=== PATIENT | female | born 1945 | race Caucasian/White ===

== ENCOUNTER 2020-03-07 10:20 | Inpatient (IN) ==
--- NOTE | 2020-02-22 13:24 | Anesthesiology Consultation ---
Date of Service February 22, 2020 Assessment & Plan (1) Encounter for pre-operative examination: Chart Review Chart Review: Pending: Refer to Additional Notes / Consult section (pending cardio clearance and preop Covid testing. ) and Patient NOT seen in Pre Admission Testing Awaiting cardio clearance (updated EKG from PAT showing RVR was faxed to cardio's office for review). Will await final cardio clearance. Surgeon's office was also informed of elevated WBC. Pt follows with Dr. Sanchez for cardiology and Dr. Klein in [place] for EP. Per nursing assessment 02/22/2020, [place] of [place] [facility]. Travels to [facility] of medical appts. Wears PPE in public. No known Covid positive contacts or Covid related symptoms. Scheduled for preop Covid testing 03/01/20 at [facility] in [place]. Patient discharged from [facility] on 02/08/2020 = patient initially presented with abdominal pain. Patient diagnosed with acute sigmoid diverticulitis, newly diagnosed left renal mass, paroxysmal A. fib, asymptomatic cholelithiasis. CT scan done as inpatient showed findings consistent with diverticulitis. Also showed 3.7 cm inferior left pole kidney mass. Also found to have small stones with possible sludge in gallbladder without secondary signs of infection. Patient was admitted and treated with IV Zosyn. Discharged on Augmentin x5 days. Also made arrangements to follow-up with urology as outpatient for newly diagnosed left renal tumor. Seen by EP on 02/01/20= seen for follow up on a fib. Pt interested in AF ablation. Risks and benefits of catheter ablation reviewed with patient. May need more that one ablation. Pt also warned this procedure may not be cure and AC may continue to be needed. Also reviewed antiarrhythmic therapy for rhythm management but patient not interested in additional medications at this time. Agreeable to ablation. Will obtain CT scan for anatomic definition of left atrium and pulmonary venous anatomy mapping prior to AF ablation. CHADS2-vasc is three which corresponds to 3.2% annual risk for thromboembolic events. On Eliquis. History Surgery Operation Date: 03/07/20 11:30 Proposed Procedures p Left Robotic Partial Nephrectomy - Horacio Gant MD Height/Weight Height: 5 ft 2.5 in Weight: 74.6 kg Allergies Allergy/AdvReac Type Severity Reaction Status Date / Time naproxen [From Naprosyn] Allergy Mild diarrhea Verified 02/22/20 12:14 Medications Home Medications Medication Instructions Recorded Confirmed Last Taken losartan 50 mg tablet 50 mg PO QAM 05/24/19 02/22/20 Unknown pravastatin 80 mg tablet 80 mg PO PM 05/24/19 02/22/20 Unknown apixaban 5 mg tablet 5 mg PO BID 09/27/19 02/22/20 Unknown cholecalciferol (vitamin D3) 10 10 mcg PO QDL 09/27/19 02/22/20 Unknown mcg (400 unit) capsule fish oil-dha-epa 1,200 mg-144 1 cap PO QAM 09/27/19 02/22/20 Unknown mg-216 mg capsule magnesium gluconate 27 mg 27 mg PO QAM 09/27/19 02/22/20 Unknown magnesium (500 mg) tablet raloxifene 60 mg tablet 60 mg PO QAM 09/27/19 02/22/20 Unknown vit C,E,zinc,copper-aucat5r 250 1 cap PO QAM 09/27/19 02/22/20 Unknown mg-lutein 5 mg-zeaxanthin 1 mg capsule metoprolol succinate 25 mg 50 mg PO QAM 11/27/19 02/22/20 Unknown tablet,extended release 24 hr solifenacin 10 mg tablet 10 mg PO DAILY #30 tab 12/07/19 02/22/20 Unknown coenzyme Q10 [Co Q-10] 100 mg PO PM 02/22/20 02/22/20 Unknown Past Medical History Medical History (Updated 02/26/20 @ 15:17 by Jessica Anton PA-C) Benign essential hypertension COPD (chronic obstructive pulmonary disease) Has seen Dr. Hernandez in the past - does not have COPD per patient Diverticulitis Discharged from [facility] 02/08/20- symptoms have since resolved per 02/26/20 PAT appt Hyperlipidemia Mitral valve prolapse Mitral valve "normal" per 07/2019 BILL Neoplasm of left kidney Osteopenia Paroxysmal atrial fibrillation Dx'ed in 2011- on Eliquis - had AF with RVR July 2019- underwent BILL guided DCCV. Recently had ILR implanted 11/2019. Prediabetes No medications Exercise / Class Metabolic Activity II 4-5 Yardwork/Stairs/Walk up hill (one flight of stairs- no chest pain or SOB ) Past Family History Family History Father Coronary heart disease Prostate cancer Myocardial infarction, Onset Age: 75 Hypertension Brother Alcohol abuse Heart disease Sister Breast cancer, Onset Age: 29 Mother Diabetes Hypertension Heart disease Past Surgical History Surgical History (Updated 02/26/20 @ 15:20 by Jessica Anton PA-C) History of bronchoscopy History of cardioversion July 2019 History of colonoscopy History of tonsillectomy and adenoidectomy S/P arthroscopic knee surgery right S/P section x4 S/P hysterectomy secondary to fibroids Status post placement of implantable loop recorder (11/2019) [employer]. Implanted Nov 2019 > follows dr. poncho ng cardiology - will be getting ablation Apr 2020 Past Anesthesia History No Hx of Anesthesia Complications and No Family Hx of Anesthesia Complications History of PONV No Hx of Motion Sickness and History of PONV (one episode with knee surgery ) Social History Smoking Status: Never smoker Do You Dip or Chew Tobacco: No Hx Alcohol Use: Yes Alcohol type: wine alcohol intake frequency: holidays/special occasions only Hx Substance Use: No substance use type: does not use Review of Systems Occ reflux - relieved OTC Tums Occ palpitations - secondary to a fib Patient denies chest pain, shortness of breath, dyspnea on exertion, cough, wheezing. No hx of seizures, stroke, RI, apnea/snoring. No hx of blood clots or blood transfusions Physical Exam Vital Signs VITALS BP 130/87 P 123 (did call cardio's office re: tachycardia- pt asymptomatic/chronic issue- cardio office states pt can go home and recommended EKG be faxed for Dr. Sanchez's review) TEMP 97.7 SP02 98% RESP 16 Constitutional no acute distress ENMT Mouth: no TMJ clicking Thyromental Distance: > or= 3.5 Finger Breadths (3.5) Mallampati Class: III No loose or missing teeth Caps and crowns on molars Neck neck extension not limited Respiratory normal respiratory effort; no respiratory distress Auscultation: lungs clear to auscultation bilaterally; no wheezes Cardiovascular Rate/Rhythm: regular rate and regular rhythm Heart Sounds: no murmur Vessels: no carotid bruit Musculoskeletal Spine: no pain with cervical ROM Extremities: extremities normal to inspection Psychiatric Orientation: alert Testing Laboratory Results 02/26/20 14:08 02/26/20 14:08 Urine Color Yellow 02/26/20 14:08 Urine Appearance Clear (Clear) 02/26/20 14:08 Urine pH 5.5 (4.5-7.5) 02/26/20 14:08 Ur Specific [place] 1.021 (1.000-1.030) 02/26/20 14:08 Urine Protein Negative (Negative) 02/26/20 14:08 Urine Glucose (UA) Negative (Negative) 02/26/20 14:08 Urine Ketones Negative (Negative) 02/26/20 14:08 Urine Nitrite Negative (Negative) 02/26/20 14:08 Ur Leukocyte Esterase Negative (Negative) 02/26/20 14:08 Blood Type O Negative 02/26/20 14:08 Antibody Screen NEGATIVE 02/26/20 14:08 Electrocardiogram Date: 02/26/20 Atrial fibrillation with RVR at 119 bpm. Chest X-Ray Date: 06/29/19 Findings: + NAD Mildly hyperinflated and essentially clear aside from linear densities in both lower lungs that are combination of platelike atelectasis and scars, some which are new since 05/24/2019 and others of which are unchanged since 2016. No infiltrate. Echocardiogram Date: 08/14/19 EF: 55-60% LV Function: normal Valvular Disease: + MR (Mild) BILL Normal left ventricle size. Normal right ventricle size. Right ventricle is normal function. Nonrestrictive aortic valve. No thrombus in left atrial appendage. Stress Test Date: 02/02/19 Type: exercise MPHR =133%. 10.1 METS achieved. Negative EKG stress test. No chest pain associated with exertion. Atrial arrhythmia periodically demonstrated with stress testing.
--- NOTE | 2020-02-22 16:27 | PAT Medication Instructions ---
Medication Instructions Date of Service February 22, 2020 Home Medications Medication Instructions Recorded albuterol sulfate 90 mcg/actuation 1 puffs INH .COMPLEX PRN #18 gm 06/22/19 aerosol inhaler solifenacin 10 mg tablet 10 mg PO DAILY #30 tab 12/07/19 losartan 50 mg tablet 50 mg PO QAM pravastatin 80 mg tablet 80 mg PO PM albuterol sulfate 90 mcg/actuation aerosol inhaler 1 puffs INH .COMPLEX PRN apixaban 5 mg tablet 5 mg PO BID cholecalciferol (vitamin D3) 10 mcg (400 unit) capsule 10 mcg PO QDL fish oil-dha-epa 1,200 mg-144 mg-216 mg capsule 1 cap PO QAM magnesium gluconate 27 mg magnesium (500 mg) tablet 27 mg PO QAM raloxifene 60 mg tablet 60 mg PO QAM vit C,E,zinc,copper-odbxk9l 250 mg-lutein 5 mg-zeaxanthin 1 mg capsule 1 cap PO QAM metoprolol succinate 25 mg tablet,extended release 24 hr 50 mg PO QAM solifenacin 10 mg tablet 10 mg PO DAILY coenzyme Q10 [Co Q-10] 100 mg PO PM ASK your prescriber and surgeon apixaban 5 mg tablet 5 mg PO BID STOP taking 2 weeks before surgery coenzyme Q10 [Co Q-10] 100 mg PO PM fish oil-dha-epa 1,200 mg-144 mg-216 mg capsule 1 cap PO QAM vit C,E,zinc,copper-watnh7f 250 mg-lutein 5 mg-zeaxanthin 1 mg capsule 1 cap PO QAM DO NOT take the morning of surgery losartan 50 mg tablet 50 mg PO QAM cholecalciferol (vitamin D3) 10 mcg (400 unit) capsule 10 mcg PO QDL magnesium gluconate 27 mg magnesium (500 mg) tablet 27 mg PO QAM raloxifene 60 mg tablet 60 mg PO QAM (unless surgeon directs otherwise) solifenacin 10 mg tablet 10 mg PO DAILY Take morning of surgery With a small sip of water, OTHERWISE NOTHING TO EAT OR DRINK AFTER MIDNIGHT: albuterol sulfate 90 mcg/actuation aerosol inhaler 1 puffs INH .COMPLEX PRN (use if needed; please bring with you to hospital day of surgery if possible) metoprolol succinate 25 mg tablet,extended release 24 hr 50 mg PO QAM Take evening before surgery pravastatin 80 mg tablet 80 mg PO PM albuterol sulfate 90 mcg/actuation aerosol inhaler 1 puffs INH .COMPLEX PRN (if needed) Other Notes If you have any questions please call us at [phone] or [phone] or [phone] or [phone]
[2020-02-26 15:33] LABS: Basophils # (auto) 0.01 K/uL (0-0.2); Basophils % (auto) 0.1 %; Hematocrit (blood only) 45.5 % (37-47); Hemoglobin 14.8 g/dL (12.0-16.0); Immature Granulocytes # (auto) 0.07 K/uL (0.00-0.02); Immature Granulocytes % (auto) 0.6 %; Lymphocytes # (auto) 3.45 K/uL (1.2-3.4); Lymphocytes % (auto) 27.3 %; Mean Corpuscular Hemoglobin 29.8 pg (25-34); Mean Corpuscular Hgb Conc 32.5 g/dL (32-36); Mean Corpuscular Volume 91.5 fL (80-100); Monocytes # (auto) 0.99 K/uL (0.11-0.59); Monocytes % (auto) 7.8 %; Neutrophils # (auto) 8.12 K/uL (1.4-6.5); Neutrophils % (auto) 64.2 %; Platelet Count 338 K/uL (130-400); RDW Coefficient of Variation 13.9 % (11.5-14.5); RDW Standard Deviation 46.5 fL (36.4-46.3); Red Blood Count 4.97 M/uL (4.2-5.4); White Blood Count 12.64 K/uL (4.8-10.8)
[2020-02-26 15:39] LABS: BUN Creatinine Ratio 21.2 (10-20); Calcium 9.9 mg/dl (8.5-10.1); Creatinine Clr Calc Pharmacy 48.7 ml/min; Est GFR (African American) 66.7; Est GFR (Non-African American) 57.5; Potassium 4.2 mmol/L (3.5-5.1)
[2020-02-26 15:47] LABS: Appearance Urine Clear (Clear); Bilirubin Urine Negative (Negative); Blood Urine Negative (Negative); Color Urine Yellow; Glucose Urine UA Negative (Negative); Ketones Urine Negative (Negative); Leukocyte Esterase Urine Negative (Negative); Nitrite Urine Negative (Negative); Protein Urine Negative (Negative); Specific Gravity Urine 1.021 (1.000-1.030); Urobilinogen Urine Negative (Negative); pH Urine 5.5 (4.5-7.5)
--- NOTE | 2020-02-26 16:47 | Electrocardiogram Report ---
Test Reason : Blood Pressure : / mmHG Vent. Rate : 119 BPM Atrial Rate : 129 BPM P-R Int : 000 ms QRS Dur : 066 ms QT Int : 288 ms P-R-T Axes : 000 046 016 degrees QTc Int : 405 ms Atrial fibrillation with rapid ventricular response Abnormal ECG No previous ECGs available Confirmed by Jeremy Doherty ([id number]) on 02/26/2020 4:47:21 PM Referred By: Horacio Gant Confirmed By:Jeremy Doherty
[~2020-03-07 10:20] MED LIST: LACTATED RINGER'S 1,000 ML IV SCH; ceFAZolin 2000MG 2,000 MG/15 ML SYR IV SCH
[2020-03-07] MEDS ORDERED: LIDOCAINE HCL 2% 2 ML VIAL/AMP(20MG/ML) INFIL ONE (11:53)
[2020-03-07] MEDS ORDERED: GLYCOPYRROLATE 0.2 MG/ML VIAL ONE ×2 (11:53→15:31)
[2020-03-07] MEDS ORDERED: ONDANSETRON INJ 2 MG/ML 2 ML VIAL ONE (11:53)
[2020-03-07] MEDS ORDERED: NEOSTIGMINE METHYLSULFATE 5 MG/5 ML SYR ONE (11:53)
[2020-03-07] MEDS ORDERED: DEXAMETHASONE SOD INJ 4 MG/ML VIAL ONE (11:53)
[2020-03-07] MEDS ORDERED: PROPOFOL IV EMULSION 10 MG/ML 20 ML VIAL IV ONE (11:53)
[2020-03-07] MEDS ORDERED: fentaNYL citrate 100 MCG/2 ML VIAL ONE (11:54)
[2020-03-07] MEDS ORDERED: MIDAZOLAM HCL 1 MG/ML 2ML VIAL ONE (11:54)
[2020-03-07] MEDS ORDERED: PROMETHAZINE HCL 12.5 MG in SODIUM CHLORIDE 0.9% 50 ML IV PRN (12:37)
[2020-03-07] MEDS ORDERED: HYDROmorphone INJ 2 MG/ML SYR/VIAL IV PRN (12:37)
[2020-03-07] MEDS ORDERED: ONDANSETRON INJ 2 MG/ML 2 ML VIAL IV PRN ×2 (12:37→17:00)
[2020-03-07] MEDS ORDERED: ePHEDrine sulfate 50 MG/ML AMP IV PRN (12:37)
[2020-03-07] MEDS ORDERED: ATROPINE SULFATE 0.1 MG/ML 10ML SYR IV PRN (12:37)
[2020-03-07] MEDS ORDERED: METOCLOPRAMIDE HCL INJ 5 MG/ML 2 ML VIAL IV PRN (12:37)
[2020-03-07] MEDS ORDERED: BUPIVACAINE 0.5 % 5 MG/1 ML MPF 30ML VIAL ONE (12:46)
--- NOTE | 2020-03-07 12:52 | History & Physical Bridge Note ---
Date of Service March 07, 2020 History & Physical Bridge Note I have examined the patient, reviewed the History & Physical and in the interval since the performance of the History & Physical I have noted the following changes of clinical significance: no changes noted
[2020-03-07] MEDS ORDERED: PHENYLEPHRINE 100MCG/ML 5ML SYR ONE (13:35)
[2020-03-07] MEDS ORDERED: ceFAZolin 2000MG 2,000 MG/15 ML SYR IV ONE (14:07)
[2020-03-07] MEDS ORDERED: TISSEEL FIBRIN SEALANT 10ML TOP ONE (14:07)
[2020-03-07] MEDS ORDERED: FLOSEAL HEMOSTATIC MATRIX 10ML TOP ONE (14:08)
[2020-03-07] MEDS ORDERED: SURGICEL ABSORB HEMOSTAT 2IN X 14IN TOP ONE (14:09)
[2020-03-07] MEDS: fentaNYL citrate 100 MCG/2 ML VIAL IV PRN ×2 (16:13→16:18)
[2020-03-07] MEDS ORDERED: HYDROmorphone INJ 1 MG/ML SYRINGE ONE (16:14)
--- NOTE | 2020-03-07 16:18 | Operative Report ---
PG Post Operative Report Pre & Post Diagnosis Operation Date: 03/07/20 12:35 Pre-Op Diagnosis: Left Renal Mass Post-Op Diagnosis: Left Renal Mass I identified the patient and participated in the time-out.: Yes Procedure Operation Date: 03/07/20 12:35 Actual Procedures p Left Robotic Partial Nephrectomy(Left) - Horacio Gant MD Surgeon Jhon Gant MD [employer] Jeremy Gentile; Debbie Hewitt; Kanika Bernal Estimated Blood Loss 50 Findings Consistent with Post-Op Diagnosis Specimens Left renal mass Description of Procedure Patient was identified in the preoperative holding area, appropriate informed consents were reviewed and completed and she was transported to the operating suite. Upon arrival she received appropriate preoperative antibiotics as well as general anesthesia. She was placed in a [id number] left side up lateral decubitus position. The bed was flexed and she was sterilely prepped and draped in standard fashion. After reviewing appropriate preoperative imaging, a Veress needle was passed into the left upper quadrant and the abdomen insufflated to 15 mmHg. I then marked tentative port locations before entering the abdomen with a 8 mm Visiport just lateral to the rectus border. This was just above the level of the umbilicus. Inspection revealed minimal to no adhesions in the left upper quadrant. She does have some adhesions in the lower midlineas would be expected from her prior C-sections. I marked other tentative port sites and subsequently placed 2 additional 8 mm ports in line with the first port but approximately 6 to 8 cm from it. 2 - 12 mm chef's assistant ports were placed just medial to this series of ports. We then docked the robot and began the surgery by incising the white line of Toldt and medializing the colon. Of note, there was a notable bulge visualized upon docking the robot and this was confirmed to be the tumor after mobilizing the colon. There is attenuated Gerota's fascia over this tumor, normal renal parenchyma was visualized around the perimeter of the tumor. I continue to mobilize through the splenic flexure and visualize the upper pole of the kidney. As we continued to dissect I encountered the gonadal vein inferior and medial to the kidney and I followed the gonadal vein to the renal vein. The renal artery was located immediately posterior to the renal vein and was easily dissected. There were no notable branches on either the vein or the artery. Both were cleared circumferentially to allow bulldog placement later. I then turned my attention back to the mass. I exposed the normal parenchyma around the border of the mass utilizing a combination of bipolar and monopolar electrocautery. I passed a laparoscopic ultrasound and performed an ultrasonographic evaluation of the mass. This confirmed the dimensions of the mass and help to judy appropriate borders for my resection. I scored the capsule of the kidney utilizing monopolar electrocautery. At that time I preplaced several sutures into the abdomen. We then marked the time and clamped the renal artery with a solitary bulldog clamp. A second clamp was placed on the renal vein. I then began to incise my previously marked area around the kidney mass. I carried this dissection through the superficial cortical tissue and into some sinus fat. Several vessels and collecting system were encountered. After entirely excising the mass, I utilized one of the previously placed suturesa 3-0 V-Loc to close the deeper structures including the vascular and collecting system openings. I controlled this with a Weck clip placed on the distal end as well as on the proximal end and tensioned it appropriately. I then utilized one of the additional 2-0 V-Loc to perform the remainder of the renorraphy utilizing a sliding clip technique. 4 passes across the defect entirely closed it. There was excellent apposition of the tissue and good hemostasis. I subsequently chose to remove the bulldog clamps, first removing the venous clamp followed by the arterial clamp. Hemostasis remained excellent at that time. Warm ischemia time was 16 minutes. I did use some cautery to cauterize the cut edges of the capsule to ensure persistent hemostasis. I then placed FloSeal across the defect followed by a layer of Tisseel. There was minimal perinephric fat but I did attempt to reapproximate some of this pad across the defect. The tumor was collected in an Endo Catch bag and after again confirming excellent hemostasis we undocked the robot. Specimen was extracted through the lowest robotic port after expanding this incision to a length of approximately 3 cm. The fascia in this incision was closed with 0 PDS. Jesus's fascia was r eapproximated utilizing a 0 Vicryl followed by closure of the skin with a 4-0 Monocryl. All other incisions were closed with a combination of a 0 Vicryl and a 4-0 Monocryl. All wounds were infiltrated with half percent Marcaine. Dermabond was placed over all the incisions. At that time she was reversed from anesthesia and extubated. She was taken to the PACU in stable condition. There were no complications. Jeremy Gentile assisted through the rinaldi portions of the case, Debbie Hewitt and Kanika Bernal were present and assisting from incision to closure. I attest to the content of the Intraoperative Record and any orders documented therein. Any exceptions are noted below.
--- NOTE | 2020-03-07 16:41 | Anesthesiology Progress Note ---
Date of Service March 07, 2020 Anesthesia Post Procedure Vital Signs Vital Signs: Temp Pulse Pulse Resp BP BP Pulse Ox 03/07/20 16:30 87 16 107/64 96 03/07/20 16:20 89 16 117/75 100 03/07/20 16:10 107 H 16 123/85 98 03/07/20 16:03 36.4 C L 95 H 16 128/97 98 03/07/20 10:51 36.5 C 90 20 129/76 100 Transfer of Care Handoff Completed per policy Notes Mental Status: alert / awake / arousable and participated in evaluation Patient Amnestic to Procedure: Yes Nausea / Vomiting: adequately controlled Pain: adequately controlled Airway Patency, RR, SpO2: stable & adequate BP & HR: stable & adequate Hydration State: stable & adequate Anesthetic Complications: no major complications apparent
[2020-03-07] MEDS ORDERED: oxyCODONE HCL IR 5 MG TAB (IMMEDIATE RELEASE) PO PRN (17:00)
[2020-03-07] MEDS ORDERED: MoRPHine SULFATE 2 MG/ML CARP IV PRN ×2 (17:00→17:09)
[2020-03-07] MEDS ORDERED: MoRPHine SULFATE 4 MG/ML 1 ML CARP\\VIAL IV PRN (17:00)
[2020-03-07] MEDS ORDERED: ALUMINUM/MAGNESIUM SUSP 30 ML UDC PO PRN (17:00)
[2020-03-07] MEDS: LACTATED RINGER'S 1,000 ML IV SCH (17:17)
[2020-03-07 17:24] LABS: Basophils # (auto) 0.01 K/uL (0-0.2); Basophils % (auto) 0.1 %; Eosinophils # (auto) 0.01 K/uL (0-0.5); Eosinophils % (auto) 0.1 %; Hematocrit (blood only) 41.7 % (37-47); Hemoglobin 13.5 g/dL (12.0-16.0); Immature Granulocytes # (auto) 0.04 K/uL (0.00-0.02); Immature Granulocytes % (auto) 0.3 %; Lymphocytes # (auto) 1.46 K/uL (1.2-3.4); Mean Corpuscular Hemoglobin 30.1 pg (25-34); Mean Corpuscular Volume 92.9 fL (80-100); Mean Platelet Volume 9.8 fL (7.4-10.4); Neutrophils # (auto) 11.31 K/uL (1.4-6.5); Neutrophils % (auto) 85.5 %; Platelet Count 204 K/uL (130-400); RDW Coefficient of Variation 13.9 % (11.5-14.5); RDW Standard Deviation 47.1 fL (36.4-46.3); Red Blood Count 4.49 M/uL (4.2-5.4); White Blood Count 13.23 K/uL (4.8-10.8)
[2020-03-07 17:32] LABS: Mean Corpuscular Hgb Conc 32.4 g/dL (32-36)
[2020-03-07 17:41] LABS: BUN Creatinine Ratio 15.3 (10-20); Calcium 8.7 mg/dl (8.5-10.1); Creatinine Clr Calc Pharmacy 40.8 ml/min; Est GFR (African American) 53.2; Est GFR (Non-African American) 45.9; Potassium 4.5 mmol/L (3.5-5.1)
[2020-03-07] MEDS: oxyCODONE HCL IR 5 MG TAB (IMMEDIATE RELEASE) PO PRN (18:25)
[2020-03-07] MEDS: DIGOXIN 0.25 MG TAB PO SCH (18:25)
[2020-03-07] MEDS: PRAVASTATIN SOD 40 MG TAB PO SCH (20:41)
[2020-03-07] MEDS: PANTOprazole 40 MG TAB PO SCH (20:42)
[2020-03-07] MEDS: METOPROLOL SUCC 50MG EXT REL TAB PO SCH (20:42)
[2020-03-07] MEDS: dilTIAZem HCL 120 MG CAPCR PO SCH (20:42)
[2020-03-07] MEDS ORDERED: NON-FORMULARY MEDICATION (Coenzyme Q10 [Co Q-10] 100 mg Capsule) PO SCH (21:00)
[2020-03-07] MEDS: ceFAZolin 2000MG 2,000 MG/15 ML SYR IV SCH (21:51)
[2020-03-08] MEDS: LACTATED RINGER'S 1,000 ML IV SCH ×3 (02:49→22:43)
[2020-03-08] MEDS: ceFAZolin 2000MG 2,000 MG/15 ML SYR IV SCH (06:18)
--- NOTE | 2020-03-08 07:23 | Urology Progress Note ---
Date of Service March 08, 2020 Assessment & Plan (1) Neoplasm of left kidney: POD #1 s/p L robotic partial nephrectomy - doing very well - OOB today - await labs - frausto out - advance diet - hx of afib - currently rate controlled, eliquis held - ideally until early next week - cont tele for now - monitor closely Admission and Anticipated Discharge Date Admission Date: March 07, 2020 Subjective doing very well no major pain overnight did not ambulate hungry good UoP - clear heart rate remained controlled - no subjective appreciation of palpitations, etc Physical Exam Physical Exam: incisions appropriate - no drainage, no erythema abd soft, minimal tenderness urine clear (frausto) Results & Data ([facility]) Vital Signs (Past 12 Hours) Vital Signs Temp Pulse Resp BP Pulse Ox 03/08/20 03:33 37 C 69 16 110/70 97 03/07/20 23:17 36.6 C 78 16 111/74 94 03/07/20 19:30 36.3 C L 73 18 125/82 93 PG Care Time/CCT Total # of Minutes Spent Total Time Spent with Patient: Total time spent is greater than 50% in coordination of care (as documented) at patient's floor/unit and/or counseling patient: Coding Level of Care Code 53542 Subseq Hosp Care Lvl 2 Diagnoses Neoplasm of left kidney D49.512
[2020-03-08 07:32] LABS: Hemoglobin 12.3 g/dL (12.0-16.0); Immature Granulocytes # (auto) 0.02 K/uL (0.00-0.02); Immature Granulocytes % (auto) 0.1 %; Lymphocytes # (auto) 1.92 K/uL (1.2-3.4); Lymphocytes % (auto) 13.4 %; Mean Corpuscular Hgb Conc 32.4 g/dL (32-36); Mean Corpuscular Volume 92.7 fL (80-100); Mean Platelet Volume 9.8 fL (7.4-10.4); Monocytes % (auto) 5.6 %; Neutrophils # (auto) 11.58 K/uL (1.4-6.5); Neutrophils % (auto) 80.9 %; Platelet Count 179 K/uL (130-400); RDW Standard Deviation 47.7 fL (36.4-46.3); White Blood Count 14.32 K/uL (4.8-10.8)
[2020-03-08 08:05] LABS: BUN Creatinine Ratio 15.8 (10-20); Calcium 8.6 mg/dl (8.5-10.1); Est GFR (African American) 55.4; Est GFR (Non-African American) 47.8; Potassium 4.1 mmol/L (3.5-5.1)
[2020-03-08] MEDS: dilTIAZem HCL 120 MG CAPCR PO SCH ×2 (09:04→20:01)
[2020-03-08] MEDS: RALOXIFENE HCL 60 MG TAB PO SCH (09:05)
[2020-03-08] MEDS: MAGNESIUM CHLORIDE 64MG DELAYED REL TAB PO SCH (09:05)
[2020-03-08] MEDS: CEROVITE ADV FORMULA TAB PO SCH (09:05)
[2020-03-08] MEDS: PANTOprazole 40 MG TAB PO SCH (09:05)
[2020-03-08] MEDS: LOSARTAN POTASSIUM 50 MG TAB PO SCH (09:09)
[2020-03-08] MEDS: METOPROLOL SUCC 50MG EXT REL TAB PO SCH ×2 (09:09→20:02)
[2020-03-08] MEDS: oxyCODONE HCL IR 5 MG TAB (IMMEDIATE RELEASE) PO PRN (09:21)
[2020-03-08] MEDS: ACETAMINOPHEN 325 MG TAB PO PRN ×2 (11:48→21:35)
[2020-03-08] MEDS: CHOLECALCIFEROL 400 UNITS 10 MCG TAB PO SCH (11:49)
[2020-03-08] MEDS: DIGOXIN 0.25 MG TAB PO SCH (17:44)
[2020-03-08] MEDS: PRAVASTATIN SOD 40 MG TAB PO SCH (20:01)
[2020-03-09 07:55] LABS: Basophils # (auto) 0.01 K/uL (0-0.2); Basophils % (auto) 0.1 %; Eosinophils # (auto) 0.02 K/uL (0-0.5); Eosinophils % (auto) 0.1 %; Hematocrit (blood only) 35.4 % (37-47); Hemoglobin 11.6 g/dL (12.0-16.0); Immature Granulocytes # (auto) 0.05 K/uL (0.00-0.02); Immature Granulocytes % (auto) 0.4 %; Lymphocytes # (auto) 2.49 K/uL (1.2-3.4); Lymphocytes % (auto) 17.5 %; Mean Corpuscular Hemoglobin 30.2 pg (25-34); Mean Corpuscular Hgb Conc 32.8 g/dL (32-36); Mean Corpuscular Volume 92.2 fL (80-100); Mean Platelet Volume 9.9 fL (7.4-10.4); Monocytes # (auto) 1.03 K/uL (0.11-0.59); Monocytes % (auto) 7.3 %; Neutrophils # (auto) 10.59 K/uL (1.4-6.5); Neutrophils % (auto) 74.6 %; Platelet Count 175 K/uL (130-400); RDW Standard Deviation 47.6 fL (36.4-46.3); Red Blood Count 3.84 M/uL (4.2-5.4); White Blood Count 14.19 K/uL (4.8-10.8)
[2020-03-09 08:27] LABS: BUN Creatinine Ratio 18.2 (10-20); Calcium 8.6 mg/dl (8.5-10.1); Creatinine Clr Calc Pharmacy 50.2 ml/min; Est GFR (African American) 66.7; Est GFR (Non-African American) 57.5
[2020-03-09] MEDS: CEROVITE ADV FORMULA TAB PO SCH (08:59)
[2020-03-09] MEDS: RALOXIFENE HCL 60 MG TAB PO SCH (08:59)
[2020-03-09] MEDS: PANTOprazole 40 MG TAB PO SCH (08:59)
[2020-03-09] MEDS: MAGNESIUM CHLORIDE 64MG DELAYED REL TAB PO SCH (08:59)
[2020-03-09] MEDS: LOSARTAN POTASSIUM 50 MG TAB PO SCH (08:59)
[2020-03-09] MEDS: LACTATED RINGER'S 1,000 ML IV SCH (09:03)
[2020-03-09] MEDS: ACETAMINOPHEN 325 MG TAB PO PRN ×2 (09:11→14:51)
[2020-03-09] MEDS: CHOLECALCIFEROL 400 UNITS 10 MCG TAB PO SCH (11:18)
--- NOTE | 2020-03-09 11:28 | Urology Progress Note ---
Date of Service March 09, 2020 Assessment & Plan (1) Neoplasm of left kidney: POD #2 s/p L robotic partial nephrectomy Patient continues to improve. Continue to monitor. No major fevers or chills. Has been slow to ambulate. Is slowly increasing diet as well. Patient was somewhat anxious about going home. We will plan to continue to monitor. If continues to improve patient likely able to be discharged possibly later today or tomorrow depending on results. Has history of bradycardia overnight. Had considerable issues with sleeping as well. Had a mild desaturation and was placed on oxygen which is being weaned off this morning. Has a few of her blood pressures medications being held. She had recently started a number of new medicines due to tachycardia. Will likely need to touch base with PCP to reevaluate and come up with plan for management with episodes of bradycardia if they continue. Patient does feel this time that she can go home. Has yet to have full return of bowel function. Encouraged small easy digest diets as well as ambulation. We will plan for discharge this afternoon Admission and Anticipated Discharge Date Admission Date: March 07, 2020 Subjective Postop from urologic surgery. Patient has been tolerating well, but is having some pain and discomfort. Incisions have been mild sore. Having some abdominal distension/gas pains. Has tolerated catheter. Has not had severe pain or uncontrollable pain. Patient has been ambulating. Has not had bowel movement or major change. No new nausea or vomiting. Had tolerated anesthesia without major problems Tolerated liquid diet postoperatively. Slowly advancing. Had bradycardia overnight. Patient had been placed on multiple new heart blood pressure medications in the last few months and feels that she is swelling from issues with tachycardia and her bradycardia. Held some of these this morning. And had no further issue. Also had mild desaturation overnight and was placed on low-flow oxygen. Patient is weaning off this morning. Review of Systems Review of Systems: All systems reviewed & are unremarkable except as noted in HPI & below Physical Exam Physical Exam: General: Alert in no acute distress. HEENT: Normocephalic Atraumatic. Inspection normal. Cranial Nerves 2-12 Grossly intact. Normal inspection of face. Normal inspection of neck. Psychologic: Normal affect. Respiratory: Nonlabored. No use of accessory muscles. No tachypnea or dyspnea. Cardiovascular: No tachycardia Skin: [place] and Dry. No rashes or visible lesions. Extremities/Lymphatics: No edema Abdomen: Appropriately tender. Mild distended. No rebound or guarding. Wound: Clean, dry, covered. Results & Data ([facility]) Vital Signs (Past 12 Hours) Vital Signs Temp Pulse Pulse Resp BP BP Pulse Ox 03/09/20 08:15 36.5 C 62 18 108/52 L 97 03/09/20 03:49 36.8 C 72 18 127/70 94 03/09/20 00:21 36.9 C 78 20 108/68 93 PG Care Time/CCT Total # of Minutes Spent Total Time Spent with Patient: Total time spent is greater than 50% in coordination of care (as documented) at patient's floor/unit and/or counseling patient: Coding Level of Care Code 00161 Subseq Hosp Care Lvl 3 Diagnoses Neoplasm of left kidney D49.512
[2020-03-09] MEDS: dilTIAZem HCL 120 MG CAPCR PO SCH (12:28)
[2020-03-09] MEDS: METOPROLOL SUCC 50MG EXT REL TAB PO SCH (12:29)
--- NOTE | 2020-03-09 12:35 | Discharge Summary ---
Date of Service March 09, 2020 Admission HPI Per Admitting Provider See H&P Admission Exam Per Admitting Provider See H&P Principal Diagnosis Left renal mass Discharge Exam General: Alert in no acute distress. HEENT: Normocephalic Atraumatic. Inspection normal. Psychologic: Normal affect. Skin: [place] and Dry. No rashes or visible lesions. Abdomen: Soft Non-distended. No rebound or guarding. 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 Continue to monitor. No major fevers or chills. Has been slow to ambulate. Is slowly increasing diet as well. Patient was somewhat anxious about going home. We will plan to continue to monitor. If continues to improve patient likely able to be discharged possibly later today or tomorrow depending on results. Has history of bradycardia overnight. Had considerable issues with sleeping as well. Had a mild desaturation and was placed on oxygen which is being weaned off this morning. Has a few of her blood pressures medications being held. She had recently started a number of new medicines due to tachycardia. Will likely need to touch base with PCP to reevaluate and come up with plan for management with episodes of bradycardia if they continue. Patient does feel this time that she can go home. Has yet to have full return of bowel function. Encouraged small easy digest diets as well as ambulation. We will plan for discharge this afternoon Total Time Total Time Spent Total Time Spent (In Minutes): 10 minutes Total Time Includes: Examination of the Patient, Discharge Planning, Medication Reconciliation and Communication With Other Providers Discharge Plan Discharge Items Patient Disposition: Home - Self-Care Reason For Visit: Renal Mass Discharge Diagnosis: Renal Mass Activity: Per Instructions section Lifting: No more than 10 pounds Bathing Comment: No tub baths or soaks. OK to shower 1 day after discharge. Sexual Activity: Wait until after follow-up appointment Exercise/Sports: Wait until after follow-up appointment Driving/Machine Use: Do not drive while taking prescription pain medication. Non-emergency contact: Surgeon and Urologist Call non-emergency contact if: your pain is not controlled, you have a fever, your temperature is above 101, your wound has increased redness, your wound has increased drainage and your wound pain has increased Follow-up/Referrals: Horacio Gant MD [Physician] - 03/20/20 10:45 am Flaquita Ortega, [Primary Care Provider] - Diet: Regular Addtl Attending Provider Instructions: Please take all medications as prescribed and keep all follow-ups as scheduled. Please call our office at [phone] with any questions, concerns or need to reschedule appointments for any reason. We are happy to assist you. Recovering at home: We recommend having someone with you for the first few days after surgery to help care for you. It is okay to shower tomorrow. Please avoid swimming, bathing or using hot tub until incisions are well healed. Avoid driving until you are not requiring pain medication any further. Walk at least a few times a day. Increase your distance, as you feel able. Stairs in your home are okay. Please avoid strenuous or sexual activity until your follow-up. We recommend using stool softener (i.e. Colace) to prevent constipation and straining, especially the first two weeks post operatively. Call [facility] at [phone] if you experience: Chest pain or trouble breathing (call [phone] or go to the hospital). Fever of 101F or higher Symptoms of infection at incision site, including redness or swelling, warmth, or bad-smelling drainage If you have catheter, and you notice: o Bloody urine or drainage that is dark red or has large clots (Please remember a small amount of blood is normal) o No drainage from the catheter for more than 6 hours o The catheter comes out of your bladder Pain that is not controlled with medicines Pending Studies at Discharge: Yes Studies:: Pathology Stand-Alone Forms: My [email or web address], Smoking Cessation Medications and DC Order Prescriptions: New Colace Clear 50 mg capsule 50 mg PO BID PRN (Reason: Constipation) Qty: 30 RF: 2 oxycodone 5 mg tablet 5 mg PO Q6H PRN (Reason: pain) Qty: 14 RF: 0 Colace Clear 50 mg capsule 50 mg PO BID PRN (Reason: constipation) Qty: 30 RF: 2 Continued Eliquis 5 mg tablet 5 mg PO BID RF: 0 raloxifene 60 mg tablet 60 mg PO QAM RF: 0 magnesium gluconate [Mag-G] 27 mg magnesium (500 mg) tablet 27 mg PO QAM RF: 0 fish oil-dha-epa 1,200-144-216 mg capsule 1 cap PO QAM RF: 0 cholecalciferol (vitamin D3) 10 mcg (400 unit) capsule 10 mcg PO QDL RF: 0 Ocuvite Adult 50 Plus 250-5-1 mg capsule 1 cap PO QAM RF: 0 metoprolol succinate 25 mg tablet extended release 24 hr 50 mg PO BID RF: 0 pravastatin 80 mg tablet 80 mg PO PM RF: 0 losartan 50 mg tablet 50 mg PO QAM RF: 0 coenzyme Q10 [Co Q-10] 100 mg Capsule 100 mg PO PM RF: 0 digoxin 250 mcg (0.25 mg) Tablet See Rx Instructions .ROUTE .COMPLEX RF: 0 diltiazem HCl 120 mg Capsule,Extended Release 12 Hr 120 mg PO BID RF: 0 Discharge Orders: Discharge Order (Routine); Ordered 03/09/20 Ordered By: Toro Gentile Admission Data Admit Date/Time: 03/07/20 16:13 Attending Provider: Horacio Gant Admit Provider: Horacio Gant Primary Care Provider: Flaquita Ortega Coding Level of Care Code D/C Day Management <30 mins Diagnoses Neoplasm of left kidney D49.512
--- NOTE | 2020-03-22 13:21 | Coding Query ---
PATHOLOGY To promote full compliance with coding requirements relating to patient care, physician participation is requested in all cases of greaser operator uncertainty. Please assist us with the question(s) below: Please review the Pathology report and please document any relevant diagnosis(es) below: Diagnosis(es): Renal oncocytoma Thank you Laura ALVAREZ
== END 2020-03-09 15:49 | disposition home or self-care (01) | DRG 658 ==
LOC: ASU 10:20 → 2S 16:13

== ENCOUNTER 2023-11-08 02:12 | Inpatient (IN) ==
[2023-11-08] MEDS: SODIUM CHLORIDE 0.9% 1,000 ML IV SCH ×2 (02:29→04:32)
--- NOTE | 2023-11-08 02:34 | Emergency Department Note ---
Impression & Plan Sepsis, Multifocal pneumonia, Anemia, Confusion, Atrial fibrillation with rapid ventricular response, Acute Lyme disease, Hyponatremia ED Provider Note ED Provider Note NAME: JANETT BAIN AGE:78 SEX: Female : 1945 ARRIVES VIA: EMS INFORMANT: Patient ED PROVIDER(s): Phuong Greer DO CHIEF COMPLAINT: Fever, confusion HPI: This is a 78-year-old female who presents via EMS after called EMS due to patient's increased confusion. He reported to them she has been ill over the last several days and he has been giving her Tylenol for fevers as well as doxycycline although EMS reports they do not know what the suspected source of her fever was. Patient became confused this evening prompting 's concern for additional evaluation. Patient complains of left low back pain and bilateral leg pain. She was noted by EMS to initially be hypoxic at 80% however saturations improved with initiation of oxygen via nasal cannula. Blood pressure stable throughout. Patient noted to be tachycardic in atrial fibrillation although EMS reports she does have a known history of atrial fibrillation. She denies any recent travel. She denies URI symptoms or abdominal pain. She denies any change in urine or stools. She denies any known sick contacts. PAST MEDICAL HISTORY:See Below PAST SURGICAL HISTORY:See Below FAMILY HISTORY:See Below SOCIAL HISTORY:See Below HOME MEDICATIONS:See Below ALLERGIES:See Below VITALS:See Below PHYSICAL EXAMINATION: GENERAL: alert, unwell appearing, well nourished, no distress, non-toxic EYE EXAM: normal conjunctiva, PERRL and EOM's grossly intact OROPHARYNX: no exudate, no erythema, lips, buccal mucosa, and tongue normal and mucous membranes are dry NECK: supple, no nuchal rigidity, no adenopathy, non-tender LUNGS: Decreased bilaterally to auscultation. Normal chest wall mechanics, no w/r/r, mild tachypnea HEART: no murmurs, S1 normal and S2 normal ABDOMEN: abdomen soft, non-tender, normo-active bowel sounds, no masses, no rebound or guarding. BACK: Back is symmetrical on inspection and there is no deformity, no midline tenderness, no CVA tenderness. SKIN: no rashes, petechiae, orbruising; warm to touch UPPER EXTREMITIES: upper extremities are grossly normal. FROM, nml pulses b/l. LOWER EXTREMITIES: No pitting edema. FROM, nml pulses b/l. NEURO EXAM: Normal sensorium, cranial nerves II-XII grossly intact, normal speech, no facial droop,nogross weakness of arms, no gross weakness of legs. Gross sensation intact. No ataxia. Vital Signs: reviewed and remarkable Differential Diagnosis: XAVIER, UTI, pneumonia, medication ADR, sepsis, dehydration, ICH, CVA, diverticulitis, viral syndrome, tickborne illness, as well as others were considered MEDICAL DECISION MAKING: This is a 78-year-old female who presents emergency department due to concern for confusion as well as recent fevers and myalgias. Patient ill-appearing on arrival. She had received 1 L of IV fluids en route from EMS. She was noted to be hypotensive and hypoxic. Oxygenation improved with initial use of nasal cannula however because patient appeared to be a mouth breather she was transition to an oxi mask. Labs drawn and sent, IV established, EKG and chest ray performed bedside interpreted by me and patient monitored on telemetry. Cultures, lactic acid, procalcitonin also sent. Patient was noted to be afebrile here however was hypotensive and additional IV fluids added. She was given a dose of IV antibiotics as a precaution due to concern for evolving sepsis. I did have an extensive conversation with the patient's who is a retired general surgeon once he presented to bedside. He was able to provide significant additional history. Patient noted to be in A-fib with RVR here although I suspect some of the rapid rate secondary to fever and infection. He states typically she is in normal sinus. Patient's heart rate improved with rehydration and temperature control. Patient did receive greater than 30 mL/KG of IV fluids based on actual body weight. No leukocytosis noted, however this may be due to 's initiation of amoxicillin at home over the last 2 days. She was noted to have a significantly elevated procalcitonin. Patient also noted to have hyponatremia, notes he was pushing her to drink more water. Patient's chest x-ray suggestive of multilobar pneumonia. Additional antibiotics were added as well as nasal swab for viral etiology. Patient sent for CT of the head as well as the abdomen and pelvis. These were reassuring but did note a possible pericardial effusion. Patient noted to have worsened anemia compared to prior although does note prior history of mild anemia. Labs from 2 weeks ago show hemoglobin around 10, and now in the emergency room or at 7. Type and screen added additionally. Patient became more awake and alert with hydration and initiation of antibiotics here. She denies any recent black or bloody stools. An order for Hemoccult in stools was added. Tickborne markers were also pulmonary related positive including the Lyme as well as a preliminary Babesia. I did update the and all of the results, we are waiting additional confirmatory studies. We did discuss that Babesia could be contributing to her anemia also. He states she has had prior colonoscopies which showed diverticulosis, no other acute abnormalities. Case discussed with the hospitalist team for additional evaluation and management. Consultation(s): 0400: Discussed with Dr. Razo, [facility] hospitalist team, for additional evaluation and management. ER Treatment Provided: See below 0245: Discussion with patient's who now presents to bedside. He states she has had chronic paresthesias and pain in bilateral lower extremities since having knee replacements. She had been on gabapentin for many months without any improvement. She felt her symptoms are worsening and saw Dr. Ortega approximately 1-1/2 weeks ago. They discussed the case with rheumatology who she saw additionally in the office and she was started on prednisone 20 mg daily for possible PMR. states she first began complaining of increased fatigue and fevers 10 days ago. Labs were sent by Dr. Ortega in the office. However after the initiation of steroids by this past Wednesday she felt markedly improved. On Wednesday she began to feel worse again complaining of fevers and fatigue as well as increasing pain. He states she never complained of chest pain or abdominal pain, she had no vomiting, no change in urine or stools, and no cough. He confirms no known sick contact or recent travel. He states while patient does have a history of atrial fibrillation she is typically in normal sinus rhythm as she has had 2 prior ablations. She does take diltiazem and flecainide daily as well as Eliquis. He was concern for possible evolving diverticulitis which she has had previously also and started her on amoxicillin which she has had several doses of in the last 2 days. 0452: Updated again at bedside. Patient now oriented, no longer confused which she confirms. She does not recall events of this evening or ambulance ride here. Diagnostics Interpreted By Me: -ECG: Atrial fibrillation at 134, normal axis, normal intervals, nonspecific ST/T wave changes -Cardiac Monitoring: An order was placed for continuous cardiac monitoring. The monitor shows a rate of 127 with atrial fibrillation rhythm. -Laboratory studies: As stated above and show below. -Imaging studies: cxr: No cardiomegaly, no wide mediastinum, appearance of bilateral infiltrates, no pleural effusion Triage Nursing Note Reviewed Prior/Outside Records Reviewed Critical Care: Critical care of 43 min performed to assess and manage high likelihood of life- threatening sepsis, involving labs and imaging performed with assessment to evaluate sepsis diagnosis with frequent reassessment. This time includes bedside time, treatment discussions with patient/family/consultants, documentation time and excludes procedure time. Past Med/Surg History Problem List (Updated 11/08/23 @ 07:54 by Phuong Greer DO) Hyponatremia (Acute) Acute Lyme disease (Acute) Atrial fibrillation with rapid ventricular response (Acute) Sepsis (Acute) Confusion (Acute) Anemia (Acute) Multifocal pneumonia (Acute) PMR (polymyalgia rheumatica) Osteoporosis Status post right knee replacement (07/19/23) Dyspnea on exertion Abnormal CT scan, lung Monoclonal gammopathy of unknown significance (MGUS) Prediabetes Paroxysmal atrial fibrillation (2011) Dx'ed in 2011- on Eliquis - had AF with RVR July 2019- underwent BILL guided DCCV. Recently had ILR implanted 11/2019. Hyperlipidemia Generalized osteoarthritis of multiple sites Diverticulosis Benign essential hypertension Arthritis Renal oncocytoma Vitamin D deficiency GERD (gastroesophageal reflux disease) Acrocyanosis IgG lambda monoclonal gammopathy Medical History (Updated 11/08/23 @ 07:54 by Phuong Greer DO) Mitral valve prolapse Mitral valve "normal" per 07/2019 BILL Surgical History History of arthroplasty of right knee (07/19/23) Status post left knee replacement (12/23/22) S/P ablation of atrial fibrillation (04/2020) Hx of partial nephrectomy (03/07/20) History of cardioversion History of bronchoscopy Status post placement of implantable loop recorder (11/2019) History of tonsillectomy and adenoidectomy S/P arthroscopic knee surgery S/P hysterectomy S/P section Family History Father Coronary heart disease Prostate cancer Myocardial infarction, Onset Age: 75 Hypertension Brother Alcohol abuse Heart disease Sister Breast cancer, Onset Age: 29 Mother Diabetes Hypertension Heart disease Grandmother (Maternal) Ovarian cancer Social History Smoking Status: Never smoker Second Hand Exposure: Yes (as child); Do You Dip or Chew Tobacco: No; Hx Alcohol Use: Yes Alcohol type: wine Alcohol Intake Frequency: Monthly or Less Hx Substance Use: No Preferred Language: Tajik Communication Ability: Effective Visual Impairment: No Limitations Hearing Ability: Use of Hearing Aid Validation Software Facilitator Required: No Beliefs That Will Affect Care: None marital status: Current Living Situation: Spouse current occupational status: retired Feels Safe at Home: Yes Childhood Exposure to Second-Hand Smoke: Yes Diet: regular Diet Comment: regular caffeine: No (1/2 caffeine) during the past year weight has: remained stable Dental Care, Regularly: Yes Physical Activity Frequency: Daily Physical Activity Frequency Comment: stairs Seatbelt Use: always Sunscreen Use: Yes Assistive Devices: None Allergies Allergies Allergy/AdvReac Type Severity Reaction Status Date / Time naproxen [From Naprosyn] AdvReac Intermediate diarrhea Verified 11/08/23 03:02 Methylmethacrylate Allergy Severe found Uncoded 11/08/23 03:02 during allergy testing. Home Meds Home Medications Medication Instructions Recorded Confirmed apixaban 5 mg tablet (Eliquis) 5 mg PO BID 09/27/19 11/08/23 fish oil-dha-epa 1,200 mg-144 1 cap PO QAM 09/27/19 11/08/23 mg-216 mg capsule multivitamin with minerals 2 tab PO DAILY 07/31/21 11/08/23 (Hair,Skin and Nails tablet) atorvastatin 80 mg tablet (Lipitor) 80 mg PO DAILY 02/06/22 11/08/23 calcium carbonate 500 mg PO DAILY 02/06/22 11/08/23 cholecalciferol (vitamin D3) 25 50 mcg PO DAILY 08/03/22 11/08/23 mcg (1,000 unit) capsule flecainide 100 mg tablet 50 mg PO BID 08/03/22 11/08/23 omeprazole 20 mg capsule,delayed 20 mg PO DAILY 08/03/22 11/08/23 release diltiazem HCl 120 mg See Rx Instructions .Route .COMPLEX 07/07/23 11/08/23 capsule,extended release 12 hr ferrous sulfate 325 mg (65 mg 325 mg PO DAILY 07/07/23 11/08/23 iron) tablet acetaminophen 325 mg capsule 325 mg PO QID PRN PAIN/FEVER 10/26/23 11/08/23 (Tylenol) gabapentin 600 mg tablet 300 mg PO DAILY 11/02/23 11/08/23 alendronate 70 mg tablet 70 mg PO WK 11/08/23 11/08/23 amoxicillin 875 mg tablet 875 mg PO BID 11/08/23 11/08/23 Previous Rx's Medication Instructions Recorded raloxifene 60 mg tablet 60 mg PO QAM #90 tabs 02/06/22 Flutter Valve #1 ea 02/05/23 mecobalamin (vitamin B12) 1,000 1,000 mcg PO DAILY #30 tabs 10/26/23 mcg chewable tablet prednisone 20 mg tablet 20 mg PO DAILY #30 tabs 10/26/23 pregabalin 50 mg capsule (Lyrica) 50 mg PO BID #60 caps 10/26/23 prednisone 5 mg tablet 15 mg (3 x 5 mg) PO DAILY #90 tabs 11/02/23 Results & Data (ED) Vital Signs Vital Signs - 24 hr 11/08/23 02:18 11/08/23 02:20 11/08/23 02:36 Temperature 37.3 C Temperature Source Oral Pulse Rate 125 H 117 H Pulse Rate [Apical] Pulse Rhythm Pulse Rhythm [Apical] Pulse Strength [Apical] Respiratory Rate 30 H Respiratory Effort / Characteristics Non-Labored Spontaneous Respiratory Depth Normal Respiratory Pattern Tachypnea Blood Pressure 129/62 Blood Pressure [Right Arm] Blood Pressure Mean 84 Blood Pressure Mean [Right Arm] Blood Pressure Position Semi-fowlers Blood Pressure Position [Right Arm] Pulse Oximetry 87 L 87 L Oxygen Delivery Method Room Air Room Air Nasal Cannula Oxygen Flow Rate 0 Sepsis Recent Fever Within 48 Hours Yes Sepsis New/Unexplained Change in Mental Status N/A Sepsis Action Taken by Nursing Physician Notified Oxygen Flow Rate - Titration 3 Pulse Oximetry Post Tiitration 93 11/08/23 02:38 11/08/23 03:30 11/08/23 04:00 Temperature Temperature Source Pulse Rate 108 H Pulse Rate [Apical] 108 H 113 H Pulse Rhythm Regular Pulse Rhythm [Apical] Regular Regular Pulse Strength [Apical] Normal Normal Respiratory Rate 26 H 18 20 Respiratory Effort / Characteristics Non-Labored Spontaneous Non-Labored Spontaneous Respiratory Depth Normal Normal Respiratory Pattern Regular Regular Blood Pressure Blood Pressure [Right Arm] 113/56 L 102/50 L Blood Pressure Mean Blood Pressure Mean [Right Arm] 75 67 Blood Pressure Position Blood Pressure Position [Right Arm] Lying Lying Pulse Oximetry 98 99 94 Oxygen Delivery Method Oxymask Oxymask Oxymask Oxygen Flow Rate 4 6 6 Sepsis Recent Fever Within 48 Hours Sepsis New/Unexplained Change in Mental Status Sepsis Action Taken by Nursing Oxygen Flow Rate - Titration Pulse Oximetry Post Tiitration 11/08/23 04:48 11/08/23 05:00 11/08/23 05:30 Temperature Temperature Source Pulse Rate Pulse Rate [Apical] 105 H 102 H 97 H Pulse Rhythm Pulse Rhythm [Apical] Regular Irregular Regular Pulse Strength [Apical] Normal Normal Normal Respiratory Rate 18 18 18 Respiratory Effort / Characteristics Non-Labored Spontaneous Non-Labored Spontaneous Non-Labored Spontaneous Respiratory Depth Normal Normal Normal Respiratory Pattern Regular Regular Regular Blood Pressure Blood Pressure [Right Arm] 90/51 L 109/47 L 100/60 Blood Pressure Mean Blood Pressure Mean [Right Arm] 64 67 73 Blood Pressure Position Blood Pressure Position [Right Arm] Lying Lying Lying Pulse Oximetry 96 92 96 Oxygen Delivery Method Oxymask Oxymask Oxymask Oxygen Flow Rate 4 4 4 Sepsis Recent Fever Within 48 Hours Sepsis New/Unexplained Change in Mental Status Sepsis Action Taken by Nursing Oxygen Flow Rate - Titration Pulse Oximetry Post Tiitration 11/08/23 06:00 11/08/23 06:30 Temperature Temperature Source Pulse Rate 86 Pulse Rate [Apical] 86 Pulse Rhythm Pulse Rhythm [Apical] Regular Pulse Strength [Apical] Normal Respiratory Rate 17 Respiratory Effort / Characteristics Non-Labored Spontaneous Respiratory Depth Normal Respiratory Pattern Regular Blood Pressure Blood Pressure [Right Arm] 101/55 L Blood Pressure Mean Blood Pressure Mean [Right Arm] 70 Blood Pressure Position Blood Pressure Position [Right Arm] Lying Pulse Oximetry 97 Oxygen Delivery Method Oxymask Oxygen Flow Rate 4 Sepsis Recent Fever Within 48 Hours Sepsis New/Unexplained Change in Mental Status Sepsis Action Taken by Nursing Oxygen Flow Rate - Titration Pulse Oximetry Post Tiitration Laboratory Data 11/08/23 02:20 11/08/23 02:20 Lab Results 0711/08/23 11/08/23 Range/Units 02:20 02:24 02:55 WBC 9.37 (4.8-10.8) K/ul RBC 2.61 L (4.20-5.40) M/uL Hgb 7.0 L (12.0-16.0) g/dl Hct 20.0 L* (37.0-47.0) % MCV 77.0 L (80.0-100.0) fL MCH 26.8 (25.0-34.0) pg MCHC 34.8 (32.0-36.0) g/dL RDW Std Deviation 41.3 (36.4-46.3) fL RDW Coeff of Sanjuana 15.2 H (11.5-14.5) % Plt Count 70 L (130-400) K/uL Absolute Nucleated RBC 0.10 (0.00-0.12) K/uL Nucleated RBC % (auto) 1.0 % Toxic Vacuolation 1+ Platelet Estimate Decreased L (Normal) Polychromasia 2+ PT 11.2 (9.0-12.0) Seconds INR 1.0 (0.9-1.1) VBG pH 7.42 H (7.36-7.41) VBG pCO2 30 L (38-50) mmHg VBG pO2 21 mmHg VBG HCO3 20 mmol/L VBG O2 Saturation < 60.0 % VBG Base Excess -3.9 mEq/L Sodium 130 L (136-145) mmol/L Potassium 3.8 (3.5-5.1) mmol/L Chloride 104 (98-107) mmol/L Carbon Dioxide 20 L (21-32) mmol/L Anion Gap 6 (3-11) BUN 31 H (6-23) mg/dl Creatinine 0.83 (0.6-1.2) mg/dl Est Cr Clr Drug Dosing 51.8 ml/min Est GFR ( Amer) 78.3 ml/min Est GFR (Non-Af Amer) 67.5 ml/min BUN/Creatinine Ratio 37.3 H (10-20) Glucose 89 (70-99(Fasting)) mg/dl Lactate 1.9 (0.4-2.0) mmol/L Calcium 7.0 L (8.6-10.3) mg/dl Magnesium 1.8 (1.7-2.4) mg/dl Total Bilirubin 2.0 H (0.2-1.0) mg/dl Direct Bilirubin 0.4 H (0-0.2) mg/dl AST 101 H (13-39) U/L ALT 39 (7-52) U/L Alkaline Phosphatase 64 (34-104) U/L Troponin I High Sens 28.6 H (0-14) pg/ml Total Protein 5.5 L (6.0-8.3) gm/dl Albumin 2.2 L (3.4-5.0) gm/dl Procalcitonin 26.50 H (0-0.5) ng/ml Urine Color Dark Yellow Urine Appearance Turbid A (Clear) Urine pH 6.5 (4.5-7.5) Ur Specific [place] 1.023 (1.000-1.030) Urine Protein 3+ H (Negative) Urine Glucose (UA) Negative (Negative) Urine Ketones Negative (Negative) Urine Blood 3+ H (Negative) Urine Nitrite Negative (Negative) Urine Bilirubin Negative (Negative) Urine Urobilinogen Negative (Negative) Ur Leukocyte Esterase Trace H (Negative) Urine WBC (Auto) 0-5 (0-5) /hpf Urine RBC (Auto) 3-5 H (0-2) /hpf U Hyaline Cast (Auto) 6-10 H (0-2) /lpf U Epithel Cells (Auto) 3-5 H (0-2) /hpf Urine Bacteria (Auto) None Seen (None Seen) Amorphous Sediment Present A (None Prsent) Granular Casts Present A (None Prsent) /lpf Adenovirus (PCR) Not Detected (NotDetected) Anaplasma Smear See Comment Babesia Smear See Comment A B. pertussis DNA (PCR) Not Detected (NotDetected) B.parapertussis DNA PCR Not Detected (NotDetected) Lyme Disease Screen Positive H (Negative) Lyme Tier 2 IgG Confirm Positive H (Negative) Lyme Tier 2 IgM Confirm Positive H (Negative) C. pneumoniae DNA (PCR) Not Detected (NotDetected) Coronavirus OC43 (PCR) Not Detected (NotDetected) Coronavirus HKU1 (PCR) Not Detected (NotDetected) Coronavirus 229E (PCR) Not Detected (NotDetected) SARS-CoV-2 (PCR) Not Detected (NotDetected) Coronavirus NL63 (PCR) Not Detected (NotDetected) Human Metapneumovir PCR Not Detected (NotDetected) Influenza Type A (PCR) Not Detected (NotDetected) Influenza Type B (PCR) Not Detected (NotDetected) M. pneumoniae (PCR) Not Detected (NotDetected) Parainfluenza 1 (PCR) Not Detected (NotDetected) Parainfluenza 2 (PCR) Not Detected (NotDetected) Parainfluenza 3 (PCR) Not Detected (NotDetected) Parainfluenza 4 (PCR) Not Detected (NotDetected) RSV (PCR) Not Detected (NotDetected) Entero/Rhino (PCR) Not Detected (NotDetected) Blood Type Antibody Screen 11/08/23 11/08/23 Range/Units 03:00 04:38 WBC (4.8-10.8) K/ul RBC (4.20-5.40) M/uL Hgb (12.0-16.0) g/dl Hct (37.0-47.0) % MCV (80.0-100.0) fL MCH (25.0-34.0) pg MCHC (32.0-36.0) g/dL RDW Std Deviation (36.4-46.3) fL RDW Coeff of Sanjuana (11.5-14.5) % Plt Count (130-400) K/uL Absolute Nucleated RBC (0.00-0.12) K/uL Nucleated RBC % (auto) % Toxic Vacuolation Platelet Estimate (Normal) Polychromasia PT (9.0-12.0) Seconds INR (0.9-1.1) VBG pH (7.36-7.41) VBG pCO2 (38-50) mmHg VBG pO2 mmHg VBG HCO3 mmol/L VBG O2 Saturation % VBG Base Excess mEq/L Sodium (136-145) mmol/L Potassium (3.5-5.1) mmol/L Chloride (98-107) mmol/L Carbon Dioxide (21-32) mmol/L Anion Gap (3-11) BUN (6-23) mg/dl Creatinine (0.6-1.2) mg/dl Est Cr Clr Drug Dosing ml/min Est GFR ( Amer) ml/min Est GFR (Non-Af Amer) ml/min BUN/Creatinine Ratio (10-20) Glucose (70-99(Fasting)) mg/dl Lactate (0.4-2.0) mmol/L Calcium (8.6-10.3) mg/dl Magnesium (1.7-2.4) mg/dl Total Bilirubin (0.2-1.0) mg/dl Direct Bilirubin (0-0.2) mg/dl AST (13-39) U/L ALT (7-52) U/L Alkaline Phosphatase (34-104) U/L Troponin I High Sens 36.4 H (0-14) pg/ml Total Protein (6.0-8.3) gm/dl Albumin (3.4-5.0) gm/dl Procalcitonin (0-0.5) ng/ml Urine Color Urine Appearance (Clear) Urine pH (4.5-7.5) Ur Specific [place] (1.000-1.030) Urine Protein (Negative) Urine Glucose (UA) (Negative) Urine Ketones (Negative) Urine Blood (Negative) Urine Nitrite (Negative) Urine Bilirubin (Negative) Urine Urobilinogen (Negative) Ur Leukocyte Esterase (Negative) Urine WBC (Auto) (0-5) /hpf Urine RBC (Auto) (0-2) /hpf U Hyaline Cast (Auto) (0-2) /lpf U Epithel Cells (Auto) (0-2) /hpf Urine Bacteria (Auto) (None Seen) Amorphous Sediment (None Prsent) Granular Casts (None Prsent) /lpf Adenovirus (PCR) (NotDetected) Anaplasma Smear Babesia Smear B. pertussis DNA (PCR) (NotDetected) B.parapertussis DNA PCR (NotDetected) Lyme Disease Screen (Negative) Lyme Tier 2 IgG Confirm (Negative) Lyme Tier 2 IgM Confirm (Negative) C. pneumoniae DNA (PCR) (NotDetected) Coronavirus OC43 (PCR) (NotDetected) Coronavirus HKU1 (PCR) (NotDetected) Coronavirus 229E (PCR) (NotDetected) SARS-CoV-2 (PCR) (NotDetected) Coronavirus NL63 (PCR) (NotDetected) Human Metapneumovir PCR (NotDetected) Influenza Type A (PCR) (NotDetected) Influenza Type B (PCR) (NotDetected) M. pneumoniae (PCR) (NotDetected) Parainfluenza 1 (PCR) (NotDetected) Parainfluenza 2 (PCR) (NotDetected) Parainfluenza 3 (PCR) (NotDetected) Parainfluenza 4 (PCR) (NotDetected) RSV (PCR) (NotDetected) Entero/Rhino (PCR) (NotDetected) Blood Type O Negative Antibody Screen NEGATIVE Administered Medications Sodium Chloride (Nss) 1,000 mls @ 125 mls/hr IV .Q8H LEN Stop: 12/08/23 04:14 Last Admin: 11/08/23 04:32 Dose: 125 mls/hr Documented By: TWAN Discontinued Medications Sodium Chloride (Nss) 1,000 mls @ 999 mls/hr IV .Q1H1M LEN Stop: 11/08/23 03:30 Last Infusion: 11/08/23 03:35 Dose: Infused Documented By: Admin: 11/08/23 02:29 Dose: 999 mls/hr Documented By: SAMMI Piperacillin Sod/Tazobactam Sod (Zosyn) 4.5 gm in 100 mls @ 200 mls/hr IV NOW ONE Stop: 11/08/23 03:24 Last Infusion: 11/08/23 04:14 Dose: Infused Documented By: Admin: 11/08/23 03:28 Dose: 200 mls/hr Documented By: IDD Acetaminophen (Ofirmev) 1,000 mg in 100 mls @ 400 mls/hr IV NOW STA Stop: 11/08/23 03:10 Last Infusion: 11/08/23 03:45 Dose: Infused Documented By: Admin: 11/08/23 03:29 Dose: 400 mls/hr Documented By: IDD Ceftriaxone Sodium (Rocephin) 2,000 mg in 50 mls @ 100 mls/hr IV NOW STA Stop: 11/08/23 03:50 Last Infusion: 11/08/23 04:27 Dose: Infused Documented By: Admin: 11/08/23 03:54 Dose: 100 mls/hr Documented By: TWAN Ioversol (Optiray 320 100ml) 100 ml IV ONCE ONE Stop: 11/08/23 03:19 Last Admin: 11/08/23 03:19 Dose: 93 ml Documented By: WILLIAM Imaging Data Radiologist's Impression: Chest X-Ray 11/08/23 02:23 XR chest 1V portable CLINICAL HISTORY: Sepsis. COMPARISON STUDY: Chest CT January 26, 2023. Chest radiograph February 05, 2023. FINDINGS: There is no pneumothorax or pleural effusion. Bibasilar opacities are present. There is mild interstitial thickening. Cardiomegaly is unchanged. Electronic device projects over the left chest. Left suprahilar nodular opacity is present. IMPRESSION: 1. Bibasilar opacities suggestive of pneumonia. Radiographic follow-up to ensure resolution is recommended. 2. Cardiomegaly with mild interstitial pulmonary edema. 3. Left suprahilar nodular opacity. This likely reflects pulmonary vessels however should be assessed on follow-up exams to exclude an underlying pulmonary nodule. ACT 112: Negative or not required by law. Electronically signed by: Diony Bauman M.D. 11/08/2023 6:40 AM Abdomen/Pelvis CT 11/08/23 02:34 Exam(s): CT ABDOMEN + PELVIS With Contrast IV Amt: 93 ML OPTIRAY 320 EXAM: CT Abdomen and Pelvis With Intravenous Contrast CLINICAL HISTORY: Reason for exam: fever, low back pain. TECHNIQUE: Axial computed tomography images of the abdomen and pelvis with intravenous contrast. CTDI is 25.18 mGy and DLP is 1228.6 mGy-cm. Automated exposure control was utilized for the study. A dose lowering technique was utilized adhering to the principles of ALARA. CONTRAST: Patient received 93 ML OPTIRAY 320 of IV contrast COMPARISON: 02/13/21 FINDINGS: Lung bases: Significant interval worsening of bibasilar pneumonia versus pulmonary edema. Heart: Enlarged heart, worse from prior examination. Small pericardial effusion. ABDOMEN: Liver: Unremarkable. No mass. Gallbladder and bile ducts: Unremarkable. No calcified stones. No ductal dilation. Pancreas: Unremarkable. No mass. No ductal dilation. Spleen: Unremarkable. No splenomegaly. Adrenals: Unremarkable. No mass. Kidneys and ureters: Unremarkable. No hydronephrosis. Inferior left renal cortical scarring. Stomach and bowel: Scattered diverticula in the colon. No diverticulitis. No obstruction. PELVIS: Appendix: Post appendectomy. Bladder: Unremarkable. No mass. Reproductive: Post hysterectomy. ABDOMEN and PELVIS: Intraperitoneal space: Unremarkable. No free air. No significant fluid collection. Bones/joints: No acute fracture. No dislocation. Soft tissues: Unremarkable. Vasculature: Unremarkable. No abdominal aortic aneurysm. Lymph nodes: Unremarkable. No enlarged lymph nodes. IMPRESSION: 1. Significant interval worsening of bibasilar pneumonia versus pulmonary edema. 2. Enlarged heart, worse from prior examination. Small pericardial effusion. 3. No acute findings in the abdomen or pelvis. Electronically signed by: Fransico Salinas MD 11/08/23 04:[address] 11/08/23 02:34 Exam(s): CT HEAD Without Contrast EXAM: CT Head Without Intravenous Contrast CLINICAL HISTORY: Reason for exam: confusion. TECHNIQUE: Axial computed tomography images of the head/brain without intravenous contrast. CTDI is 37.61 mGy and DLP is 624.41 mGy-cm. Automated exposure control was utilized for the study. A dose lowering technique was utilized adhering to the principles of ALARA. COMPARISON: No relevant prior studies available. FINDINGS: Brain: Unremarkable. No hemorrhage. Mild nonspecific white matter changes. No edema. Ventricles: Mild ventriculomegaly. Bones/joints: Unremarkable. No acute fracture. Soft tissues: Unremarkable. Sinuses: Unremarkable as visualized. No acute sinusitis. Mastoid air cells: Unremarkable as visualized. No mastoid effusion. IMPRESSION: No evidence of acute intracranial pathology. Electronically signed by: Fabiana Rowe MD 11/08/23 04:26 AM Discharge Plan Visit Data Chief Complaint: Altered Mental Status Stated Complaint: ALTERED MENTAL STATUS/ILLNESS w/ FEVER ED Provider: Phuong Greer Discharge Problem: Sepsis, Multifocal pneumonia, Anemia, Confusion, Atrial fibrillation with rapid ventricular response, Acute Lyme disease, Hyponatremia Forms Stand Alone Forms: My [facility] [employer] Prescriptions Prescriptions: No Action ferrous sulfate 325 mg (65 mg iron) tablet 325 mg PO DAILY Eliquis 5 mg tablet 5 mg PO BID fish oil-dha-epa 1,200-144-216 mg capsule 1 cap PO QAM calcium carbonate 500 mg calcium (1,250 mg) tablet 500 mg PO DAILY atorvastatin [Lipitor] 80 mg tablet 80 mg PO DAILY raloxifene 60 mg tablet 60 mg PO QAM Qty: 90 1RF flecainide 100 mg tablet 50 mg PO BID omeprazole 20 mg capsule,delayed release(DR/EC) 20 mg PO DAILY diltiazem HCl 120 mg capsule,extended release 12 hr See Rx Instructions .ROUTE .COMPLEX Rx Instructions: TAKES 120 MG QAM, THEN 240 MG QHS. Hair,Skin and Nails Tablet 2 tab PO DAILY cholecalciferol (vitamin D3) 25 mcg (1,000 unit) capsule 50 mcg PO DAILY Rx Instructions: 2000 units daily (DME) Flutter Valve Device See Rx Instructions .MEDSUPPLY Qty: 1 0RF Rx Instructions: As directed prednisone 5 mg tablet 15 mg PO DAILY Qty: 90 1RF Rx Instructions: DID NOT START THIS DOSE YET, FINISHING 20 MG TABS FIRST acetaminophen [Tylenol] 325 mg capsule 325 mg PO QID PRN (Reason: PAIN/FEVER) pregabalin [Lyrica] 50 mg capsule 50 mg PO BID Qty: 60 0RF Rx Instructions: TO START 11/08/23 prednisone 20 mg tablet 20 mg PO DAILY Qty: 30 0RF mecobalamin (vitamin B12) 1,000 mcg tablet,chewable 1,000 mcg PO DAILY Qty: 30 0RF gabapentin 600 mg tablet 300 mg PO DAILY Rx Instructions: WEANING OFF THIS MED---LAST DOSE 11/15/23 alendronate 70 mg tablet 70 mg PO WK amoxicillin 875 mg tablet 875 mg PO BID Rx Instructions: PER PT'S SPOUSE "TOOK 4 DOSES, TOTAL" Referrals Referrals: Flaquita Ortega DO [Primary Care Provider] -
[2023-11-08 02:53] LABS: Albumin Level 2.2 gm/dl (3.4-5.0); BUN Creatinine Ratio 37.3 (10-20); Bilirubin Direct 0.4 mg/dl (0-0.2); Creatinine Clr Calc Pharmacy 51.8 ml/min; Est GFR (African American) 78.3 ml/min; Est GFR (Non-African American) 67.5 ml/min; Magnesium 1.8 mg/dl (1.7-2.4); Potassium 3.8 mmol/L (3.5-5.1); Total Protein 5.5 gm/dl (6.0-8.3)
[2023-11-08 02:54] LABS: Mean Corpuscular Hemoglobin 26.8 pg (25.0-34.0); Mean Corpuscular Hgb Conc 34.8 g/dL (32.0-36.0); Platelet Count 70 K/uL (130-400); RDW Coefficient of Variation 15.2 % (11.5-14.5); RDW Standard Deviation 41.3 fL (36.4-46.3); Red Blood Count 2.61 M/uL (4.20-5.40); White Blood Count 9.37 K/ul (4.8-10.8)
[2023-11-08 03:00] LABS: Troponin I High Sensitivity 28.6 pg/ml (0-14)
[2023-11-08 03:07] LABS: Prothrombin Time 11.2 Seconds (9.0-12.0)
[2023-11-08 03:15] LABS: Base Excess VBG -3.9 mEq/L; HCO3 VBG 20 mmol/L; Oxygen Saturation VBG < 60.0 %; PCO2 VBG 30 mmHg (38-50); PO2 VBG 21 mmHg; pH VBG 7.42 (7.36-7.41)
[2023-11-08] MEDS: OPTIRAY 320 100ml IV ONE (03:19)
[2023-11-08 03:28] LABS: Lyme Screen Rflx Confirmation Positive (Negative)
[2023-11-08] MEDS: PIPERACILLIN/TAZOBACTAM 4.5 GM/100 ML BAG IV ONE (03:28)
[2023-11-08] MEDS: ACETAMINOPHEN 1,000 MG/100 ML VIAL IV STA (03:29)
[2023-11-08 03:31] LABS: Platelet Estimate Decreased (Normal); Polychromasia 2+; Toxic Vacuolation 1+
[2023-11-08 03:48] LABS: Appearance Urine Turbid (Clear); Bacteria Urine Automated None Seen (None Seen); Bilirubin Urine Negative (Negative); Blood Urine 3+ (Negative); Color Urine Dark Yellow; Glucose Urine UA Negative (Negative); Ketones Urine Negative (Negative); Leukocyte Esterase Urine Trace (Negative); Nitrite Urine Negative (Negative); Protein Urine 3+ (Negative); Specific Gravity Urine 1.023 (1.000-1.030); Urobilinogen Urine Negative (Negative); WBC Urine Automated 0-5 /hpf (0-5); pH Urine 6.5 (4.5-7.5)
[2023-11-08] MEDS: cefTRIAXone SODIUM 2,000 MG/50 ML BAG IV STA (03:54)
[2023-11-08 03:57] LABS: Granular Casts Urine Present /lpf (None Prsent)
[2023-11-08 03:58] LABS: Amorphous Sediment Urine Present (None Prsent)
[2023-11-08 04:01] LABS: Lyme Ab IgG 2nd Tier Confirm Positive (Negative)
[2023-11-08 04:02] LABS: Lyme Ab IgM 2nd Tier Confirm Positive (Negative)
[2023-11-08 04:07] LABS: Adenovirus PCR Not Detected (NotDetected); Bordetella parapertussis PCR Not Detected (NotDetected); Bordetella pertussis PCR Not Detected (NotDetected); Chlamydia pneumoniae PCR Not Detected (NotDetected); Coronavirus 229E PCR Not Detected (NotDetected); Coronavirus CoV-2 (COVID19)PCR Not Detected (NotDetected); Coronavirus HKU1 PCR Not Detected (NotDetected); Coronavirus NL63 PCR Not Detected (NotDetected); Coronavirus OC43PCR Not Detected (NotDetected); Human Metapneumovirus PCR Not Detected (NotDetected); Influenza A PCR Not Detected (NotDetected); Influenza B PCR Not Detected (NotDetected); Mycoplasma pneumoniae PCR Not Detected (NotDetected); Parainfluenza Virus 1 PCR Not Detected (NotDetected); Parainfluenza Virus 2 PCR Not Detected (NotDetected); Parainfluenza Virus 3 PCR Not Detected (NotDetected); Parainfluenza Virus 4 PCR Not Detected (NotDetected); Respiratory Syncytial VirusPCR Not Detected (NotDetected); Rhinovirus/Enterovirus PCR Not Detected (NotDetected)
--- NOTE | 2023-11-08 04:27 | CT Scan Report ---
Exam(s): CT HEAD Without Contrast EXAM: CT Head Without Intravenous Contrast CLINICAL HISTORY: Reason for exam: confusion. TECHNIQUE: Axial computed tomography images of the head/brain without intravenous contrast. CTDI is 37.61 mGy and DLP is 624.41 mGy-cm. Automated exposure control was utilized for the study. A dose lowering technique was utilized adhering to the principles of ALARA. COMPARISON: No relevant prior studies available. FINDINGS: Brain: Unremarkable. No hemorrhage. Mild nonspecific white matter changes. No edema. Ventricles: Mild ventriculomegaly. Bones/joints: Unremarkable. No acute fracture. Soft tissues: Unremarkable. Sinuses: Unremarkable as visualized. No acute sinusitis. Mastoid air cells: Unremarkable as visualized. No mastoid effusion. IMPRESSION: No evidence of acute intracranial pathology. Electronically signed by: Fabiana Rowe MD 11/08/23 04:26 AM
--- NOTE | 2023-11-08 04:52 | CT Scan Report ---
Exam(s): CT ABDOMEN + PELVIS With Contrast IV Amt: 93 ML OPTIRAY 320 EXAM: CT Abdomen and Pelvis With Intravenous Contrast CLINICAL HISTORY: Reason for exam: fever, low back pain. TECHNIQUE: Axial computed tomography images of the abdomen and pelvis with intravenous contrast. CTDI is 25.18 mGy and DLP is 1228.6 mGy-cm. Automated exposure control was utilized for the study. A dose lowering technique was utilized adhering to the principles of ALARA. CONTRAST: Patient received 93 ML OPTIRAY 320 of IV contrast COMPARISON: 02/13/21 FINDINGS: Lung bases: Significant interval worsening of bibasilar pneumonia versus pulmonary edema. Heart: Enlarged heart, worse from prior examination. Small pericardial effusion. ABDOMEN: Liver: Unremarkable. No mass. Gallbladder and bile ducts: Unremarkable. No calcified stones. No ductal dilation. Pancreas: Unremarkable. No mass. No ductal dilation. Spleen: Unremarkable. No splenomegaly. Adrenals: Unremarkable. No mass. Kidneys and ureters: Unremarkable. No hydronephrosis. Inferior left renal cortical scarring. Stomach and bowel: Scattered diverticula in the colon. No diverticulitis. No obstruction. PELVIS: Appendix: Post appendectomy. Bladder: Unremarkable. No mass. Reproductive: Post hysterectomy. ABDOMEN and PELVIS: Intraperitoneal space: Unremarkable. No free air. No significant fluid collection. Bones/joints: No acute fracture. No dislocation. Soft tissues: Unremarkable. Vasculature: Unremarkable. No abdominal aortic aneurysm. Lymph nodes: Unremarkable. No enlarged lymph nodes. IMPRESSION: 1. Significant interval worsening of bibasilar pneumonia versus pulmonary edema. 2. Enlarged heart, worse from prior examination. Small pericardial effusion. 3. No acute findings in the abdomen or pelvis. Electronically signed by: Fransico Salinas MD 11/08/23 04:50 AM
--- NOTE | 2023-11-08 05:03 | History & Physical Report ---
Date of Service November 08, 2023 Assessment & Plan (1) Acute Lyme disease: (2) Atrial fibrillation with rapid ventricular response: (3) Sepsis: (4) Confusion: (5) Anemia: (6) Multifocal pneumonia: (7) PMR (polymyalgia rheumatica): Plan Multifocal Pneumonia | Hypoxia | Confusion -CT A/P showed "significant interval worsening of bibasilar pneumonia versus pulmonary edema." -CT head without acute abnormalities. Remains fatigued but is oriented, alert on exam -Received Zosyn, Ceftriaxone in ED -Procal 26.5 -Currently 96% on 4L oxymask Babesiosis and Lyme Co-Infection -Positive Babesia, lyme screen. Peripheral smear pending -Will continue Ceftriaxone, add Azithromycin and Atovaquone Anemia, Acute on Chronic -Hgb 7.0 on arrival, hematocrit 20%. Type/screen ordered -Baseline Hgb ~10 -No obvious source of blood loss with CT A/P, will hemoccult all stools -Some suspicion of dilutional effect- per pt spouse she received 1.5L IVF in ambulance plus additional 1L in ED -Repeat CBC ordered, will check iron profile Atrial Fibrillation | Troponin Elevated -Two prior ablations -Current meds include flecainide, diltiazem -May need to consider switch from flecainide while on azithromycin due to increased risk of QT prolongation -Monitor on telemetry. Rate currently normal. -Troponin mildly elevated, likely due to demand ischemia, continue to trend -Holding Eliquis on admission due to significant drop in Hgb -CT A/P showed incidental finding of small pericardial effusion Polymyalgia Rheumatica -Hold prednisone at admission -Was downtitrating gabapentin to switch to Lyrica- will hold for now -Will schedule Tylenol 1000mg q8h for fever and pain control Admit to PCU Diet: Heart healthy, Maintenance IV fluids VTE Prophylaxis: SCDs, hold home Eliquis due to worsening anemia Code Status: Full Code History of Present Illness Primary Care Provider: DO Danielle Andres is a 78 year-old female with past medical history of renal oncocytoma, acrocyanosis, IgG lambda monoclonal gammopathy, GERD, HTN, HLD, paroxysmal a. fib, polymyalgia rheumatic who presented to the ED due to altered mental status. She arrived to the ED via EMS and was found to be hypoxic in the 80s, received IVF bolus in ambulance. Her , who is a retired surgeon, is at bedside and provides majority of history. He notes that she was recently seen by her PCP and then rheumatology for suspected PMR, had ongoing lower extremity neuropathic type aching pain. Was in the process of tapering off gabapentin and starting Lyrica, had also recently started on prednisone. In the past few days she became much more tired and developed low grade fever, poor appetite but was drinking "gallons" of water per her . He notes that he started her on an antibiotic (she received four total doses) due to concern her symptoms could be due to flare of diverticulitis. However this wednesday evening she became confused and he insisted they call an ambulance. This morning on exam she appears tired but is alert and oriented, answers questions appropriately. Her denies any known tick or bug bites, but states they have recently traveled to [place] and [place], as well have been outside many days for [employer] games. Denies any uriany symptoms nor b lood in stool. Currently she states she is very uncomfortable in the bed and feels "very sweaty". Allergies Allergy/AdvReac Type Severity Reaction Status Date / Time Methacrylate Analogues Allergy Severe found Verified 11/09/23 00:38 during allergy testing. naproxen [From Naprosyn] AdvReac Intermediate diarrhea Verified 11/08/23 03:02 Home Medications Medication Instructions Recorded Confirmed Type apixaban 5 mg tablet (Eliquis) 5 mg PO BID 09/27/19 11/08/23 History fish oil-dha-epa 1,200 mg-144 1 cap PO QAM 09/27/19 11/08/23 History mg-216 mg capsule multivitamin with minerals 2 tab PO DAILY 07/31/21 11/08/23 History (Hair,Skin and Nails tablet) atorvastatin 80 mg tablet (Lipitor) 80 mg PO DAILY 02/06/22 11/08/23 History calcium carbonate 500 mg PO DAILY 02/06/22 11/08/23 History raloxifene 60 mg tablet 60 mg PO QAM #90 tabs 02/06/22 11/08/23 Rx cholecalciferol (vitamin D3) 25 50 mcg PO DAILY 08/03/22 11/08/23 History mcg (1,000 unit) capsule flecainide 100 mg tablet 50 mg PO BID 08/03/22 11/08/23 History omeprazole 20 mg capsule,delayed 20 mg PO DAILY 08/03/22 11/08/23 History release Flutter Valve #1 ea 02/05/23 11/02/23 Rx diltiazem HCl 120 mg See Rx Instructions .Route .COMPLEX 07/07/23 11/08/23 History capsule,extended release 12 hr ferrous sulfate 325 mg (65 mg 325 mg PO DAILY 07/07/23 11/08/23 History iron) tablet acetaminophen 325 mg capsule 325 mg PO QID PRN PAIN/FEVER 10/26/23 11/08/23 History (Tylenol) mecobalamin (vitamin B12) 1,000 1,000 mcg PO DAILY #30 tabs 10/26/23 11/08/23 Rx mcg chewable tablet prednisone 20 mg tablet 20 mg PO DAILY #30 tabs 10/26/23 11/08/23 Rx pregabalin 50 mg capsule (Lyrica) 50 mg PO BID #60 caps 10/26/23 11/08/23 Rx gabapentin 600 mg tablet 300 mg PO DAILY 11/02/23 11/08/23 History prednisone 5 mg tablet 15 mg (3 x 5 mg) PO DAILY #90 tabs 11/02/23 11/08/23 Rx alendronate 70 mg tablet 70 mg PO WK 11/08/23 11/08/23 History amoxicillin 875 mg tablet 875 mg PO BID 11/08/23 11/08/23 History Past Med/Surg History Problem List (Updated 11/11/23 @ 11:20 by Jorge Garcia MD, [facility]) ILD (interstitial lung disease) Metabolic encephalopathy Acute pulmonary edema Babesiosis Pulmonary edema Sepsis Current use of steroid medication Bilateral pneumonia Acute respiratory failure with hypoxia Acute blood loss anemia GI bleed Hyponatremia (Acute) Acute Lyme disease (Acute) Atrial fibrillation with rapid ventricular response (Acute) Sepsis (Acute) Confusion (Acute) Anemia (Acute) Multifocal pneumonia (Acute) PMR (polymyalgia rheumatica) Osteoporosis Status post right knee replacement (07/19/23) Dyspnea on exertion Abnormal CT scan, lung Monoclonal gammopathy of unknown significance (MGUS) Prediabetes Paroxysmal atrial fibrillation (2011) Dx'ed in 2011- on Eliquis - had AF with RVR July 2019- underwent BILL guided DCCV. Recently had ILR implanted 11/2019. Hyperlipidemia Generalized osteoarthritis of multiple sites Diverticulosis Benign essential hypertension Arthritis Renal oncocytoma Vitamin D deficiency GERD (gastroesophageal reflux disease) Acrocyanosis IgG lambda monoclonal gammopathy Medical History Mitral valve prolapse Mitral valve "normal" per 07/2019 BILL Surgical History History of arthroplasty of right knee (07/19/23) Status post left knee replacement (12/23/22) S/P ablation of atrial fibrillation (04/2020) Hx of partial nephrectomy (03/07/20) 03/07/20 Dr. Jhon Gant- Left robotic partial nephrectomy History of cardioversion July 2019 History of bronchoscopy Status post placement of implantable loop recorder (11/2019) [employer]. Implanted Nov 2019 > follows dr. poncho ng cardiology History of tonsillectomy and adenoidectomy S/P arthroscopic knee surgery right S/P hysterectomy secondary to fibroids S/P section x4 Family History Father Coronary heart disease Prostate cancer Myocardial infarction, Onset Age: 75 Hypertension Brother Alcohol abuse Heart disease Sister Breast cancer, Onset Age: 29 Mother Diabetes Hypertension Heart disease Grandmother (Maternal) Ovarian cancer Social History Smoking Status: Never smoker Second Hand Exposure: No; Do You Dip or Chew Tobacco: No; Hx Alcohol Use: No Hx Substance Use: No Preferred Language: Ukrainian Communication Ability: Effective Visual Impairment: No Limitations Hearing Ability: Use of Hearing Aid Underground Supervisor Required: No Beliefs That Will Affect Care: None marital status: Current Living Situation: Spouse current occupational status: retired Feels Safe at Home: Yes Childhood Exposure to Second-Hand Smoke: Yes Diet: regular Diet Comment: regular caffeine: No (1/2 caffeine) during the past year weight has: remained stable Dental Care, Regularly: Yes Physical Activity Frequency: Daily Physical Activity Frequency Comment: stairs Seatbelt Use: always Sunscreen Use: Yes Assistive Devices: Glasses and Hearing Aid - Bilateral Review of Systems Review of Systems: As per above Physical Exam Constitutional: WD/WN, vitals as above Eyes: no conjunctival abnormality ENMT: Ears: no external ear abnormality Nose: no external nose abnormality Moist mucous membranes Respiratory: + tachypneic Auscultation: + rhonchi (appreciated at bilateral lung short) Cardiovascular: Rate/Rhythm: + irregularly irregular Extremities: no edema Gastrointestinal (Abdomen): normal bowel sounds, soft, nontender, no hepatosplenomegaly Musculoskeletal: Moves all limbs independently Skin: Diaphoretic Neurologic: No focal defects appreciated Psychiatric: A+Ox3, euthymic affect Results & Data Results & Data Vital Signs (Past 12 Hours) Vital Signs Temp Pulse Pulse Resp BP BP Pulse Ox 11/08/23 04:48 105 H 18 90/51 L 96 11/08/23 04:00 113 H 20 102/50 L 94 11/08/23 03:30 108 H 18 113/56 L 99 11/08/23 02:38 108 H 26 H 98 11/08/23 02:36 117 H 11/08/23 02:20 87 L 11/08/23 02:18 37.3 C 125 H 30 H 129/62 87 L O2 Del Method O2 Flow Rate 11/08/23 04:48 Oxymask 4 11/08/23 04:00 Oxymask 6 11/08/23 03:30 Oxymask 6 11/08/23 02:38 Oxymask 4 11/08/23 02:36 11/08/23 02:20 Room Air, Nasal Cannula 0 11/08/23 02:18 Room Air Diagnostic Findings Abdomen/Pelvis CT 11/08/23 02:34 Exam(s): CT ABDOMEN + PELVIS With Contrast IV Amt: 93 ML OPTIRAY 320 EXAM: CT Abdomen and Pelvis With Intravenous Contrast CLINICAL HISTORY: Reason for exam: fever, low back pain. TECHNIQUE: Axial computed tomography images of the abdomen and pelvis with intravenous contrast. CTDI is 25.18 mGy and DLP is 1228.6 mGy-cm. Automated exposure control was utilized for the study. A dose lowering technique was utilized adhering to the principles of ALARA. CONTRAST: Patient received 93 ML OPTIRAY 320 of IV contrast COMPARISON: 02/13/21 FINDINGS: Lung bases: Significant interval worsening of bibasilar pneumonia versus pulmonary edema. Heart: Enlarged heart, worse from prior examination. Small pericardial effusion. ABDOMEN: Liver: Unremarkable. No mass. Gallbladder and bile ducts: Unremarkable. No calcified stones. No ductal dilation. Pancreas: Unremarkable. No mass. No ductal dilation. Spleen: Unremarkable. No splenomegaly. Adrenals: Unremarkable. No mass. Kidneys and ureters: Unremarkable. No hydronephrosis. Inferior left renal cortical scarring. Stomach and bowel: Scattered diverticula in the colon. No diverticulitis. No obstruction. PELVIS: Appendix: Post appendectomy. Bladder: Unremarkable. No mass. Reproductive: Post hysterectomy. ABDOMEN and PELVIS: Intraperitoneal space: Unremarkable. No free air. No significant fluid collection. Bones/joints: No acute fracture. No dislocation. Soft tissues: Unremarkable. Vasculature: Unremarkable. No abdominal aortic aneurysm. Lymph nodes: Unremarkable. No enlarged lymph nodes. IMPRESSION: 1. Significant interval worsening of bibasilar pneumonia versus pulmonary edema. 2. Enlarged heart, worse from prior examination. Small pericardial effusion. 3. No acute findings in the abdomen or pelvis. Electronically signed by: Fransico Salinas MD 11/08/23 04:[address] 11/08/23 02:34 Exam(s): CT HEAD Without Contrast EXAM: CT Head Without Intravenous Contrast CLINICAL HISTORY: Reason for exam: confusion. TECHNIQUE: Axial computed tomography images of the head/brain without intravenous contrast. CTDI is 37.61 mGy and DLP is 624.41 mGy-cm. Automated exposure control was utilized for the study. A dose lowering technique was utilized adhering to the principles of ALARA. COMPARISON: No relevant prior studies available. FINDINGS: Brain: Unremarkable. No hemorrhage. Mild nonspecific white matter changes. No edema. Ventricles: Mild ventriculomegaly. Bones/joints: Unremarkable. No acute fracture. Soft tissues: Unremarkable. Sinuses: Unremarkable as visualized. No acute sinusitis. Mastoid air cells: Unremarkable as visualized. No mastoid effusion. IMPRESSION: No evidence of acute intracranial pathology. Electronically signed by: Fabiana Rowe MD 11/08/23 04:26 AM Supervising Physician Co-Signing Physician Notes Attending addendum: I have physically seen this patient, have supervised the medical residents activities, and agree with the H&P unless as otherwise noted. Assessment and Plan: Multifocal pneumonia/acute respiratory failure with hypoxia- CT scan abdomen/pelvis shows significant interval worsening of white bibasilar pneumonia CT head negative Received Zosyn and ceftriaxone from the ED Continue 4 L oxymask, with pulse ox currently 96%. Titrate downward as symptoms improve Duonebs every 4 hours while awake and every 2 hours when necessary. Guaifenesin extended release 12 mg p.o. twice daily Babesiosis/Lyme disease coinfection- Placed on ceftriaxone, azithromycin and atovaqone, to address pneumonia and tickborne illnesses Acute on chronic anemia- Hemoglobin 7.0 on admission Type and screen Hemoccult all stools Did receive 1.5 L fluid en route to the hospital H&H every [address] abdomen and pelvis without retroperitoneal bleed or other source of bleeding Blood pressure and heart rate acceptable Atrial fibrillation/elevated troponin- Continue flecainide and diltiazem Holding Eliquis as noted PMR- Temporarily hold prednisone May need stress dosing hydrocortisone IV once source of low hemoglobin is determined Resident Activity Tracking Resident Involvement: Resident Care Provided Care Provided: Adult Hospital Medicine
--- NOTE | 2023-11-08 06:42 | XRay Report ---
XR chest 1V portable CLINICAL HISTORY: Sepsis. COMPARISON STUDY: Chest CT January 26, 2023. Chest radiograph February 05, 2023. FINDINGS: There is no pneumothorax or pleural effusion. Bibasilar opacities are present. There is mil d interstitial thickening. Cardiomegaly is unchanged. Electronic device projects over the left chest. Left suprahilar nodular opacity is present. IMPRESSION: 1. Bibasilar opacities suggestive of pneumonia. Radiographic follow-up to ensure resolution is recomm ended. 2. Cardiomegaly with mild interstitial pulmonary edema. 3. Left suprahilar nodular opacity. This likely reflects pulmonary vessels however should be assessed on follow-up exams to exclude an underlying pulmonary nodule. ACT 112: Negative or not required by law. Electronically signed by: Diony Bauman M.D. 11/08/2023 6:40 AM
[2023-11-08 09:29] LABS: Hematocrit (blood only) 18.1 % (37.0-47.0); Hemoglobin 6.3 g/dl (12.0-16.0); Mean Corpuscular Hemoglobin 27.3 pg (25.0-34.0); Mean Corpuscular Hgb Conc 34.8 g/dL (32.0-36.0); Mean Corpuscular Volume 78.4 fL (80.0-100.0); Mean Platelet Volume 12.2 fL (9.4-12.4); Nucleated RBC # (auto) 0.07 K/uL (0.00-0.12); Nucleated RBC % (auto) 0.7 %; Platelet Count 61 K/uL (130-400); RDW Coefficient of Variation 15.6 % (11.5-14.5); RDW Standard Deviation 43.1 fL (36.4-46.3); Red Blood Count 2.31 M/uL (4.20-5.40); White Blood Count 10.22 K/ul (4.8-10.8)
[2023-11-08 09:33] LABS: Albumin Globulin Ratio 0.7 (0.9-2); Albumin Level 2.1 gm/dl (3.4-5.0); BUN Creatinine Ratio 35.8 (10-20); Bilirubin,Total 1.2 mg/dl (0.2-1.0); Calcium 6.6 mg/dl (8.6-10.3); Creatinine Clr Calc Pharmacy 54.4 ml/min; Est GFR (African American) 80.6 ml/min; Est GFR (Non-African American) 69.6 ml/min; Globulin 3.1 gm/dl (2.5-4.0); Potassium 4.1 mmol/L (3.5-5.1); Total Protein 5.2 gm/dl (6.0-8.3)
[2023-11-08 09:38] LABS: Troponin I High Sensitivity 26.5 pg/ml (0-14)
[2023-11-08] MEDS: AZITHROMYCIN 500 MG in DEXTROSE 5% 250 ML IV SCH (09:44)
[2023-11-08] MEDS: ATORVASTATIN 40 MG TAB PO SCH (09:52)
[2023-11-08] MEDS: FERROUS SULFATE 325 MG TAB PO SCH (09:53)
[2023-11-08 09:54] LABS: Basophils # (auto) 0.01 K/uL (0.00-0.20); Basophils % (auto) 0.1 %; Immature Granulocytes # (auto) 0.18 K/uL (0.01-0.20); Immature Granulocytes % (auto) 1.8 %; Lymphocytes # (auto) 2.23 K/uL (1.20-3.40); Lymphocytes % (auto) 21.8 %; Monocytes # (auto) 0.41 K/uL (0.11-0.59); Neutrophils # (auto) 7.39 K/uL (1.40-6.50); Neutrophils % (auto) 72.3 %
[2023-11-08] MEDS: ATOVAQUONE 750 MG/5 ML UDC PO SCH (09:54)
[2023-11-08 09:56] LABS: Parasites Present; Polychromasia 1+; Target Cells 1+
[2023-11-08] MEDS: FLECAINIDE ACETATE 100 MG TABLET PO SCH (09:56)
[2023-11-08] MEDS: PANTOprazole 40 MG TAB PO SCH (09:57)
[2023-11-08] MEDS: RALOXIFENE HCL 60 MG TAB PO SCH (09:57)
[2023-11-08] MEDS: dilTIAZem HCL 120 MG CAPCR PO SCH ×2 (09:58→21:09)
[2023-11-08] MEDS: HYDROCORTISONE SOD 50 MG in SYRINGE 0 ML IV SCH (10:15)
[2023-11-08] MEDS: FUROSEMIDE 40 MG/4 ML VIAL IV SCH (10:15)
[2023-11-08] MEDS: ACETAMINOPHEN 1,000 MG/100 ML VIAL IV SCH (10:32)
[2023-11-08] MEDS ORDERED: SODIUM CHLORIDE 0.9% 250 ML IV PRN (11:24)
[2023-11-08] MEDS: bisacodyL 10 MG SUPP PR STA (11:41)
--- NOTE | 2023-11-08 12:12 | Gastroenterology Progress Note ---
Date of Service November 08, 2023 Assessment & Plan Admission and Anticipated Discharge Date Admission Date: November 08, 2023 Physical Exam Constitutional: well developed and well nourished Eyes: PERRL, conjunctivae normal, anicteric sclerae Neck: trachea midline Respiratory: normal respiratory effort, lungs clear to auscultation Cardiovascular: RRR, no murmur, no edema Gastrointestinal (Abdomen): normal bowel sounds, soft, nontender, no hepatosplenomegaly Musculoskeletal: no cyanosis or clubbing, extremities motor strength 5/5 Skin: no rashes, warm and dry Neurologic: CN's II-XI intact bilaterally Psychiatric: A+Ox3, euthymic affect Lymphatic: no cervical or axillary lymphadenopathy Results & Data Results & Data Vital Signs (Past 12 Hours) Vital Signs Temp Pulse Pulse Pulse Resp BP BP 11/08/23 11:42 11/08/23 10:23 36.3 C L 86 19 97/62 L 11/08/23 09:59 36.6 C 97 H 107/66 11/08/23 08:05 11/08/23 08:05 36.6 C 94 H 16 91/57 L 11/08/23 08:01 82 20 101/77 11/08/23 08:00 82 11/08/23 07:53 89 18 11/08/23 07:49 90 20 11/08/23 06:30 86 11/08/23 06:00 86 17 11/08/23 05:30 97 H 18 11/08/23 05:00 102 H 18 11/08/23 04:48 105 H 18 11/08/23 04:00 113 H 20 11/08/23 03:30 108 H 18 11/08/23 02:38 108 H 26 H 11/08/23 02:36 117 H 11/08/23 02:20 11/08/23 02:18 37.3 C 125 H 30 H 129/62 BP Pulse Ox O2 Del Method O2 Flow Rate 11/08/23 11:42 Nasal Cannula 3 11/08/23 10:23 100 Nasal Cannula 4 11/08/23 09:59 93 Nasal Cannula 3 11/08/23 08:05 Nasal Cannula 3 11/08/23 08:05 91 Nasal Cannula 3 11/08/23 08:01 95 Nasal Cannula 95 11/08/23 08:00 101/77 95 Nasal Cannula 2 11/08/23 07:53 101/44 L 95 Nasal Cannula 3 11/08/23 07:49 81/50 L 95 Oxymask 11/08/23 06:30 11/08/23 06:00 101/55 L 97 Oxymask 4 11/08/23 05:30 100/60 96 Oxymask 4 11/08/23 05:00 109/47 L 92 Oxymask 4 11/08/23 04:48 90/51 L 96 Oxymask 4 11/08/23 04:00 102/50 L 94 Oxymask 6 11/08/23 03:30 113/56 L 99 Oxymask 6 11/08/23 02:38 98 Oxymask 4 11/08/23 02:36 11/08/23 02:20 87 L Room Air, Nasal Cannula 0 11/08/23 02:18 87 L Room Air PG Care Time/CCT Total # of Minutes Spent Total Time Spent with Patient: Total time spent is greater than 50% in coordination of care (as documented) at patient's floor/unit and/or counseling patient: Coding
--- NOTE | 2023-11-08 12:41 | Hospitalist Progress Note ---
Date of Service November 08, 2023 Assessment & Plan (1) GI bleed: Plan: No overt hematochezia or melena. Hemoglobin has drifted down to 6.3. She has given consent for blood transfusion. Continue Protonix therapy. GI consultation requested. Earlier this year she had a normal colonoscopy per her who is a retired physician (2) Acute blood loss anemia: Plan: Hemoglobin 6.3. 2 units packed red blood cells ordered. Serial H&H (3) Atrial fibrillation with rapid ventricular response: Plan: Telemetry. Correct anemia. Correct suspected sepsis (4) Sepsis: Plan: Present on admission. Infectious disease consultation requested. Currently on Zosyn, Rocephin, azithromycin, atovaquone. 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 Blood cultures pending. Obtain sputum culture if sputum is produced (5) Acute respiratory failure with hypoxia: Plan: Supplemental oxygen per nasal cannula to maintain saturation greater than 90%. Wean off as tolerated (6) Bilateral pneumonia: Plan: No sputum production for culture. No overt hemoptysis. Infectious disease consultation pending. Serial chest x-ray (7) Current use of steroid medication: Plan: She has not been on oral prednisone very long but intravenous hydrocortisone has been ordered as a precaution. (8) Benign essential hypertension: Plan: Antihypertensives are currently on hold (9) IgG lambda monoclonal gammopathy: Plan: By history. No intervention at this time (10) Sepsis: Plan: Present on admission. Treat underlying pneumonia. Supportive care (11) Pulmonary edema: Plan: Seen on admission chest x-ray. Will see how she responds to intravenous Lasix diuresis. Cardiac echo pending. No previous history of CHF however. Plan To be determined Admission and Anticipated Discharge Date Admission Date: November 08, 2023 Subjective Multiple problems here. She has acute hypoxic respiratory failure from suspected pneumonia but also could have underlying congestive heart failure. Her atrial fibrillation is chronic and currently uncontrolled. She has undergone ablation intervention twice in the past, once in April 2020 and another time in June 10. She has tested positive for babesiosis and Lyme disease and is on broad-spectrum antibiotics at this time. Infectious disease consultation has been obtained. She also probably has a GI bleed with fecal occult blood positivity but no overt melena or hematochezia. Eliquis is on hold. Hemoglobin is down to 6.3 now and she has given consent for 2 units of blood transfusion. Platelet count is somewhat low but probably is consumptive and will need to be followed. She has acute hypoxic respiratory failure and is currently on 4 L of oxygen. GI consultation has been requested. Low threshold for transfer to ICU at this point. Review of Systems 2 Review of Systems: Constitutional-fever up to 104 documented by at home. Malaise. ENT-no blurred vision, no double vision, no epistaxis, no sore throat Respiratory-nonproductive cough. No hemoptysis. She is short of breath at rest. Cardiac-no palpitations, no chest pain, no syncope GI-anorexic. No overt melena or hematochezia. No vomiting, no hematemesis -no urinary retention, no urinary incontinence, no dysuria, no hematuria Musculoskeletal-no joint pain, no muscle tenderness Skin-pallor noted. No bruising, no rashes, no pruritus Neuro-Malaise and generalized weakness. No focal deficits Psych-flat affect Physical Exam 2 Physical Exam: General-alert and oriented x3, appears ill and weak HEENT-head atraumatic and normocephalic, pupils equal and reactive to light, extraocular muscles intact Neck-no lymphadenopathy or thyromegaly, trachea midline Chest-scattered bilateral rhonchi. No wheezing. Cardiac-tachycardic irregular rate and rhythm. Normal S1 and S2. Abdomen-normal bowel sounds, no hepatosplenomegaly Extremities-no cyanosis, clubbing, or edema Skinpallor noted Neuro-generalized weakness. No focal deficits Psychflat affect Results & Data Results & Data Vital Signs (Past 12 Hours) Vital Signs Temp Pulse Pulse Pulse Resp BP BP 11/08/23 11:42 11/08/23 10:23 36.3 C L 86 19 97/62 L 11/08/23 09:59 36.6 C 97 H 107/66 11/08/23 08:05 11/08/23 08:05 36.6 C 94 H 16 91/57 L 11/08/23 08:01 82 20 101/77 11/08/23 08:00 82 11/08/23 07:53 89 18 11/08/23 07:49 90 20 11/08/23 06:30 86 11/08/23 06:00 86 17 11/08/23 05:30 97 H 18 11/08/23 05:00 102 H 18 07/22/24 04:48 105 H 18 11/08/23 04:00 113 H 20 11/08/23 03:30 108 H 18 11/08/23 02:38 108 H 26 H 11/08/23 02:36 117 H 11/08/23 02:20 11/08/23 02:18 37.3 C 125 H 30 H 129/62 BP Pulse Ox O2 Del Method O2 Flow Rate 11/08/23 11:42 Nasal Cannula 3 11/08/23 10:23 100 Nasal Cannula 4 11/08/23 09:59 93 Nasal Cannula 3 11/08/23 08:05 Nasal Cannula 3 11/08/23 08:05 91 Nasal Cannula 3 11/08/23 08:01 95 Nasal Cannula 95 11/08/23 08:00 101/77 95 Nasal Cannula 2 11/08/23 07:53 101/44 L 95 Nasal Cannula 3 11/08/23 07:49 81/50 L 95 Oxymask 11/08/23 06:30 11/08/23 06:00 101/55 L 97 Oxymask 4 11/08/23 05:30 100/60 96 Oxymask 4 11/08/23 05:00 109/47 L 92 Oxymask 4 11/08/23 04:48 90/51 L 96 Oxymask 4 11/08/23 04:00 102/50 L 94 Oxymask 6 11/08/23 03:30 113/56 L 99 Oxymask 6 11/08/23 02:38 98 Oxymask 4 11/08/23 02:36 11/08/23 02:20 87 L Room Air, Nasal Cannula 0 11/08/23 02:18 87 L Room Air Laboratory Results 11/08/23 08:59 11/08/23 08:59 PG Care Time/CCT Total # of Minutes Spent Total Time Spent with Patient: Total time spent is greater than 50% in coordination of care (as documented) at patient's floor/unit and/or counseling patient: Coding Level of Care Code 14374 SUB INP/OBS CARE 3/50MIN Diagnoses GI bleed K92.2 Acute blood loss anemia D62 Atrial fibrillation with rapid ventricular response I48.91 Sepsis A41.9 Acute respiratory failure with hypoxia J96.01 Bilateral pneumonia J18.9 Current use of steroid medication Z79.52 Benign essential hypertension I10 IgG lambda monoclonal gammopathy D47.2 Pulmonary edema J81.1
--- NOTE | 2023-11-08 13:04 | Gastrointestinal Consultation ---
Date of Consultation November 08, 2023 Assessment & Plan (1) Anemia: Patient's care discussed extensively with and patient at bedside. Given overall clinical picture with worsening bibasilar pneumonia and possible pulmonary edema we will approach conservatively particularly given her lack of overt bleeding. Would advise using IV Protonix 40 mg BID, continue to monitor H/H, and defer treatment of her other medical issues to the primary team. Continue with transfusion protocol per primary team. Continue to monitor H/H. Continue to monitor for overt GI bleeding and contact GI with any worsening GI concerns. Supervising Physician Co-Signing Physician Notes I examined and saw the patient in concert with BARGE MASTER. I agree with note and plan outlined below by the BARGE MASTER. Briefly, 78 yo female with chronic anemia and MGUS, A fib with RVR on chronic oral anticoagulation Eliquis, PMR recently on high dose steroids, osteoporosis, BPH, arthritis, & GERD who is currently hospitalized with worsening bilateral multifocal pneumonia vs pulmonary edema, positive Babesiosis/Lyme screen, & polymyalgia rheumatica. GI has been consulted due to anemia. Patient's H/H is 6.3/18.1 No active bleeding noted. Colonoscopy in 06/12: diverticulosis w/o polyps. She has been diagnosed with babesioses and Lyme. I suspect anemia is multifactorial: hemolysis from babesiosis, anemia of chronic disease, and some upper gi losses (possibly gastritis or duodenitis). Given no active bleeding and some respiratory difficulty, suggest supportive care with ppi bid and prbc. If active bleeding, will consider endoscopy. History of Present Illness Reason for Consultation: Anemia Attending Physician: Piter Byers MD History of Present Illness Patient is a 78 yo female with chronic anemia and MGUS, A fib with RVR on chronic oral anticoagulation, PMR recently on high dose steroids, osteoporosis, BPH, arthritis, & GERD who is currently hospitalized with worsening bilateral multifocal pneumonia vs pulmonary edema, positive Babesiosis/Lyme screen, & polymyalgia rheumatica. GI has been consulted due to anemia. Patient's H/H is 6.3/18.1. History is predominantly provided by her , a retired general surgeon. She is currently receiving blood products. Troponin elevated but peaked at 36.4. CT shows significant worsening of bibasilar pneumonia vs pulmonary edema. reports high volume of fluids between EMS & ED. She is currently on IV Zosyn for her pneumonia. She has not had overt GI bleeding--no melena, hematemesis, hematochezia. She takes Protonix 40 mg daily at home. She had a colonoscopy in May 2023 for a positive cologuard. Son has a history of colon cancer. Patient has some confusion, but does not have abdominal pain. Allergies Allergy/AdvReac Type Severity Reaction Status Date / Time naproxen [From Naprosyn] AdvReac Intermediate diarrhea Verified 11/08/23 03:02 Methylmethacrylate Allergy Severe found Uncoded 11/08/23 03:02 during allergy testing. Home Medications Medication Instructions Recorded Confirmed Type apixaban 5 mg tablet (Eliquis) 5 mg PO BID 09/27/19 11/08/23 History fish oil-dha-epa 1,200 mg-144 1 cap PO QAM 09/27/19 11/08/23 History mg-216 mg capsule multivitamin with minerals 2 tab PO DAILY 07/31/21 11/08/23 History (Hair,Skin and Nails tablet) atorvastatin 80 mg tablet (Lipitor) 80 mg PO DAILY 02/06/22 11/08/23 History calcium carbonate 500 mg PO DAILY 02/06/22 11/08/23 History raloxifene 60 mg tablet 60 mg PO QAM #90 tabs 02/06/22 11/08/23 Rx cholecalciferol (vitamin D3) 25 50 mcg PO DAILY 08/03/22 11/08/23 History mcg (1,000 unit) capsule flecainide 100 mg tablet 50 mg PO BID 08/03/22 11/08/23 History omeprazole 20 mg capsule,delayed 20 mg PO DAILY 08/03/22 11/08/23 History release Flutter Valve #1 ea 02/05/23 11/02/23 Rx diltiazem HCl 120 mg See Rx Instructions .Route .COMPLEX 07/07/23 11/08/23 History capsule,extended release 12 hr ferrous sulfate 325 mg (65 mg 325 mg PO DAILY 07/07/23 11/08/23 History iron) tablet acetaminophen 325 mg capsule 325 mg PO QID PRN PAIN/FEVER 10/26/23 11/08/23 History (Tylenol) mecobalamin (vitamin B12) 1,000 1,000 mcg PO DAILY #30 tabs 10/26/23 11/08/23 Rx mcg chewable tablet prednisone 20 mg tablet 20 mg PO DAILY #30 tabs 10/26/23 11/08/23 Rx pregabalin 50 mg capsule (Lyrica) 50 mg PO BID #60 caps 10/26/23 11/08/23 Rx gabapentin 600 mg tablet 300 mg PO DAILY 11/02/23 11/08/23 History prednisone 5 mg tablet 15 mg (3 x 5 mg) PO DAILY #90 tabs 11/02/23 11/08/23 Rx alendronate 70 mg tablet 70 mg PO WK 11/08/23 11/08/23 History amoxicillin 875 mg tablet 875 mg PO BID 11/08/23 11/08/23 History Patient History Medical History Mitral valve prolapse Mitral valve "normal" per 07/2019 BILL Surgical History History of arthroplasty of right knee (07/19/23) Status post left knee replacement (12/23/22) S/P ablation of atrial fibrillation (04/2020) Hx of partial nephrectomy (03/07/20) 03/07/20 Dr. Jhon Gant- Left robotic partial nephrectomy History of cardioversion July 2019 History of bronchoscopy Status post placement of implantable loop recorder (11/2019) [employer]. Implanted Nov 2019 > follows dr. poncho ng cardiology History of tonsillectomy and adenoidectomy S/P arthroscopic knee surgery right S/P hysterectomy secondary to fibroids S/P section x4 Family History Father Coronary heart disease Prostate cancer Myocardial infarction, Onset Age: 75 Hypertension Brother Alcohol abuse Heart disease Sister Breast cancer, Onset Age: 29 Mother Diabetes Hypertension Heart disease Grandmother (Maternal) Ovarian cancer Social History Smoking Status: Never smoker Second Hand Exposure: No; Do You Dip or Chew Tobacco: No; Tobacco Cessation Education Requested by Patient: No Hx Alcohol Use: No Hx Substance Use: No Preferred Language: Panamanian Communication Ability: Effective Visual Impairment: No Limitations Hearing Ability: Use of Hearing Aid Ultrasonic Solderer Required: No Beliefs That Will Affect Care: None marital status: Current Living Situation: Spouse current occupational status: retired Other Information That Helps Us Care for You: No Feels Safe at Home: Yes Safety Concerns: Feels Safe At This Time Childhood Exposure to Second-Hand Smoke: Yes Diet: regular Diet Comment: regular caffeine: No (1/2 caffeine) during the past year weight has: remained stable Dental Care, Regularly: Yes Physical Activity Frequency: Daily Physical Activity Frequency Comment: stairs Seatbelt Use: always Sunscreen Use: Yes Assistive Devices: Glasses and Hearing Aid - Bilateral Review of Systems Review of Systems: ROS limited by a component of fatigue and confusion Constitutional: + fatigue Cardiovascular: no chest pain Gastrointestinal: no abdominal pain Psychiatric: no problem reported Physical Exam Constitutional: well developed Respiratory: Auscultation: + crackles Cardiovascular: Rate/Rhythm: regular rate Gastrointestinal (Abdomen): normal bowel sounds, soft, nontender, no hepatosplenomegaly Psychiatric: Orientation: alert Results & Data Vital Signs (Past 12 Hours) Vital Signs Temp Pulse Pulse Pulse Resp BP BP 11/08/23 10:23 36.3 C L 86 19 97/62 L 11/08/23 09:59 36.6 C 97 H 107/66 11/08/23 08:05 11/08/23 08:05 36.6 C 94 H 16 91/57 L 11/08/23 08:01 82 20 101/77 11/08/23 08:00 82 11/08/23 07:53 89 18 11/08/23 07:49 90 20 11/08/23 06:30 86 11/08/23 06:00 86 17 11/08/23 05:30 97 H 18 11/08/23 05:00 102 H 18 11/08/23 04:48 105 H 18 11/08/23 04:00 113 H 20 11/08/23 03:30 108 H 18 11/08/23 02:38 108 H 26 H 11/08/23 02:36 117 H 11/08/23 02:20 11/08/23 02:18 37.3 C 125 H 30 H 129/62 BP Pulse Ox O2 Del Method O2 Flow Rate 11/08/23 10:23 100 Nasal Cannula 4 11/08/23 09:59 93 Nasal Cannula 3 11/08/23 08:05 Nasal Cannula 3 11/08/23 08:05 91 Nasal Cannula 3 11/08/23 08:01 95 Nasal Cannula 95 11/08/23 08:00 101/77 95 Nasal Cannula 2 11/08/23 07:53 101/44 L 95 Nasal Cannula 3 11/08/23 07:49 81/50 L 95 Oxymask 11/08/23 06:30 11/08/23 06:00 101/55 L 97 Oxymask 4 11/08/23 05:30 100/60 96 Oxymask 4 11/08/23 05:00 109/47 L 92 Oxymask 4 11/08/23 04:48 90/51 L 96 Oxymask 4 11/08/23 04:00 102/50 L 94 Oxymask 6 11/08/23 03:30 113/56 L 99 Oxymask 6 11/08/23 02:38 98 Oxymask 4 11/08/23 02:36 11/08/23 02:20 87 L Room Air, Nasal Cannula 0 11/08/23 02:18 87 L Room Air PG Care Time/CCT Total # of Minutes Spent Total Time Spent with Patient: Total time spent is greater than 50% in coordination of care (as documented) at patient's floor/unit and/or counseling patient: [place] [address] INT INP/OBS CARE 3/75MIN Patient Type New History Detailed Exam Detailed Medical Decision Making Moderate Complexity Diagnoses Anemia D64.9
--- NOTE | 2023-11-08 15:25 | Infectious Disease Consult ---
Date of Consultation November 08, 2023 Assessment & Plan (1) Sepsis: (2) Bilateral pneumonia: (3) Acute respiratory failure with hypoxia: (4) Acute Lyme disease: (5) Babesiosis: Plan This is a 78-year-old female with a past medical history of atrial fibrillation status post ablation, partial nephrectomy, bilateral knee replacement, who presents with myalgias and confusion. She is a poor historian. Her is a retired surgeon and provides history. She underwent a left knee replacement in 12/2022 followed by a left knee replacement in 07/2023. 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 This was followed by bilateral lower extremity pain and ongoing neuropathy of unknown etiology. Approximately 2 weeks ago, she developed increased fatigue, arthralgias, myalgias with loss of appetite. She was seen by her PCP and Rheumatology and was diagnosed with possible PMR given elevated inflammatory markers. She was started on prednisone 20 mg per day. In the last few days, she developed fevers, confusion and vomited prompting her admission. Tmax at home 104. She traveled to [place] in August and then [place]. Both she and her live in a wooded area and have deer in the backyard. They also have been to many outdoor [employer] games for their grandson this summer.. She denies mosquito or tick bites, change in urination, rash, headaches, vision changes, cough, shortness of breath. She took a few doses of amoxicillin and Tylenol with little relief. In the ED she is afebrile, heart rate 125, RR 30, blood pressure 129/62, O2 sats 87% on room air---> 98% oxy mask. Labs WBC 9.37 hemoglobin 7, hematocrit 20, platelets 70, BUN 31, creatinine 0.83, total bili 2, direct bili 0.4, AST 101, ALT 39, alk phos 64, procalcitonin 26.5. Anaplasma smear negative. Anaplasma PCR negative ( 10/25). Babesia smear with red blood cell inclusions noted. PCR and Pathology pending . .Lyme screen and confirmatory testing positive. Respiratory viral panel negative. Chest x-ray with bibasilar opacities suggestive of pneumonia and Left suprahilar nodular opacities. CTAP shows significant interval worsening of bibasilar pneumonia versus pulmonary edema; enlarged heart. Head CT with no evidence of acute intracranial pathology. She initially received a dose of Zosyn She is now on ceftriaxone, azithromycin, and atovaquone. ID consulted for possible babesiosis and Lyme disease. Antibiotics ceftriaxone 11/06 Zosyn 11/06 Atovaquone 11/07 Azithromycin 11/07 Micro:: Blood cultures 11/07 pending Lyme screen, confirmatory testing 11/07 positive Anaplasma PCR 10/25 negative Anaplasma smear 11/07 No evidence of intracytoplasmic neutrophilic inclusions to suggest Anaplasmosis. Babesia PCR 11/07 pending Babesia smear 11/07 microcytic anemia and frequent intracellular ring form parasites #Lyme disease #Babesiosis #Acute hypoxic respiratory failure #Possible CAP #Neuropathy #B/L TKA #Anemia, thrombocytopenia #Transaminitis She has evidence of babesiosis with microcytic anemia and intracellular ring forms in red blood cells. Lyme testing consistent with Lyme disease. Anaplasma smear this admission and prior Anaplasma PCR on 10/25 negative Her clinical syndrome of fatigue, arthralgias, myalgias and lab findings of anemia, transaminitis and thrombocytopenia are consistent with a tickborne illness (specifically babesiosis and Lyme disease). Atovaquone and azithromycin will cover babesiosis. She is not immunocompromised and has her spleen. Parasite % pending. She received a dose of ceftriaxone yesterday but is not currently on coverage for Lyme disease. I will restart ceftriaxone as this will also cover her for possible pneumonia and Lyme disease. It does not appear that she has triple coinfection with anaplasmosis so I will hold off on doxycycline as ceftriaxone does not cover anaplasmosis. Procalcitonin noted to be elevated with infiltrates on chest x-ray. There is no signs on exam of knee involvement at her prosthetic joint sites. Recommendations; -Restarted Ceftriaxone 2 g IV daily for coverage of Lyme disease and CAP ,Anticipate 7d of therapy for CAP and 14-21 d for Lyme disease. Can transition to PO doxycycline after completion of CAP therapy. -Continue Atovaquone 750 mg po q12h and azithromycin 500 mg PO daily. Anticipate 7-10 days depending of parasitemia and resolution. -Follow up Babesia PCR and pathology ( parasitemia) - Monitor H/H, plts, LFTs - Follow up Thank you for this consult. ID will continue to follow Petty Love MD, MPH Infectious Disease [facility], [facility] Call [phone] with questions. Consultation Information Consultation was provided via telemedicine using two-way real-time interactive telecommunication between the patient and the telemedicine provider. For the duration of the visit, the provider was performing the assessment from a different facility than the patient. This includesuse of bluetooth stethoscope forauscultationperformed by the telepresenter that the telemedicine provider can hear if described in the physical exam. Hand Mounter contact information: Please call [facility] Center . (Phone Number For Physician Use Only) After establishing a telemedicine visit, patient was: Patient was verified with two unique identifiers Time Spent with Patient: Initial => 75 min History of Present Illness Reason for Consultation: Possible babesiosis/Lyme disease Requesting Physician: Piter Byers MD Attending Physician: Piter Byers MD History of Present Illness This is a 78-year-old female with a past medical history of atrial fibrillation status post ablation, partial nephrectomy, bilateral knee replacement, who presents with myalgias and confusion. She is a poor historian. Her is a retired surgeon and provides history. She underwent a left knee replacement in 12/2022 followed by a left knee replacement in 07/2023. 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 This was followed by bilateral lower extremity pain and ongoing neuropathy of unknown etiology. Approximately 2 weeks ago, she developed increased fatigue, arthralgias, myalgias with loss of appetite. She was seen by her PCP and Rheumatology and was diagnosed with possible PMR given elevated inflammatory markers. She was started on prednisone 20 mg per day. In the last few days, she developed fevers, confusion and vomited prompting her admission. Tmax at home 104. She traveled to [place] in August and then [place]. Both she and her live in a wooded area and have deer in the backyard. They also have been to many outdoor [employer] games for their grandson this summer.. She denies mosquito or tick bites, change in urination, rash, headaches, vision changes, cough, shortness of breath. She took a few doses of amoxicillin and Tylenol with little relief. In the ED she is afebrile, heart rate 125, RR 30, blood pressure 129/62, O2 sats 87% on room air---> 98% oxy mask. Labs WBC 9.37 hemoglobin 7, hematocrit 20, platelets 70, BUN 31, creatinine 0.83, total bili 2, direct bili 0.4, AST 101, ALT 39, alk phos 64, procalcitonin 26.5. Anaplasma smear negative. Anaplasma PCR negative ( 10/25). Babesia smear with red blood cell inclusions noted. PCR and Pathology pending . .Lyme screen and confirmatory testing positive. Respiratory viral panel negative. Chest x-ray with bibasilar opacities suggestive of pneumonia and Left suprahilar nodular opacities. CTAP shows significant interval worsening of bibasilar pneumonia versus pulmonary edema; enlarged heart. Head CT with no evidence of acute intracranial pathology. She initially received a dose of Zosyn She is now on ceftriaxone, azithromycin, and atovaquone. ID consulted for possible babesiosis and Lyme disease. Allergies Allergy/AdvReac Type Severity Reaction Status Date / Time naproxen [From Naprosyn] AdvReac Intermediate diarrhea Verified 11/08/23 03:02 Methylmethacrylate Allergy Severe found Uncoded 11/08/23 03:02 during allergy testing. Home Medications Medication Instructions Recorded Confirmed Type apixaban 5 mg tablet (Eliquis) 5 mg PO BID 09/27/19 11/08/23 History fish oil-dha-epa 1,200 mg-144 1 cap PO QAM 09/27/19 11/08/23 History mg-216 mg capsule multivitamin with minerals 2 tab PO DAILY 07/31/21 11/08/23 History (Hair,Skin and Nails tablet) atorvastatin 80 mg tablet (Lipitor) 80 mg PO DAILY 02/06/22 11/08/23 History calcium carbonate 500 mg PO DAILY 02/06/22 11/08/23 History raloxifene 60 mg tablet 60 mg PO QAM #90 tabs 02/06/22 11/08/23 Rx cholecalciferol (vitamin D3) 25 50 mcg PO DAILY 08/03/22 11/08/23 History mcg (1,000 unit) capsule flecainide 100 mg tablet 50 mg PO BID 08/03/22 11/08/23 History omeprazole 20 mg capsule,delayed 20 mg PO DAILY 08/03/22 11/08/23 History release Flutter Valve #1 ea 02/05/23 11/02/23 Rx diltiazem HCl 120 mg See Rx Instructions .Route .COMPLEX 07/07/23 11/08/23 Hist ory capsule,extended release 12 hr ferrous sulfate 325 mg (65 mg 325 mg PO DAILY 07/07/23 11/08/23 History iron) tablet acetaminophen 325 mg capsule 325 mg PO QID PRN PAIN/FEVER 10/26/23 11/08/23 History (Tylenol) mecobalamin (vitamin B12) 1,000 1,000 mcg PO DAILY #30 tabs 10/26/23 11/08/23 Rx mcg chewable tablet prednisone 20 mg tablet 20 mg PO DAILY #30 tabs 10/26/23 11/08/23 Rx pregabalin 50 mg capsule (Lyrica) 50 mg PO BID #60 caps 10/26/23 11/08/23 Rx gabapentin 600 mg tablet 300 mg PO DAILY 11/02/23 11/08/23 History prednisone 5 mg tablet 15 mg (3 x 5 mg) PO DAILY #90 tabs 11/02/23 11/08/23 Rx alendronate 70 mg tablet 70 mg PO WK 11/08/23 11/08/23 History amoxicillin 875 mg tablet 875 mg PO BID 11/08/23 11/08/23 History Patient History Medical History Mitral valve prolapse Mitral valve "normal" per 07/2019 BILL Surgical History History of arthroplasty of right knee (07/19/23) Status post left knee replacement (12/23/22) S/P ablation of atrial fibrillation (04/2020) Hx of partial nephrectomy (03/07/20) 03/07/20 Dr. Jhon Gant- Left robotic partial nephrectomy History of cardioversion July 2019 History of bronchoscopy 1979's Status post placement of implantable loop recorder (11/2019) NextVRtr[employer]. Implanted Nov 2019 > follows dr. poncho ng cardiology History of tonsillectomy and adenoidectomy S/P arthroscopic knee surgery right S/P hysterectomy secondary to fibroids S/P section x4 Family History Father Coronary heart disease Prostate cancer Myocardial infarction, Onset Age: 75 Hypertension Brother Alcohol abuse Heart disease Sister Breast cancer, Onset Age: 29 Mother Diabetes Hypertension Heart disease Grandmother (Maternal) Ovarian cancer Social History Smoking Status: Never smoker Second Hand Exposure: No; Do You Dip or Chew Tobacco: No; Tobacco Cessation Education Requested by Patient: No Hx Alcohol Use: No Hx Substance Use: No Preferred Language: Malaysian Communication Ability: Effective Visual Impairment: No Limitations Hearing Ability: Use of Hearing Aid Terminal Clerk Required: No Beliefs That Will Affect Care: None marital status: Current Living Situation: Spouse current occupational status: retired Other Information That Helps Us Care for You: No Feels Safe at Home: Yes Safety Concerns: Feels Safe At This Time Childhood Exposure to Second-Hand Smoke: Yes Diet: regular Diet Comment: regular caffeine: No (1/2 caffeine) during the past year weight has: remained stable Dental Care, Regularly: Yes Physical Activity Frequency: Daily Physical Activity Frequency Comment: stairs Seatbelt Use: always Sunscreen Use: Yes Assistive Devices: Glasses and Hearing Aid - Bilateral Review of System A 10 point ROS obtained. Pertinent positives as per HPI Physical Exam Physical Exam: Gen- Awake and alert, poor historian, on NC, fatigue appearing Neck- Supple HEENT- anicteric sclera Lungs- some increased work of breathing, Rhonchi Cards- tachycardic, irregular Abd- soft, NT, ND Skin- pallor Neuro- Awake alert,oriented to self and place ext- No edema. Well healed BL TKA incisions Psych- cooperative Results & Data Vital Signs (Past 12 Hours) Vital Signs Temp Pulse Pulse Pulse Resp BP BP 11/08/23 14:24 36.5 C 98 H 16 100/65 11/08/23 13:26 36.3 C L 87 19 94/61 L 11/08/23 12:56 36.3 C L 103 H 19 97/62 L 11/08/23 12:41 36.3 C L 80 18 83/55 L 11/08/23 12:21 36.6 C 86 22 90/57 L 11/08/23 11:42 11/08/23 10:23 36.3 C L 86 19 97/62 L 11/08/23 09:59 36.6 C 97 H 107/66 07/22/24 08:05 11/08/23 08:05 36.6 C 94 H 16 91/57 L 11/08/23 08:01 82 20 101/77 11/08/23 08:00 82 11/08/23 07:53 89 18 11/08/23 07:49 90 20 11/08/23 06:30 86 11/08/23 06:00 86 17 11/08/23 05:30 97 H 18 11/08/23 05:00 102 H 18 11/08/23 04:48 105 H 18 11/08/23 04:00 113 H 20 11/08/23 03:30 108 H 18 BP Pulse Ox O2 Del Method O2 Flow Rate 11/08/23 14:24 98 4 11/08/23 13:26 94 5 11/08/23 12:56 93 5 11/08/23 12:41 99 4 11/08/23 12:21 96 3 11/08/23 11:42 Nasal Cannula 3 11/08/23 10:23 100 Nasal Cannula 4 11/08/23 09:59 93 Nasal Cannula 3 11/08/23 08:05 Nasal Cannula 3 11/08/23 08:05 91 Nasal Cannula 3 11/08/23 08:01 95 Nasal Cannula 95 11/08/23 08:00 101/77 95 Nasal Cannula 2 11/08/23 07:53 101/44 L 95 Nasal Cannula 3 11/08/23 07:49 81/50 L 95 Oxymask 11/08/23 06:30 11/08/23 06:00 101/55 L 97 Oxymask 4 11/08/23 05:30 100/60 96 Oxymask 4 11/08/23 05:00 109/47 L 92 Oxymask 4 11/08/23 04:48 90/51 L 96 Oxymask 4 11/08/23 04:00 102/50 L 94 Oxymask 6 11/08/23 03:30 113/56 L 99 Oxymask 6 Laboratory Results Laboratory Results - last 48 hr 11/08/23 11/08/23 11/08/23 02:20 02:24 02:55 WBC 9.37 RBC 2.61 L Hgb 7.0 L Hct 20.0 L* MCV 77.0 L MCH 26.8 MCHC 34.8 RDW Std Deviation 41.3 RDW Coeff of Sanjuana 15.2 H Plt Count 70 L MPV Immature Gran % (Auto) Neut % (Auto) Lymph % (Auto) [place] % (Auto) Eos % (Auto) Baso % (Auto) Neut # (Auto) Lymph # (Auto) [place] # (Auto) Eos # (Auto) Baso # (Auto) Immature Gran # (Auto) Absolute Nucleated RBC 0.10 Nucleated RBC % (auto) 1.0 Toxic Vacuolation 1+ Platelet Estimate Decreased L Polychromasia 2+ Target Cells Peripher Smr Path Cons PT 11.2 INR 1.0 VBG pH 7.42 H VBG pCO2 30 L VBG pO2 21 VBG HCO3 20 VBG O2 Saturation < 60.0 VBG Base Excess -3.9 Sodium 130 L Potassium 3.8 Chloride 104 Carbon Dioxide 20 L Anion Gap 6 BUN 31 H Creatinine 0.83 Est Cr Clr Drug Dosing 51.8 Est GFR ( Amer) 78.3 Est GFR (Non-Af Amer) 67.5 BUN/Creatinine Ratio 37.3 H Glucose 89 Lactate 1.9 Calcium 7.0 L Magnesium 1.8 Iron TIBC Unsaturated IBC Transferrin % Sat Total Bilirubin 2.0 H Direct Bilirubin 0.4 H AST 101 H ALT 39 Alkaline Phosphatase 64 Troponin I High Sens 28.6 H B-Natriuretic Peptide Total Protein 5.5 L Albumin 2.2 L Globulin Albumin/Globulin Ratio Procalcitonin 26.50 H Urine Color Dark Yellow Urine Appearance Turbid A Urine pH 6.5 Ur Specific [place] 1.023 Urine Protein 3+ H Urine Glucose (UA) Negative Urine Ketones Negative Urine Blood 3+ H Urine Nitrite Negative Urine Bilirubin Negative Urine Urobilinogen Negative Ur Leukocyte Esterase Trace H Urine WBC (Auto) 0-5 Urine RBC (Auto) 3-5 H U Hyaline Cast (Auto) 6-10 H U Epithel Cells (Auto) 3-5 H Urine Bacteria (Auto) None Seen Amorphous Sediment Present A Granular Casts Present A Stool Occult Bld Scrn Adenovirus (PCR) Not Detected Anaplasma Smear See Comment Babesia Smear See Comment A B. pertussis DNA (PCR) Not Detected B.parapertussis DNA PCR Not Detected Lyme Disease Screen Positive H Lyme Tier 2 IgG Confirm Positive H Lyme Tier 2 IgM Confirm Positive H C. pneumoniae DNA (PCR) Not Detected Coronavirus OC43 (PCR) Not Detected Coronavirus HKU1 (PCR) Not Detected Coronavirus 229E (PCR) Not Detected SARS-CoV-2 (PCR) Not Detected Coronavirus NL63 (PCR) Not Detected Human Metapneumovir PCR Not Detected Influenza Type A (PCR) Not Detected Influenza Type B (PCR) Not Detected M. pneumoniae (PCR) Not Detected Parainfluenza 1 (PCR) Not Detected Parainfluenza 2 (PCR) Not Detected Parainfluenza 3 (PCR) Not Detected Parainfluenza 4 (PCR) Not Detected RSV (PCR) Not Detected Entero/Rhino (PCR) Not Detected Blood Parasites ID Blood Type Antibody Screen Crossmatch 11/08/23 11/08/23 11/08/23 03:00 04:38 08:59 WBC 10.22 RBC 2.31 L Hgb 6.3 L* Hct 18.1 L* MCV 78.4 L MCH 27.3 MCHC 34.8 RDW Std Deviation 43.1 RDW Coeff of [place]ju[place] 15.6 H Plt Count 61 L MPV 12.2 Immature Gran % (Auto) 1.8 Neut % (Auto) 72.3 Lymph % (Auto) 21.8 [place] % (Auto) 4.0 Eos % (Auto) 0.0 Baso % (Auto) 0.1 Neut # (Auto) 7.39 H Lymph # (Auto) 2.23 [place] # (Auto) 0.41 Eos # (Auto) 0.00 Baso # (Auto) 0.01 Immature Gran # (Auto) 0.18 Absolute Nucleated RBC 0.07 Nucleated RBC % (auto) 0.7 Toxic Vacuolation Platelet Estimate Polychromasia 1+ Target Cells 1+ Peripher Smr Path Cons PT INR VBG pH VBG pCO2 VBG pO2 VBG HCO3 VBG O2 Saturation VBG Base Excess Sodium 133 L Potassium 4.1 Chloride 107 Carbon Dioxide 22 Anion Gap 4 BUN 29 H Creatinine 0.81 Est Cr Clr Drug Dosing 54.4 Est GFR ( Amer) 80.6 Est GFR (Non-Af Amer) 69.6 BUN/Creatinine Ratio 35.8 H Glucose 107 H Lactate Calcium 6.6 L Magnesium Iron 22 L TIBC 165 L Unsaturated IBC 143 L Transferrin % Sat 13 L Total Bilirubin 1.2 H Direct Bilirubin AST 90 H ALT 34 Alkaline Phosphatase 57 Troponin I High Sens 36.4 H 26.5 H B-Natriuretic Peptide 263 H Total Protein 5.2 L Albumin 2.1 L Globulin 3.1 Albumin/Globulin Ratio 0.7 L Procalcitonin 44.10 H Urine Color Urine Appearance Urine pH Ur Specific [place] Urine Protein Urine Glucose (UA) Urine Ketones Urine Blood Urine Nitrite Urine Bilirubin Urine Urobilinogen Ur Leukocyte Esterase Urine WBC (Auto) Urine RBC (Auto) U Hyaline Cast (Auto) U Epithel Cells (Auto) Urine Bacteria (Auto) Amorphous Sediment Granular Casts Stool Occult Bld Scrn Adenovirus (PCR) Anaplasma Smear Babesia Smear B. pertussis DNA (PCR) B.parapertussis DNA PCR Lyme Disease Screen Lyme Tier 2 IgG Confirm Lyme Tier 2 IgM Confirm C. pneumoniae DNA (PCR) Coronavirus OC43 (PCR) Coronavirus HKU1 (PCR) Coronavirus 229E (PCR) SARS-CoV-2 (PCR) Coronavirus NL63 (PCR) Human Metapneumovir PCR Influenza Type A (PCR) Influenza Type B (PCR) M. pneumoniae (PCR) Parainfluenza 1 (PCR) Parainfluenza 2 (PCR) Parainfluenza 3 (PCR) Parainfluenza 4 (PCR) RSV (PCR) Entero/Rhino (PCR) Blood Parasites ID Present Blood Type O Negative Antibody Screen NEGATIVE Crossmatch See Detail 11/08/23 11/08/23 10:58 Unknown WBC RBC Hgb Hct MCV MCH MCHC RDW Std Deviation RDW Coeff of Sanjuana Plt Count MPV Immature Gran % (Auto) Neut % (Auto) Lymph % (Auto) [place] % (Auto) Eos % (Auto) Baso % (Auto) Neut # (Auto) Lymph # (Auto) [place] # (Auto) Eos # (Auto) Baso # (Auto) Immature Gran # (Auto) Absolute Nucleated RBC Nucleated RBC % (auto) Toxic Vacuolation Platelet Estimate Polychromasia Target Cells Peripher Smr Path Cons PT INR VBG pH VBG pCO2 VBG pO2 VBG HCO3 VBG O2 Saturation VBG Base Excess Sodium Potassium Chloride Carbon Dioxide Anion Gap BUN Creatinine Est Cr Clr Drug Dosing Est GFR ( Amer) Est GFR (Non-Af Amer) BUN/Creatinine Ratio Glucose Lactate Calcium Magnesium Iron TIBC Unsaturated IBC Transferrin % Sat Total Bilirubin Direct Bilirubin AST ALT Alkaline Phosphatase Troponin I High Sens 28.5 H B-Natriuretic Peptide Total Protein Albumin Globulin Albumin/Globulin Ratio Procalcitonin Urine Color Urine Appearance Urine pH Ur Specific [place] Urine Protein Urine Glucose (UA) Urine Ketones Urine Blood Urine Nitrite Urine Bilirubin Urine Urobilinogen Ur Leukocyte Esterase Urine WBC (Auto) Urine RBC (Auto) U Hyaline Cast (Auto) U Epithel Cells (Auto) Urine Bacteria (Auto) Amorphous Sediment Granular Casts Stool Occult Bld Scrn Positive A Adenovirus (PCR) Anaplasma Smear Babesia Smear B. pertussis DNA (PCR) B.parapertussis DNA PCR Lyme Disease Screen Lyme Tier 2 IgG Confirm Lyme Tier 2 IgM Confirm C. pneumoniae DNA (PCR) Coronavirus OC43 (PCR) Coronavirus HKU1 (PCR) Coronavirus 229E (PCR) SARS-CoV-2 (PCR) Coronavirus NL63 (PCR) Human Metapneumovir PCR Influenza Type A (PCR) Influenza Type B (PCR) M. pneumoniae (PCR) Parainfluenza 1 (PCR) Parainfluenza 2 (PCR) Parainfluenza 3 (PCR) Parainfluenza 4 (PCR) RSV (PCR) Entero/Rhino (PCR) Blood Parasites ID Blood Type Antibody Screen Crossmatch Diagnostic Findings Chest X-Ray 11/08/23 02:23 XR chest 1V portable CLINICAL HISTORY: Sepsis. COMPARISON STUDY: Chest CT January 26, 2023. Chest radiograph February 05, 2023. FINDINGS: There is no pneumothorax or pleural effusion. Bibasilar opacities are present. There is mild interstitial thickening. Cardiomegaly is unchanged. Electronic device projects over the left chest. Left suprahilar nodular opacity is present. IMPRESSION: 1. Bibasilar opacities suggestive of pneumonia. Radiographic follow-up to ensure resolution is recommended. 2. Cardiomegaly with mild interstitial pulmonary edema. 3. Left suprahilar nodular opacity. This likely reflects pulmonary vessels however should be assessed on follow-up exams to exclude an underlying pulmonary nodule. ACT 112: Negative or not required by law. Electronically signed by: Diony Bauman M.D. 11/08/2023 6:40 AM Abdomen/Pelvis CT 11/08/23 02:34 Exam(s): CT ABDOMEN + PELVIS With Contrast IV Amt: 93 ML OPTIRAY 320 EXAM: CT Abdomen and Pelvis With Intravenous Contrast CLINICAL HISTORY: Reason for exam: fever, low back pain. TECHNIQUE: Axial computed tomography images of the abdomen and pelvis with intravenous contrast. CTDI is 25.18 mGy and DLP is 1228.6 mGy-cm. Automated exposure control was utilized for the study. A dose lowering technique was utilized adhering to the principles of ALARA. CONTRAST: Patient received 93 ML OPTIRAY 320 of IV contrast COMPARISON: 02/13/21 FINDINGS: Lung bases: Significant interval worsening of bibasilar pneumonia versus pulmonary edema. Heart: Enlarged heart, worse from prior examination. Small pericardial effusion. ABDOMEN: Liver: Unremarkable. No mass. Gallbladder and bile ducts: Unremarkable. No calcified stones. No ductal dilation. Pancreas: Unremarkable. No mass. No ductal dilation. Spleen: Unremarkable. No splenomegaly. Adrenals: Unremarkable. No mass. Kidneys and ureters: Unremarkable. No hydronephrosis. Inferior left renal cortical scarring. Stomach and bowel: Scattered diverticula in the colon. No diverticulitis. No obstruction. PELVIS: Appendix: Post appendectomy. Bladder: Unremarkable. No mass. Reproductive: Post hysterectomy. ABDOMEN and PELVIS: Intraperitoneal space: Unremarkable. No free air. No significant fluid collection. Bones/joints: No acute fracture. No dislocation. Soft tissues: Unremarkable. Vasculature: Unremarkable. No abdominal aortic aneurysm. Lymph nodes: Unremarkable. No enlarged lymph nodes. IMPRESSION: 1. Significant interval worsening of bibasilar pneumonia versus pulmonary edema. 2. Enlarged heart, worse from prior examination. Small pericardial effusion. 3. No acute findings in the abdomen or pelvis. Electronically signed by: Fransico Salinas MD 11/08/23 04:[address] 11/08/23 02:34 Exam(s): CT HEAD Without Contrast EXAM: CT Head Without Intravenous Contrast CLINICAL HISTORY: Reason for exam: confusion. TECHNIQUE: Axial computed tomography images of the head/brain without intravenous contrast. CTDI is 37.61 mGy and DLP is 624.41 mGy-cm. Automated exposure control was utilized for the study. A dose lowering technique was utilized adhering to the principles of ALARA. COMPARISON: No relevant prior studies available. FINDINGS: Brain: Unremarkable. No hemorrhage. Mild nonspecific white matter changes. No edema. Ventricles: Mild ventriculomegaly. Bones/joints: Unremarkable. No acute fracture. Soft tissues: Unremarkable. Sinuses: Unremarkable as visualized. No acute sinusitis. Mastoid air cells: Unremarkable as visualized. No mastoid effusion. IMPRESSION: No evidence of acute intracranial pathology. Electronically signed by: Fabiana Rowe MD 11/08/23 04:26 AM Medications Administered Home Medications Medication Instructions Recorded Confirmed Last Taken apixaban 5 mg tablet (Eliquis) 5 mg PO BID 09/27/19 11/08/23 11/07/23 fish oil-dha-epa 1,200 mg-144 1 cap PO QAM 09/27/19 11/08/23 11/07/23 mg-216 mg capsule multivitamin with minerals 2 tab PO DAILY 07/31/21 11/08/23 11/07/23 (Hair,Skin and Nails tablet) atorvastatin 80 mg tablet (Lipitor) 80 mg PO DAILY 02/06/22 11/08/23 11/07/23 calcium carbonate 500 mg PO DAILY 02/06/22 11/08/23 11/07/23 raloxifene 60 mg tablet 60 mg PO QAM #90 tabs 02/06/22 11/08/23 11/07/23 cholecalciferol (vitamin D3) 25 50 mcg PO DAILY 08/03/22 11/08/23 11/07/23 mcg (1,000 unit) capsule flecainide 100 mg tablet 50 mg PO BID 08/03/22 11/08/23 11/07/23 omeprazole 20 mg capsule,delayed 20 mg PO DAILY 08/03/22 11/08/23 11/07/23 release Flutter Valve #1 ea 02/05/23 11/02/23 Unknown diltiazem HCl 120 mg See Rx Instructions .Route .COMPLEX 07/07/23 11/08/23 11/07/23 capsule,extended release 12 hr ferrous sulfate 325 mg (65 mg 325 mg PO DAILY 07/07/23 11/08/23 11/07/23 iron) tablet acetaminophen 325 mg capsule 325 mg PO QID PRN PAIN/FEVER 10/26/23 11/08/23 Unknown (Tylenol) mecobalamin (vitamin B12) 1,000 1,000 mcg PO DAILY #30 tabs 10/26/23 11/08/23 11/07/23 mcg chewable tablet prednisone 20 mg tablet 20 mg PO DAILY #30 tabs 10/26/23 11/08/23 11/07/23 pregabalin 50 mg capsule (Lyrica) 50 mg PO BID #60 caps 10/26/23 11/08/23 11/02/23 13:26 gabapentin 600 mg tablet 300 mg PO DAILY 11/02/23 11/08/23 11/07/23 prednisone 5 mg tablet 15 mg (3 x 5 mg) PO DAILY #90 tabs 11/02/23 11/08/23 Unknown alendronate 70 mg tablet 70 mg PO WK 11/08/23 11/08/23 Unknown amoxicillin 875 mg tablet 875 mg PO BID 11/08/23 11/08/23 11/07/23 Active Medications Generic Name Dose Route Start Last Admin Trade Name Vincent PRN Reason Stop Dose Admin Atorvastatin Calcium 80 mg 11/08/23 09:00 11/08/23 09:52 Atorvastatin 40 Mg Tab PO 12/08/23 08:59 80 mg DAILY LEN Administration Atovaquone 750 mg 11/08/23 09:00 11/08/23 09:54 Atovaquone 750 Mg/5 Ml Udc PO 12/08/23 08:59 750 mg Q12H LEN Administration Diltiazem HCl 120 mg 11/08/23 09:30 11/08/23 09:58 Diltiazem Hcl 120 Mg Capcr PO 12/08/23 09:29 120 mg BID LEN Administration Ferrous Sulfate 325 mg 11/08/23 09:00 11/08/23 09:53 Ferrous Sulfate 325 Mg Tab PO 12/08/23 08:59 325 mg DAILY LEN Administration Flecainide Acetate 50 mg 11/08/23 09:00 11/08/23 09:56 Flecainide Acetate 100 Mg Tablet PO 12/08/23 08:59 50 mg BID LEN Administration Furosemide 40 mg 11/08/23 09:30 11/08/23 10:15 Furosemide 40 Mg/4 Ml Vial IV 12/08/23 09:29 40 mg Q12H LEN Administration Sodium Chloride 1,000 mls @ 30 mls/hr 11/08/23 04:15 11/08/23 12:34 Nss IV 12/08/23 04:14 Infused .Q24H LEN Infusion Azithromycin 500 mg/ Dextrose 255 mls @ 127.5 mls/hr 11/08/23 09:00 11/08/23 12:04 IV 11/15/23 08:59 Infused Q24H LEN Infusion Acetaminophen 1,000 mg in 100 mls @ 400 mls/hr 11/08/23 11:00 11/08/23 12:04 Ofirmev IV 11/11/23 10:59 Infused Q8H LEN Infusion Hydrocortisone Sodium 1 mls @ 4 mls/min 11/08/23 10:00 11/08/23 10:15 Succinate 50 mg/ Syringe IV 12/08/23 09:59 4 mls/min Q8H LEN Administration Raloxifene HCl 60 mg 11/08/23 09:15 11/08/23 09:57 Raloxifene Hcl 60 Mg Tab PO 12/08/23 09:14 60 mg QAM LEN Administration
[2023-11-08 15:43] LABS: Hematocrit (blood only) 23.2 % (37.0-47.0); Hemoglobin 7.8 g/dl (12.0-16.0)
[2023-11-08 20:12] LABS: Hematocrit (blood only) 23.9 % (37.0-47.0); Hemoglobin 8.4 g/dl (12.0-16.0)
[2023-11-08] MEDS: PANTOprazole 40 MG in SYRINGE 0 ML IV SCH (21:08)
[2023-11-09] MEDS: oxyCODONE HCL IR 5 MG TAB (IMMEDIATE RELEASE) PO STA (01:03)
[2023-11-09] MEDS: SODIUM CHLORIDE 0.9% 250 ML IV ONE ×2 (03:26→06:28)
[2023-11-09] MEDS: cefTRIAXone SODIUM 2,000 MG/50 ML BAG IV SCH (04:07)
--- NOTE | 2023-11-09 04:31 | Communication Note ---
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 I ordered a dose of oxycodone IR for pain relief in addition to her scheduled Tylenol, nursing later reported that she was able to relax and sleep. Nursing also relayed that her HR has remained elevated primarily 90s-110 overnight while in atrial fibrillation (home medications include Diltiazem, Flecainide). Upon chart review, patient received transfusion of PRBCs today and is receiving mIVF at a reduced rate. Considering her current BPs and current infection, will be less aggressive with rate control. Added small 250mL bolus of IV fluids and will continue to monitor on telemetry. Resident Activity Tracking Resident Involvement: Resident Care Provided Care Provided: Adult Hospital Medicine
[2023-11-09 07:07] LABS: BUN Creatinine Ratio 37.1 (10-20); Calcium 6.7 mg/dl (8.6-10.3); Creatinine Clr Calc Pharmacy 62.8 ml/min; Est GFR (African American) 96.2 ml/min; Potassium 3.6 mmol/L (3.5-5.1)
--- NOTE | 2023-11-09 07:17 | XRay Report ---
XR chest 1V portable HISTORY: 78 years-old Female pneumonia, pulm edema acute shortness of breath COMPARISON: 11/08/2023 TECHNIQUE: AP view of the chest FINDINGS: Cardiac silhouette is enlarged. Electronic device projects over the left heart border. No pneumothora x or large pleural effusion. Pulmonary vascular congestion with interstitial coarsening redemonstrate d. Mild patchy bibasilar and left upper lung airspace opacities redemonstrated. Bones appear grossly intact. IMPRESSION: 1. Cardiomegaly with mild pulmonary edema and pulmonary fibrosis. 2. Unchanged ill-defined bibasilar and left upper lung opacities may be associated with the fibrosis versus superimposed pneumonia. ACT 112: Negative or not required by law. The above report was generated using voice recognition software. It may contain grammatical, syntax o r spelling errors. Electronically signed by: Anuj Lake M.D. 11/09/2023 7:16 AM
[2023-11-09 07:22] LABS: Basophils # (auto) 0.02 K/uL (0.00-0.20); Basophils % (auto) 0.2 %; Echinocytes 1+; Hemoglobin 9.2 g/dl (12.0-16.0); Immature Granulocytes % (auto) 1.6 %; Lymphocytes # (auto) 1.31 K/uL (1.20-3.40); Lymphocytes % (auto) 10.8 %; Mean Corpuscular Hemoglobin 27.5 pg (25.0-34.0); Mean Corpuscular Hgb Conc 35.4 g/dL (32.0-36.0); Mean Corpuscular Volume 77.8 fL (80.0-100.0); Monocytes # (auto) 0.55 K/uL (0.11-0.59); Monocytes % (auto) 4.5 %; Neutrophils # (auto) 10.05 K/uL (1.40-6.50); Neutrophils % (auto) 82.9 %; Nucleated RBC # (auto) 0.12 K/uL (0.00-0.12); Platelet Count 55 K/uL (130-400); RDW Coefficient of Variation 15.1 % (11.5-14.5); RDW Standard Deviation 41.6 fL (36.4-46.3); Red Blood Count 3.34 M/uL (4.20-5.40); White Blood Count 12.13 K/ul (4.8-10.8)
[2023-11-09 07:40] LABS: Parasites Present
[2023-11-09] MEDS: HYDROCORTISONE SOD 25 MG in SYRINGE 0 ML IV SCH (09:24)
[2023-11-09] MEDS: dilTIAZem HCL 180 MG CAPCR PO SCH (09:26)
[2023-11-09] MEDS: IRON SUCROSE 200 MG in 0.9 % SODIUM CHLORIDE 100 ML IV ONE (10:12)
--- NOTE | 2023-11-09 11:10 | Communication Note ---
Date of Service: November 09, 2023 GI following patient, however did not wake her this morning due to reports of poor sleep & fatigue. I did discuss with the at bedside. Her H/H prese ntly is 9.2/26.0. Stools have been documented by nursing as brown, without bleeding. She is on Protonix 40 mg BID. We will continue to follow peripherally as her primary team manages her acute medical issues. agree with note and plan. Tracy
--- NOTE | 2023-11-09 13:04 | Hospitalist Progress Note ---
Date of Service November 09, 2023 Assessment & Plan (1) GI bleed: Plan: No overt hematochezia or melena. Hemoglobin improved to 9.2 after 2 units of blood transfusion. Pallor has resolved. Eliquis remains on hold. Continue Protonix therapy. GI consultation appreciated. No endoscopy until she is more stable. 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 2 units packed red blood cells were given. Hemoglobin is now 9.2. No overt melena or hematochezia. Serial labs. (3) Atrial fibrillation with rapid ventricular response: Plan: Telemetry. Medication management. Eliquis has been discontinued due to GI bleeding and acute blood loss anemia (4) Sepsis: Plan: Present on admission. Infectious disease consultation appreciated. Currently on Rocephin, azithromycin, atovaquone. 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 Blood cultures remain negative to date. Obtain sputum culture if sputum is produced (5) Acute respiratory failure with hypoxia: Plan: Supplemental oxygen per nasal cannula has been weaned off. Chest x-ray done today, November 08, looks much better. Pulmonary edema has resolved. This appears to have been due to fluid overload on admission. (6) Bilateral pneumonia: Plan: No sputum production for culture. No overt hemoptysis. Chest x-ray done today, November 09, looks much better. Findings on admission may simply have been due to fluid overload without overt pneumonic infiltrates. Infectious disease consultation appreciated. Serial chest x-ray (7) Current use of steroid medication: Plan: She has not been on oral prednisone very long but intravenous hydrocortisone has been ordered as a precaution. Dosage taper down today, November 09 (8) Benign essential hypertension: Plan: Diltiazem dosage uptitrated today, November 09, for better heart rate control. Blood pressure is stable (9) IgG lambda monoclonal gammopathy: Plan: By history. No intervention at this time (10) Pulmonary edema: Plan: Seen on admission chest x-ray. Now resolved. Chest x-ray done today, November 08, looks much better. She is now on room air. This is appears to be due to fluid overload present on admission. No previous history of CHF Plan To be determined Admission and Anticipated Discharge Date Admission Date: November 08, 2023 Subjective Still appears ill. Rigors. Hemoglobin is up to 9.2 after 2 units packed red blood cell transfusion. Eliquis has been discontinued. GI consult appreciated. Infectious disease consult appreciated. She is on Rocephin, atovaquone, and azithromycin. Diltiazem CD uptitrated for better heart rate control. IV Lasix has been discontinued since it appears pulmonary edema has resolved. She is now on room air. She is not eating much and IV fluids have been started. Will also start parenteral iron replacement. Diet has been advanced from clear liquids to full liquids if she desires. Review of Systems 2 Review of Systems: Constitutional-will she remains encephalopathic. Rigors. Malaise. ENT-no blurred vision, no double vision, no epistaxis, no sore throat Respiratory-occasional nonproductive cough. No hemoptysis. Cardiac-no palpitations, no chest pain, no syncope GI-anorexic. No overt melena or hematochezia. No vomiting, no hematemesis -no urinary retention, no urinary incontinence, no dysuria, no hematuria Musculoskeletal-no joint pain, no muscle tenderness Skin-pallor noted. No bruising, no rashes, no pruritus Neuro-Malaise and generalized weakness. No focal deficits Psych-flat affect Physical Exam 2 Physical Exam: General-alert and oriented x3, appears ill and weak HEENT-head atraumatic and normocephalic, pupils equal and reactive to light, extraocular muscles intact Neck-no lymphadenopathy or thyromegaly, trachea midline Chest-rhonchi have resolved. No inspiratory rales. No wheezing. Cardiac -mildly tachycardic irregular rate and rhythm. Normal S1 and S2. Abdomen-normal bowel sounds, no hepatosplenomegaly Extremities-no cyanosis, clubbing, or edema Skinpallor has resolved after transfusion. Neuro-generalized weakness. No focal deficits Psychencephalopathic. Flat affect Results & Data Results & Data Vital Signs (Past 12 Hours) Vital Signs Temp Pulse Pulse Resp BP Pulse Ox O2 Del Method 11/09/23 10:46 39.3 C H 114 H 18 113/61 90 Room Air 11/09/23 10:03 112 H 11/09/23 07:25 36.3 C L 106 H 18 110/71 94 Room Air 11/09/23 02:41 37.2 C 109 H 22 105/66 94 Room Air Laboratory Results 11/09/23 05:53 11/09/23 05:53 PG Care Time/CCT Total # of Minutes Spent Total Time Spent with Patient: Total time spent is greater than 50% in coordination of care (as documented) at patient's floor/unit and/or counseling patient: Coding Level of Care Code 89546 SUB INP/OBS CARE 3/50MIN Diagnoses GI bleed K92.2 Acute blood loss anemia D62 Atrial fibrillation with rapid ventricular response I48.91 Sepsis A41.9 Acute respiratory failure with hypoxia J96.01 Bilateral pneumonia J18.9 Current use of steroid medication Z79.52 Benign essential hypertension I10 IgG lambda monoclonal gammopathy D47.2 Pulmonary edema J81.1
--- NOTE | 2023-11-09 13:07 | Infectious Disease Progress Nt ---
Date of Service November 09, 2023 Assessment & Plan (1) Sepsis: (2) Bilateral pneumonia: (3) Acute respiratory failure with hypoxia: (4) Acute Lyme disease: (5) Babesiosis: Plan This is a 78-year-old female with a past medical history of atrial fibrillation status post ablation, partial nephrectomy, bilateral knee replacement, who presents with myalgias and confusion. She is a poor historian. Her is a retired surgeon and provides history. She underwent a left knee replacement in 12/2022 followed by a left knee replacement in 07/2023. 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 This was followed by bilateral lower extremity pain and ongoing neuropathy of unknown etiology. Approximately 2 weeks ago, she developed increased fatigue, arthralgias, myalgias with loss of appetite. She was seen by her PCP and Rheumatology and was diagnosed with possible PMR given elevated inflammatory markers. She was started on prednisone 20 mg per day. In the last few days, she developed fevers, confusion and vomited prompting her admission. Tmax at home 104. She traveled to [place] in August and then [place]. Both she and her [place] in [place] area and have deer in the backyard. They also have been to many outdoor [employer] games for their grandson this summer.. She denies mosquito or tick bites, change in urination, rash, headaches, vision changes, cough, shortness of breath. She took a few doses of amoxicillin and Tylenol with little relief. In the ED she is afebrile, heart rate 125, RR 30, blood pressure 129/62, O2 sats 87% on room air---> 98% oxy mask. Labs WBC 9.37 hemoglobin 7, hematocrit 20, platelets 70, BUN 31, creatinine 0.83, total bili 2, direct bili 0.4, AST 101, ALT 39, alk phos 64, procalcitonin 26.5. Anaplasma smear negative. Anaplasma PCR negative ( 10/25). Babesia smear with red blood cell inclusions noted. PCR and Pathology pending . .Lyme screen and confirmatory testing positive. Respiratory viral panel negative. Chest x-ray with bibasilar opacities suggestive of pneumonia and Left suprahilar nodular opacities. CTAP shows significant interval worsening of bibasilar pneumonia versus pulmonary edema; enlarged heart. Head CT with no evidence of acute intracranial pathology. She initially received a dose of Zosyn She is now on ceftriaxone, azithromycin, and atovaquone. ID consulted for possible babesiosis and Lyme disease. Antibiotics ceftriaxone 11/06, 11/07- ongoing Zosyn 11/06 Atovaquone 11/07- ongoing Azithromycin 11/07-ongoing Micro: Blood cultures 11/07 NGTD Lyme screen, confirmatory testing 11/07 positive Anaplasma PCR 10/25 negative Anaplasma smear 11/07 No evidence of intracytoplasmic neutrophilic inclusions to suggest Anaplasmosis. Babesia PCR 11/07 pending Babesia smear 11/07 microcytic anemia and frequent intracellular ring form parasites #Lyme disease #Babesiosis #Acute hypoxic respiratory failure #Possible CAP vs pulm edema #Neuropathy #B/L TKA #Anemia, thrombocytopenia #Transaminitis # Procal elevated at 26.5 She has evidence of babesiosis with microcytic anemia and intracellular ring forms in red blood cells. Lyme testing consistent with Lyme disease. Anaplasma smear this admission and prior Anaplasma PCR on 10/25 negative Her clinical syndrome of fatigue, arthralgias, myalgias and lab findings of anemia, transaminitis and thrombocytopenia are consistent with a tickborne illness (specifically babesiosis and Lyme disease). Atovaquone and azithromycin will cover babesiosis. She is not immunocompromised and has her spleen. Parasite % pending. It does not appear that she has triple coinfection with anaplasmosis. Procalcitonin noted to be elevated with infiltrates on chest x-ray. She is receiving Ceftriaxone for ?pna and Lyme coverage . will hold off on doxycycline for now as no s/o coinfection with anaplasmosis. There is no signs on exam of knee involvement at her prosthetic joint sites. 11/08 febrile 39.3 Recommendations; -Continue Ceftriaxone 2 g IV daily for coverage of Lyme disease and CAP ,Anticipate 7d of therapy for CAP and 14-21 d for Lyme disease. Can transition to PO doxycycline after completion of CAP therapy. -Continue Atovaquone 750 mg po q12h and azithromycin 500 mg PO daily. Anticipate 7-10 days depending of parasitemia and resolution. -Follow up Babesia PCR and pathology ( parasitemia) - Obtain sputum cx , if able to produce - Monitor H/H, plts, LFTs - Follow up BC -Monitor temperature ID will continue to follow Petty Love MD, MPH Infectious Disease [facility], ID Division Call [phone] with questions. Admission and Anticipated Discharge Date Admission Date: November 08, 2023 Subjective This patient recommendation is based on a telemedicine consult request which was completed asynchronously through chart review and information provided by the primary physician. The patient was not seen or examined today. The evaluation is consultative in nature and all patient care and treatment decisions can either be accepted or rejected by the patient's primary hospital-based treating physician using their own independent medical judgment for their patient. Time Spent Reviewing Chart: 21 - 30 minutes Febrile 39.6 wbc 12.13, h/h 9.2/26 PLTS 55 On RA now Results & Data Vital Signs (Past 12 Hours) Vital Signs Temp Pulse Pulse Resp BP Pulse Ox O2 Del Method 11/09/23 10:46 39.3 C H 114 H 18 113/61 90 Room Air 11/09/23 10:03 112 H 11/09/23 07:25 36.3 C L 106 H 18 110/71 94 Room Air 11/09/23 02:41 37.2 C 109 H 22 105/66 94 Room Air Laboratory Results Short CBC 11/08/23 11/08/23 11/09/23 Range/Units 15:22 19:40 05:53 WBC 12.13 H (4.8-10.8) K/ul Hgb 7.8 L 8.4 L 9.2 L (12.0-16.0) g/dl Hct 23.2 L 23.9 L 26.0 L (37.0-47.0) % Plt Count 55 L (130-400) K/uL BMP 11/09/23 05:53 Sodium 134 L Potassium 3.6 Chloride 104 Carbon Dioxide 23 BUN 26 H Creatinine 0.70 Glucose 119 H Calcium 6.7 L Diagnostic Findings Microbiology 11/08/23 02:37 Blood Aerobic Blood Culture - Preliminary No growth in Aerobic bottle after 24 hours. 11/08/23 02:37 Blood Anaerobic Blood Culture - Preliminary No growth in Anaerobic bottle after 24 hours. 11/08/23 02:20 Blood Aerobic Blood Culture - Preliminary No growth in Aerobic bottle after 24 hours. 11/08/23 02:20 Blood Anaerobic Blood Culture - Preliminary No growth in Anaerobic bottle after 24 hours. Chest X-Ray 11/08/23 02:23 XR chest 1V portable CLINICAL HISTORY: Sepsis. COMPARISON STUDY: Chest CT January 26, 2023. Chest radiograph February 05, 2023. FINDINGS: There is no pneumothorax or pleural effusion. Bibasilar opacities are present. There is mild interstitial thickening. Cardiomegaly is unchanged. Electronic device projects over the left chest. Left suprahilar nodular opacity is present. IMPRESSION: 1. Bibasilar opacities suggestive of pneumonia. Radiographic follow-up to ensure resolution is recommended. 2. Cardiomegaly with mild interstitial pulmonary edema. 3. Left suprahilar nodular opacity. This likely reflects pulmonary vessels however should be assessed on follow-up exams to exclude an underlying pulmonary nodule. ACT 112: Negative or not required by law. Electronically signed by: Diony Bauman M.D. 11/08/2023 6:40 AM Abdomen/Pelvis CT 11/08/23 02:34 Exam(s): CT ABDOMEN + PELVIS With Contrast IV Amt: 93 ML OPTIRAY 320 EXAM: CT Abdomen and Pelvis With Intravenous Contrast CLINICAL HISTORY: Reason for exam: fever, low back pain. TECHNIQUE: Axial computed tomography images of the abdomen and pelvis with intravenous contrast. CTDI is 25.18 mGy and DLP is 1228.6 mGy-cm. Automated exposure control was utilized for the study. A dose lowering technique was utilized adhering to the principles of ALARA. CONTRAST: Patient received 93 ML OPTIRAY 320 of IV contrast COMPARISON: 02/13/21 FINDINGS: Lung bases: Significant interval worsening of bibasilar pneumonia versus pulmonary edema. Heart: Enlarged heart, worse from prior examination. Small pericardial effusion. ABDOMEN: Liver: Unremarkable. No mass. Gallbladder and bile ducts: Unremarkable. No calcified stones. No ductal dilation. Pancreas: Unremarkable. No mass. No ductal dilation. Spleen: Unremarkable. No splenomegaly. Adrenals: Unremarkable. No mass. Kidneys and ureters: Unremarkable. No hydronephrosis. Inferior left renal cortical scarring. Stomach and bowel: Scattered diverticula in the colon. No diverticulitis. No obstruction. PELVIS: Appendix: Post appendectomy. Bladder: Unremarkable. No mass. Reproductive: Post hysterectomy. ABDOMEN and PELVIS: Intraperitoneal space: Unremarkable. No free air. No significant fluid collection. Bones/joints: No acute fracture. No dislocation. Soft tissues: Unremarkable. Vasculature: Unremarkable. No abdominal aortic aneurysm. Lymph nodes: Unremarkable. No enlarged lymph nodes. IMPRESSION: 1. Significant interval worsening of bibasilar pneumonia versus pulmonary edema. 2. Enlarged heart, worse from prior examination. Small pericardial effusion. 3. No acute findings in the abdomen or pelvis. Electronically signed by: Fransico Salinas MD 11/08/23 04:[address] 11/08/23 02:34 Exam(s): CT HEAD Without Contrast EXAM: CT Head Without Intravenous Contrast CLINICAL HISTORY: Reason for exam: confusion. TECHNIQUE: Axial computed tomography images of the head/brain without intravenous contrast. CTDI is 37.61 mGy and DLP is 624.41 mGy-cm. Automated exposure control was utilized for the study. A dose lowering technique was utilized adhering to the principles of ALARA. COMPARISON: No relevant prior studies available. FINDINGS: Brain: Unremarkable. No hemorrhage. Mild nonspecific white matter changes. No edema. Ventricles: Mild ventriculomegaly. Bones/joints: Unremarkable. No acute fracture. Soft tissues: Unremarkable. Sinuses: Unremarkable as visualized. No acute sinusitis. Mastoid air cells: Unremarkable as visualized. No mastoid effusion. IMPRESSION: No evidence of acute intracranial pathology. Electronically signed by: Fabiana Rowe MD 11/08/23 04:26 AM Chest X-Ray 11/09/23 08:00 XR chest 1V portable HISTORY: 78 years-old Female pneumonia, pulm edema acute shortness of breath COMPARISON: 11/08/2023 TECHNIQUE: AP view of the chest FINDINGS: Cardiac silhouette is enlarged. Electronic device projects over the left heart border. No pneumothorax or large pleural effusion. Pulmonary vascular congestion with interstitial coarsening redemonstrated. Mild patchy bibasilar and left upper lung airspace opacities redemonstrated. Bones appear grossly intact. IMPRESSION: 1. Cardiomegaly with mild pulmonary edema and pulmonary fibrosis. 2. Unchanged ill-defined bibasilar and left upper lung opacities may be associated with the fibrosis versus superimposed pneumonia. ACT 112: Negative or not required by law. The above report was generated using voice recognition software. It may contain grammatical, syntax or spelling errors. Electronically signed by: Anuj Lake M.D. 11/09/2023 7:16 AM Medications Administered Home Medications Medication Instructions Recorded Confirmed Last Taken apixaban 5 mg tablet (Eliquis) 5 mg PO BID 09/27/19 11/08/23 11/07/23 fish oil-dha-epa 1,200 mg-144 1 cap PO QAM 09/27/19 11/08/23 11/07/23 mg-216 mg capsule multivitamin with minerals 2 tab PO DAILY 07/31/21 11/08/23 11/07/23 (Hair,Skin and Nails tablet) atorvastatin 80 mg tablet (Lipitor) 80 mg PO DAILY 02/06/22 11/08/23 11/07/23 calcium carbonate 500 mg PO DAILY 02/06/22 11/08/23 11/07/23 raloxifene 60 mg tablet 60 mg PO QAM #90 tabs 02/06/22 11/08/23 11/07/23 cholecalciferol (vitamin D3) 25 50 mcg PO DAILY 08/03/22 11/08/23 11/07/23 mcg (1,000 unit) capsule flecainide 100 mg tablet 50 mg PO BID 08/03/22 11/08/23 11/07/23 omeprazole 20 mg capsule,delayed 20 mg PO DAILY 08/03/22 11/08/23 11/07/23 release Flutter Valve #1 ea 02/05/23 11/02/23 Unknown diltiazem HCl 120 mg See Rx Instructions .Route .COMPLEX 07/07/23 11/08/23 11/07/23 capsule,extended release 12 hr ferrous sulfate 325 mg (65 mg 325 mg PO DAILY 07/07/23 11/08/23 11/07/23 iron) tablet acetaminophen 325 mg capsule 325 mg PO QID PRN PAIN/FEVER 10/26/23 11/08/23 Unknown (Tylenol) mecobalamin (vitamin B12) 1,000 1,000 mcg PO DAILY #30 tabs 10/26/23 11/08/23 11/07/23 mcg chewable tablet prednisone 20 mg tablet 20 mg PO DAILY #30 tabs 10/26/23 11/08/23 11/07/23 pregabalin 50 mg capsule (Lyrica) 50 mg PO BID #60 caps 10/26/23 11/08/23 11/02/23 13:26 gabapentin 600 mg tablet 300 mg PO DAILY 11/02/23 11/08/23 11/07/23 prednisone 5 mg tablet 15 mg (3 x 5 mg) PO DAILY #90 tabs 11/02/23 11/08/23 Unknown alendronate 70 mg tablet 70 mg PO WK 11/08/23 11/08/23 Unknown amoxicillin 875 mg tablet 875 mg PO BID 11/08/23 11/08/23 11/07/23 Active Medications Generic Name Dose Route Start Last Admin Trade Name Vincent PRN Reason Stop Dose Admin Atorvastatin Calcium 80 mg 11/08/23 09:00 11/09/23 08:08 Atorvastatin 40 Mg Tab PO 12/08/23 08:59 80 mg DAILY LEN Administration Atovaquone 750 mg 11/08/23 09:00 11/09/23 08:09 Atovaquone 750 Mg/5 Ml Udc PO 12/08/23 08:59 750 mg Q12H LEN Administration Diltiazem HCl 180 mg 11/09/23 09:00 11/09/23 09:26 Diltiazem Hcl 180 Mg Capcr PO 12/09/23 08:59 180 mg BID LEN Administration Ferrous Sulfate 325 mg 11/08/23 09:00 11/09/23 08:10 Ferrous Sulfate 325 Mg Tab PO 12/08/23 08:59 325 mg DAILY LEN Administration Flecainide Acetate 50 mg 11/08/23 09:00 11/09/23 08:07 Flecainide Acetate 100 Mg Tablet PO 12/08/23 08:59 50 mg BID LEN Administration Sodium Chloride 1,000 mls @ 80 mls/hr 11/08/23 04:15 11/08/23 21:15 Nss IV 12/08/23 04:14 30 mls/hr .[id number] LEN Administration Azithromycin 500 mg/ Dextrose 255 mls @ 127.5 mls/hr 11/08/23 09:00 11/09/23 09:25 IV 11/15/23 08:59 127.5 mls/hr Q24H LEN Administration Acetaminophen 1,000 mg in 100 mls @ 400 mls/hr 11/08/23 11:00 11/09/23 10:59 Ofirmev IV 11/11/23 10:59 Infused Q8H LEN Infusion Pantoprazole Sodium 40 mg/ 10 mls @ 5 mls/min 11/08/23 21:00 11/09/23 08:10 Syringe IV 12/08/23 20:59 5 mls/min BID LEN Administration Ceftriaxone Sodium 2,000 mg in 50 mls @ 100 mls/hr 11/09/23 04:00 11/09/23 04:54 Rocephin IV 11/16/23 03:59 Infused Q24H LEN Infusion Hydrocortisone Sodium 0.5 mls @ 4 mls/min 11/09/23 08:15 11/09/23 09:24 Succinate 25 mg/ Syringe IV 12/09/23 08:14 4 mls/min Q12H LEN Administration Raloxifene HCl 60 mg 11/08/23 09:15 11/09/23 08:10 Raloxifene Hcl 60 Mg Tab PO 12/08/23 09:14 60 mg QAM LEN Administration
[2023-11-09] MEDS: HYDROCODONE/ACETAMOPHEN 5/325MG TAB PO STA (22:34)
[2023-11-09] MEDS: PREGABALIN 50 MG CAP PO SCH (23:44)
[2023-11-10 07:26] LABS: BUN Creatinine Ratio 39.7 (10-20); Calcium 6.6 mg/dl (8.6-10.3); Creatinine Clr Calc Pharmacy 56.7 ml/min; Est GFR (African American) 84.4 ml/min; Est GFR (Non-African American) 72.8 ml/min; Potassium 3.5 mmol/L (3.5-5.1)
[2023-11-10 07:36] LABS: Hematocrit (blood only) 23.1 % (37.0-47.0); Mean Corpuscular Hemoglobin 26.8 pg (25.0-34.0); Mean Corpuscular Hgb Conc 34.6 g/dL (32.0-36.0); Mean Corpuscular Volume 77.5 fL (80.0-100.0); Nucleated RBC # (auto) 0.12 K/uL (0.00-0.12); Platelet Count 58 K/uL (130-400); RDW Standard Deviation 44.3 fL (36.4-46.3); Red Blood Count 2.98 M/uL (4.20-5.40); White Blood Count 12.41 K/ul (4.8-10.8)
[2023-11-10 07:54] LABS: Basophils # (auto) 0.02 K/uL (0.00-0.20); Basophils % (auto) 0.2 %; Eosinophils # (auto) 0.01 K/uL (0.00-0.50); Eosinophils % (auto) 0.1 %; Immature Granulocytes # (auto) 0.19 K/uL (0.01-0.20); Immature Granulocytes % (auto) 1.5 %; Lymphocytes # (auto) 2.73 K/uL (1.20-3.40); Monocytes # (auto) 0.76 K/uL (0.11-0.59); Monocytes % (auto) 6.1 %; Neutrophils % (auto) 70.1 %; Parasites Present
--- NOTE | 2023-11-10 07:57 | XRay Report ---
XR chest 1V portable CLINICAL HISTORY: possible pneumonia, pulmonary edema TECHNIQUE: Single frontal radiograph of the chest was obtained. Comparison: Comparison is made to chest radiograph 11/09/2023 FINDINGS: No lines and tubes are seen. The cardiomediastinal silhouette is normal. Bilateral lower lung predomi nant airspace opacities are seen. No evidence of pleural effusion or pneumothorax. IMPRESSION: Bilateral lower lung predominant airspace opacities are unchanged from prior exam. ACT 112: Negative or not required by law. Electronically signed by: Danis Christie M.D. 11/10/2023 7:56 AM
[2023-11-10] MEDS: IRON SUCROSE 200 MG in 0.9 % SODIUM CHLORIDE 100 ML IV ONE (09:59)
--- NOTE | 2023-11-10 12:42 | Infectious Disease Progress Nt ---
Date of Service November 10, 2023 Assessment & Plan (1) Sepsis: (2) Bilateral pneumonia: (3) Acute respiratory failure with hypoxia: (4) Acute Lyme disease: (5) Babesiosis: Plan This is a 78-year-old female with a past medical history of atrial fibrillation status post ablation, partial nephrectomy, bilateral knee replacement, who presents with myalgias and confusion. She is a poor historian. Her is a retired surgeon and provides history. She underwent a left knee replacement in 12/2022 followed by a left knee replacement in 07/2023. 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 This was followed by bilateral lower extremity pain and ongoing neuropathy of unknown etiology. Approximately 2 weeks ago, she developed increased fatigue, arthralgias, myalgias with loss of appetite. She was seen by her PCP and Rheumatology and was diagnosed with possible PMR given elevated inflammatory markers. She was started on prednisone 20 mg per day. In the last few days, she developed fevers, confusion and vomited prompting her admission. Tmax at home 104. She traveled to [place] in August and then [place]. Both she and her live in a [place] area and have deer in the backyard. They also have been to many outdoor [employer] games for their grandson this summer.. She denies mosquito or tick bites, change in urination, rash, headaches, vision changes, cough, shortness of breath. She took a few doses of amoxicillin and Tylenol with little relief. In the ED she is afebrile, heart rate 125, RR 30, blood pressure 129/62, O2 sats 87% on room air---> 98% oxy mask. Labs WBC 9.37 hemoglobin 7, hematocrit 20, platelets 70, BUN 31, creatinine 0.83, total bili 2, direct bili 0.4, AST 101, ALT 39, alk phos 64, procalcitonin 26.5. Anaplasma smear negative. Anaplasma PCR negative ( 10/25). Babesia smear with red blood cell inclusions noted. PCR and Pathology pending . .Lyme screen and confirmatory testing positive. Respiratory viral panel negative. Chest x-ray with bibasilar opacities suggestive of pneumonia and Left suprahilar nodular opacities. CTAP shows significant interval worsening of bibasilar pneumonia versus pulmonary edema; enlarged heart. Head CT with no evidence of acute intracranial pathology. She initially received a dose of Zosyn She is now on ceftriaxone, azithromycin, and atovaquone. ID consulted for possible babesiosis and Lyme disease. Antibiotics ceftriaxone 11/06, 11/07- ongoing Zosyn 11/06 Atovaquone 11/07- ongoing Azithromycin 11/07-ongoing Micro: Blood cultures 11/07 NGTD Lyme screen, confirmatory testing 11/07 positive Anaplasma PCR 10/25 negative Anaplasma smear 11/07 No evidence of intracytoplasmic neutrophilic inclusions to suggest Anaplasmosis. Babesia PCR 11/07 pending Babesia smear 11/07 microcytic anemia and frequent intracellular ring form parasites #Lyme disease #Babesiosis #Acute hypoxic respiratory failure #Possible CAP vs pulm edema #Neuropathy #B/L TKA #Anemia, thrombocytopenia #Transaminitis # Procal elevated at 26.5 She has evidence of babesiosis with microcytic anemia and intracellular ring forms in red blood cells. Lyme testing consistent with Lyme disease. Anaplasma smear this admission and prior Anaplasma PCR on 10/25 negative Her clinical syndrome of fatigue, arthralgias, myalgias and lab findings of anemia, transaminitis and thrombocytopenia are consistent with a tickborne illness (specifically babesiosis and Lyme disease). Atovaquone and azithromycin will cover babesiosis. She is not immunocompromised and has her spleen. Parasite % pending. It does not appear that she has triple coinfection with anaplasmosis. Procalcitonin noted to be elevated with infiltrates on chest x-ray. She is receiving Ceftriaxone for ?pna and Lyme coverage . will hold off on doxycycline for now as no s/o coinfection with anaplasmosis. There is no signs on exam of knee involvement at her prosthetic joint sites. 11/08 febrile 39.3. Afebrile for 24 hours on 11/09 Recommendations; -Continue Ceftriaxone 2 g IV daily for coverage of Lyme disease and CAP ,Anticipate 7d of therapy for CAP and 14-21 d for Lyme disease. Can transition to PO doxycycline after completion of CAP therapy. -Continue Atovaquone 750 mg po q12h and azithromycin 500 mg PO daily. Anticipate 7-10 days depending of parasitemia and resolution. -Follow up Babesia PCR and pathology ( percent parasitemia). I reached to to lab ( hematology) to ask what the Parasite percentage is ( 11/07, and ). They will call me back with more info. - Obtain sputum cx , if able to produce - Monitor H/H, plts, LFTs - Follow up BC -Monitor temperature ID will continue to follow Petty Love MD, MPH Infectious Disease [facility] Call [phone] with questions. Admission and Anticipated Discharge Date Admission Date: November 08, 2023 Subjective Subsequent visit was provided via telemedicine using two-way real-time interactive telecommunication between the patient and the telemedicine provider. For the duration of the visit, the provider was performing the assessment from a different facility than the patient. This includesuse of bluetooth stethoscope forauscultationperformed by the telepresenter that the telemedicine provider can hear if described in the physical exam. Rack Room Worker contact information: Please call [facility] [phone]. (Phone Number For Physician Use Only) After establishing a telemedicine visit, patient was: Patient was verified with two unique identifiers Time Spent with Patient: Subsequent => 35 min Afebrile for last 24 hours RBC path with parasites H/H 12/09,plts 58 On RA now CXR with unchanged airspace opacities Physical Exam Physical Exam: Gen- Awake and alert, poor historian, on NC, fatigue appearing, off supp 02 Neck- Supple HEENT- anicteric sclera Lungs- some increased work of breathing, insp wheeze Cards- irregular Abd- soft, NT, ND Skin- less pallor Neuro- Awake alert,oriented to self and place ext- No edema. Well healed BL TKA incisions, not tender Psych- cooperative Results & Data Vital Signs (Past 12 Hours) Vital Signs Temp Pulse Resp BP Pulse Ox O2 Del Method 11/10/23 10:22 36.7 C 78 18 104/64 92 Room Air 11/10/23 07:54 36.5 C 89 19 94/56 L 94 Room Air 11/10/23 05:00 36.6 C 80 15 105/57 L 93 Room Air 11/10/23 02:45 37.3 C 70 16 97/58 L 96 Room Air Laboratory Results Short CBC 11/10/23 Range/Units 06:20 WBC 12.41 H (4.8-10.8) K/ul Hgb 8.0 L (12.0-16.0) g/dl Hct 23.1 L (37.0-47.0) % Plt Count 58 L (130-400) K/uL BMP 11/10/23 06:20 Sodium 132 L Potassium 3.5 Chloride 102 Carbon Dioxide 25 BUN 31 H Creatinine 0.78 Glucose 122 H Calcium 6.6 L Diagnostic Findings Microbiology 11/08/23 02:37 Blood Aerobic Blood Culture - Preliminary No growth in Aerobic bottle after 48 hours. 11/08/23 02:37 Blood Anaerobic Blood Culture - Preliminary No growth in Anaerobic bottle after 48 hours. 11/08/23 02:20 Blood Aerobic Blood Culture - Preliminary No growth in Aerobic bottle after 48 hours. 11/08/23 02:20 Blood Anaerobic Blood Culture - Preliminary No growth in Anaerobic bottle after 48 hours. Chest X-Ray 11/08/23 02:23 XR chest 1V portable CLINICAL HISTORY: Sepsis. COMPARISON STUDY: Chest CT January 26, 2023. Chest radiograph February 05, 2023. FINDINGS: There is no pneumothorax or pleural effusion. Bibasilar opacities are present. There is mild interstitial thickening. Cardiomegaly is unchanged. Electronic device projects over the left chest. Left suprahilar nodular opacity is present. IMPRESSION: 1. Bibasilar opacities suggestive of pneumonia. Radiographic follow-up to ensure resolution is recommended. 2. Cardiomegaly with mild interstitial pulmonary edema. 3. Left suprahilar nodular opacity. This likely reflects pulmonary vessels however should be assessed on follow-up exams to exclude an underlying pulmonary nodule. ACT 112: Negative or not required by law. Electronically signed by: Diony Bauman M.D. 11/08/2023 6:40 AM Abdomen/Pelvis CT 11/08/23 02:34 Exam(s): CT ABDOMEN + PELVIS With Contrast IV Amt: 93 ML OPTIRAY 320 EXAM: CT Abdomen and Pelvis With Intravenous Contrast CLINICAL HISTORY: Reason for exam: fever, low back pain. TECHNIQUE: Axial computed tomography images of the abdomen and pelvis with intravenous contrast. CTDI is 25.18 mGy and DLP is 1228.6 mGy-cm. Automated exposure control was utilized for the study. A dose lowering technique was utilized adhering to the principles of ALARA. CONTRAST: Patient received 93 ML OPTIRAY 320 of IV contrast COMPARISON: 02/13/21 FINDINGS: Lung bases: Significant interval worsening of bibasilar pneumonia versus pulmonary edema. Heart: Enlarged heart, worse from prior examination. Small pericardial effusion. ABDOMEN: Liver: Unremarkable. No mass. Gallbladder and bile ducts: Unremarkable. No calcified stones. No ductal dilation. Pancreas: Unremarkable. No mass. No ductal dilation. Spleen: Unremarkable. No splenomegaly. Adrenals: Unremarkable. No mass. Kidneys and ureters: Unremarkable. No hydronephrosis. Inferior left renal cortical scarring. Stomach and bowel: Scattered diverticula in the colon. No diverticulitis. No obstruction. PELVIS: Appendix: Post appendectomy. Bladder: Unremarkable. No mass. Reproductive: Post hysterectomy. ABDOMEN and PELVIS: Intraperitoneal space: Unremarkable. No free air. No significant fluid collection. Bones/joints: No acute fracture. No dislocation. Soft tissues: Unremarkable. Vasculature: Unremarkable. No abdominal aortic aneurysm. Lymph nodes: Unremarkable. No enlarged lymph nodes. IMPRESSION: 1. Significant interval worsening of bibasilar pneumonia versus pulmonary edema. 2. Enlarged heart, worse from prior examination. Small pericardial effusion. 3. No acute findings in the abdomen or pelvis. Electronically signed by: Fransico Salinas MD 11/08/23 04:[address] 11/08/23 02:34 Exam(s): CT HEAD Without Contrast EXAM: CT Head Without Intravenous Contrast CLINICAL HISTORY: Reason for exam: confusion. TECHNIQUE: Axial computed tomography images of the head/brain without intravenous contrast. CTDI is 37.61 mGy and DLP is 624.41 mGy-cm. Automated exposure control was utilized for the study. A dose lowering technique was utilized adhering to the principles of ALARA. COMPARISON: No relevant prior studies available. FINDINGS: Brain: Unremarkable. No hemorrhage. Mild nonspecific white matter changes. No edema. Ventricles: Mild ventriculomegaly. Bones/joints: Unremarkable. No acute fracture. Soft tissues: Unremarkable. Sinuses: Unremarkable as visualized. No acute sinusitis. Mastoid air cells: Unremarkable as visualized. No mastoid effusion. IMPRESSION: No evidence of acute intracranial pathology. Electronically signed by: Fabiana Rowe MD 11/08/23 04:26 AM Chest X-Ray 11/09/23 08:00 XR chest 1V portable HISTORY: 78 years-old Female pneumonia, pulm edema acute shortness of breath COMPARISON: 11/08/2023 TECHNIQUE: AP view of the chest FINDINGS: Cardiac silhouette is enlarged. Electronic device projects over the left heart border. No pneumothorax or large pleural effusion. Pulmonary vascular congestion with interstitial coarsening redemonstrated. Mild patchy bibasilar and left upper lung airspace opacities redemonstrated. Bones appear grossly intact. IMPRESSION: 1. Cardiomegaly with mild pulmonary edema and pulmonary fibrosis. 2. Unchanged ill-defined bibasilar and left upper lung opacities may be associated with the fibrosis versus superimposed pneumonia. ACT 112: Negative or not required by law. The above report was generated using voice recognition software. It may contain grammatical, syntax or spelling errors. Electronically signed by: Anuj Lake M.D. 11/09/2023 7:16 AM Chest X-Ray 11/10/23 07:00 XR chest 1V portable CLINICAL HISTORY: possible pneumonia, pulmonary edema TECHNIQUE: Single frontal radiograph of the chest was obtained. Comparison: Comparison is made to chest radiograph 11/09/2023 FINDINGS: No lines and tubes are seen. The cardiomediastinal silhouette is normal. Bilateral lower lung predominant airspace opacities are seen. No evidence of pleural effusion or pneumothorax. IMPRESSION: Bilateral lower lung predominant airspace opacities are unchanged from prior exam. ACT 112: Negative or not required by law. Electronically signed by: Danis Christie M.D. 11/10/2023 7:56 AM Medications Administered Home Medications Medication Instructions Recorded Confirmed Last Taken apixaban 5 mg tablet (Eliquis) 5 mg PO BID 09/27/19 11/08/23 11/07/23 fish oil-dha-epa 1,200 mg-144 1 cap PO QAM 09/27/19 11/08/23 11/07/23 mg-216 mg capsule multivitamin with minerals 2 tab PO DAILY 07/31/21 11/08/23 11/07/23 (Hair,Skin and Nails tablet) atorvastatin 80 mg tablet (Lipitor) 80 mg PO DAILY 02/06/22 11/08/23 11/07/23 calcium carbonate 500 mg PO DAILY 02/06/22 11/08/23 11/07/23 raloxifene 60 mg tablet 60 mg PO QAM #90 tabs 02/06/22 11/08/23 11/07/23 cholecalciferol (vitamin D3) 25 50 mcg PO DAILY 08/03/22 11/08/2311/06/24 mcg (1,000 unit) capsule flecainide 100 mg tablet 50 mg PO BID 08/03/22 11/08/23 11/07/23 omeprazole 20 mg capsule,delayed 20 mg PO DAILY 08/03/22 11/08/23 11/07/23 release Flutter Valve #1 ea 02/05/23 11/02/23 Unknown diltiazem HCl 120 mg See Rx Instructions .Route .COMPLEX 07/07/23 11/08/23 11/07/23 capsule,extended release 12 hr ferrous sulfate 325 mg (65 mg 325 mg PO DAILY 07/07/23 11/08/23 11/07/23 iron) tablet acetaminophen 325 mg capsule 325 mg PO QID PRN PAIN/FEVER 10/26/23 11/08/23 Unknown (Tylenol) mecobalamin (vitamin B12) 1,000 1,000 mcg PO DAILY #30 tabs 10/26/23 11/08/23 11/07/23 mcg chewable tablet prednisone 20 mg tablet 20 mg PO DAILY #30 tabs 10/26/23 11/08/23 11/07/23 pregabalin 50 mg capsule (Lyrica) 50 mg PO BID #60 caps 10/26/23 11/08/23 11/02/23 13:26 gabapentin 600 mg tablet 300 mg PO DAILY 11/02/23 11/08/23 11/07/23 prednisone 5 mg tablet 15 mg (3 x 5 mg) PO DAILY #90 tabs 11/02/23 11/08/23 Unknown alendronate 70 mg tablet 70 mg PO WK 11/08/23 11/08/23 Unknown amoxicillin 875 mg tablet 875 mg PO BID 11/08/23 11/08/23 11/07/23 Active Medications Generic Name Dose Route Start Last Admin Trade Name Shayneq PRN Reason Stop Dose Admin Atovaquone 750 mg 11/08/23 09:00 11/10/23 08:02 Atovaquone 750 Mg/5 Ml Udc PO 12/08/23 08:59 750 mg Q12H LEN Administration Diltiazem HCl 180 mg 11/09/23 09:00 11/10/23 08:01 Diltiazem Hcl 180 Mg Capcr PO 12/09/23 08:59 180 mg BID LEN Administration Ferrous Sulfate 325 mg 11/08/23 09:00 11/10/23 08:01 Ferrous Sulfate 325 Mg Tab PO 12/08/23 08:59 325 mg DAILY LEN Administration Flecainide Acetate 50 mg 11/08/23 09:00 11/10/23 08:02 Flecainide Acetate 100 Mg Tablet PO 12/08/23 08:59 50 mg BID LEN Administration Sodium Chloride 1,000 mls @ 80 mls/hr 11/08/23 04:15 11/10/23 04:57 Nss IV 12/08/23 04:14 80 mls/hr .[id number] LEN Administration Azithromycin 500 mg/ Dextrose 255 mls @ 127.5 mls/hr 11/08/23 09:00 11/10/23 10:00 IV 11/15/23 08:59 Infused Q24H LEN Infusion Acetaminophen 1,000 mg in 100 mls @ 400 mls/hr 11/08/23 11:00 11/10/23 11:54 Ofirmev IV 11/11/23 10:59 Infused Q8H LEN Infusion Pantoprazole Sodium 40 mg/ 10 mls @ 5 mls/min 11/08/23 21:00 11/10/23 08:02 Syringe IV 12/08/23 20:59 5 mls/min BID LEN Administration Ceftriaxone Sodium 2,000 mg in 50 mls @ 100 mls/hr 11/09/23 04:00 11/10/23 04:07 Rocephin IV 11/16/23 03:59 Infused Q24H LEN Infusion Hydrocortisone Sodium 0.5 mls @ 4 mls/min 11/09/23 08:15 11/10/23 07:53 Succinate 25 mg/ Syringe IV 12/09/23 08:14 4 mls/min Q12H LEN Administration Pregabalin 50 mg 11/09/23 22:00 11/10/23 08:03 Pregabalin 50 Mg Cap PO 12/09/23 21:59 50 mg BID LEN Administration
--- NOTE | 2023-11-10 14:20 | XCELERA ---
[id number]
--- NOTE | 2023-11-10 15:22 | Hospitalist Progress Note ---
Date of Service November 10, 2023 Assessment & Plan (1) GI bleed: Plan: Hemoglobin improved to 9.2 after 2 units of blood transfusion but has drifted down to 8.0. No overt melena or hematochezia. Will follow with daily lab. Pallor has resolved. Eliquis has been discontinued. Continue Protonix therapy. GI consultation appreciated. No endoscopy planned at this time. 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 2 units packed red blood cells were given. Hemoglobin improved to 9.2 and has now drifted down to 8.0. No overt melena or hematochezia. Serial labs. (3) Atrial fibrillation with rapid ventricular response: Plan: Telemetry. Medication management. Diltiazem was uptitrated yesterday, November 09, and heart rate control has improved. Eliquis has been discontinued due to GI bleeding and acute blood loss anemia (4) Sepsis: Plan: Present on admission. Infectious disease consultation appreciated. Currently on Rocephin, azithromycin, atovaquone. 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 Blood cultures remain negative to date. Chest x-ray reveals right lower lobe infiltrate which could be bacterial pneumonia. No sputum produced for culture (5) Acute respiratory failure with hypoxia: Plan: Supplemental oxygen per nasal cannula has been weaned off. Chest x-ray done on November 08 looked much better. Pulmonary edema has resolved. This appears to have been due to fluid overload on admission. (6) Bilateral pneumonia: Plan: No sputum production for culture. No overt hemoptysis. Chest x-ray done today, November 09, reveals bibasilar infiltrates but no pulmonary edema. Findings on admission may simply have been due to fluid overload. Infectious disease consultation appreciated. Serial chest x-ray (7) Current use of steroid medication: Plan: She has not been on oral prednisone very long but intravenous hydrocortisone has been ordered as a precaution. Dosage tapered down on November 08. Hopeful switch to oral prednisone therapy tomorrow, November 10 (8) Benign essential hypertension: Plan: Diltiazem dosage uptitrated on November 08 for better heart rate control. Blood pressure is now stable (9) IgG lambda monoclonal gammopathy: Plan: By history. No intervention at this time (10) Pulmonary edema: Plan: Acute. Seen on admission chest x-ray. Now resolved. Chest x-ray done on November 08 looked much better. She is now on room air. This is appears to be due to fluid overload present on admission. No previous history of CHF (11) Metabolic encephalopathy: Plan: Present on admission. Now resolved Plan Both OT and PT recommend IPR at the time of discharge. Possibly on November 11. Admission and Anticipated Discharge Date Admission Date: November 08, 2023 Subjective Clinically improved. She is now alert and oriented. Hemoglobin has drifted down to 8.0. No overt melena or hematochezia. Will follow. Eliquis has been discontinued. Heart rate is well-controlled after diltiazem increased yesterday, November 08. She remains on room air. Diet advanced to regular and IV fluids tapered down. Continue parenteral iron replacement, day 2 of 3. Will switch back to oral prednisone therapy tomorrow, November 10. Cardiac echo reveals normal ejection fraction with left and right atrial enlargement and mild MR. Infectious disease consultation appreciated. She remains on Rocephin, atovaquone, azithromycin. Blood cultures negative. Urine culture final results pending. Case management evaluation requested for rehab placement at the time of discharge. Review of Systems 2 Review of Systems: Constitutional-alert and oriented X 3. No fever since yesterday afternoon, 11/08 ENT-no blurred vision, no double vision, no epistaxis, no sore throat Respiratory-occasional nonproductive cough. No hemoptysis. Cardiac-no palpitations, no chest pain, no syncope GI-anorexic. No overt melena or hematochezia. No vomiting, no hematemesis -no urinary retention, no urinary incontinence, no dysuria, no hematuria Musculoskeletal-no joint pain, no muscle tenderness Skin-pallor has resolved. No bruising, no rashes, no pruritus Neuro-no focal deficits. Generalized weakness. Psych-normal affect Physical Exam 2 Physical Exam: General-alert and oriented x3. HEENT-head atraumatic and normocephalic, pupils equal and reactive to light, extraocular muscles intact Neck-no lymphadenopathy or thyromegaly, trachea midline Chest-rhonchi have resolved. No inspiratory rales. No wheezing. Cardiac - irregular rhythm, normal rate. Normal S1 and S2. Abdomen-normal bowel sounds, no hepatosplenomegaly Extremities-no cyanosis, clubbing, or edema Skinpallor has resolved after transfusion. Neuro-generalized weakness. No focal deficits Psychnow alert and oriented x 3. Normal affect Results & Data Results & Data Vital Signs (Past 12 Hours) Vital Signs Temp Pulse Resp BP Pulse Ox Pulse Ox O2 Del Method 11/10/23 10:22 36.7 C 78 18 104/64 92 Room Air 11/10/23 08:00 94 11/10/23 07:54 36.5 C 89 19 94/56 L 94 Room Air 11/10/23 05:00 36.6 C 80 15 105/57 L 93 Room Air O2 Del Method 11/10/23 10:22 11/10/23 08:00 Room Air 11/10/23 07:54 11/10/23 05:00 Laboratory Results 11/10/23 06:20 11/10/23 06:20 PG Care Time/CCT Total # of Minutes Spent Total Time Spent with Patient: Total time spent is greater than 50% in coordination of care (as documented) at patient's floor/unit and/or counseling patient: Coding Level of Care Code 64558 SUB INP/OBS CARE 3/50MIN Diagnoses GI bleed K92.2 Acute blood loss anemia D62 Atrial fibrillation with rapid ventricular response I48.91 Sepsis A41.9 Acute respiratory failure with hypoxia J96.01 Bilateral pneumonia J18.9 Current use of steroid medication Z79.52 Benign essential hypertension I10 IgG lambda monoclonal gammopathy D47.2 Pulmonary edema J81.1 Metabolic encephalopathy G93.41
[2023-11-11 07:05] LABS: Anion Gap 4 (3-11); BUN Creatinine Ratio 33.3 (10-20); Blood Urea Nitrogen 33 mg/dl (6-23); Carbon Dioxide 25 mmol/L (21-32); Chloride 102 mmol/L (98-107); Creatinine Clr Calc Pharmacy 44.8 ml/min; Est GFR (African American) 63.3 ml/min; Est GFR (Non-African American) 54.6 ml/min; Glucose 110 mg/dl (70-99(Fasting)); Potassium 3.9 mmol/L (3.5-5.1); Sodium 131 mmol/L (136-145)
[2023-11-11 07:16] LABS: Hematocrit (blood only) 21.2 % (37.0-47.0); Hemoglobin 7.2 g/dl (12.0-16.0); Mean Corpuscular Hemoglobin 27.2 pg (25.0-34.0); Nucleated RBC # (auto) 0.23 K/uL (0.00-0.12); Platelet Count 47 K/uL (130-400); RDW Coefficient of Variation 16.5 % (11.5-14.5); RDW Standard Deviation 46.8 fL (36.4-46.3); Red Blood Count 2.65 M/uL (4.20-5.40); White Blood Count 11.47 K/ul (4.8-10.8)
[2023-11-11 07:47] LABS: Basophils # (auto) 0.01 K/uL (0.00-0.20); Basophils % (auto) 0.1 %; Immature Granulocytes # (auto) 0.24 K/uL (0.01-0.20); Immature Granulocytes % (auto) 2.1 %; Lymphocytes # (auto) 2.06 K/uL (1.20-3.40); Monocytes % (auto) 5.2 %; Neutrophils # (auto) 8.56 K/uL (1.40-6.50); Neutrophils % (auto) 74.6 %; Target Cells 1+
[2023-11-11] MEDS ORDERED: SODIUM CHLORIDE 0.9% 250 ML IV PRN (09:40)
--- NOTE | 2023-11-11 09:41 | XRay Report ---
XR chest 1V portable CLINICAL HISTORY: hypoxia TECHNIQUE: Single frontal radiograph of the chest was obtained. Comparison: Comparison is made to chest radiograph 11/10/2023 FINDINGS: No lines and tubes are seen. Cardiomegaly is noted. Bilateral lower lung predominant airspace opaciti es are seen. Right perihilar density is nonspecific and may represent prominent vasculature. No evide nce of pleural effusion or pneumothorax. IMPRESSION: 1. Bilateral lower lung predominant airspace opacities which may represent atelectasis, pneumonia, a nd/or aspiration. 2. Cardiomegaly with mild pulmonary vascular congestion. ACT 112: Negative or not required by law. Electronically signed by: Danis Christie M.D. 11/11/2023 9:40 AM
--- NOTE | 2023-11-11 10:05 | Pulmonary Consultation ---
Date of Consultation November 11, 2023 Assessment & Plan (1) Acute respiratory failure with hypoxia: (2) Atrial fibrillation with rapid ventricular response: (3) Acute blood loss anemia: (4) ILD (interstitial lung disease): Plan PFT 05/24/2023 personally reviewed: Mild restrictive lung dysfunction, no obstruction, insignificant bronchodilator response, moderate decrease in DLCO FVC 2.30 L 88%, FEV1 1.84 L 94%, FEV1/FVC 80%, ERV 80%, RV 42%, TLC 69%, RV/TLC 61%, DLCO 51%, DLCO/VA 66% 2D echo 11/10/2023: EF 60-65%, RV normal in size, LA mildly dilated CT chest 06/23/2023 personally reviewed: Increased reticular marking appreciated bilateral lower lobes as well as left anterior side No significant mediastinal lymphadenopathy -- Acute hypoxic respiratory failure Multifactorial Patient does seem to have underlying ILD Her pulmonary opacities seems to be getting worse Differential includes aspiration, worsening pneumonia, worsening pulmonary edema Diffuse alveolar hemorrhage is always in the differential in somebody who is hemoglobin is low but patient has babesiosis which can cause hemolytic anemia Procalcitonin 44, respiratory bio fire was negative for everything on 11/08/2023 BNP 263 PT/INR: 11.2/1 --ILD Patient did have autoimmune workup which included rheumatoid factor, anti-CCP 08/03/2022 which was negative FIORELLA was mildly 1:40 Patient personally has Raynaud's Family history of rheumatoid arthritis in grandmother -- Microcytic anemia Likely from hemolysis from babesiosis On atovaquone and azithromycin for babesiosis, this will cover pneumonia as well -- Polymyalgia rheumatica Was on prednisone 20 mg for approximately 14 days prior to admission. -- A-fib On Eliquis at home Plan: +6.3 L since coming to the hospital Patient clinical picture does go towards volume overloaded. Would recommend diuretics to keep the patient negative balance at least 1.5 L on a daily basis Patient's albumin is also 2.1, consider giving 25% albumin prior to giving diuretics Patient's blood pressure is on the softer side. Would recommend to see if diltiazem dose can be reduced so that she can tolerate diuresis. CT chest 11/11/2023: Diffuse patchy opacities appreciated bilaterally with interlobular thickening Mild bilateral pleural effusion Cardiomegaly Minimal mediastinal lymphadenopathy Will order autoimmune workup to be drawn tomorrow. The patient's labs shows a ferritin of greater than 7500, BNP repeat was 436, LDH is 1136 along with pancytopenia, fever and elevated triglycerides. There is a possibility patient is developing HLH, with inciting factor being babesiosis infection. Case was discussed with Dr. Bro and Dr Byers. Patient's was updated regarding the CAT scan finding. Please note the above document was generated using voice recognition software. It may contain grammatical, syntax or spelling errors.Any formal questions or concerns about the content, text or information contained within the body of this dictation should be directly addressed to the provider for clarification. History of Present Illness Attending Physician: Piter Byers MD History of Present Illness 78-year-old female admitted to the hospital for nausea vomiting and fever Past medical history: A-fib s/p ablation, polymyalgia rheumatica on prednisone 20 mg since 2 weeks., GERD, hypertension, dyslipidemia Pulmonary consulted for persistent hypoxia At the time of examination patient's who was a retired physician was in the room At the time of examination patient was saturating 97% on 6 L OxyMask, I went down to 3 L and she was still able to maintain her saturation around 93%. She denies any aspiration like episodes in the last 24 hours. No difficulty swallowing or coughing in the last 24 hours She denies any cough at all. No hemoptysis. She does have history of rheumatoid arthritis in grandmother. Personally has a history of Raynaud's. Denies any headache, no blurry vision Does complain of generalized malaise and fatigue Does not recall any tick bite. Social history: Lifetime non-smoker. No pets at home, no birds at home. Allergies Allergy/AdvReac Type Severity Reaction Status Date / Time Methacrylate Analogues Allergy Severe found Verified 11/09/23 00:38 during allergy testing. naproxen [From Naprosyn] AdvReac Intermediate diarrhea Verified 11/08/23 03:02 Home Medications Medication Instructions Recorded Confirmed Type apixaban 5 mg tablet (Eliquis) 5 mg PO BID 09/27/19 11/08/23 History fish oil-dha-epa 1,200 mg-144 1 cap PO QAM 09/27/19 11/08/23 History mg-216 mg capsule multivitamin with minerals 2 tab PO DAILY 07/31/21 11/08/23 History (Hair,Skin and Nails tablet) atorvastatin 80 mg tablet (Lipitor) 80 mg PO DAILY 02/06/22 11/08/23 History calcium carbonate 500 mg PO DAILY 02/06/22 11/08/23 History raloxifene 60 mg tablet 60 mg PO QAM #90 tabs 02/06/22 11/08/23 Rx cholecalciferol (vitamin D3) 25 50 mcg PO DAILY 08/03/22 11/08/23 History mcg (1,000 unit) capsule flecainide 100 mg tablet 50 mg PO BID 08/03/22 11/08/23 History omeprazole 20 mg capsule,delayed 20 mg PO DAILY 08/03/22 11/08/23 History release Flutter Valve #1 ea 02/05/23 11/02/23 Rx diltiazem HCl 120 mg See Rx Instructions .Route .COMPLEX 07/07/23 11/08/23 History capsule,extended release 12 hr ferrous sulfate 325 mg (65 mg 325 mg PO DAILY 07/07/23 11/08/23 History iron) tablet acetaminophen 325 mg capsule 325 mg PO QID PRN PAIN/FEVER 10/26/23 11/08/23 History (Tylenol) mecobalamin (vitamin B12) 1,000 1,000 mcg PO DAILY #30 tabs 10/26/23 11/08/23 Rx mcg chewable tablet prednisone 20 mg tablet 20 mg PO DAILY #30 tabs 10/26/23 11/08/23 Rx pregabalin 50 mg capsule (Lyrica) 50 mg PO BID #60 caps 10/26/23 11/08/23 Rx gabapentin 600 mg tablet 300 mg PO DAILY 11/02/23 11/08/23 History prednisone 5 mg tablet 15 mg (3 x 5 mg) PO DAILY #90 tabs 11/02/23 11/08/23 Rx alendronate 70 mg tablet 70 mg PO WK 11/08/23 11/08/23 History amoxicillin 875 mg tablet 875 mg PO BID 11/08/23 11/08/23 History Patient History Medical History Mitral valve prolapse Mitral valve "normal" per 07/2019 BILL Surgical History History of arthroplasty of right knee (07/19/23) Status post left knee replacement (12/23/22) S/P ablation of atrial fibrillation (04/2020) Hx of partial nephrectomy (03/07/20) 03/07/20 Dr. Jhon Gant- Left robotic partial nephrectomy History of cardioversion July 2019 History of bronchoscopy 1979' Status post placement of implantable loop recorder (11/2019) [employer]. Implanted Nov 2019 > follows dr. poncho ng cardiology History of tonsillectomy and adenoidectomy S/P arthroscopic knee surgery right S/P hysterectomy secondary to fibroids S/P section x4 Family History Father Coronary heart disease Prostate cancer Myocardial infarction, Onset Age: 75 Hypertension Brother Alcohol abuse Heart disease Sister Breast cancer, Onset Age: 29 Mother Diabetes Hypertension Heart disease Grandmother (Maternal) Ovarian cancer Social History Smoking Status: Never smoker Second Hand Exposure: No; Do You Dip or Chew Tobacco: No; Hx Alcohol Use: No Hx Substance Use: No Preferred Language: Citizen Of [place] Communication Ability: Effective Visual Impairment: No Limitations Hearing Ability: Use of Hearing Aid Dictating Transcribing Machine Servicer Required: No Beliefs That Will Affect Care: None marital status: Current Living Situation: Spouse current occupational status: retired Feels Safe at Home: Yes Childhood Exposure to Second-Hand Smoke: Yes Diet: regular Diet Comment: regular caffeine: No (1/2 caffeine) during the past year weight has: remained stable Dental Care, Regularly: Yes Physical Activity Frequency: Daily Physical Activity Frequency Comment: stairs Seatbelt Use: always Sunscreen Use: Yes Assistive Devices: Glasses and Hearing Aid - Bilateral Review of Systems 2 Review of Systems: All systems reviewed & are unremarkable except as noted in HPI & below Physical Exam 2 Physical Exam: Constitutional: No acute distress HEENT: EOMI, PERRLA Respiratory system: Decreased air entry bilaterally, no wheeze, no rhonchi, positive crackles bilaterally more on the right side, questionable Velcro CVS: S1-S2 positive, no murmurs or gallops, irregular Abdomen: Soft, nontender, nondistended, positive bowel sounds x4 Extremities: +2 pulses bilaterally radialis/ dorsalis pedis, +1 pitting edema bilateral lower extremity, positive cyanosis of the distal phalanx of bilateral upper extremity Neuro: Awake alert oriented x3 Psych: Normal mood and affect G/U: Positive Marrufo Skin: no rashes, warm and dry Lymphatic: no cervical or axillary lymphadenopathy Results & Data Results & Data Vital Signs (Past 12 Hours) Vital Signs Temp Pulse Resp BP Pulse Ox Pulse Ox O2 Del Method 11/11/23 07:30 36.6 C 91 H 18 95/57 L 90 Room Air 11/11/23 02:50 36.4 C L 93 H 21 109/67 93 Oxymask 11/11/23 02:00 93 11/10/23 22:54 37.1 C 94 H 22 95/54 L 90 Oxymask O2 Del Method O2 Flow Rate 11/11/23 07:30 11/11/23 02:50 11/11/23 02:00 Oxymask 4 11/10/23 22:54 Laboratory Results 11/11/23 06:03 11/11/23 06:03 PG Care Time/CCT Total # of Minutes Spent Total Time Spent with Patient: Total time spent is greater than 50% in coordination of care (as documented) at patient's floor/unit and/or counseling patient: Coding Level of Care Code 93898 INT INP/OBS CARE 3/75MIN Diagnoses Acute respiratory failure with hypoxia J96.01 Atrial fibrillation with rapid ventricular response I48.91 Acute blood loss anemia D62 ILD (interstitial lung disease) J84.9
--- NOTE | 2023-11-11 10:30 | Infectious Disease Progress Nt ---
Date of Service November 11, 2023 Assessment & Plan (1) Sepsis: (2) Bilateral pneumonia: (3) Acute respiratory failure with hypoxia: (4) Acute Lyme disease: (5) Babesiosis: Plan This is a 78-year-old female with a past medical history of atrial fibrillation status post ablation, partial nephrectomy, bilateral knee replacement, who presents with myalgias and confusion. She is a poor historian. Her is a retired surgeon and provides history. She underwent a left knee replacement in 12/2022 followed by a left knee replacement in 07/2023. 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 This was followed by bilateral lower extremity pain and ongoing neuropathy of unknown etiology. Approximately 2 weeks ago, she developed increased fatigue, arthralgias, myalgias with loss of appetite. She was seen by her PCP and Rheumatology and was diagnosed with possible PMR given elevated inflammatory markers. She was started on prednisone 20 mg per day. In the last few days, she developed fevers, confusion and vomited prompting her admission. Tmax at home 104. She traveled to [place] in August and then [place]. Both she and her live in a [place] area and have deer in the backyard. They also have been to many outdoor [place] games for their grandson this summer.. She denies mosquito or tick bites, change in urination, rash, headaches, vision changes, cough, shortness of breath. She took a few doses of amoxicillin and Tylenol with little relief. In the ED she is afebrile, heart rate 125, RR 30, blood pressure 129/62, O2 sats 87% on room air---> 98% oxy mask. Labs WBC 9.37 hemoglobin 7, hematocrit 20, platelets 70, BUN 31, creatinine 0.83, total bili 2, direct bili 0.4, AST 101, ALT 39, alk phos 64, procalcitonin 26.5. Anaplasma smear negative. Anaplasma PCR negative ( 10/25). Babesia smear with red blood cell inclusions noted. PCR and Pathology pending . .Lyme screen and confirmatory testing positive. Respiratory viral panel negative. Chest x-ray with bibasilar opacities suggestive of pneumonia and Left suprahilar nodular opacities. CTAP shows significant interval worsening of bibasilar pneumonia versus pulmonary edema; enlarged heart. Head CT with no evidence of acute intracranial pathology. She initially received a dose of Zosyn She is now on ceftriaxone, azithromycin, and atovaquone. ID consulted for possible babesiosis and Lyme disease. Antibiotics ceftriaxone 11/06, 11/07- 11/10 Cefepime 11/10-ongoing Zosyn 11/06 Atovaquone 11/07- ongoing Azithromycin 11/07-ongoing Micro: Blood cultures 11/07 NGTD Lyme screen, confirmatory testing 11/07 positive Anaplasma PCR 10/25 negative Anaplasma smear 11/07 No evidence of intracytoplasmic neutrophilic inclusions to suggest Anaplasmosis. Babesia PCR 11/07 pending Babesia smear 11/07 microcytic anemia and frequent intracellular ring form para sites Periph smear 5-9.9% parasites # Continued Fevers #Severe acute Babesiosis - Parasitemia 5-9.9% with ?pulm edema, hgb <10 #Lyme disease #Acute hypoxic respiratory failure #Possible CAP vs pulm edema #Neuropathy #B/L TKA #Anemia, thrombocytopenia #Transaminitis # Procal elevated at 26.5 She has evidence of babesiosis with microcytic anemia and intracellular ring forms in red blood cells. Lyme testing consistent with Lyme disease. Anaplasma smear this admission and prior Anaplasma PCR on 10/25 negative Her clinical syndrome of fatigue, arthralgias, myalgias and lab findings of anemia, transaminitis and thrombocytopenia are consistent with a tickborne illness (specifically babesiosis and Lyme disease). Atovaquone and azithromycin will cover babesiosis. She is not immunocompromised and has her spleen. It does not appear that she has triple coinfection with anaplasmosis, but will repeat Anaplasma PCR. Procalcitonin noted to be elevated with infiltrates on chest x- ray. She was initially receiving Ceftriaxone for ?pna and Lyme coverage . we held doxycycline as no s/o coinfection with anaplasmosis. There is no signs on exam of knee involvement at her prosthetic joint sites. 11/08 febrile 39.3. febrile 11/10. Febrile in last 24 hours -T m 39.4 11/09 1930. More sob. On 11/09 parasite count quantified as 5%-9.9%. Since her parasite count is > 4%, she has pulm edema on CXR, and HGB < 10 , this would be considered acute severe Babesiosis. We do not have a parasite count on admission, so unclear if parasitemia was higher at that time. Will increase azithromycin dose to from e 500 mg --->1000 mg IV daily and continue atovaquone. Will treat with IV azith and then oral stepdown to 500mg once she clinically improves. Will check LDH, Haptoglobin and retic count for hemolysis. Concern for ? bleed as well as ? hemolytic anemia as stool blood + Will also add doxycycline. Although ceftriaxone will cover known Lyme disease, it will not cover other tick borne illnesses. I have a lower suspicion for other however for other tickborne diseases as her Anaplasma PCR was negative on 10/25 however it was not retested during this admission. In that case will start definitive Anaplasma therapy with doxy Complications of severe Babesiosis include ARDS, severe anemia, DIC CHd renal failure. If parasitemia > 10% or sever hemolytic anemia, or pulmonary, renal or llver compromise, will need to consider exchange transfusion. Recommendations; Discontinued ceftriaxone as per above. Will start cefepime 2 g iv 12 for coverage of? Pneumonia Started doxycycline 100 mg IV every 12h for coverage of known Lyme and empiric coverage of other tickborne illnesses as discussed above. Continue atovaquone 750 mg p.o. every 12 hours and azithromycin but will increase azithromycin to 1000 mg IV daily in the setting of severe disease given now that we know her parasitemia count, 1000 mg to start tomorrow. Added a one time 500 mg IV dose to 500 mg IV she already received today Monitor H/H/platelets/LFTs Would ask hematology to evaluate. MONITOR QTC on flecainide and Azithromycin DAILY ( last qtc on 11/07 442) Repeat Procal ordered Repeat smear with parasite quantification ordered (Ordered as Blood smear parasites- in order to get Parasite %count) Ordered LDH, haptoglobin reticulocyte count ID will continue to follow D/w hospitalist, pt and Petty Love MD, MPH Infectious Disease [facility], [facility] Call [phone] with questions. Admission and Anticipated Discharge Date Admission Date: November 08, 2023 Subjective Subsequent visit was provided via telemedicine using two-way real-time interactive telecommunication between the patient and the telemedicine provider. For the duration of the visit, the provider was performing the assessment from a different facility than the patient. This includesuse of bluetooth stethoscope forauscultationperformed by the telepresenter that the telemedicine provider can hear if described in the physical exam. Talkback Host contact information: Please call [facility] Call Center . (Phone Number For Physician Use Only) After establishing a telemedicine visit, patient was: Patient was verified with two unique identifiers Time Spent with Patient: Subsequent => 35 min Febrile in last 24 hours Tm 39.4 [place]item[place] > 4% ( 5- 9.9%) H/H dropped 12/09--> 7.2/21.2 ,plts 47 Back on supp o2 ( 6 L) CXR w/ vasc congestion at BS Physical Exam Physical Exam: Gen- Awake and alert, on 6L NC, Neck- Supple HEENT- anicteric sclera Lungs- insp wheeze Cards- irregular Abd- soft, NT, ND Skin- pallor Neuro- Awake alert,oriented to self and place ext- No edema. Well healed BL TKA incisions, not tender Psych- cooperative Results & Data Vital Signs (Past 12 Hours) Vital Signs Temp Pulse Resp BP Pulse Ox Pulse Ox O2 Del Method 11/11/23 07:30 36.6 C 91 H 18 95/57 L 90 Room Air 11/11/23 02:50 36.4 C L 93 H 21 109/67 93 Oxymask 11/11/23 02:00 93 11/10/23 22:54 37.1 C 94 H 22 95/54 L 90 Oxymask O2 Del Method O2 Flow Rate 11/11/23 07:30 11/11/23 02:50 11/11/23 02:00 Oxymask 4 11/10/23 22:54 Laboratory Results Laboratory Results - last 48 hr 11/10/23 11/11/23 11/11/23 06:20 06:03 09:56 WBC 12.41 H 11.47 H RBC 2.98 L 2.65 L Hgb 8.0 L 7.2 L Hct 23.1 L 21.2 L MCV 77.5 L 80.0 MCH 26.8 27.2 MCHC 34.6 34.0 RDW Std Deviation 44.3 46.8 H RDW Coeff of Sanjuana 16.0 H 16.5 H Plt Count 58 L 47 L Immature Gran % (Auto) 1.5 2.1 Neut % (Auto) 70.1 74.6 Lymph % (Auto) 22.0 18.0 Rooks % (Auto) 6.1 5.2 Eos % (Auto) 0.1 0.0 Baso % (Auto) 0.2 0.1 Neut # (Auto) 8.70 H 8.56 H Lymph # (Auto) 2.73 2.06 Rooks # (Auto) 0.76 H 0.60 H Eos # (Auto) 0.01 0.00 Baso # (Auto) 0.02 0.01 Immature Gran # (Auto) 0.19 0.24 H Absolute Nucleated RBC 0.12 0.23 H Nucleated RBC % (auto) 1.0 2.0 Target Cells 1+ Sodium 132 L 131 L Potassium 3.5 3.9 Chloride 102 102 Carbon Dioxide 25 25 Anion Gap 5 4 BUN 31 H 33 H Creatinine 0.78 0.99 Est Cr Clr Drug Dosing 56.7 44.8 Est GFR ( Amer) 84.4 63.3 Est GFR (Non-Af Amer) 72.8 54.6 BUN/Creatinine Ratio 39.7 H 33.3 H Glucose 122 H 110 H Calcium 6.6 L 7.0 L Blood Parasites ID Present Crossmatch See Detail Diagnostic Findings Microbiology 11/10/23 14:36 Blood Blood Parasites Smear - Final 11/09/23 Unknown Urine,Indwelling Cath Urine Culture - Preliminary No growth - Less than 1,000 colonies/mL, Final report to follow. 11/08/23 02:37 Blood Aerobic Blood Culture - Preliminary No growth in Aerobic bottle after 48 hours. 11/08/23 02:37 Blood Anaerobic Blood Culture - Preliminary No growth in Anaerobic bottle after 48 hours. 11/08/23 02:20 Blood Aerobic Blood Culture - Preliminary No growth in Aerobic bottle after 48 hours. 11/08/23 02:20 Blood Anaerobic Blood Culture - Preliminary No growth in Anaerobic bottle after 48 hours. Chest X-Ray 11/09/23 08:00 XR chest 1V portable HISTORY: 78 years-old Female pneumonia, pulm edema acute shortness of breath COMPARISON: 11/08/2023 TECHNIQUE: AP view of the chest FINDINGS: Cardiac silhouette is enlarged. Electronic device projects over the left heart border. No pneumothorax or large pleural effusion. Pulmonary vascular congestion with interstitial coarsening redemonstrated. Mild patchy bibasilar and left upper lung airspace opacities redemonstrated. Bones appear grossly intact. IMPRESSION: 1. Cardiomegaly with mild pulmonary edema and pulmonary fibrosis. 2. Unchanged ill-defined bibasilar and left upper lung opacities may be associated with the fibrosis versus superimposed pneumonia. ACT 112: Negative or not required by law. The above report was generated using voice recognition software. It may contain grammatical, syntax or spelling errors. Electronically signed by: Anuj Lake M.D. 11/09/2023 7:16 AM Chest X-Ray 11/10/23 07:00 XR chest 1V portable CLINICAL HISTORY: possible pneumonia, pulmonary edema TECHNIQUE: Single frontal radiograph of the chest was obtained. Comparison: Comparison is made to chest radiograph 11/09/2023 FINDINGS: No lines and tubes are seen. The cardiomediastinal silhouette is normal. Bilateral lower lung predominant airspace opacities are seen. No evidence of pleural effusion or pneumothorax. IMPRESSION: Bilateral lower lung predominant airspace opacities are unchanged from prior exam. ACT 112: Negative or not required by law. Electronically signed by: Danis Christie M.D. 11/10/2023 7:56 AM Chest X-Ray 11/11/23 09:01 XR chest 1V portable CLINICAL HISTORY: hypoxia TECHNIQUE: Single frontal radiograph of the chest was obtained. Comparison: Comparison is made to chest radiograph 11/10/2023 FINDINGS: No lines and tubes are seen. Cardiomegaly is noted. Bilateral lower lung predominant airspace opacities are seen. Right perihilar density is nonspecific and may represent prominent vasculature. No evidence of pleural effusion or pneumothorax. IMPRESSION: 1. Bilateral lower lung predominant airspace opacities which may represent atelectasis, pneumonia, and/or aspiration. 2. Cardiomegaly with mild pulmonary vascular congestion. ACT 112: Negative or not required by law. Electronically signed by: Danis Christie M.D. 11/11/2023 9:40 AM
[2023-11-11 10:38] LABS: Base Excess ABG -2.7 mEq/L (-9-1.8); HCO3 ABG 19 mmol/L (19-24); Oxygen Saturation ABG 99.3 % (90-95); PCO2 ABG 24 mmHg (35-46); PO2 ABG 116 mmHg (80-95)
[2023-11-11 10:41] LABS: Allen Test Pos (Pos)
[2023-11-11] MEDS: DOXYCYCLINE HYCLATE 100 MG in DEXTROSE 5% MINI-B 100 ML IV SCH (11:33)
[2023-11-11 11:37] LABS: Lactate Dehydrogenase 1167 U/L (86-244)
--- NOTE | 2023-11-11 11:59 | Oncology Consultation ---
Date of Consultation November 11, 2023 Assessment & Plan (1) Anemia: (2) Pulmonary edema: (3) Babesiosis: (4) Acute pulmonary edema: Plan Pleasant female with history of IgG lambda MGUS who presented with altered mental status and diagnosed with babesiosis. Hematology consulted for bi cytopenia with anemia and thrombocytopenia. Has significantly elevated LDH. - Although LDH is significantly elevated, peripheral smear review did not show any evidence of schistocytes to suggest hemolytic process such as autoimmune hemolytic anemia/DIC/TTP. [place] test also negative ruling out immune mediated hemolysis.LDH likely elevated due to infection -Bicytopenia also likely due to infection. She has significantly elevated ferritin of above 75,000 which although could be due to inflammation, multiple PRBC transfusions cannot completely rule out hemophagocytic lymphohistiocytosis triggered by babesiosis. Based on HLH-2004 trial, she meets 4 out of 9 criteria (Fever, bicytopenia,hypertriglyceridemia, Ferritin above 3000). Does not have hypofibrinogenemia, splenomegaly. Will obtain testing for soluble interleukin-2 receptor alpha. Explained to patient and her this is a very rare diagnosis and although I suspect this is less likely, would recommend consideration for transfer to tertiary center -Recommend transfusing to maintain hemoglobin above 7.5 and platelet count above 15,000. Continue daily monitoring of LFTs Thank you for this consult. Hematology will continue to follow while in the hospital. Please feel free to call if you have any further questions.. History of Present Illness Reason for Consultation: Babesiosis, possible hemolytic anemia Attending Physician: Piter Byers MD History of Present Illness Ms. Burns is a pleasant 78-year-old female known to me at [facility] with history of MGUS who presented to the ER at [facility] with altered mental status and myalgia. Labs obtained in ER significant for anemia with hemoglobin of 7, hematocrit of 20, also thrombocytopenic with direct count of 40,000. WBC was normal. Peripheral smear review by pathology revealed microcytic anemia with frequent intracellular reniform parasites likely representing Babesia infection. Babesia PCR also positive. Labs obtained today significant for WBC of 11.47, hemoglobin 7.2 with hematocrit of 21.2, platelet count of 47,000. Workup for anemia revealed elevated LDH of 1167 for which hematology was consulted.She has received 3 units PRBC transfusion so far. Being followed by infectious disease and pulmonology. She is currently on broad-spectrum antibiotics.Her last episode of fever was last night with a temperature of 102.9 Allergies Allergy/AdvReac Type Severity Reaction Status Date / Time Methacrylate Analogues Allergy Severe found Verified 11/09/23 00:38 during allergy testing. naproxen [From Naprosyn] AdvReac Intermediate diarrhea Verified 11/08/23 03:02 Home Medications Medication Instructions Recorded Confirmed Type apixaban 5 mg tablet (Eliquis) 5 mg PO BID 09/27/19 11/08/23 History fish oil-dha-epa 1,200 mg-144 1 cap PO QAM 09/27/19 11/08/23 History mg-216 mg capsule multivitamin with minerals 2 tab PO DAILY 07/31/21 11/08/23 History (Hair,Skin and Nails tablet) atorvastatin 80 mg tablet (Lipitor) 80 mg PO DAILY 02/06/22 11/08/23 History calcium carbonate 500 mg PO DAILY 02/06/22 11/08/23 History raloxifene 60 mg tablet 60 mg PO QAM #90 tabs 02/06/22 11/08/23 Rx cholecalciferol (vitamin D3) 25 50 mcg PO DAILY 08/03/22 11/08/23 History mcg (1,000 unit) capsule flecainide 100 mg tablet 50 mg PO BID 08/03/22 11/08/23 History omeprazole 20 mg capsule,delayed 20 mg PO DAILY 08/03/22 11/08/23 History release Flutter Valve #1 ea 02/05/23 11/02/23 Rx diltiazem HCl 120 mg See Rx Instructions .Route .COMPLEX 07/07/23 11/08/23 History capsule,extended release 12 hr ferrous sulfate 325 mg (65 mg 325 mg PO DAILY 07/07/23 11/08/23 History iron) tablet acetaminophen 325 mg capsule 325 mg PO QID PRN PAIN/FEVER 10/26/23 11/08/23 History (Tylenol) mecobalamin (vitamin B12) 1,000 1,000 mcg PO DAILY #30 tabs 10/26/23 11/08/23 Rx mcg chewable tablet prednisone 20 mg tablet 20 mg PO DAILY #30 tabs 10/26/23 11/08/23 Rx pregabalin 50 mg capsule (Lyrica) 50 mg PO BID #60 caps 10/26/23 11/08/23 Rx gabapentin 600 mg tablet 300 mg PO DAILY 11/02/23 11/08/23 History prednisone 5 mg tablet 15 mg (3 x 5 mg) PO DAILY #90 tabs 11/02/23 11/08/23 Rx alendronate 70 mg tablet 70 mg PO WK 11/08/23 11/08/23 History amoxicillin 875 mg tablet 875 mg PO BID 11/08/23 11/08/23 History Patient History Medical History Mitral valve prolapse Mitral valve "normal" per 07/2019 BILL Surgical History History of arthroplasty of right knee (07/19/23) Status post left knee replacement (12/23/22) S/P ablation of atrial fibrillation (04/2020) Hx of partial nephrectomy (03/07/20) 03/07/20 Dr. Jhon Gant- Left robotic partial nephrectomy History of cardioversion July 2019 History of bronchoscopy Status post placement of implantable loop recorder (11/2019) [employer]. Implanted Nov 2019 > follows dr. poncho ng cardiology History of tonsillectomy and adenoidectomy S/P arthroscopic knee surgery right S/P hysterectomy secondary to fibroids S/P section x4 Family History Father Coronary heart disease Prostate cancer Myocardial infarction, Onset Age: 75 Hypertension Brother Alcohol abuse Heart disease Sister Breast cancer, Onset Age: 29 Mother Diabetes Hypertension Heart disease Grandmother (Maternal) Ovarian cancer Social History Smoking Status: Never smoker Second Hand Exposure: No; Do You Dip or Chew Tobacco: No; Hx Alcohol Use: No Hx Substance Use: No Preferred Language: Paraguayan Communication Ability: Effective Visual Impairment: No Limitations Hearing Ability: Use of Hearing Aid Job Developer Required: No Beliefs That Will Affect Care: None marital status: Current Living Situation: Spouse current occupational status: retired Feels Safe at Home: Yes Childhood Exposure to Second-Hand Smoke: Yes Diet: regular Diet Comment: regular caffeine: No (1/2 caffeine) during the past year weight has: remained stable Dental Care, Regularly: Yes Physical Activity Frequency: Daily Physical Activity Frequency Comment: stairs Seatbelt Use: always Sunscreen Use: Yes Assistive Devices: Glasses and Hearing Aid - Bilateral Results & Data Vital Signs (Past 12 Hours) Vital Signs Temp Pulse Pulse Resp BP Pulse Ox Pulse Ox 11/11/23 10:53 36.5 C 87 18 98/62 L 94 11/11/23 08:00 11/11/23 08:00 80 11/11/23 07:30 36.6 C 91 H 18 95/57 L 90 11/11/23 02:50 36.4 C L 93 H 21 109/67 93 11/11/23 02:00 93 O2 Del Method O2 Del Method O2 Flow Rate O2 Flow Rate 11/11/23 10:53 Oxymask 6 11/11/23 08:00 Oxymask 6 11/11/23 08:00 11/11/23 07:30 Room Air 11/11/23 02:50 Oxymask 11/11/23 02:00 Oxymask 4
[2023-11-11] MEDS: CEFEPIME 2,000 MG in SYRINGE 0 ML IV SCH (12:10)
[2023-11-11] MEDS: AZITHROMYCIN 500 MG in DEXTROSE 5% 250 ML IV STA (12:10)
[2023-11-11 12:26] LABS: Iron 48 mcg/dl (35-150); Total Iron Binding Cap Calc 170 mcg/dl (250-450); Transferrin (FE) Percent Satur 28 % (15-50); Unsaturated Iron Binding Cap 122 mcg/dl (155-355)
--- NOTE | 2023-11-11 12:31 | Hospitalist Progress Note ---
Date of Service November 11, 2023 Assessment & Plan (1) GI bleed: Plan: Hemoglobin improved to 9.2 after 2 units of blood transfusion but has drifted down to 7.2. No overt melena or hematochezia. 1 unit packed red blood cells ordered for today, November 10. Hemolytic anemia is a possibility related to the babesiosis. Hematology consultation requested. Eliquis has been discontinued. Continue Protonix therapy. GI consultation appreciated. No endoscopy planned at this time. 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 2 units packed red blood cells were given. Hemoglobin improved to 9.2 and has now drifted down to 7.2. Stool is Hemoccult positive although there is no overt melena or hematochezia. Hemolysis is a possibility related to the babesiosis. Hematology consultation requested. Will transfuse 1 unit of packed red blood cells today, November 10. Serial labs. (3) Atrial fibrillation with rapid ventricular response: Plan: Telemetry. Medication management. Diltiazem was uptitrated on November 09 and heart rate control has improved. Eliquis has been discontinued due to GI bleeding and anemia (4) Sepsis: Plan: Present on admission. Infectious disease consultation appreciated. Azithromycin dosage has been increased and she is now on cefepime, 8 atovaquone and doxycycline. 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 Blood cultures remain negative to date. Chest x-ray reveals progression of bilateral infiltrates. (5) Acute respiratory failure with hypoxia: Plan: She is again on oxygen and oxygen requirements have increased. Chest x-ray done today, November 10, reveals progression of bilateral infiltrates. Pulmonary medicine consultation and recommendations appreciated. Chest CT scan is pending. She may need bronchoscopy evaluation. (6) Bilateral pneumonia: Plan: No sputum production for culture. No overt hemoptysis. Chest x-ray done today, November 10, reveals progression of bilateral infiltrates. Infectious disease consultation appreciated. Rocephin has been switched to cefepime. Azithromycin dosages has been increased. She is also on atovaquone and doxycycline. Serial chest x-ray (7) Current use of steroid medication: Plan: She has not been on oral prednisone very long but intravenous hydrocortisone has been ordered as a precaution. Dosage tapered down on November 08. (8) Benign essential hypertension: Plan: Diltiazem dosage uptitrated on November 08 for better heart rate control. Blood pressure is now stable (9) IgG lambda monoclonal gammopathy: Plan: By history. No intervention at this time (10) Pulmonary edema: Plan: Acute. Seen on admission chest x-ray. Pulmonary medicine recommends further diuresis. No overt pulmonary edema seen on current chest x-ray (11) Metabolic encephalopathy: Plan: Present on admission. Now resolved Plan To be determined. She may need transfer to our intensive care unit for continued care. Consideration for transfer to tertiary care center. Both OT and PT recommend IPR at the time of discharge. Admission and Anticipated Discharge Date Admission Date: November 08, 2023 Subjective Awake and alert but her oxygen requirements have increased. Repeat chest x-ray reveals progression of bilateral pulmonary infiltrates without overt pulmonary edema. Hopefully she is not developing ARDS. Hemoglobin has drifted down to 7.2. Hemolytic anemia is a possibility related to the babesiosis. Hematology consultation requested. Stool was Hemoccult positive previously but there is no overt melena or hematochezia. 1 unit packed red blood cells ordered again today, November 10, for hemoglobin 7.2. Pulmonary medicine consultation and recommendations appreciated. Chest CT scan is ordered and pending. She may yet require bronchoscopy evaluation. Review of Systems 2 Review of Systems: Constitutional-alert and oriented X 3. No fever, no rigors ENT-no blurred vision, no double vision, no epistaxis, no sore throat Respiratory-occasional nonproductive cough. No hemoptysis. Cardiac-no palpitations, no chest pain, no syncope GI-anorexic. No overt melena or hematochezia. No vomiting, no hematemesis -no urinary retention, no urinary incontinence, no dysuria, no hematuria Musculoskeletal-no joint pain, no muscle tenderness Skin-pallor has resolved. No bruising, no rashes, no pruritus Neuro-no focal deficits. Generalized weakness. Psych-normal affect Physical Exam 2 Physical Exam: General-alert and oriented x3. HEENT-head atraumatic and normocephalic, pupils equal and reactive to light, extraocular muscles intact Neck-no lymphadenopathy or thyromegaly, trachea midline Chest-bilateral rhonchi. No inspiratory rales. No wheezing Cardiac - irregular rhythm, normal rate. Normal S1 and S2. Abdomen-normal bowel sounds, no hepatosplenomegaly Extremities-no cyanosis, clubbing, or edema Skinpallor has resolved after transfusion. Neuro-generalized weakness. No focal deficits Psychnow alert and oriented x 3. Normal affect Results & Data Results & Data Vital Signs (Past 12 Hours) Vital Signs Temp Pulse Pulse Resp BP Pulse Ox Pulse Ox 11/11/23 10:53 36.5 C 87 18 98/62 L 94 11/11/23 08:00 11/11/23 08:00 80 11/11/23 07:30 36.6 C 91 H 18 95/57 L 90 11/11/23 02:50 36.4 C L 93 H 21 109/67 93 11/11/23 02:00 93 O2 Del Method O2 Del Method O2 Flow Rate O2 Flow Rate 11/11/23 10:53 Oxymask 6 11/11/23 08:00 Oxymask 6 11/11/23 08:00 11/11/23 07:30 Room Air 11/11/23 02:50 Oxymask 11/11/23 02:00 Oxymask 4 Laboratory Results 11/11/23 06:03 11/11/23 06:03 PG Care Time/CCT Total # of Minutes Spent Total Time Spent with Patient: Total time spent is greater than 50% in coordination of care (as documented) at patient's floor/unit and/or counseling patient: Coding Level of Care Code 91536 SUB INP/OBS CARE 3/50MIN Diagnoses GI bleed K92.2 Acute blood loss anemia D62 Atrial fibrillation with rapid ventricular response I48.91 Sepsis A41.9 Acute respiratory failure with hypoxia J96.01 Bilateral pneumonia J18.9 Current use of steroid medication Z79.52 Benign essential hypertension I10 IgG lambda monoclonal gammopathy D47.2 Pulmonary edema J81.1 Metabolic encephalopathy G93.41
--- NOTE | 2023-11-11 12:48 | CT Scan Report ---
CT chest diagnostic wo con CT DOSE: 330.82 mGy.cm CLINICAL HISTORY: 78 years-old Female with Pneumonia vs pulmonary edema. Acute shortness of breath TECHNIQUE: Multiaxial CT images of the chest were performed without contrast. A dose lowering techni que was utilized adhering to the principles of ALARA. COMPARISON: Chest radiograph of same day, chest CT 06/23/2023 and CTA chest 01/26/2023 FINDINGS: Moderate cardiomegaly with trace pericardial effusion. Extensive coronary artery calcificat ions. Left anterior chest wall loop recorder device. No thoracic aortic aneurysm. Mild dilation of th e pulmonary artery may represent pulmonary arterial hypertension. Mediastinal and hilar lymphadenopat hy including subcarinal lymph nodes measuring up to 1.3 cm. Paratracheal lymph nodes measure up to 1. 3 cm. These are new/progressed from prior. Small pleural effusions. No pneumothorax. Intralobular septal thickening with patchy mid to lower ja g zone prominent groundglass and patchy bibasilar alveolar opacities. Findings are present in a backg round of mild postinflammatory scarring. Respiratory motion artifact limits the study. Spleen appears enlarged. Body wall edema. No acute fracture. IMPRESSION: 1. Cardiomegaly with interstitial pulmonary edema and small pleural effusions. 2. Alveolar pulmonary edema is also noted with bibasilar opacities which may represent a combination of atelectasis and pulmonary edema versus pneumonia. 3. Mild mediastinal and hilar lymphadenopathy. ACT 112: Negative or not required by law. Electronically signed by: Anuj Lake M.D. 11/11/2023 12:46 PM
[2023-11-11 13:25] LABS: Ferritin > 7500.0 ng/ml (8-388)
[2023-11-11 14:59] LABS: Triglycerides 335 mg/dl (0-150)
[2023-11-11] MEDS: ALBUMIN 25% 25 GM/100 ML VIAL IV SCH (15:27)
[2023-11-11 15:31] LABS: Babesia microti DNA Detected (Not Detected)
[2023-11-11 16:52] LABS: Hematocrit (blood only) 22.1 % (37.0-47.0); Hemoglobin 7.8 g/dl (12.0-16.0)
[2023-11-11 16:53] LABS: Reticulocyte % 4.55 % (0.50-2.00); Reticulocytes # 0.13 10^6/uL (0.020-0.100)
[2023-11-11 17:10] LABS: Albumin Level 2.4 gm/dl (3.4-5.0); Bilirubin Direct 0.3 mg/dl (0-0.2); Total Protein 5.8 gm/dl (6.0-8.3)
[2023-11-11 17:18] LABS: Fibrinogen 430 mg/dl (184-400); Partial Thromboplastin Ratio 1.3; Partial Thromboplastin Time 34 Seconds (21-31); Prothrombin Time 10.6 Seconds (9.0-12.0)
[2023-11-11] MEDS: FUROSEMIDE 40 MG/4 ML VIAL IV ONE (17:21)
[2023-11-11 17:33] LABS: Folate (Folic Acid),Ser orPlas 13.3 ng/ml (>5.38)
--- NOTE | 2023-11-11 19:15 | Billing Data ---
Date of Service November 11, 2023 Coding Level of Care Code 88207 INT INP/OBS CARE
[2023-11-12 06:33] LABS: Hematocrit (blood only) 23.1 % (37.0-47.0); Hemoglobin 7.8 g/dl (12.0-16.0); Mean Corpuscular Hemoglobin 26.7 pg (25.0-34.0); Mean Corpuscular Hgb Conc 33.8 g/dL (32.0-36.0); Mean Corpuscular Volume 79.1 fL (80.0-100.0); Nucleated RBC # (auto) 0.19 K/uL (0.00-0.12); Nucleated RBC % (auto) 1.9 %; Platelet Count 64 K/uL (130-400); RDW Standard Deviation 45.2 fL (36.4-46.3); Red Blood Count 2.92 M/uL (4.20-5.40); White Blood Count 9.88 K/ul (4.8-10.8)
[2023-11-12 06:42] LABS: Albumin Globulin Ratio 0.8 (0.9-2); Albumin Level 2.7 gm/dl (3.4-5.0); BUN Creatinine Ratio 35.9 (10-20); Bilirubin,Total 1.5 mg/dl (0.2-1.0); Calcium 7.8 mg/dl (8.6-10.3); Creatinine Clr Calc Pharmacy 56.2 ml/min; Est GFR (African American) 84.4 ml/min; Est GFR (Non-African American) 72.8 ml/min; Globulin 3.3 gm/dl (2.5-4.0); Potassium 3.6 mmol/L (3.5-5.1)
[2023-11-12 06:58] LABS: Parasites Present
[2023-11-12 06:59] LABS: Basophils # (auto) 0.01 K/uL (0.00-0.20); Basophils % (auto) 0.1 %; Eosinophils # (auto) 0.02 K/uL (0.00-0.50); Eosinophils % (auto) 0.2 %; Immature Granulocytes # (auto) 0.19 K/uL (0.01-0.20); Immature Granulocytes % (auto) 1.9 %; Lymphocytes # (auto) 2.28 K/uL (1.20-3.40); Lymphocytes % (auto) 23.1 %; Monocytes # (auto) 0.54 K/uL (0.11-0.59); Monocytes % (auto) 5.5 %; Neutrophils # (auto) 6.84 K/uL (1.40-6.50); Neutrophils % (auto) 69.2 %; Ovalocytes 1+; Parasites Present; Polychromasia 1+; Target Cells 1+
--- NOTE | 2023-11-12 07:24 | Pulmonology Progress Note ---
Date of Service November 12, 2023 Assessment & Plan (1) Acute respiratory failure with hypoxia: (2) Atrial fibrillation with rapid ventricular response: (3) Acute blood loss anemia: (4) ILD (interstitial lung disease): Plan PFT 05/24/2023 personally reviewed: Mild restrictive lung dysfunction, no obstruction, insignificant bronchodilator response, moderate decrease in DLCO FVC 2.30 L 88%, FEV1 1.84 L 94%, FEV1/FVC 80%, ERV 80%, RV 42%, TLC 69%, RV/TLC 61%, DLCO 51%, DLCO/VA 66% 2D echo 11/10/2023: EF 60-65%, RV normal in size, LA mildly dilated CT chest 06/23/2023 personally reviewed: Increased reticular marking appreciated bilateral lower lobes as well as left anterior side No significant mediastinal lymphadenopathy CT chest 11/11/2023: Diffuse patchy opacities appreciated bilaterally with interlobular thickening Mild bilateral pleural effusion Cardiomegaly Minimal mediastinal lymphadenopathy -- Acute hypoxic respiratory failure Multifactorial Patient does seem to have underlying ILD Her pulmonary opacities seems to be getting worse Differential includes aspiration, worsening pneumonia, worsening pulmonary edema Diffuse alveolar hemorrhage is always in the differential in somebody who is hemoglobin is low but patient has babesiosis which can cause hemolytic anemia Procalcitonin 44, respiratory bio fire was negative for everything on 11/08/2023 BNP 263 PT/INR: 11.2/1 --ILD Patient did have autoimmune workup which included rheumatoid factor, anti-CCP 08/03/2022 which was negative FIORELLA was mildly 1:40 Patient personally has Raynaud's Family history of rheumatoid arthritis in grandmother -- Microcytic anemia Likely from hemolysis from babesiosis On atovaquone and azithromycin for babesiosis, this will cover pneumonia as well The patient's labs shows a ferritin of greater than 7500, BNP repeat was 436, LDH is 1136 along with pancytopenia, fever and elevated triglycerides. There is a possibility patient is developing HLH, with inciting factor being babesiosis infection. -- Polymyalgia rheumatica Was on prednisone 20 mg for approximately 14 days prior to admission. -- A-fib On Eliquis at home Plan: In/out: -32 mL, urine output 2175, +6.3 L since coming to the hospital 40 mg of Lasix to be given now. Repeat BMP later today and give another 40 mg of Lasix later today Follow-up autoimmune workup Given the worsening chest x-ray as well as decline in respiratory status as well as mental status, I will take the patient to ICU There is high likelihood that she will end up intubated This was relayed to patient's who is in agreement. Case was discussed with RN at bedside as well as primary team Please note the above document was generated using voice recognition software. It may contain grammatical, syntax or spelling errors.Any formal questions or concerns about the content, text or information contained within the body of this dictation should be directly addressed to the provider for clarification. Admission and Anticipated Discharge Date Admission Date: November 08, 2023 Subjective Patient seen and examined at bedside. Patient was somnolent and respiratory effort She was saturating 88-89% on 3 L, I went down to 5 L she was still in the ED 90%. Stated that she is feeling the same compared to before. 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 Review of Systems 2 Review of Systems: All systems reviewed & are unremarkable except as noted in Subjective Physical Exam 2 Physical Exam: Constitutional: No acute distress HEENT: EOMI, PERRLA Respiratory system: Decreased air entry bilaterally, no wheeze, no rhonchi, positive crackles bilaterally more on the right side, questionable Velcro CVS: S1-S2 positive, no murmurs or gallops, irregular Abdomen: Soft, nontender, nondistended, positive bowel sounds x4 Extremities: +2 pulses bilaterally radialis/ dorsalis pedis, +1 pitting edema bilateral lower extremity, positive cyanosis of the distal phalanx of bilateral upper extremity Neuro: Somnolent but easily arousable, oriented to time, self and place Psych: Normal mood and affect G/U: Positive Marrufo Skin: no rashes, warm and dry Lymphatic: no cervical or axillary lymphadenopathy Results & Data Results & Data Vital Signs (Past 12 Hours) Vital Signs Temp Pulse Pulse Resp BP Pulse Ox O2 Del Method 11/12/23 06:54 95 H 11/12/23 02:30 36.4 C L 119 H 24 127/70 93 Oxymask 11/11/23 23:15 36.9 C 111 H 22 124/62 92 Oxymask 11/11/23 19:50 Oxymask O2 Flow Rate 11/12/23 06:54 11/12/23 02:30 11/11/23 23:15 11/11/23 19:50 3 Laboratory Results 11/12/23 05:45 11/12/23 05:45 PG Care Time/CCT Total # of Minutes Spent Total Time Spent with Patient: Total time spent is greater than 50% in coordination of care (as documented) at patient's floor/unit and/or counseling patient: Coding Level of Care Code 83610 CRITICAL CARE 1ST 30-74M Diagnoses Acute respiratory failure with hypoxia J96.01 Atrial fibrillation with rapid ventricular response I48.91 Acute blood loss anemia D62 ILD (interstitial lung disease) J84.9 Time Spent (min) 37
--- NOTE | 2023-11-12 07:30 | XRay Report ---
XR chest 1V portable HISTORY: hypoxic respiratory failure, pneumonia, edema COMPARISON: Chest CT 11/11/2023. FINDINGS: No pneumothorax. The heart remains enlarged. Pulmonary edema and small bilateral pleural ef fusions persist. Patchy bilateral airspace opacities have slightly progressed. IMPRESSION: Slight progression of the patchy bilateral airspace opacities which could be due to the pulmonary gerry ma or a multifocal pneumonia. ACT 112: Negative or not required by law. Electronically signed by: Ismael Munoz M.D. 11/12/2023 7:28 AM
--- NOTE | 2023-11-12 07:48 | Progress Note ---
Date of Service November 12, 2023 Assessment & Plan (1) Anemia: (2) Babesiosis: Plan -Continue management as per ICU, ID, primary teams -Since counts remain stable, no indication for transfusion at this time -Consider discussing with tertiary center regarding whether aheresis should be considered for possible HLH from babesiosis (as per yesterday's note) Admission and Anticipated Discharge Date Admission Date: November 08, 2023 Subjective Intubated this morning. Counts stable with Hb of 7.8, Platelet count of 64,000. LDH improving. Still having temp spikes with temp of 38.3 this am Results & Data Vital Signs (Past 12 Hours) Vital Signs Temp Pulse Pulse Resp BP Pulse Ox O2 Del Method 11/12/23 06:54 95 H 11/12/23 02:30 36.4 C L 119 H 24 127/70 93 Oxymask 11/11/23 23:15 36.9 C 111 H 22 124/62 92 Oxymask 11/11/23 19:50 Oxymask O2 Flow Rate 11/12/23 06:54 11/12/23 02:30 11/11/23 23:15 11/11/23 19:50 3
[2023-11-12] MEDS: ALBUMIN 25% 25 GM/100 ML VIAL IV ONE (07:49)
[2023-11-12] MEDS: FUROSEMIDE 40 MG/4 ML VIAL IV ONE ×2 (08:38→20:56)
[2023-11-12] MEDS ORDERED: LIDOCAINE 2% 20 MG/ML 5 ML SYR IV ONE (09:32)
[2023-11-12] MEDS ORDERED: ROCURONIUM BROMIDE 10 MG/ML 5 ML VIAL IV ONE (09:32)
[2023-11-12] MEDS ORDERED: ETOMIDATE 2 MG/ML 20 ML VIAL IV ONE (09:32)
[2023-11-12 10:07] LABS: Lactate Dehydrogenase 894 U/L (86-244)
[2023-11-12] MEDS ORDERED: STAT IV Infusion **Titration per Protocol STA ×3 (10:19→11:48)
[2023-11-12] MEDS: propofoL 1,000 MG/100 ML VIAL IV SCH (10:24)
[2023-11-12] MEDS: fentaNYL citrate 2,500 MCG/250 ML BAG IV SCH (10:25)
[2023-11-12] MEDS: fentaNYL BOLUS from BAG IV PRN (10:28)
[2023-11-12] MEDS: PROPOFOL BOLUS FROM BAG IV PRN (10:28)
[2023-11-12] MEDS: fentaNYL citrate 2,500 MCG/250 ML BAG IV ONE (10:29)
[2023-11-12] MEDS: RAPID SEQUENCE INDUCTION BAG ONE (10:30)
[2023-11-12] MEDS: PROPOFOL IV EMULSION 10 MG/ML 100 ML VIAL IV ONE (10:30)
[2023-11-12] MEDS: AZITHROMYCIN 1,000 MG in DEXTROSE 5% 250 ML IV SCH (10:31)
--- NOTE | 2023-11-12 10:44 | XRay Report ---
XR chest 1V portable CLINICAL HISTORY: Intubation TECHNIQUE: Single frontal radiograph of the chest was obtained. Comparison: Comparison is made to chest radiograph 11/12/2023 FINDINGS: Endotracheal tube measures 3.1 cm from the niurka. A battery-powered device projecting over the cardi ac silhouette is unchanged. Cardiomegaly is noted. Multifocal airspace opacities are seen. No evidenc e of pleural effusion or pneumothorax. IMPRESSION: 1. Satisfactory position of endotracheal tube. 2. Redemonstration of cardiomegaly and multifocal pneumonia. ACT 112: Negative or not required by law. Electronically signed by: Danis Christie M.D. 11/12/2023 10:43 AM
--- NOTE | 2023-11-12 10:52 | Procedure Note ---
Procedure Note Date of Service November 12, 2023 Note INTUBATION PROCEDURE NOTE: Attending: Dr Jorge Garcia MD Patient was evaluated and plan to intubate was made for intubation. Sedative agent used: 100 mg lidocaine, 20 mg etomidate Paralysis agent used: 30 mg rocuronium Verbal consent consent was implied given patient as well as patients secondary to rapidly declining clinical status and need for airway protection. The patient was prepared in the appropriate fashion. The patient was easily pre-oxygenated by using [id number] ventilation. With help of CMAC grade 2 vocal cords were visualized and 7.5 Mongolian ETT was introduced on first attempt to 24 cm at the lip. The stylette was removed and balloon was inflated with 10mL of air. Appropriate Colorimetric change was appreciated for at least 10 breaths. Bilateral chest rise and breath sounds were appreciated without air sounds in the epigastrium. Patient tolerated the procedure well and there were no immediate complications. Chest Xray to follow for confirming placement. Coding CPT Codes Resuscitation - Resuscitation: 50519 Endotracheal Intubation, emergency ([id number]) [facility] Procedure Codes (Charges) Resuscitation Resuscitation: 08764 Endotracheal Intubation, emergency
--- NOTE | 2023-11-12 10:58 | Procedure Note ---
Procedure Note: Bronchoscopy Procedure PREOPERATIVE DIAGNOSIS: Diffuse alveolar opacities POSTOPERATIVE DIAGNOSIS: Diffuse alveolar opacities PROCEDURE PERFORMED: Flexible fiberoptic bronchoscopy with bronchoalveolar lavage COMPLICATIONS: None. INDICATION: Rule out infection PROCEDURE: After obtaining an informed consent, the patient was brought to the ICU. The patient had appropriate oxygen, blood pressure, heart rate, and respiratory rate monitoring applied and monitored continuously throughout the procedure. Patient was already intubated and sedated. Bronchoscope was advanced through ETT. The trachea appeared normal.The bronchoscope was then advanced through the niurka, which was sharp. The scope was then advanced into the right main stem and each segment, subsegement in the right upper lobe, right middle lobe and right lower lobe were visualized. There was minimal amount of clear secretion which was suctioned out. There were no other findings including evidence of mass, anatomic distortions, or hemorrhage. The bronchoscope was subsequently withdrawn and advanced into the left mainstem. Again, each segment and subsegment was well visualized. No specific masses or other lesions were identified throughout the tracheobronchial tree on the left. There was minimal amount of clear secretion which was suctioned out The bronchoscope was then wedged in the right middle lobe and bronchoalveolar lavage samples were obtained. Total of 180 ml of saline was instilled in 3 divided doses to get sequential aliquots. The fluid did turn minimal pinkish with each aliquot. Not significant enough to be considered DAH. The bronchoscope was withdrawn and the area was suctioned clear. The bronchoscope was then withdrawn to the mainstem. The area was suctioned clear. The bronchoscope was then withdrawn. The patient tolerated the procedure well without evidence of desaturation or complications. Bronchoalveolar lavage samples were sent for cell count, Gram stain and bacterial culture, AFB culture and smear, fungal culture and smear and cytology. Transbronchial biopsies were sent for tissue culture (bacteria, AFB and fungal) and pathology. Recommendations: Follow-up micro and cytology Follow-up chest x-ray Please note the above document was generated using voice recognition software. It may contain grammatical, syntax or spelling errors.Any formal questions or concerns about the content, text or information contained within the body of this dictation should be directly addressed to the provider for clarification. [facility] [place] Procedure Codes (Charges) Pulmonary/Thoracic Procedure 1: Pulmonary and Thoracic: 67534 Dx bronchoscopy/BAL
[2023-11-12] MEDS: ACETAMINOPHEN 1,000 MG/100 ML VIAL IV PRN (11:00)
--- NOTE | 2023-11-12 11:09 | Infectious Disease Progress Nt ---
Date of Service November 12, 2023 Assessment & Plan (1) Sepsis: (2) Bilateral pneumonia: (3) Acute respiratory failure with hypoxia: (4) Acute Lyme disease: (5) Babesiosis: Plan This is a 78-year-old female with a past medical history of atrial fibrillation status post ablation, partial nephrectomy, bilateral knee replacement, who presents with myalgias and confusion. She is a poor historian. Her is a retired surgeon and provides history. She underwent a left knee replacement in 12/2022 followed by a left knee replacement in 07/2023. 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 This was followed by bilateral lower extremity pain and ongoing neuropathy of unknown etiology. Approximately 2 weeks ago, she developed increased fatigue, arthralgias, myalgias with loss of appetite. She was seen by her PCP and Rheumatology and was diagnosed with possible PMR given elevated inflammatory markers. She was started on prednisone 20 mg per day. In the last few days, she developed fevers, confusion and vomited prompting her admission. Tmax at home 104. She traveled to [place] in August and then [place]. Both she and her live in a [place]ed area and have deer in the backyard. They also have been to many outdoor [employer] games for their grandson this summer.. She denies mosquito or tick bites, change in urination, rash, headaches, vision changes, cough, shortness of breath. She took a few doses of amoxicillin and Tylenol with little relief. In the ED she was afebrile, heart rate 125, RR 30, blood pressure 129/62, O2 sats 87% on room air---> 98% oxy mask. Labs WBC 9.37 hemoglobin 7, hematocrit 20, platelets 70, BUN 31, creatinine 0.83, total bili 2, direct bili 0.4, AST 101, ALT 39, alk phos 64, procalcitonin 26.5. Anaplasma smear negative. Anaplasma PCR negative ( 10/25). Babesia smear with red blood cell inclusions noted. PCR and Pathology obtained and were pending at time of initial visit. .Lyme screen and confirmatory testing positive. Respiratory viral panel negative. Chest x-ray with bibasilar opacities suggestive of pneumonia and Left suprahilar nodular opacities. CTAP shows significant interval worsening of bibasilar pneumonia versus pulmonary edema; enlarged heart. Head CT with no evidence of acute intracranial pathology. She initially received a dose of Zosyn She was receiving ceftriaxone, azithromycin, and atovaquone. ID consulted for possible babesiosis and Lyme disease. Antibiotics ceftriaxone 11/06, 11/07- 11/10 Cefepime 11/10-ongoing Zosyn 11/06 Atovaquone 11/07- ongoing Azithromycin 11/07-ongoing Micro: Blood cultures 11/07 NGTD Lyme screen, confirmatory testing 11/07 positive Anaplasma PCR 10/25 negative, pending this admisson Anaplasma smear 11/07 No evidence of intracytoplasmic neutrophilic inclusions to suggest Anaplasmosis. Babesia PCR 11/07 DETECTED Babesia smear 11/07 microcytic anemia and frequent intracellular ring form parasites Periph smear 5-9.9% parasites ( 11/09)-->2.0-4.9 ( 11/10) Bronch cx /studies 11/11 pending # Continued Fevers #Severe acute Babesiosis #Lyme disease ( lyme testing neg 10/25 but positive 11/07) coinfection with babesiosis #Acute hypoxic respiratory failure #Possible CAP vs pulm edema/ARDS #Ongoing Neuropathy several months #B/L TKA #Anemia, thrombocytopenia #Transaminitis # Procal elevated at 26.5---> 44-->23 She has evidence of babesiosis with microcytic anemia and intracellular ring forms in red blood cells. Lyme testing consistent with Lyme disease. Anaplasma smear this admission and prior Anaplasma PCR on 10/25 negative Her clinical syndrome of fatigue, arthralgias, myalgias and lab findings of anemia, tr ansaminitis and thrombocytopenia are consistent with a tickborne illness (specifically babesiosis and Lyme disease). Atovaquone and azithromycin will cover babesiosis. She is not immunocompromised and has her spleen. It does not appear that she has triple coinfection with anaplasmosis, but will repeat Anaplasma PCR. Procalcitonin noted to be elevated with infiltrates on chest x- ray. She was initially receiving Ceftriaxone for ?pna and Lyme coverage . We initially held doxycycline as no s/o coinfection with anaplasmosis. There is no signs on exam of knee involvement at her prosthetic joint sites. 11/08 and 11/09 febrile but curve trending down. Alert and conversant 11/10. Febrile in last 24 hours -T m 39.4 More sob. Late on 11/09 parasite count quantified as 5%-9.9%. Since her parasite count is > 4%, she has pulm edema on CXR, and HGB < 10 , this would be considered acute severe Babesiosis. We do not have a parasite count on admission, so unclear if parasitemia was hi gher at that time. Increases azithromycin dose from 500 mg --->1000 mg IV daily and continued atovaquone. Will treat with IV azith and then oral stepdown to 500mg once she clinically improves. Will check LDH, Haptoglobin and retic count for hemolysis. Concern for ? bleed as well as ? hemolytic anemia as stool blood + Also add doxycycline. Although ceftriaxone will cover known Lyme disease, it will not cover other tick borne illnesses. I have a lower suspicion for other tickborne diseases as her Anaplasma PCR was negative on 10/25 however it was not retested during this admission. Started definitive Anaplasma therapy with doxy and Changed Pna treatment from ceftriaxone --> Cefepime. Concern for worsening pulm function 11/11 Now intubated, febrile tachycardic.S/P bronchoscopy: Cx Pending . CXR worsening. ? ARDS. Parasite count down ( from 5% -9.9% to 2.0-4.9 %) but clinically not improving . Procal down from44--> 23. May need consideration for Exchange transfusion in setting of ?ARDS. LDH 1167-->894, Ast 84, tbili 1.5, Ck 19. Hapto globin pending. Heme onc on board. Recommendations; Complications of severe Babesiosis include ARDS, severe anemia, DIC , CHF, renal failure. If parasitemia > 10% or severe hemolytic anemia or pulmonary, renal or llver compromise, will need to consider exchange transfusion. Continue cefepime 2 g iv 12 for coverage of possible Pneumonia Continue doxycycline 100 mg IV every 12h for coverage of known Lyme and empiric coverage of other tickborne illnesses as discussed above. Continue atovaquone 750 mg p.o. every 12 hours and azithromycin 1000 mg IV daily in the setting of severe disease Monitor H/H/platelets/LFTs Follow up Anaplasma PCR Follow up Bronch cx ( bacteria/ fungal), coccio, pjp, histo /blasto studies. MONITOR QTC on flecainide and Azithromycin DAILY ( last qtc on 11/07 442) Repeated smear with parasite quantification ordered for today (Ordered as Blood smear parasites- in order to get Parasite %count) MRSA PCR ordered ID will continue to follow D/w hospitalist and ICU attending. May need transfer to tertiary center if exchange transfusion needed. [facility] will not round over the weekend. Please call [phone] with questions. Petty Love MD, MPH Infectious Disease [facility], [facility] Admission and Anticipated Discharge Date Admission Date: November 08, 2023 Subjective Subsequent visit was provided via telemedicine using two-way real-time interactive telecommunication between the patient and the telemedicine provider. For the duration of the visit, the provider was performing the assessment from a different facility than the patient. This includesuse of bluetooth stethoscope forauscultationperformed by the telepresenter that the telemedicine provider can hear if described in the physical exam. Principal Cyber Engineer contact information: Please call [facility] Call Center . (Phone Number For Physician Use Only) After establishing a telemedicine visit, patient was: Patient was verified with two unique identifiers Time Spent with Patient: Subsequent => 35 min Now intubated. S/P bronch, febrile, tachycardic Babesia PCR detected. Parasite count down. in waiting room. Physical Exam Physical Exam: Gen- Intubated,sedated Neck- Supple HEENT- anicteric sclera Lungs- mech vent sounds Cards- irregular Abd- soft, NT, ND Skin- pallor, no rash Neuro- sedated ext- No edema. Well healed BL TKA incisions Results & Data Vital Signs (Past 12 Hours) Vital Signs Temp Pulse Pulse Pulse Resp BP BP 11/12/23 10:52 112/77 11/12/23 10:48 116/65 11/12/23 10:46 130/62 11/12/23 10:40 104/67 11/12/23 10:33 113 H 23 11/12/23 10:32 126/64 11/12/23 10:30 115 H 20 11/12/23 10:30 141/74 H 11/12/23 10:28 162/80 H 11/12/23 10:27 130 H 24 11/12/23 10:26 168/106 H 11/12/23 10:26 168/106 H 11/12/23 10:24 125 H 27 H 11/12/23 10:24 169/91 H 11/12/23 10:21 126 H 22 11/12/23 10:20 160/97 H 11/12/23 10:20 160/97 H 11/12/23 10:18 165/98 H 11/12/23 10:16 164/92 H 11/12/23 10:15 11/12/23 10:14 146/86 H 11/12/23 10:12 110 H 29 H 11/12/23 10:12 127/83 11/12/23 10:09 107 H 29 H 11/12/23 10:08 145/71 H 11/12/23 10:00 146/62 H 11/12/23 09:46 107 H 29 H 146/67 H 11/12/23 09:39 38.3 C H 119 H 27 H 139/72 11/12/23 09:20 11/12/23 09:09 37.8 C H 11/12/23 07:39 37.1 C 113 H 21 130/65 11/12/23 06:54 95 H 11/12/23 02:30 36.4 C L 119 H 24 127/70 11/11/23 23:15 36.9 C 111 H 22 124/62 Pulse Ox O2 Del Method O2 Flow Rate 11/12/23 10:52 11/12/23 10:48 11/12/23 10:46 11/12/23 10:40 11/12/23 10:33 98 11/12/23 10:32 11/12/23 10:30 98 11/12/23 10:30 11/12/23 10:28 11/12/23 10:27 100 11/12/23 10:26 11/12/23 10:26 11/12/23 10:24 100 11/12/23 10:24 11/12/23 10:21 99 11/12/23 10:20 11/12/23 10:20 11/12/23 10:18 11/12/23 10:16 11/12/23 10:15 Mechanical Vent 11/12/23 10:14 11/12/23 10:12 92 11/12/23 10:12 07/26/24 10:09 93 11/12/23 10:08 11/12/23 10:00 11/12/23 09:46 94 Oxymask 10 11/12/23 09:39 87 L Oxymask 7 11/12/23 09:20 Oxymask 7 11/12/23 09:09 11/12/23 07:39 90 Oxymask 2 11/12/23 06:54 11/12/23 02:30 93 Oxymask 11/11/23 23:15 92 Oxymask Laboratory Results 11/12/23 10:30 Gram Stain - Pending Ba Lavage,Right Middle Lobe Bronchial Culture - Pending 11/12/23 10:30 Fungal Smear - Pending Ba Lavage,Right Middle Lobe Fungal Culture - Pending 11/11/23 16:28 Blood Parasites Smear - Preliminary Blood Blood Parasite Smear ID - Pending 11/09/23 Unknown Urine Culture - Final Urine,Indwelling Cath No growth - less than 1,000 colonies/mL. 11/10/23 14:36 Blood Parasites Smear - Preliminary Blood Blood Parasite Smear ID - Pending 11/12/23 11/12/23 11/11/23 10:30 05:45 16:28 WBC 9.88 RBC 2.92 L Hgb 7.8 L 7.8 L Hct 23.1 L 22.1 L MCV 79.1 L MCH 26.7 MCHC 33.8 RDW Std Deviation 45.2 RDW Coeff of Sanjuana 16.0 H Plt Count 64 L MPV 12.0 Immature Gran % (Auto) 1.9 Neut % (Auto) 69.2 Lymph % (Auto) 23.1 Lea % (Auto) 5.5 Eos % (Auto) 0.2 Baso % (Auto) 0.1 Reticulocyte % (Auto) 4.55 H Neut # (Auto) 6.84 H Lymph # (Auto) 2.28 Lea # (Auto) 0.54 Eos # (Auto) 0.02 Baso # (Auto) 0.01 Reticulocyte # 0.130 H Immature Gran # (Auto) 0.19 Absolute Nucleated RBC 0.19 H Nucleated RBC % (auto) 1.9 Polychromasia 1+ Target Cells 1+ Ovalocytes 1+ PT 10.6 INR 1.0 APTT 34 H PTT Ratio 1.3 Fibrinogen 430 H Sodium 130 L Potassium 3.6 Chloride 101 Carbon Dioxide 24 Anion Gap 5 BUN 28 H Creatinine 0.78 Est Cr Clr Drug Dosing 56.2 Est GFR ( Amer) 84.4 Est GFR (Non-Af Amer) 72.8 BUN/Creatinine Ratio 35.9 H Glucose 104 H Calcium 7.8 L Iron TIBC Unsaturated IBC Transferrin % Sat Ferritin Total Bilirubin 1.5 H 1.0 Direct Bilirubin 0.3 H AST 84 H 94 H ALT 45 47 Alkaline Phosphatase 70 76 Lactate Dehydrogenase 894 H Total Creatine Kinase 19 L Total Protein 6.0 5.8 L Albumin 2.7 L 2.4 L Globulin 3.3 Albumin/Globulin Ratio 0.8 L Triglycerides Vitamin B12 578 Folate 13.30 Procalcitonin 23.30 H Fluid Comment Babesia microti DNA PCR Blood Parasites ID Present Blood Type Antibody Screen Direct Antiglob Test AJITH (IgG-AHG) AJITH, Polyspecific AJITH C3b, C3d 5 Min Crossmatch 11/11/23 11/11/23 11/08/23 09:56 06:03 02:20 WBC RBC Hgb Hct MCV MCH MCHC RDW Std Deviation RDW Coeff of Sanjuana Plt Count MPV Immature Gran % (Auto) Neut % (Auto) Lymph % (Auto) Lea % (Auto) Eos % (Auto) Baso % (Auto) Reticulocyte % (Auto) Neut # (Auto) Lymph # (Auto) Lea # (Auto) Eos # (Auto) Baso # (Auto) Reticulocyte # Immature Gran # (Auto) Absolute Nucleated RBC Nucleated RBC % (auto) Polychromasia Target Cells Ovalocytes PT INR APTT PTT Ratio Fibrinogen Sodium Potassium Chloride Carbon Dioxide Anion Gap BUN Creatinine Est Cr Clr Drug Dosing Est GFR ( Amer) Est GFR (Non-Af Amer) BUN/Creatinine Ratio Glucose Calcium Iron 48 TIBC 170 L Unsaturated IBC 122 L Transferrin % Sat 28 Ferritin > 7500.0 H Total Bilirubin Direct Bilirubin AST ALT Alkaline Phosphatase Lactate Dehydrogenase 1167 H Total Creatine Kinase Total Protein Albumin Globulin Albumin/Globulin Ratio Triglycerides 335 H Vitamin B12 Folate Procalcitonin Fluid Comment Babesia microti DNA PCR Detected A Blood Parasites ID Present Blood Type O Negative Antibody Screen NEGATIVE Direct Antiglob Test Negative AJITH (IgG-AHG) Neg AJITH, Polyspecific Neg AJITH C3b, C3d 5 Min Neg Crossmatch See Detail Diagnostic Findings Chest X-Ray 11/10/23 07:00 XR chest 1V portable CLINICAL HISTORY: possible pneumonia, pulmonary edema TECHNIQUE: Single frontal radiograph of the chest was obtained. Comparison: Comparison is made to chest radiograph 11/09/2023 FINDINGS: No lines and tubes are seen. The cardiomediastinal silhouette is normal. Bilateral lower lung predominant airspace opacities are seen. No evidence of pleural effusion or pneumothorax. IMPRESSION: Bilateral lower lung predominant airspace opacities are unchanged from prior exam. ACT 112: Negative or not required by law. Electronically signed by: Danis Christie M.D. 11/10/2023 7:56 AM Chest X-Ray 11/11/23 09:01 XR chest 1V portable CLINICAL HISTORY: hypoxia TECHNIQUE: Single frontal radiograph of the chest was obtained. Comparison: Comparison is made to chest radiograph 11/10/2023 FINDINGS: No lines and tubes are seen. Cardiomegaly is noted. Bilateral lower lung predominant airspace opacities are seen. Right perihilar density is nonspecific and may represent prominent vasculature. No evidence of pleural effusion or pneumothorax. IMPRESSION: 1. Bilateral lower lung predominant airspace opacities which may represent atelectasis, pneumonia, and/or aspiration. 2. Cardiomegaly with mild pulmonary vascular congestion. ACT 112: Negative or not required by law. Electronically signed by: Danis Christie M.D. 11/11/2023 9:[address] 11/11/23 11:05 CT chest diagnostic wo con CT DOSE: 330.82 mGy.cm CLINICAL HISTORY: 78 years-old Female with Pneumonia vs pulmonary edema. Acute shortness of breath TECHNIQUE: Multiaxial CT images of the chest were performed without contrast. A dose lowering technique was utilized adhering to the principles of ALARA. COMPARISON: Chest radiograph of same day, chest CT 06/23/2023 and CTA chest 01/26/2023 FINDINGS: Moderate cardiomegaly with trace pericardial effusion. Extensive coronary artery calcifications. Left anterior chest wall loop recorder device. No thoracic aortic aneurysm. Mild dilation of the pulmonary artery may represent pulmonary arterial hypertension. Mediastinal and hilar lymphadenopathy including subcarinal lymph nodes measuring up to 1.3 cm. Paratracheal lymph nodes measure up to 1.3 cm. These are new/progressed from prior. Small pleural effusions. No pneumothorax. Intralobular septal thickening with patchy mid to lower lung zone prominent groundglass and patchy bibasilar alveolar opacities. Findings are present in a background of mild postinflammatory scarring. Respiratory motion artifact limits the study. Spleen appears enlarged. Body wall edema. No acute fracture. IMPRESSION: 1. Cardiomegaly with interstitial pulmonary edema and small pleural effusions. 2. Alveolar pulmonary edema is also noted with bibasilar opacities which may represent a combination of atelectasis and pulmonary edema versus pneumonia. 3. Mild mediastinal and hilar lymphadenopathy. ACT 112: Negative or not required by law. Electronically signed by: Anuj Lake M.D. 11/11/2023 12:46 PM Chest X-Ray 11/12/23 07:00 XR chest 1V portable HISTORY: hypoxic respiratory failure, pneumonia, edema COMPARISON: Chest CT 11/11/2023. FINDINGS: No pneumothorax. The heart remains enlarged. Pulmonary edema and small bilateral pleural effusions persist. Patchy bilateral airspace opacities have s lightly progressed. IMPRESSION: Slight progression of the patchy bilateral airspace opacities which could be due to the pulmonary edema or a multifocal pneumonia. ACT 112: Negative or not required by law. Electronically signed by: Ismael Munoz M.D. 11/12/2023 7:28 AM Chest X-Ray 11/12/23 10:18 XR chest 1V portable CLINICAL HISTORY: Intubation TECHNIQUE: Single frontal radiograph of the chest was obtained. Comparison: Comparison is made to chest radiograph 11/12/2023 FINDINGS: Endotracheal tube measures 3.1 cm from the niurka. A battery-powered device projecting over the cardiac silhouette is unchanged. Cardiomegaly is noted. Multifocal airspace opacities are seen. No evidence of pleural effusion or pneumothorax. IMPRESSION: 1. Satisfactory position of endotracheal tube. 2. Redemonstration of cardiomegaly and multifocal pneumonia. ACT 112: Negative or not required by law. Electronically signed by: Danis Christie M.D. 11/12/2023 10:43 AM Medications Administered Home Medications Medication Instructions Recorded Confirmed Last Taken apixaban 5 mg tablet (Eliquis) 5 mg PO BID 09/27/19 11/08/23 11/07/23 fish oil-dha-epa 1,200 mg-144 1 cap PO QAM 09/27/19 11/08/23 11/07/23 mg-216 mg capsule multivitamin with minerals 2 tab PO DAILY 07/31/21 11/08/23 11/07/23 (Hair,Skin and Nails tablet) atorvastatin 80 mg tablet (Lipitor) 80 mg PO DAILY 02/06/22 11/08/23 11/07/23 calcium carbonate 500 mg PO DAILY 02/06/22 11/08/23 11/07/23 raloxifene 60 mg tablet 60 mg PO QAM #90 tabs 02/06/22 11/08/23 11/07/23 cholecalciferol (vitamin D3) 25 50 mcg PO DAILY 08/03/22 11/08/23 11/07/23 mcg (1,000 unit) capsule flecainide 100 mg tablet 50 mg PO BID 08/03/22 11/08/23 11/07/23 omeprazole 20 mg capsule,delayed 20 mg PO DAILY 08/03/22 11/08/23 11/07/23 release Flutter Valve #1 ea 02/05/23 11/02/23 Unknown diltiazem HCl 120 mg See Rx Instructions .Route .COMPLEX 07/07/23 11/08/23 11/07/23 capsule,extended release 12 hr ferrous sulfate 325 mg (65 mg 325 mg PO DAILY 07/07/23 11/08/23 11/07/23 iron) tablet acetaminophen 325 mg capsule 325 mg PO QID PRN PAIN/FEVER 10/26/23 11/08/23 Unknown (Tylenol) mecobalamin (vitamin B12) 1,000 1,000 mcg PO DAILY #30 tabs 10/26/23 11/08/23 11/07/23 mcg chewable tablet prednisone 20 mg tablet 20 mg PO DAILY #30 tabs 10/26/23 11/08/23 11/07/23 pregabalin 50 mg capsule (Lyrica) 50 mg PO BID #60 caps 10/26/23 11/08/23 11/02/23 13:26 gabapentin 600 mg tablet 300 mg PO DAILY 11/02/23 11/08/23 11/07/23 prednisone 5 mg tablet 15 mg (3 x 5 mg) PO DAILY #90 tabs 11/02/23 11/08/23 Unknown alendronate 70 mg tablet 70 mg PO WK 11/08/23 11/08/23 Unknown amoxicillin 875 mg tablet 875 mg PO BID 11/08/23 11/08/23 11/07/23 Active Medications Generic Name Dose Route Start Last Admin Trade Name Vincent PRN Reason Stop Dose Admin Atovaquone 750 mg 11/08/23 09:00 11/12/23 08:36 Atovaquone 750 Mg/5 Ml Udc PO 12/08/23 08:59 750 mg Q12H LEN Administration Diltiazem HCl 180 mg 11/09/23 09:00 11/12/23 08:36 Diltiazem Hcl 180 Mg Capcr PO 12/09/23 08:59 180 mg BID LEN Administration Fentanyl Citrate 50 mcg 11/12/23 10:19 11/12/23 10:28 Fentanyl Bolus From Bag IV 11/26/23 10:18 50 mcg Q60M PRN Administration Pain or Agitation Ferrous Sulfate 325 mg 11/08/23 09:00 11/12/23 08:37 Ferrous Sulfate 325 Mg Tab PO 12/08/23 08:59 325 mg DAILY LEN Administration Flecainide Acetate 50 mg 11/08/23 09:00 11/12/23 08:36 Flecainide Acetate 100 Mg Tablet PO 12/08/23 08:59 50 mg BID LEN Administration Hydrocortisone Sodium 0.5 mls @ 4 mls/min 11/09/23 08:15 11/12/23 07:50 Succinate 25 mg/ Syringe IV 12/09/23 08:14 4 mls/min Q12H LEN Administration Azithromycin 1,000 mg/ 260 mls @ 127.5 mls/hr 11/12/23 09:00 11/12/23 10:31 Dextrose IV 11/19/23 08:59 127.5 mls/hr Q24H LEN Administration Doxycycline Hyclate 100 mg/ 100 mls @ 50 mls/hr 11/11/23 11:00 11/12/23 00:46 Dextrose IV 11/21/23 10:59 Infused Q12H LEN Infusion Cefepime HCl 2,000 mg/ Syringe 20 mls @ 5 mls/min 11/11/23 11:45 11/12/23 00:32 IV 11/18/23 11:44 5 mls/min Q12H LEN Administration Protocol Fentanyl Citrate 2,500 mcg in 250 mls @ 2.5 mls/hr 11/12/23 10:30 11/12/23 10:25 Fentanyl Citrate IV 11/26/23 10:29 25 mcg/hr .Q96H LEN 2.5 mls/hr Administration Protocol 25 MCG/HR Propofol 1,000 mg in 100 mls @ 8.52 mls/hr 11/12/23 10:30 11/12/23 10:24 Diprivan IV 11/15/23 10:29 20 mcg/kg/min .[id number] LEN 8.5 mls/hr Administration Protocol 20 MCG/KG/MIN Acetaminophen 1,000 mg in 100 mls @ 400 mls/hr 11/12/23 10:33 11/12/23 11:00 Ofirmev IV 11/15/23 10:32 400 mls/hr Q8H PRN Administration Fever Pregabalin 50 mg 11/09/23 22:00 11/12/23 08:43 Pregabalin 50 Mg Cap PO 12/09/23 21:59 50 mg BID LEN Administration Propofol 20 mg 11/12/23 10:19 11/12/23 10:28 Propofol Bolus From Bag IV 11/15/23 10:18 30 mg Q5M PRN Administration Sedation
[2023-11-12] MEDS: ACETAMINOPHEN 1000 MG/100 ML IV IV ONE (11:12)
[2023-11-12 11:20] LABS: Ferritin > 7500.0 ng/ml (8-388)
--- NOTE | 2023-11-12 11:24 | Communication Note ---
Date of Service: November 12, 2023 Critical care addendum: Patient was in the ICU. Her oxygen requirement went up to 10 L. She was getting more lethargic and somnolent. Patient's was at bedside was informed that intubation would be the next step which she agreed to. After intubation I was able to do bronchoscopy as well. The sequential aliquots although were not inclining towards diffuse alveolar hemorrhage. It was more pinkish sequentially. Patient is already on hydrocortisone 25 mg every 12. I will change to Solu- Medrol 40 mg Q8. I discussed this with infectious disease Dr. Mast who had no concerns of adding Solu-Medrol given the patient's babesiosis. I discussed the case with Dr. Bro, fine grade operator adn Dr Mast, infectious disease. Both aware of the thought process that given the patient's clinical deterioration consideration for a pheresis could be thought of. This was relayed to primary team who is working on getting in touch with tertiary center regarding the same. Case was discussed with Dr. Perez with one of the ammonia box operator as well as oncologist there who recommended no intervention given that the parasite burden was less than 10%. Patient's was updated regarding the above recommendation. I have personally spent additional 47 minutes of critical care time in the direct management of this patient. This is a life/limb threatening event. This includes time spent evaluating patient, direct bedside care, chart review, placing orders, interpretation of diagnostic studies, discussion with consultants, patient, and family members, as well as other required patient management activities. This time is exclusive of all separately billable procedures, and teaching time and separate from and in addition to any other critical care service time. Please note the above document was generated using voice recognition software. It may contain grammatical, syntax or spelling errors. Coding Level of Care Code 28876 CRITICAL CARE EA ADD 30M
[2023-11-12 11:27] LABS: iSTAT Allen Test Pass; iSTAT Art Bld Gas pCO2 Correct 36 mmHg (35-46); iSTAT Art Bld Gas pH Corrected 7.401 (7.35-7.45); iSTAT Arterial Blood Gas HCO3 23 meg/L (19-24); iSTAT Arterial Blood Gas pCO2 36 mmHg (35-46); iSTAT Arterial Blood Gas pO2 298 mmHg (80-95); iSTAT Arterial Blood Gas pO2 C 298; iSTAT Carbon Dioxide 24 mmol/L (24-31); iSTAT Hematocrit 25 % (37-47); iSTAT Hemoglobin 8.5 g/dl (12.0-16.0); iSTAT Potassium 3.4 mmol/L (3.3-5.0); iSTAT Site L Radial; iSTAT Sodium 130 mmol/L (135-144)
--- NOTE | 2023-11-12 11:36 | Hospitalist Progress Note ---
Date of Service November 12, 2023 Assessment & Plan (1) GI bleed: Plan: Hemoglobin improved to 9.2 after 2 units of blood transfusion but then drifted down to 7.2. No overt melena or hematochezia. 1 unit packed red blood cells given on November 10. Hemolytic anemia is a possibility related to the babesiosis. Hematology consultation noted. Urine hemosiderin is pending. Eliquis has been discontinued. Continue Protonix therapy. GI consultation appreciated. No endoscopy planned at this time. Earlier this year she had a normal colonoscopy per her who is a retired physician (2) Acute blood loss anemia: Plan: Could possibly be a hemolytic process related to babesiosis. Hemoglobin 6.3 on admission. 2 units packed red blood cells were given. Hemoglobin improved to 9.2 and but then drifted down to 7.2. Stool is Hemoccult positive although there is no overt melena or hematochezia. Hematology consultation noted. She received 1 unit packed red blood cells on November 10 and hemoglobin improved to 7.8. Serial labs. (3) Atrial fibrillation with rapid ventricular response: Plan: Telemetry. Medication management. Diltiazem was uptitrated on November 09 and heart rate control has improved. Eliquis has been discontinued due to GI bleeding and anemia (4) Sepsis: Plan: Present on admission. Infectious disease consultation appreciated. Azithromycin dosage has been increased and she is now on cefepime, atovaquone and doxycycline. 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 Blood cultures remain negative to date. Chest x-ray reveals progression of bilateral infiltrates. She may be developing ARDS (5) Acute respiratory failure with hypoxia: Plan: Oxygen requirements increased considerably during the past 12 hours. She was transferred to the intensive care unit this morning, November 11, and required intubation. She is now receiving ventilator support. Chest x-ray done today, November 11, reveals progression of bilateral infiltrates. There is concern for development of ARDS. Pulmonary medicine consultation and recommendations appreciated. Chest CT scan report noted. Fluid overload is contributing. (6) Bilateral pneumonia: Plan: No sputum production for culture. No overt hemoptysis. Chest x-ray done again today November 11, reveals progression of bilateral infiltrates. Infectious disease consultation appreciated. Rocephin has been switched to cefepime. Azithromycin dosages has been increased. She is also on atovaquone and doxycycline. Serial chest x-ray (7) Current use of steroid medication: Plan: She has not been on oral prednisone very long but intravenous hydrocortisone was initially ordered then switched to methylprednisolone today, November 11. (8) Benign essential hypertension: Plan: Diltiazem dosage uptitrated on November 08 for better heart rate control. Blood pressure is now stable (9) IgG lambda monoclonal gammopathy: Plan: By history. No intervention at this time (10) Pulmonary edema: Plan: Acute. Seen on admission chest x-ray. Pulmonary medicine recommends further diuresis. Chest CT scan reveals edema. (11) Metabolic encephalopathy: Plan: Present on admission. She is now intubated and sedated Plan Plasmapheresis has been recommended by infectious disease and ID. Will pursue transfer to a tertiary care center for same. Admission and Anticipated Discharge Date Admission Date: November 08, 2023 Subjective The patient was transferred to the ICU earlier this morning and is now intubated and sedated. I spoke to the patient's once this morning and will speak to him again regarding possible transfer to a tertiary care center for possible plasma pheresis which has not done here.. Review of Systems 2 Review of Systems: The patient is now intubated and unable to answer any questions regarding review of systems Physical Exam 2 Physical Exam: General-intubated and sedated HEENT-head atraumatic and normocephalic, intubated and sedated Neck-no lymphadenopathy or thyromegaly, trachea midline Chest-bilateral rhonchi. No inspiratory rales. No wheezing Cardiac - irregular rhythm, normal rate. Normal S1 and S2. Abdomen-normal bowel sounds, no hepatosplenomegaly Extremities-no cyanosis, clubbing, or edema Skinpallor has resolved after transfusion. Neuro-intubated and sedated. Cannot assess Psychintubated and sedated. Cannot assess Results & Data Results & Data Vital Signs (Past 12 Hours) Vital Signs Temp Pulse Pulse Pulse Resp BP BP 11/12/23 11:24 88/48 L 11/12/23 11:24 97 H 30 H 11/12/23 11:22 97/50 L 11/12/23 11:20 38.3 C H 11/12/23 11:15 106 H 23 11/12/23 11:14 95/49 L 11/12/23 11:09 98/47 L 11/12/23 11:09 88 27 H 11/12/23 11:06 99/51 L 11/12/23 11:06 87 28 H 11/12/23 11:04 115/51 L 11/12/23 11:04 115/51 L 11/12/23 11:03 100 H 31 H 11/12/23 11:00 96/62 L 11/12/23 11:00 96/62 L 11/12/23 10:58 103/53 L 11/12/23 10:58 103/53 L 11/12/23 10:54 99 H 28 H 11/12/23 10:54 109/56 L 11/12/23 10:52 112/77 11/12/23 10:52 112/77 11/12/23 10:48 116/65 11/12/23 10:46 130/62 11/12/23 10:40 104/67 11/12/23 10:33 113 H 23 11/12/23 10:32 126/64 11/12/23 10:30 115 H 20 11/12/23 10:30 141/74 H 11/12/23 10:28 162/80 H 11/12/23 10:27 130 H 24 11/12/23 10:26 168/106 H 11/12/23 10:26 168/106 H 11/12/23 10:24 125 H 27 H 11/12/23 10:24 169/91 H 11/12/23 10:21 126 H 22 11/12/23 10:20 160/97 H 11/12/23 10:20 160/97 H 11/12/23 10:18 165/98 H 11/12/23 10:16 164/92 H 11/12/23 10:15 11/12/23 10:14 146/86 H 11/12/23 10:12 110 H 29 H 11/12/23 10:12 127/83 11/12/23 10:09 107 H 29 H 11/12/23 10:08 145/71 H 11/12/23 10:00 146/62 H 11/12/23 09:46 107 H 29 H 146/67 H 11/12/23 09:39 38.3 C H 119 H 27 H 139/72 11/12/23 09:20 11/12/23 09:09 37.8 C H 11/12/23 07:39 37.1 C 113 H 21 130/65 11/12/23 06:54 95 H 11/12/23 02:30 36.4 C L 119 H 24 127/70 Pulse Ox O2 Del Method O2 Flow Rate 11/12/23 11:24 11/12/23 11:24 96 11/12/23 11:22 11/12/23 11:20 11/12/23 11:15 100 11/12/23 11:14 11/12/23 11:09 11/12/23 11:09 100 11/12/23 11:06 11/12/23 11:06 99 11/12/23 11:04 11/12/23 11:04 11/12/23 11:03 99 11/12/23 11:00 11/12/23 11:00 11/12/23 10:58 11/12/23 10:58 11/12/23 10:54 98 11/12/23 10:54 11/12/23 10:52 11/12/23 10:52 11/12/23 10:48 11/12/23 10:46 11/12/23 10:40 11/12/23 10:33 98 11/12/23 10:32 11/12/23 10:30 98 11/12/23 10:30 11/12/23 10:28 11/12/23 10:27 100 11/12/23 10:26 11/12/23 10:26 11/12/23 10:24 100 11/12/23 10:24 11/12/23 10:21 99 11/12/23 10:20 11/12/23 10:20 11/12/23 10:18 11/12/23 10:16 11/12/23 10:15 Mechanical Vent 11/12/23 10:14 11/12/23 10:12 92 11/12/23 10:12 11/12/23 10:09 93 11/12/23 10:08 11/12/23 10:00 11/12/23 09:46 94 Oxymask 10 11/12/23 09:39 87 L Oxymask 7 11/12/23 09:20 Oxymask 7 11/12/23 09:09 11/12/23 07:39 90 Oxymask 2 11/12/23 06:54 11/12/23 02:30 93 Oxymask Laboratory Results 11/12/23 05:45 11/12/23 05:45 PG Care Time/CCT Total # of Minutes Spent Total Time Spent with Patient: Total time spent is greater than 50% in coordination of care (as documented) at patient's floor/unit and/or counseling patient: Coding Level of Care Code 98055 SUB INP/OBS CARE 3/50MIN Diagnoses GI bleed K92.2 Acute blood loss anemia D62 Atrial fibrillation with rapid ventricular response I48.91 Sepsis A41.9 Acute respiratory failure with hypoxia J96.01 Bilateral pneumonia J18.9 Current use of steroid medication Z79.52 Benign essential hypertension I10 IgG lambda monoclonal gammopathy D47.2 Pulmonary edema J81.1 Metabolic encephalopathy G93.41
[2023-11-12] MEDS: NOREPINEPHRINE/D5W 4 MG/250 ML PLCT IV SCH (11:51)
[2023-11-12] MEDS: NOREPINEPHRINE/D5W 4 MG/250 ML IV ONE (11:55)
[2023-11-12] MEDS: VASOPRESSIN 20 UNITS in 0.9 % SODIUM CHLORIDE 100 ML IV SCH (11:56)
[2023-11-12 12:31] LABS: Fluid Mono/Macrophage 35 %; Lymphocyte Body Fluid Man 10 %; Neutrophil Body Fluid Man 55 %
[2023-11-12] MEDS: methylPREDNISolone 40 MG in SYRINGE 0 ML IV SCH (14:00)
[2023-11-13 04:55] LABS: Albumin Globulin Ratio 0.8 (0.9-2); BUN Creatinine Ratio 38.9 (10-20); Bilirubin,Total 1.7 mg/dl (0.2-1.0); Calcium 8.3 mg/dl (8.6-10.3); Creatinine Clr Calc Pharmacy 48.7 ml/min; Est GFR (Non-African American) 61.2 ml/min; Globulin 3.7 gm/dl (2.5-4.0); Magnesium 2.1 mg/dl (1.7-2.4); Phosphorus 4.6 mg/dl (2.5-4.9); Total Protein 6.7 gm/dl (6.0-8.3)
[2023-11-13 05:13] LABS: iSTAT Allen Test Pass; iSTAT Art Bld Gas pCO2 Correct 39 mmHg (35-46); iSTAT Art Bld Gas pH Corrected 7.394 (7.35-7.45); iSTAT Arterial Blood Gas HCO3 24 meg/L (19-24); iSTAT Arterial Blood Gas pCO2 39 mmHg (35-46); iSTAT Arterial Blood Gas pO2 94 mmHg (80-95); iSTAT Arterial Blood Gas pO2 C 95; iSTAT Carbon Dioxide 25 mmol/L (24-31); iSTAT FiO2 30 %; iSTAT Hematocrit 26 % (37-47); iSTAT Hemoglobin 8.8 g/dl (12.0-16.0); iSTAT Potassium 3.8 mmol/L (3.3-5.0); iSTAT Site L Radial; iSTAT Sodium 132 mmol/L (135-144)
[2023-11-13 05:30] LABS: Basophils # (auto) 0.01 K/uL (0.00-0.20); Basophils % (auto) 0.1 %; Echinocytes 1+; Hemoglobin 8.7 g/dl (12.0-16.0); Immature Granulocytes # (auto) 0.21 K/uL (0.01-0.20); Immature Granulocytes % (auto) 1.9 %; Lymphocytes # (auto) 1.67 K/uL (1.20-3.40); Lymphocytes % (auto) 15.4 %; Mean Corpuscular Hgb Conc 33.5 g/dL (32.0-36.0); Mean Corpuscular Volume 80.7 fL (80.0-100.0); Monocytes # (auto) 0.45 K/uL (0.11-0.59); Monocytes % (auto) 4.1 %; Neutrophils # (auto) 8.53 K/uL (1.40-6.50); Neutrophils % (auto) 78.5 %; Nucleated RBC # (auto) 0.23 K/uL (0.00-0.12); Nucleated RBC % (auto) 2.1 %; Parasites Present; Platelet Count 93 K/uL (130-400); Polychromasia 1+; RDW Coefficient of Variation 16.9 % (11.5-14.5); RDW Standard Deviation 47.8 fL (36.4-46.3); Red Blood Count 3.22 M/uL (4.20-5.40); White Blood Count 10.87 K/ul (4.8-10.8)
--- NOTE | 2023-11-13 07:43 | Critical Care Progress Note ---
Date of Service November 13, 2023 Assessment & Plan (1) Acute respiratory failure with hypoxia: (2) Atrial fibrillation with rapid ventricular response: (3) Acute blood loss anemia: (4) ILD (interstitial lung disease): Plan PFT 05/24/2023 personally reviewed: Mild restrictive lung dysfunction, no obstruction, insignificant bronchodilator response, moderate decrease in DLCO FVC 2.30 L 88%, FEV1 1.84 L 94%, FEV1/FVC 80%, ERV 80%, RV 42%, TLC 69%, RV/TLC 61%, DLCO 51%, DLCO/VA 66% 2D echo 11/10/2023: EF 60-65%, RV normal in size, LA mildly dilated CT chest 06/23/2023 personally reviewed: Increased reticular marking appreciated bilateral lower lobes as well as left anterior side No significant mediastinal lymphadenopathy CT chest 11/11/2023: Diffuse patchy opacities appreciated bilaterally with interlobular thickening Mild bilateral pleural effusion Cardiomegaly Minimal mediastinal lymphadenopathy Reason Critically Ill: 78-year-old female present to the hospital with complaints of fever, nausea. Was found to have babesiosis along with Lyme disease. She has underlying ILD as well. Was getting hypoxic on the floor. Brought to the ICU for intubation and further care Neuro - [facility] ICU: Unable to assess Continue propofol for sedation Cardiac - -- Shock Multifactorial Likely from underlying severe sepsis as well as sedation Continue vasopressor support to keep MAP greater than 65 -- A-fib On Eliquis at home Respiratory - --VDRF secondary to acute hypoxic respiratory failure Multifactorial Intubated 11/12/2023 Patient does seem to have underlying ILD Her pulmonary opacities seems to be getting worse Differential includes aspiration, worsening pneumonia, worsening pulmonary edema Diffuse alveolar hemorrhage is always in the differential in somebody who is hemoglobin is low but patient has babesiosis which can cause hemolytic anemia Procalcitonin 44 --> 23.3, respiratory bio fire was negative for everything on 11/08/2023 BNP 263 PT/INR: 11.2/1 S/p bronchoscopy 11/12/2023, no profound worsening of the aliquots. Patient was started on 40 mg of Solu-Medrol every 8 --ILD Patient did have autoimmune workup which included rheumatoid factor, anti-CCP 08/03/2022 which was negative FIORELLA was mildly 1:40 Patient personally has Raynaud's Family history of rheumatoid arthritis in grandmother GI - -- Transaminitis with bilirubinemia Likely from underlying hemolysis Continue to monitor RENAL/LYTES - -- Monitor BUNs/creatinine Avoid nephrotoxic medication - Continue with Marrufo catheter ENDO - -- ICU hypoglycemia protocol HEME - -- Microcytic anemia Likely from hemolysis from babesiosis On atovaquone and azithromycin for babesiosis, this will cover pneumonia as well The patient's labs shows a ferritin of greater than 7500, BNP repeat was 436, LDH is 1136 along with pancytopenia, fever and elevated triglycerides. There is a possibility patient is developing HLH, with inciting factor being babesiosis infection. --Pancytopenia with history of MGUS Did get transfusions x 3 Hemoglobin and platelets are stable right now There is a possibility that patient might be developing HLH, hematology is also on board ID - --Babesiosis along with Lyme disease On antibiotics as per infectious disease -- Polymyalgia rheumatica Was on prednisone 20 mg for approximately 14 days prior to admission. --Prophylaxis VTE: IPC GI: Pantoprazole Lines: Peripheral Diet: N.p.o. Plan: In/out: -1.5 L, urine output 3175, +4.5 L since coming to the hospital ABG 7.40/39/94 on 30%, PEEP of 8 40 mg of Lasix to be given today after albumin. Repeat BMP later today and consider another dose of Lasix Follow-up autoimmune workup Start the patient on tube feeds Potassium being replaced, repeat BMP later today Case was discussed with patient's as well as daughter who are at bedside I have personally spent 45 minutes of critical care time in the direct management of this patient. This is a life/limb threatening event. This includes time spent evaluating patient, direct bedside care, chart review, placing orders, interpretation of diagnostic studies, discussion with consultants, patient, and family members, as well as other required patient management activities. This time is exclusive of all separately billable procedures, and teaching time and separate from and in addition to any other critical care service time. Please note the above document was generated using voice recognition software. It may contain grammatical, syntax or spelling errors. Admission and Anticipated Discharge Date Admission Date: November 08, 2023 Subjective Patient seen and examined at bedside. No acute distress, no adverse events overnight She was on 0.03 of Levophed at the time of examination with MAP 67. She was on 75 of fentanyl and 25 propofol. Was breathing over the vent. Following commands Nodding no to headache as well as chest pain. Denies any abdominal pain Review of Systems 2 Review of Systems: All systems reviewed & are unremarkable except as noted in Subjective Physical Exam 2 Physical Exam: Constitutional: No acute distress HEENT: PERRLA Respiratory system: Decreased air entry bilaterally, no wheeze, no rhonchi, positive crackles bilaterally more on the right side, questionable Velcro CVS: S1-S2 positive, no murmurs or gallops, irregular Abdomen: Soft, nontender, nondistended, positive bowel sounds x4 Extremities: +2 pulses bilaterally radialis/ dorsalis pedis, +1 pitting edema bilateral lower extremity, positive cyanosis of the distal phalanx of bilateral upper extremity Neuro: RASS -1, moving all extremities, answering questions by nodding yes and no Psych: Unable to assess G/U: Positive Marrufo Skin: no rashes, warm and dry Lymphatic: no cervical or axillary lymphadenopathy Results & Data Results & Data Vital Signs (Past 12 Hours) Vital Signs Temp Pulse Resp BP Pulse Ox Pulse Ox O2 Del Method 11/13/23 04:15 85 18 98 11/13/23 04:00 37 C 119/79 11/13/23 04:00 84 18 99 11/13/23 04:00 11/13/23 03:30 116/68 11/13/23 03:30 116/68 11/13/23 03:30 83 16 99 11/13/23 03:21 82 18 99 11/13/23 02:30 112/73 11/13/23 02:30 112/73 11/13/23 02:30 76 18 97 11/13/23 02:00 96 11/13/23 01:30 117/71 11/13/23 01:30 87 20 84 L 11/13/23 01:09 84 16 100 11/13/23 01:00 83/61 L 11/13/23 01:00 83/61 L 11/13/23 00:48 75 21 100 11/13/23 00:30 115/70 11/13/23 00:27 77 18 99 11/13/23 00:09 83 16 99 11/13/23 00:00 105/66 11/13/23 00:00 11/12/23 23:51 82 18 100 11/12/23 23:30 108/59 L 11/12/23 23:30 108/59 L 11/12/23 23:27 78 17 100 11/12/23 23:05 78 22 99 11/12/23 23:00 111/63 11/12/23 23:00 83 21 98 11/12/23 22:35 80 16 98 11/12/23 22:30 113/68 11/12/23 22:17 90 19 100 11/12/23 22:02 78 22 100 11/12/23 22:00 37 C 107/66 11/12/23 22:00 107/66 11/12/23 21:59 85 21 100 11/12/23 21:38 80 18 100 11/12/23 21:30 110/55 L 11/12/23 21:30 110/55 L 11/12/23 21:30 110/55 L 11/12/23 21:29 79 21 100 11/12/23 21:11 78 17 99 11/12/23 20:55 111/66 11/12/23 20:50 110/58 L 11/12/23 20:45 105/62 11/12/23 20:44 75 19 99 11/12/23 20:40 104/65 11/12/23 20:40 104/65 11/12/23 20:40 104/65 11/12/23 20:40 104/65 11/12/23 20:35 105/65 11/12/23 20:35 105/65 11/12/23 20:29 86 19 99 11/12/23 20:25 105/65 11/12/23 20:25 105/65 11/12/23 20:20 106/59 L 11/12/23 20:20 106/59 L 11/12/23 20:20 106/59 L 11/12/23 20:15 103/56 L 11/12/23 20:14 75 16 99 11/12/23 20:10 101/64 11/12/23 20:10 101/64 11/12/23 20:10 101/64 11/12/23 20:02 74 17 99 11/12/23 20:01 115/62 11/12/23 20:01 115/62 11/12/23 20:01 115/62 11/12/23 20:00 88 18 99 11/12/23 20:00 Mechanical Vent 11/12/23 20:00 11/12/23 19:50 78 26 H 100 11/12/23 19:45 104/54 L 11/12/23 19:45 104/54 L O2 Del Method FiO2 11/13/23 04:15 35 11/13/23 04:00 11/13/23 04:00 11/13/23 04:00 40 11/13/23 03:30 11/13/23 03:30 11/13/23 03:30 11/13/23 03:21 11/13/23 02:30 11/13/23 02:30 11/13/23 02:30 11/13/23 02:00 Mechanical Vent 11/13/23 01:30 11/13/23 01:30 11/13/23 01:09 11/13/23 01:00 11/13/23 01:00 11/13/23 00:48 11/13/23 00:30 11/13/23 00:27 11/13/23 00:09 11/13/23 00:00 11/13/23 00:00 40 11/12/23 23:51 11/12/23 23:30 11/12/23 23:30 11/12/23 23:27 11/12/23 23:05 35 11/12/23 23:00 11/12/23 23:00 11/12/23 22:35 11/12/23 22:30 11/12/23 22:17 11/12/23 22:02 11/12/23 22:00 11/12/23 22:00 11/12/23 21:59 11/12/23 21:38 11/12/23 21:30 11/12/23 21:30 11/12/23 21:30 11/12/23 21:29 11/12/23 21:11 11/12/23 20:55 11/12/23 20:50 11/12/23 20:45 11/12/23 20:44 11/12/23 20:40 11/12/23 20:40 11/12/23 20:40 11/12/23 20:40 11/12/23 20:35 11/12/23 20:35 11/12/23 20:29 11/12/23 20:25 11/12/23 20:25 11/12/23 20:20 11/12/23 20:20 11/12/23 20:20 11/12/23 20:15 11/12/23 20:14 11/12/23 20:10 11/12/23 20:10 11/12/23 20:10 11/12/23 20:02 11/12/23 20:01 11/12/23 20:01 11/12/23 20:01 11/12/23 20:00 11/12/23 20:00 40 11/12/23 20:00 40 11/12/23 19:50 40 11/12/23 19:45 11/12/23 19:45 Laboratory Results 11/13/23 04:10 11/13/23 04:10 Coding Level of Care Code 67693 CRITICAL CARE 1ST 30-74M Diagnoses Acute respiratory failure with hypoxia J96.01 Atrial fibrillation with rapid ventricular response I48.91 Acute blood loss anemia D62 ILD (interstitial lung disease) J84.9
--- NOTE | 2023-11-13 07:56 | XRay Report ---
XR chest 1V portable HISTORY: 78 years-old Female Resp failure acute respiratory failure COMPARISON: 11/12/2023 TECHNIQUE: AP view of the chest FINDINGS: Endotracheal tube overlies the midline, 2.6 cm superior to the niurka. Heart is enlarged. Pulmonary v ascular congestion with mixed interstitial and alveolar opacities and layering pleural effusions agai n noted. An electronic device projects over the left heart border. The bones appear intact. IMPRESSION: 1. Endotracheal tube positioning as above. 2. Cardiomegaly with unchanged mixed interstitial and alveolar opacities. 2. Small pleural effusions. ACT 112: Negative or not required by law. The above report was generated using voice recognition software. It may contain grammatical, syntax o r spelling errors. Electronically signed by: Anuj Lake M.D. 11/13/2023 7:55 AM
[2023-11-13] MEDS: PANTOprazole 40 MG TAB PO SCH (08:00)
[2023-11-13] MEDS: ALBUMIN 25% 25 GM/100 ML VIAL IV ONE (08:28)
[2023-11-13] MEDS: FUROSEMIDE 40 MG/4 ML VIAL IV ONE ×2 (09:19→21:24)
[2023-11-13] MEDS: PANTOprazole 40 MG in SYRINGE 0 ML IV SCH (09:19)
--- NOTE | 2023-11-13 09:21 | XRay Report ---
XR chest 1V portable HISTORY: 78 years-old Female oral gastric tube placement. Status post placement of an enteric tube COMPARISON: Chest radiograph of same day at 6:46 AM TECHNIQUE: AP view the chest FINDINGS: Endotracheal tube overlies the midline, 2.6 cm superior to the niurka. Status post placement of an en teric tube which courses into the stomach with distal tip outside the [id number]. Heart is enlarge d. Pulmonary vascular congestion with mixed interstitial and alveolar opacities and layering pleural effusions again noted. An electronic device projects over the left heart border. The bones appear int act. IMPRESSION: 1. Endotracheal and enteric tube positioning as above. 2. Cardiomegaly with unchanged mixed interstitial and alveolar opacities. 3. Small pleural effusions. ACT 112: Negative or not required by law. The above report was generated using voice recognition software. It may contain grammatical, syntax o r spelling errors. Electronically signed by: Anuj Lake M.D. 11/13/2023 9:20 AM
--- NOTE | 2023-11-13 12:04 | Hospitalist Progress Note ---
Date of Service November 13, 2023 Assessment & Plan (1) GI bleed: Plan: Hemoglobin improved to 9.2 after 2 units of blood transfusion but then drifted down to 7.2. No overt melena or hematochezia. 1 unit packed red blood cells given on November 10. Hemoglobin now stable and seems to be improving to 8.7 today, November 12. Urine hemosiderin is positive indicating a component of hemolytic anemia associated with the acute babesiosis. Hematology consultation noted. Eliquis has been discontinued. Continue Protonix therapy. GI consultation appreciated. No endoscopy planned at this time. Earlier this year she had a normal colonoscopy per her who is a retired physician (2) Acute blood loss anemia: Plan: Fecal occult blood is positive but no overt melena or hematochezia. She also has an element of hemolytic anemia. She has received 3 units of packed red blood cells to date. Hemoglobin is 8.7 today, November 12. Hematology consultation noted. (3) Atrial fibrillation with rapid ventricular response: Plan: Telemetry. Medication management. Diltiazem was uptitrated on November 09 and heart rate control has improved. Eliquis has been discontinued due to fecal occult blood positivity and hemolytic anemia. (4) Sepsis: Plan: Present on admission. Infectious disease consultation appreciated. Azithromycin dosage has been increased and she is now on cefepime, atovaquone and doxycycline. 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 Blood cultures remain negative to date. Chest x-ray now appears to be improving. I suspect she had a combination of fluid overload and possibly ARDS. (5) Acute respiratory failure with hypoxia: Plan: Oxygen requirements increased considerably during the past 12 hours. She was transferred to the intensive care unit on November 11 and required intubation. She is now receiving ventilator support. Chest x-ray done today, November 12, looks somewhat better though. Pulmonary medicine consultation and recommendations appreciated. Chest CT scan report noted. Fluid overload was contributing and is being managed with intravenous Lasix and albumin. (6) Bilateral pneumonia: Plan: No sputum production for culture. No overt hemoptysis. Diffuse bilateral infiltrate seen on chest x-ray. Iinfectious disease consultation appreciated. Rocephin has been switched to cefepime. Azithromycin dosages has been increased. She is also on atovaquone and doxycycline. Serial chest x-ray (7) Current use of steroid medication: Plan: She has not been on oral prednisone very long but intravenous hydrocortisone was initially ordered then switched to methylprednisolone on November 11. (8) Benign essential hypertension: Plan: Diltiazem dosage uptitrated on November 08 for better heart rate control. She is on low-dose Levophed at this time which will be discontinued hopefully later today, November 12 (9) IgG lambda monoclonal gammopathy: Plan: By history. No intervention at this time (10) Pulmonary edema: Plan: Acute. Seen on admission chest x-ray. Pulmonary medicine consultation and recommendations appreciated. Chest CT scan reveals edema. (11) Metabolic encephalopathy: Plan: Present on admission. She is now intubated and sedated Plan Potential transfer to tertiary care center for plasmapheresis was discussed with specialist at [facility]. Unfortunately, she is not a candidate for plasmapheresis so the transfer was canceled. She undoubtedly will need rehabilitation after this acute illness. Admission and Anticipated Discharge Date Admission Date: November 08, 2023 Subjective Overall I feel that she has improved. She is breathing easily with ventilator assistance. Portable chest x-ray today, November 12, looks better to my eye. Urine hemosiderin is positive indicating hemolytic process. Hemoglobin however has improved to 8.7. She remains on low-dose Levophed for blood pressure support. Platelet count improved to 93,000. She remains on intravenous cefepime, atovaquone, azithromycin, doxycycline. Cardiac echo previously revealed normal ejection fraction. Hemoglobin improved to 8.7. She has received 3 units packed red blood cells so far. I am encouraged by her current clinical status and apparent improvement. Review of Systems 2 Review of Systems: The patient is now intubated and unable to answer any questions regarding review of systems Physical Exam 2 Physical Exam: General-intubated and sedated HEENT-head atraumatic and normocephalic, intubated and sedated Neck-no lymphadenopathy or thyromegaly, trachea midline Chest-bilateral rhonchi. No inspiratory rales. No wheezing Cardiac - irregular rhythm, normal rate. Normal S1 and S2. Abdomen-normal bowel sounds, no hepatosplenomegaly Extremities-no cyanosis, clubbing, or edema Skinpallor has resolved after transfusion. Neuro-intubated and sedated. Cannot assess Psychintubated and sedated. Cannot assess Results & Data Results & Data Vital Signs (Past 12 Hours) Vital Signs Temp Pulse Resp BP Pulse Ox Pulse Ox O2 Del Method 11/13/23 11:33 88 20 98 11/13/23 10:21 78 18 99 11/13/23 10:00 95/73 L 11/13/23 10:00 95/73 L 11/13/23 09:39 81 18 98 11/13/23 09:36 83 18 98 11/13/23 09:30 86/57 L 11/13/23 09:30 86/57 L 11/13/23 09:18 85 18 97 11/13/23 09:06 88 18 95 11/13/23 09:00 107/67 11/13/23 08:57 93 H 19 96 11/13/23 08:39 80 18 97 11/13/23 08:30 96/58 L 11/13/23 08:18 93 H 18 94 11/13/23 08:16 94/57 L 11/13/23 08:16 94/57 L 11/13/23 08:15 91 H 18 95 11/13/23 08:12 105 H 19 95 11/13/23 08:00 95/58 L 11/13/23 08:00 96 Mechanical Vent 11/13/23 08:00 36.8 C 11/13/23 08:00 85 11/13/23 08:00 11/13/23 07:51 80 17 95 11/13/23 07:35 79 21 93 11/13/23 07:30 117/70 11/13/23 07:30 117/70 11/13/23 07:03 86 20 95 11/13/23 07:00 109/67 11/13/23 07:00 109/67 11/13/23 06:51 83 14 97 11/13/23 06:30 73 11 L 98 11/13/23 06:30 115/68 11/13/23 06:30 115/68 11/13/23 06:00 89 19 98 11/13/23 06:00 116/76 11/13/23 06:00 116/76 11/13/23 06:00 116/76 11/13/23 05:54 79 18 98 11/13/23 05:30 121/64 11/13/23 05:30 121/64 11/13/23 05:18 78 18 97 11/13/23 05:00 120/72 11/13/23 05:00 84 19 98 11/13/23 04:33 81 14 98 11/13/23 04:30 112/71 11/13/23 04:27 83 15 98 11/13/23 04:15 85 18 98 11/13/23 04:00 37 C 119/79 11/13/23 04:00 84 18 99 11/13/23 04:00 11/13/23 03:30 116/68 11/13/23 03:30 116/68 11/13/23 03:30 83 16 99 11/13/23 03:21 82 18 99 11/13/23 02:30 112/73 11/13/23 02:30 112/73 11/13/23 02:30 76 18 97 11/13/23 02:00 96 Mechanical Vent 11/13/23 01:30 117/71 11/13/23 01:30 87 20 84 L 11/13/23 01:09 84 16 100 11/13/23 01:00 83/61 L 11/13/23 01:00 83/61 L 11/13/23 00:48 75 21 100 11/13/23 00:30 115/70 11/13/23 00:27 77 18 99 11/13/23 00:09 83 16 99 11/13/23 00:00 105/66 11/13/23 00:00 FiO2 11/13/23 11:33 30 11/13/23 10:21 11/13/23 10:00 11/13/23 10:00 11/13/23 09:39 11/13/23 09:36 11/13/23 09:30 11/13/23 09:30 11/13/23 09:18 11/13/23 09:06 11/13/23 09:00 11/13/23 08:57 11/13/23 08:39 11/13/23 08:30 11/13/23 08:18 11/13/23 08:16 11/13/23 08:16 11/13/23 08:15 11/13/23 08:12 11/13/23 08:00 11/13/23 08:00 11/13/23 08:00 11/13/23 08:00 11/13/23 08:00 35 11/13/23 07:51 11/13/23 07:35 30 11/13/23 07:30 11/13/23 07:30 11/13/23 07:03 11/13/23 07:00 11/13/23 07:00 11/13/23 06:51 11/13/23 06:30 11/13/23 06:30 11/13/23 06:30 11/13/23 06:00 11/13/23 06:00 11/13/23 06:00 11/13/23 06:00 11/13/23 05:54 11/13/23 05:30 11/13/23 05:30 11/13/23 05:18 11/13/23 05:00 11/13/23 05:00 11/13/23 04:33 11/13/23 04:30 11/13/23 04:27 11/13/23 04:15 35 11/13/23 04:00 11/13/23 04:00 11/13/23 04:00 40 11/13/23 03:30 11/13/23 03:30 11/13/23 03:30 11/13/23 03:21 11/13/23 02:30 11/13/23 02:30 11/13/23 02:30 11/13/23 02:00 11/13/23 01:30 11/13/23 01:30 11/13/23 01:09 11/13/23 01:00 11/13/23 01:00 11/13/23 00:48 11/13/23 00:30 11/13/23 00:27 11/13/23 00:09 11/13/23 00:00 11/13/23 00:00 40 Laboratory Results 11/13/23 04:10 11/13/23 04:10 PG Care Time/CCT Total # of Minutes Spent Total Time Spent with Patient: Total time spent is greater than 50% in coordination of care (as documented) at patient's floor/unit and/or counseling patient: Coding Level of Care Code 87866 SUB INP/OBS CARE 3/50MIN Diagnoses GI bleed K92.2 Acute blood loss anemia D62 Atrial fibrillation with rapid ventricular response I48.91 Sepsis A41.9 Acute respiratory failure with hypoxia J96.01 Bilateral pneumonia J18.9 Current use of steroid medication Z79.52 Benign essential hypertension I10 IgG lambda monoclonal gammopathy D47.2 Pulmonary edema J81.1 Metabolic encephalopathy G93.41
[2023-11-13] MEDS: TUBE FEEDING WATER FLUSH GT SCH (14:11)
[2023-11-13] MEDS: PEPTAMEN 1.5 CAL 1,000 ML BAG OG SCH (14:11)
[2023-11-13 17:08] LABS: BUN Creatinine Ratio 42.7 (10-20); Calcium 8.4 mg/dl (8.6-10.3); Creatinine Clr Calc Pharmacy 50.2 ml/min; Est GFR (African American) 71.9 ml/min; Est GFR (Non-African American) 62.1 ml/min; Potassium 3.9 mmol/L (3.5-5.1)
[2023-11-14 05:02] LABS: iSTAT Allen Test Pass; iSTAT Art Bld Gas pCO2 Correct 37 mmHg (35-46); iSTAT Art Bld Gas pH Corrected 7.427 (7.35-7.45); iSTAT Arterial Blood Gas HCO3 25 meg/L (19-24); iSTAT Arterial Blood Gas pCO2 38 mmHg (35-46); iSTAT Arterial Blood Gas pH 7.42 (7.35-7.45); iSTAT Arterial Blood Gas pO2 98 mmHg (80-95); iSTAT Arterial Blood Gas pO2 C 95; iSTAT Carbon Dioxide 26 mmol/L (24-31); iSTAT FiO2 30 %; iSTAT Hematocrit 23 % (37-47); iSTAT Hemoglobin 7.8 g/dl (12.0-16.0); iSTAT Potassium 3.8 mmol/L (3.3-5.0); iSTAT Site L Radial; iSTAT Sodium 135 mmol/L (135-144)
[2023-11-14 05:19] LABS: Basophils # (auto) 0.01 K/uL (0.00-0.20); Basophils % (auto) 0.1 %; Hematocrit (blood only) 23.4 % (37.0-47.0); Hemoglobin 7.7 g/dl (12.0-16.0); Immature Granulocytes # (auto) 0.15 K/uL (0.01-0.20); Immature Granulocytes % (auto) 1.3 %; Lymphocytes # (auto) 1.48 K/uL (1.20-3.40); Lymphocytes % (auto) 13.2 %; Mean Corpuscular Hemoglobin 27.2 pg (25.0-34.0); Mean Corpuscular Hgb Conc 32.9 g/dL (32.0-36.0); Mean Corpuscular Volume 82.7 fL (80.0-100.0); Mean Platelet Volume 11.4 fL (9.4-12.4); Monocytes # (auto) 0.64 K/uL (0.11-0.59); Monocytes % (auto) 5.7 %; Neutrophils # (auto) 8.89 K/uL (1.40-6.50); Neutrophils % (auto) 79.7 %; Nucleated RBC # (auto) 0.35 K/uL (0.00-0.12); Nucleated RBC % (auto) 3.1 %; Platelet Count 106 K/uL (130-400); RDW Coefficient of Variation 17.2 % (11.5-14.5); RDW Standard Deviation 49.9 fL (36.4-46.3); Red Blood Count 2.83 M/uL (4.20-5.40); White Blood Count 11.17 K/ul (4.8-10.8)
[2023-11-14 05:34] LABS: Albumin Globulin Ratio 0.9 (0.9-2); BUN Creatinine Ratio 44.9 (10-20); Bilirubin,Total 1.1 mg/dl (0.2-1.0); Calcium 8.3 mg/dl (8.6-10.3); Creatinine Clr Calc Pharmacy 45.6 ml/min; Est GFR (Non-African American) 55.3 ml/min; Globulin 3.3 gm/dl (2.5-4.0); Magnesium 2.1 mg/dl (1.7-2.4); Phosphorus 4.8 mg/dl (2.5-4.9); Potassium 3.8 mmol/L (3.5-5.1); Total Protein 6.3 gm/dl (6.0-8.3)
[2023-11-14 06:09] LABS: Parasites Present
[2023-11-14] MEDS: POTASSIUM CHLORIDE / WTR 10 MEQ/100 ML PLCT IV SCH (07:25)
--- NOTE | 2023-11-14 08:49 | XRay Report ---
XR chest 1V portable HISTORY: 78 years-old Female f/u acute respiratory failure COMPARISON: 11/13/2023 TECHNIQUE: AP view the chest FINDINGS: Endotracheal tube overlies the midline, 4.7 cm superior to the niurka. Enteric tube courses into the stomach with distal tip outside the [id number]. Heart is enlarged. Pulmonary vascular congestion w ith mixed interstitial and alveolar opacities and layering pleural effusions again noted. An electron ic device projects over the left heart border. The bones appear intact. IMPRESSION: 1. Endotracheal and enteric tube positioning as above. 2. Cardiomegaly with mildly decreased pulmonary edema. 3. Small pleural effusions with bibasilar predominant airspace opacities redemonstrated. ACT 112: Negative or not required by law. The above report was generated using voice recognition software. It may contain grammatical, syntax o r spelling errors. Electronically signed by: Anuj Lake M.D. 11/14/2023 8:48 AM
[2023-11-14] MEDS ORDERED: STAT IV Infusion **Titration per Protocol STA (09:30)
[2023-11-14] MEDS: dexMEDEtomidine 200 MCG/50 ML BAG IV SCH (09:36)
--- NOTE | 2023-11-14 09:54 | Critical Care Progress Note ---
Date of Service November 14, 2023 Assessment & Plan (1) Acute respiratory failure with hypoxia: (2) Atrial fibrillation with rapid ventricular response: (3) Acute blood loss anemia: (4) ILD (interstitial lung disease): (5) Metabolic encephalopathy: (6) Babesiosis: (7) Severe sepsis: (8) Acute Lyme disease: (9) Bilateral pneumonia: Plan 78-year-old female who presented to the hospital with worsening shortness of breath and anemia. She was intubated 11/12/2023 for worsening hypoxemic respiratory failure and encephalopathy. Infectious disease has been involved in her case. Patient is currently on high-dose azithromycin, atovaquone and cefepime. Microscopy has identified Lyme disease and a positive Babesia screen. Neurologic: Patient remains anxious at times. Will discontinue propofol and fentanyl and initiate Precedex. Pulmonary: Currently patient on minimal vent settings with an FiO2 of 30% and a PEEP of 8. Chest x-ray findings appear to be improving. She has been diuresing well. She has a history of an abnormal CT dating back to 2012 with findings of mild bronchiectasis and groundglass opacities. She essentially has idiopathic interstitial pneumonia. Autoimmune serologies were sent by the previous snowmaker. They are pending. Status post [facility] 11/12/2023. Started on 80 mg IV Solu-Medrol every 8 hours at that time by previous snowmaker. Will reattempt SBT later today if patient tolerates Precedex. Cardiovascular: Patient with a longstanding history of atrial fibrillation status post partial ablation. Anticoagulation on hold due to ongoing anemia and thrombocytopenia. She is currently on flecainide 50 mg twice daily. She has been off of vasoactive medications since yesterday. Echo findings reviewed with normal EF. Mild tricuspid regurg. Mild biatrial enlargement. Will obtain EKG now to monitor rhythm and QTc length. Gastrointestinal: Trickle tube feeds currently infusing. Patient complaining of abdominal pain and has mild residuals. Will check a KUB, lipase and lactate. LFTs improving. Renal: Patient with a history of partial nephrectomy. She has mild hyponatremia of 134 which appears stable. Creatinine is stable. Replace electrolytes as indicated. Infectious disease: Appreciate ID input. Currently being treated for tickborne illnesses with doxycycline 100 mg twice daily and azithromycin 1000 mg daily. Also remains on cefepime for possible pneumonia. Bronchoscopy cultures from negative to date. Hematologic: Patient with anemia and thrombocytopenia which appears stable possibly related to tickborne illness. Appreciate hematology input. Holding anticoagulation at this time. Endocrine: TSH unremarkable. Maintain euglycemia. Lines and tubes: Ultrasound-guided IVs, ET tube and Marrufo catheter in place. Maintain the use of these lines. VTE prophylaxis: SCDs CODE STATUS: Full code Family at bedside: updated at bedside Disposition: ICU I have personally spent 54 minutes of critical care time in the direct management of this patient. This is a life/limb threatening event. This includes time spent evaluating patient, direct bedside care, chart review, placing orders, interpretation of diagnostic studies, discussion with consultants, patient, and family members, as well as other required patient management activities. This time is exclusive of all separately billable procedures, and teaching time and separate from and in addition to any other critical care service time. Thank you for allowing us to participate in the care of this patient. Admission and Anticipated Discharge Date Admission Date: November 08, 2023 Subjective Patient seen and examined. Was trialed on SBT today, became very anxious and tachycardic. Patient endorses some abdominal discomfort. Will hold tube feeds. Review of Systems Review of Systems: Unobtainable due to endotracheal tube Physical Exam Physical Exam: Constitutional: Patient appears to be of their stated age. Patient is in mild distress. Intubated. Eyes: Pupils are equal round and reactive to light. Conjunctivae are normal. Anicteric sclera. Ears nose, mouth and throat: Intubated Neck: Trachea is midline. Visual inspection is normal. Respiratory: Mild crackles in the lower lobes. No use of accessory muscles. No significant clubbing noted. Cardiovascular: Irregularly irregular.. No murmurs. No edema. Gastrointestinal: Normal bowel sounds, soft, and mildly tender to palpation. No hepatosplenomegaly noted. Musculoskeletal: No cyanosis. Patient is able to move all extremities. Strength is 5 out of 5 in the upper and lower extremities. Neurologic: No obvious focal neurological deficits seen. Psychiatric: Patient is lethargic but awakes and opens her eyes spontaneously. Able to follow minimal commands. Skin: no rashes, warm and dry Lymphatic: no cervical or axillary lymphadenopathy Results & Data Results & Data Vital Signs (Past 12 Hours) Vital Signs Temp Pulse Resp BP Pulse Ox Pulse Ox O2 Del Method 11/14/23 09:00 92 H 18 100 07/28/24 09:00 114/75 11/14/23 08:30 106/63 11/14/23 08:30 100 H 18 100 11/14/23 08:15 11/14/23 08:00 112/69 11/14/23 08:00 112/69 11/14/23 08:00 112/69 11/14/23 08:00 124 H 23 100 11/14/23 08:00 Mechanical Vent 11/14/23 08:00 96 11/14/23 08:00 95 H 11/14/23 07:40 11/14/23 07:39 98 H 7 L 97 11/14/23 07:38 11/14/23 07:37 95 H 18 98 11/14/23 07:30 104/53 L 11/14/23 07:30 104/53 L 11/14/23 07:18 89 18 96 11/14/23 07:07 85/47 L 11/14/23 07:07 85/47 L 11/14/23 07:06 91 H 18 94 11/14/23 07:00 101 H 18 97 11/14/23 07:00 11/14/23 07:00 36.6 C 11/14/23 05:30 79 18 99 11/14/23 05:30 95/54 L 11/14/23 05:00 84/54 L 11/14/23 05:00 85 18 99 11/14/23 04:30 87/49 L 11/14/23 04:30 87/49 L 11/14/23 04:30 87/49 L 11/14/23 04:21 97 H 18 93 11/14/23 04:00 110/59 L 11/14/23 04:00 110/59 L 11/14/23 04:00 110/59 L 11/14/23 04:00 36.9 C 84 18 96 11/14/23 04:00 11/14/23 03:30 97/62 L 11/14/23 03:30 97/62 L 11/14/23 03:27 91 H 18 96 11/14/23 03:24 90 18 96 11/14/23 03:09 92 H 18 95 11/14/23 03:00 98/63 L 11/14/23 02:51 84 18 94 11/14/23 02:30 106/64 11/14/23 02:30 106/64 11/14/23 02:27 93 H 18 97 11/14/23 02:09 91 H 18 98 11/14/23 02:00 103/63 11/14/23 01:54 92 H 18 98 11/14/23 01:30 103/73 11/14/23 01:30 94 H 18 98 11/14/23 01:15 88 18 99 11/14/23 01:00 102/75 11/14/23 01:00 102/75 11/14/23 00:57 93 H 18 98 11/14/23 00:30 110/61 11/14/23 00:30 110/61 11/14/23 00:30 110/61 11/14/23 00:30 110/61 11/14/23 00:30 110/61 11/14/23 00:12 92 H 18 99 11/14/23 00:00 110/68 11/14/23 00:00 93 H 18 95 11/14/23 00:00 11/13/23 23:30 103/63 11/13/23 23:30 103/63 11/13/23 23:21 87 18 92 11/13/23 23:18 101 H 18 90 11/13/23 23:00 87/57 L 11/13/23 23:00 102 H 22 97 11/13/23 22:54 92 H 18 90 11/13/23 22:30 88/58 L 11/13/23 22:30 88/58 L 11/13/23 22:30 88/58 L 11/13/23 22:27 97 H 18 92 11/13/23 22:00 104 H 18 O2 Del Method FiO2 11/14/23 09:00 11/14/23 09:00 11/14/23 08:30 11/14/23 08:30 11/14/23 08:15 30 11/14/23 08:00 11/14/23 08:00 11/14/23 08:00 11/14/23 08:00 11/14/23 08:00 30 11/14/23 08:00 Mechanical Vent 11/14/23 08:00 11/14/23 07:40 30 11/14/23 07:39 11/14/23 07:38 30 07/28/24 07:37 30 11/14/23 07:30 11/14/23 07:30 11/14/23 07:18 11/14/23 07:07 11/14/23 07:07 11/14/23 07:06 11/14/23 07:00 11/14/23 07:00 11/14/23 07:00 11/14/23 05:30 11/14/23 05:30 11/14/23 05:00 11/14/23 05:00 11/14/23 04:30 11/14/23 04:30 11/14/23 04:30 11/14/23 04:21 11/14/23 04:00 11/14/23 04:00 11/14/23 04:00 11/14/23 04:00 11/14/23 04:00 30 11/14/23 03:30 11/14/23 03:30 11/14/23 03:27 11/14/23 03:24 11/14/23 03:09 11/14/23 03:00 11/14/23 02:51 11/14/23 02:30 11/14/23 02:30 11/14/23 02:27 11/14/23 02:09 11/14/23 02:00 11/14/23 01:54 11/14/23 01:30 11/14/23 01:30 11/14/23 01:15 11/14/23 01:00 11/14/23 01:00 11/14/23 00:57 11/14/23 00:30 11/14/23 00:30 11/14/23 00:30 11/14/23 00:30 11/14/23 00:30 11/14/23 00:12 11/14/23 00:00 11/14/23 00:00 11/14/23 00:00 40 11/13/23 23:30 11/13/23 23:30 11/13/23 23:21 11/13/23 23:18 11/13/23 23:00 11/13/23 23:00 30 11/13/23 22:54 11/13/23 22:30 11/13/23 22:30 11/13/23 22:30 11/13/23 22:27 11/13/23 22:00 Coding Level of Care Code 19775 CRITICAL CARE 1ST 30-74M Diagnoses Acute respiratory failure with hypoxia J96.01 Atrial fibrillation with rapid ventricular response I48.91 Acute blood loss anemia D62 ILD (interstitial lung disease) J84.9 Metabolic encephalopathy G93.41 Babesiosis B60.00 Severe sepsis A41.9; R65.20 Acute Lyme disease A69.20 Bilateral pneumonia J18.9
--- NOTE | 2023-11-14 10:26 | XRay Report ---
KUB HISTORY: Acute generalized abdominal pain abdominal pain COMPARISON: CT abdomen and pelvis 11/08/2023 FINDINGS: Cardiomegaly. Bibasilar interstitial and alveolar opacities again noted. An electronic sandro ce projects over the left heart border. Distal tip of enteric tube projects over the lower lumbar spi ne, likely within the distal distended stomach. No renal calculi. No ureteral calculi. No pneumoperi toneum or pneumatosis. No fracture. IMPRESSION: 1. Distal tip of enteric tube projects over the lower lumbar spine, likely within the distal stomach. 2. No bowel obstruction identified by radiography. 3. Cardiomegaly with chronic interstitial lung disease. ACT 112: Negative or not required by law. The above report was generated using voice recognition software. It may contain grammatical, syntax o r spelling errors. Electronically signed by: Anuj Lake M.D. 11/14/2023 10:25 AM
--- NOTE | 2023-11-14 14:36 | Hospitalist Progress Note ---
Date of Service November 14, 2023 Assessment & Plan (1) GI bleed: Plan: Hemoglobin improved to 9.2 after 2 units of blood transfusion but then drifted down to 7.2. No overt melena or hematochezia. 1 unit packed red blood cells given on November 10. Hemoglobin again improved to 8.7 but has now drifted down to 7.7 today, November 13. Will follow. Urine hemosiderin is positive indicating a component of hemolytic anemia associated with the acute babesiosis. Hematology consultation noted. Eliquis has been discontinued. Continue Protonix therapy. GI consultation appreciated. No endoscopy planned at this time. Earlier this year she had a normal colonoscopy per her who is a retired physician (2) Acute blood loss anemia: Plan: Fecal occult blood is positive but no overt melena or hematochezia. She also has an element of hemolytic anemia. She has received 3 units of packed red blood cells to date. Hemoglobin drifted down to 7.7 today, November 13. Hematology consultation noted. (3) Atrial fibrillation with rapid ventricular response: Plan: Telemetry. Medication management. Diltiazem was uptitrated on November 09 and heart rate control has improved. Eliquis has been discontinued due to fecal occult blood positivity and hemolytic anemia. (4) Sepsis: Plan: Present on admission. Infectious disease consultation appreciated. Azithromycin dosage has been increased and she is now on cefepime, atovaquone and doxycycline. 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 Blood cultures remain negative to date. Chest x-ray now appears to be improving. I suspect she had a combination of fluid overload and possibly ARDS. She transiently required Levophed consistent with septic shock. (5) Acute respiratory failure with hypoxia: Plan: Oxygen requirements increased considerably during the past 12 hours. She was transferred to the intensive care unit on November 11 and required intubation. She is now receiving ventilator support. Chest x-ray done today, November 13, looks better. Pulmonary medicine consultation and recommendations appreciated. Chest CT scan report noted. Fluid overload was contributing and has been treated with intravenous Lasix and albumin. (6) Bilateral pneumonia: Plan: No sputum production for culture. No overt hemoptysis. Diffuse bilateral infiltrate seen on chest x-ray are resolving. Iinfectious disease consultation appreciated. Rocephin has been switched to cefepime. Azithromycin dosages has been increased. She is also on atovaquone and doxycycline. Serial chest x-ray (7) Current use of steroid medication: Plan: She has not been on oral prednisone very long but intravenous hydrocortisone was initially ordered then switched to methylprednisolone on November 11. (8) Benign essential hypertension: Plan: Diltiazem dosage uptitrated on November 08 for better heart rate control. She transiently required pressor support postintubation. (9) IgG lambda monoclonal gammopathy: Plan: By history. No intervention at this time (10) Pulmonary edema: Plan: Acute. Seen on admission chest x-ray. Pulmonary medicine consultation and recommendations appreciated. Chest CT scan revealed edema. (11) Metabolic encephalopathy: Plan: Present on admission. She is now intubated and sedated Plan Potential transfer to tertiary care center for plasmapheresis was discussed with specialist at [facility]. Unfortunately, she is not a candidate for plasmapheresis so the transfer was canceled. She undoubtedly will need rehabilitation after this acute illness. Admission and Anticipated Discharge Date Admission Date: November 08, 2023 Subjective Overall I believe she has improved. Chest x-ray done today, November 13, looks better. Critical care entry noted. Platelet count improved to 106,000. Spontaneous breathing trial earlier this morning failed but she has been switched to Precedex and another trial will take place later today. Cardiac echo reveals normal ejection fraction. Urine hemosiderin is positive consistent with an element of hemolytic anemia. Hemoglobin is drifted down to 7.7. Will follow. Platelet count has improved to 106,000 however. She is off her Eliquis. She continues on cefepime, atovaquone, azithromycin, doxycycline. She is also on parenteral steroid therapy. Review of Systems 2 Review of Systems: The patient is intubated and unable to answer any questions regarding review of systems Physical Exam 2 Physical Exam: General-intubated and sedated HEENT-head atraumatic and normocephalic, intubated and sedated Neck-no lymphadenopathy or thyromegaly, trachea midline Chest-bilateral rhonchi. No inspiratory rales. No wheezing Cardiac - irregular rhythm, normal rate. Normal S1 and S2. Abdomen-normal bowel sounds, no hepatosplenomegaly Extremities-no cyanosis, clubbing, or edema Skinpallor has resolved after transfusion. Neuro-intubated and sedated. Cannot assess Psychintubated and sedated. Cannot assess Results & Data Results & Data Vital Signs (Past 12 Hours) Vital Signs Temp Pulse Resp BP Pulse Ox Pulse Ox O2 Del Method 11/14/23 13:48 94 H 15 100 11/14/23 13:39 96 H 15 100 11/14/23 13:31 121/89 11/14/23 13:30 122/88 11/14/23 13:24 89 12 99 11/14/23 13:00 130/87 11/14/23 13:00 101 H 14 100 11/14/23 12:45 128/92 11/14/23 12:45 99 H 21 100 11/14/23 12:30 110 H 15 100 11/14/23 12:15 98 H 14 100 11/14/23 12:00 126/87 11/14/23 12:00 126/87 11/14/23 12:00 96 H 12 100 11/14/23 12:00 36.7 C 11/14/23 11:57 87 16 100 11/14/23 11:36 99 H 19 100 11/14/23 11:30 129/85 11/14/23 11:21 109 H 9 L 100 11/14/23 11:20 118/82 11/14/23 11:06 107 H 9 L 99 11/14/23 11:00 118/59 L 11/14/23 10:45 120/87 11/14/23 10:36 90 18 100 11/14/23 10:30 102 H 16 100 11/14/23 10:30 116/83 11/14/23 10:15 108/87 11/14/23 10:15 114 H 14 99 11/14/23 10:04 107/72 11/14/23 10:00 105/74 11/14/23 09:57 110 H 14 100 11/14/23 09:54 110 H 14 100 11/14/23 09:36 106 H 16 100 11/14/23 09:30 109/63 11/14/23 09:27 108 H 17 100 11/14/23 09:15 98 H 19 98 11/14/23 09:00 114/75 11/14/23 09:00 92 H 18 100 11/14/23 09:00 114/75 11/14/23 08:30 106/63 11/14/23 08:30 100 H 18 100 11/14/23 08:15 11/14/23 08:00 112/69 11/14/23 08:00 112/69 11/14/23 08:00 112/69 11/14/23 08:00 124 H 23 100 11/14/23 08:00 Mechanical Vent 11/14/23 08:00 96 11/14/23 08:00 95 H 11/14/23 07:40 11/14/23 07:39 98 H 7 L 97 11/14/23 07:38 11/14/23 07:37 95 H 18 98 11/14/23 07:30 104/53 L 11/14/23 07:30 104/53 L 11/14/23 07:18 89 18 96 11/14/23 07:07 85/47 L 11/14/23 07:07 85/47 L 11/14/23 07:06 91 H 18 94 11/14/23 07:00 101 H 18 97 11/14/23 07:00 11/14/23 07:00 36.6 C 11/14/23 05:30 79 18 99 11/14/23 05:30 95/54 L 11/14/23 05:00 84/54 L 11/14/23 05:00 85 18 99 11/14/23 04:30 87/49 L 11/14/23 04:30 87/49 L 11/14/23 04:30 87/49 L 11/14/23 04:21 97 H 18 93 11/14/23 04:00 110/59 L 11/14/23 04:00 110/59 L 11/14/23 04:00 110/59 L 11/14/23 04:00 36.9 C 84 18 96 11/14/23 04:00 11/14/23 03:30 97/62 L 11/14/23 03:30 97/62 L 11/14/23 03:27 91 H 18 96 11/14/23 03:24 90 18 96 11/14/23 03:09 92 H 18 95 11/14/23 03:00 98/63 L 11/14/23 02:51 84 18 94 O2 Del Method FiO2 11/14/23 13:48 11/14/23 13:39 11/14/23 13:31 11/14/23 13:30 11/14/23 13:24 11/14/23 13:00 11/14/23 13:00 11/14/23 12:45 11/14/23 12:45 11/14/23 12:30 11/14/23 12:15 11/14/23 12:00 11/14/23 12:00 11/14/23 12:00 11/14/23 12:00 11/14/23 11:57 11/14/23 11:36 11/14/23 11:30 11/14/23 11:21 11/14/23 11:20 11/14/23 11:06 11/14/23 11:00 11/14/23 10:45 11/14/23 10:36 11/14/23 10:30 11/14/23 10:30 11/14/23 10:15 11/14/23 10:15 11/14/23 10:04 11/14/23 10:00 11/14/23 09:57 11/14/23 09:54 11/14/23 09:36 11/14/23 09:30 11/14/23 09:27 11/14/23 09:15 11/14/23 09:00 11/14/23 09:00 11/14/23 09:00 11/14/23 08:30 11/14/23 08:30 11/14/23 08:15 30 11/14/23 08:00 11/14/23 08:00 11/14/23 08:00 11/14/23 08:00 11/14/23 08:00 30 11/14/23 08:00 Mechanical Vent 11/14/23 08:00 11/14/23 07:40 30 11/14/23 07:39 11/14/23 07:38 30 11/14/23 07:37 30 11/14/23 07:30 11/14/23 07:30 11/14/23 07:18 11/14/23 07:07 11/14/23 07:07 11/14/23 07:06 11/14/23 07:00 11/14/23 07:00 30 11/14/23 07:00 11/14/23 05:30 11/14/23 05:30 11/14/23 05:00 11/14/23 05:00 11/14/23 04:30 11/14/23 04:30 11/14/23 04:30 11/14/23 04:21 11/14/23 04:00 11/14/23 04:00 11/14/23 04:00 11/14/23 04:00 11/14/23 04:00 30 11/14/23 03:30 11/14/23 03:30 11/14/23 03:27 11/14/23 03:24 11/14/23 03:09 30 11/14/23 03:00 11/14/23 02:51 Laboratory Results 11/14/23 04:48 11/14/23 04:48 PG Care Time/CCT Total # of Minutes Spent Total Time Spent with Patient: Total time spent is greater than 50% in coordination of care (as documented) at patient's floor/unit and/or counseling patient: Coding Level of Care Code 91933 SUB INP/OBS CARE 2/35MIN Diagnoses GI bleed K92.2 Acute blood loss anemia D62 Atrial fibrillation with rapid ventricular response I48.91 Sepsis A41.9 Acute respiratory failure with hypoxia J96.01 Bilateral pneumonia J18.9 Current use of steroid medication Z79.52 Benign essential hypertension I10 IgG lambda monoclonal gammopathy D47.2 Pulmonary edema J81.1 Metabolic encephalopathy G93.41
[2023-11-14] MEDS: METOPROLOL TARTRATE 1 MG/ML VIAL IV SCH (16:40)
--- NOTE | 2023-11-14 21:37 | Electrocardiogram Report ---
Test Reason : Blood Pressure : / mmHG Vent. Rate : 111 BPM Atrial Rate : 394 BPM P-R Int : 000 ms QRS Dur : 082 ms QT Int : 294 ms P-R-T Axes : 000 028 -04 degrees QTc Int : 399 ms Atrial fibrillation with rapid ventricular response Abnormal ECG When compared with ECG of 08-NOV-2023 02:29, Nonspecific T wave abnormality, improved in Anterolateral leads Confirmed by Mitul Blanc ([id number]) on 11/14/2023 9:37:22 PM Referred By: REFERRED SELF Confirmed By:Mitul Blanc
[2023-11-15 07:09] LABS: Basophils # (auto) 0.01 K/uL (0.00-0.20); Basophils % (auto) 0.1 %; Hematocrit (blood only) 26.6 % (37.0-47.0); Hemoglobin 8.5 g/dl (12.0-16.0); Immature Granulocytes # (auto) 0.17 K/uL (0.01-0.20); Immature Granulocytes % (auto) 1.7 %; Lymphocytes % (auto) 17.5 %; Mean Corpuscular Hemoglobin 26.8 pg (25.0-34.0); Mean Corpuscular Volume 83.9 fL (80.0-100.0); Mean Platelet Volume 11.8 fL (9.4-12.4); Monocytes # (auto) 0.85 K/uL (0.11-0.59); Monocytes % (auto) 8.3 %; Neutrophils # (auto) 7.46 K/uL (1.40-6.50); Neutrophils % (auto) 72.4 %; Nucleated RBC # (auto) 0.14 K/uL (0.00-0.12); Nucleated RBC % (auto) 1.4 %; Platelet Count 171 K/uL (130-400); RDW Standard Deviation 51.8 fL (36.4-46.3); Red Blood Count 3.17 M/uL (4.20-5.40); White Blood Count 10.29 K/ul (4.8-10.8)
[2023-11-15 07:29] LABS: BUN Creatinine Ratio 58.1 (10-20); Calcium 8.3 mg/dl (8.6-10.3); Creatinine Clr Calc Pharmacy 60.2 ml/min; Est GFR (African American) 89.9 ml/min; Est GFR (Non-African American) 77.6 ml/min; Magnesium 2.2 mg/dl (1.7-2.4); Potassium 3.8 mmol/L (3.5-5.1)
--- NOTE | 2023-11-15 07:59 | Critical Care Progress Note ---
Date of Service November 15, 2023 Assessment & Plan (1) Acute respiratory failure with hypoxia: (2) Atrial fibrillation with rapid ventricular response: (3) Acute blood loss anemia: (4) ILD (interstitial lung disease): (5) Metabolic encephalopathy: (6) Babesiosis: (7) Severe sepsis: (8) Acute Lyme disease: (9) Bilateral pneumonia: Plan Impression: 78-year-old female who presented to the hospital with worsening shortness of breath and anemia. She was intubated 11/12/2023 for worsening hypoxemic respiratory failure with diffuse pulmonary infiltrates and encephalopathy. Infectious disease has been involved in her case. Patient is currently on high-dose azithromycin, atovaquone and cefepime. Microscopy has identified Lyme disease and a positive Babesia screen. She is now extubated and off Precedex. Neurologic: Off Precedex. Continue to reorient for ICU related delirium. Would avoid benzodiazepines. PT and OT have been ordered. Out of bed to chair as tolerated. Need to work on strength and conditioning. Pulmonary: Liberated from the ventilator without difficulty. Now down to 2 L nasal cannula and can likely be weaned additionally. Her x-ray showed significant improvement, unclear if this is related to steroids or diuresis or appropriate antibiotic therapy. Continue Lasix. Add incentive spirometry. Out of bed to chair as tolerated. Wean steroids Cardiovascular: History of A-fib status post partial ablation. Holding anticoagulation. Jesusita nue flecainide. Add back low-dose oral metoprolol. Diuresis as tolerated. Gastrointestinal: Advancing diet as tolerated. Renal: Patient with a history of partial nephrectomy. Electrolytes and acid-base status acceptable. Low-dose of Lasix this morning Infectious disease: Appreciate ID input. Currently being treated for tickborne illnesses with doxycycline 100 mg twice daily and azithromycin 1000 mg daily. Also remains on cefepime for possible pneumonia. Bronchoscopy cultures from 726/24 negative to date. Defer antibiotics to ID Hematologic: Patient with anemia and thrombocytopenia improving. Continue to hold anticoagulation. Endocrine: TSH unremarkable. Maintain euglycemia. VTE prophylaxis: SCDs CODE STATUS: Full code Family at bedside: No family at bedside Disposition: Patient's critical care issues have resolved and she is appropriate to transfer to the floor. Critical care services will sign off. Admission and Anticipated Discharge Date Admission Date: November 08, 2023 Subjective Patient seen and examined. EMR reviewed. Discussed on multidisciplinary rounds and with off going voice professor as well as with overnight critical care KALE. The patient is awake and alert this morning. She does complain of shortness of breath. She is not coughing or expectorating phlegm. She denies any pain. Review of Systems Review of Systems: All systems reviewed & are unremarkable except as noted in Subjective Physical Exam Constitutional: WD/WN, vitals as above Neck: trachea midline, no thyromegaly Respiratory: no respiratory distress, no labored breathing, no cough and not tachypneic Auscultation: + diminished lung sounds; no rales and no wheezes Cardiovascular: RRR, no murmur, no edema Gastrointestinal (Abdomen): normal bowel sounds, soft, nontender, no hepatosplenomegaly Musculoskeletal: Extremities: extremities normal to inspection Skin: no rashes, warm and dry Neurologic: Nonfocal exam Lymphatic: no cervical lymphadenopathy Results & Data Results & Data Vital Signs (Past 12 Hours) Vital Signs Pulse Resp BP Pulse Ox O2 Del Method O2 Flow Rate 11/15/23 06:00 115/73 11/15/23 06:00 115/73 11/15/23 05:48 86 29 H 100 11/15/23 05:06 81 18 100 11/15/23 05:00 123/84 11/15/23 05:00 123/84 11/15/23 04:25 84 120/74 11/15/23 04:10 82 120/74 11/15/23 04:03 83 16 100 11/15/23 04:00 120/74 11/15/23 03:45 99 H 13 100 11/15/23 03:00 127/81 11/15/23 03:00 89 17 100 11/15/23 02:00 89 16 100 11/15/23 02:00 122/80 11/15/23 02:00 122/80 11/15/23 02:00 122/80 11/15/23 01:27 89 118/74 11/15/23 01:12 92 H 13 100 11/15/23 01:04 95 H 119/74 11/15/23 01:00 118/74 11/15/23 00:45 82 29 H 100 11/15/23 00:00 127/71 11/15/23 00:00 89 16 100 11/14/23 23:24 90 16 100 11/14/23 23:00 105/72 11/14/23 22:54 97 H 17 100 11/14/23 22:15 96 H 15 100 11/14/23 21:26 99 H 115/72 11/14/23 21:12 120 H 15 100 11/14/23 21:11 109 H 130/79 11/14/23 21:00 130/79 11/14/23 21:00 130/79 11/14/23 20:57 102 H 14 100 11/14/23 20:06 115 H 13 100 11/14/23 20:00 120/75 11/14/23 20:00 120/75 11/14/23 20:00 120/75 11/14/23 20:00 Nasal Cannula 2 11/14/23 19:57 108 H 17 100 Critical Care Results & Data Vital Signs (Past 12 Hours) Vital Signs Pulse Resp BP Pulse Ox O2 Del Method O2 Flow Rate 11/15/23 06:00 115/73 11/15/23 06:00 115/73 11/15/23 05:48 86 29 H 100 11/15/23 05:06 81 18 100 11/15/23 05:00 123/84 11/15/23 05:00 123/84 11/15/23 04:25 84 120/74 11/15/23 04:10 82 120/74 11/15/23 04:03 83 16 100 11/15/23 04:00 120/74 11/15/23 03:45 99 H 13 100 11/15/23 03:00 127/81 11/15/23 03:00 89 17 100 11/15/23 02:00 89 16 100 11/15/23 02:00 122/80 11/15/23 02:00 122/80 11/15/23 02:00 122/80 11/15/23 01:27 89 118/74 11/15/23 01:12 92 H 13 100 11/15/23 01:04 95 H 119/74 11/15/23 01:00 118/74 11/15/23 00:45 82 29 H 100 11/15/23 00:00 127/71 11/15/23 00:00 89 16 100 11/14/23 23:24 90 16 100 11/14/23 23:00 105/72 11/14/23 22:54 97 H 17 100 11/14/23 22:15 96 H 15 100 11/14/23 21:26 99 H 115/72 11/14/23 21:12 120 H 15 100 11/14/23 21:11 109 H 130/79 11/14/23 21:00 130/79 11/14/23 21:00 130/79 11/14/23 20:57 102 H 14 100 11/14/23 20:06 115 H 13 100 11/14/23 20:00 120/75 11/14/23 20:00 120/75 11/14/23 20:00 120/75 11/14/23 20:00 Nasal Cannula 2 11/14/23 19:57 108 H 17 100 Lab & Micro Results (Past 24 Hours) RBC 3.17 M/uL (4.20-5.40) L 11/15/23 WBC 10.29 K/ul (4.8-10.8) 11/15/23 Hgb 8.5 g/dl (12.0-16.0) L 11/15/23 Hct 26.6 % (37.0-47.0) L 11/15/23 MCV 83.9 fL (80.0-100.0) 11/15/23 MCH 26.8 pg (25.0-34.0) 11/15/23 MCHC 32.0 g/dL (32.0-36.0) 11/15/23 RDW Standard Deviation 51.8 fL (36.4-46.3) H 11/15/23 RDW Coefficient of Variation 18.0 % (11.5-14.5) H 11/15/23 Plt Count 171 K/uL (130-400) 11/15/23 MPV 11.8 fL (9.4-12.4) 11/15/23 Nucleated Red Blood Cells % (auto) 1.4 % 11/14 Nucleated RBC Absolute Count (auto) 0.14 K/uL (0.00-0.12) H 11/15/23 Neutrophils (%) (Auto) 72.4 % 11/15/23 Lymphocytes (%) (Auto) 17.5 % 11/15/23 Monocytes # (Auto) 0.85 K/uL (0.11-0.59) H 11/15/23 Eosinophils # (Auto) 0.00 K/uL (0.00-0.50) 11/15/23 Immature Granulocyte % (Auto) 1.7 % 11/15/23 Neutrophils # (Auto) 7.46 K/uL (1.40-6.50) H 11/15/23 Lymphocytes # (Auto) 1.80 K/uL (1.20-3.40) 11/15/23 Monocytes # (Auto) 0.85 K/uL (0.11-0.59) H 11/15/23 Eosinophils # (Auto) 0.00 K/uL (0.00-0.50) 11/15/23 Basophils # (Auto) 0.01 K/uL (0.00-0.20) 11/15/23 Immature Granulocyte # (Auto) 0.17 K/uL (0.01-0.20) 4 Na 137 mmol/L (136-145) 11/15/23 K 3.8 mmol/L (3.5-5.1) 11/15/23 Cl 105 mmol/L (98-107) 11/15/23 CO2 28 mmol/L (21-32) 11/15/23 Anion Gap 4 (3-11) 11/15/23 BUN 43 mg/dl (6-23) H 11/15/23 Creatinine 0.74 mg/dl (0.6-1.2) 11/15/23 Estimated GFR ( Amer) 89.9 ml/min 11/15/23 Estimated GFR (Non-Af Amer) 77.6 ml/min 11/15/23 BUN/Creatinine Ratio 58.1 (10-20) H 11/15/23 Glu 101 mg/dl (70-99(Fasting)) H 11/15/23 Ca 8.3 mg/dl (8.6-10.3) L 11/15/23 Phosphorus Level 3.0 mg/dl (2.5-4.9) 11/15/23 Mg 2.2 mg/dl (1.7-2.4) 11/15/23 06:57 Calcium Level 8.3 mg/dl (8.6-10.3) L 11/15/23 06:57 Microbiology 11/12/23 19:58 Gram Stain - Final Sputum, Expectorated Sputum Culture - Final Scant normal amanda. 11/12/23 10:30 Gram Stain - Final Ba Lavage,Right Middle Lobe Bronchial Culture - Final No growth Diagnostic Findings (Past 24 Hours) Chest X-Ray 11/14/23 07:00 XR chest 1V portable HISTORY: 78 years-old Female f/u acute respiratory failure COMPARISON: 11/13/2023 TECHNIQUE: AP view the chest FINDINGS: Endotracheal tube overlies the midline, 4.7 cm superior to the niurka. Enteric tube courses into the stomach with distal tip outside the [id number]. Heart is enlarged. Pulmonary vascular congestion with mixed interstitial and alveolar opacities and layering pleural effusions again noted. An electronic device projects over the left heart border. The bones appear intact. IMPRESSION: 1. Endotracheal and enteric tube positioning as above. 2. Cardiomegaly with mildly decreased pulmonary edema. 3. Small pleural effusions with bibasilar predominant airspace opacities redemonstrated. ACT 112: Negative or not required by law. The above report was generated using voice recognition software. It may contain grammatical, syntax or spelling errors. Electronically signed by: Anuj Lake M.D. 11/14/2023 8:48 AM KUB X-Ray 11/14/23 09:52 KUB HISTORY: Acute generalized abdominal pain abdominal pain COMPARISON: CT abdomen and pelvis 11/08/2023 FINDINGS: Cardiomegaly. Bibasilar interstitial and alveolar opacities again noted. An electronic device projects over the left heart border. Distal tip of enteric tube projects over the lower lumbar spine, likely within the distal distended stomach. No renal calculi. No ureteral calculi. No pneumoperitoneum or pneumatosis. No fracture. IMPRESSION: 1. Distal tip of enteric tube projects over the lower lumbar spine, likely within the distal stomach. 2. No bowel obstruction identified by radiography. 3. Cardiomegaly with chronic interstitial lung disease. ACT 112: Negative or not required by law. The above report was generated using voice recognition software. It may contain grammatical, syntax or spelling errors. Electronically signed by: Anuj Lake M.D. 11/14/2023 10:25 AM I & O Totals 24 Hours 11/14/23 11/15/23 11/16/23 06:59 06:59 06:59 Intake Total 1078.122 / 4324.127 6130.999 / 1350.999 Output Total 3930 / 3930 1100 / 1100 Balance -2851.878 / -2851.878 250.999 / 250.999 Cumulative 11/08/23 01:59 thru 11/15/23 06:49 Intake Total 49661.898 Output Total 15254 Balance 1736.898 RT Ventilator Mngmt (Last Documented) Ventilator Ordered Settings Ventilator Support Mode Assist Control 11/14/23 08:15 Respiratory Rate 29 11/15/23 05:48 Ventilator Tidal Volume 375 11/14/23 08:15 Setting Minute Ventilation 7.2 11/14/23 07:37 Ventilator Positive Pressure 6 11/14/23 07:40 Support Setting Positive End Expiratory 8 11/14/23 08:15 Pressure Fraction of Inspired Oxygen 30 11/14/23 08:15 Machine Comment PEEP increased to [address] Garcia 11/13/23 11:33 Ventilator - PT Measurements Respiratory Rate 29 Exhaled Tidal Volume 373 Minute Ventilation 7.2 Peak Inspiratory Airway 20 Pressure Plateau Pressure 17 Respiratory Cycle Inspiratory: 1:3.2 Expiratory Ratio Inspiratory Phase Time 0.8 End-Tidal CO2 31 Static Lung Compliance 41.44 Dynamic Lung Compliance 31.08 Normal Static Lung Compliance 47.00 Patient Measurements Comment PT's Sedation Cut and pt placed on PS 6, PEEP 5, FIO2 30%. Coding Level of Care Code 49337 SUB INP/OBS CARE 3/50MIN Diagnoses Acute respiratory failure with hypoxia J96.01 Atrial fibrillation with rapid ventricular response I48.91 Acute blood loss anemia D62 ILD (interstitial lung disease) J84.9 Metabolic encephalopathy G93.41 Babesiosis B60.00 Severe sepsis A41.9; R65.20 Acute Lyme disease A69.20 Bilateral pneumonia J18.9
[2023-11-15] MEDS: methylPREDNISolone 40 MG in SYRINGE 0 ML IV SCH (08:04)
[2023-11-15] MEDS: FUROSEMIDE INJ 20 MG/2 ML VIAL IV ONE (08:19)
[2023-11-15] MEDS: METOPROLOL TARTRATE 25 MG TAB PO SCH ×2 (08:51→18:01)
[2023-11-15] MEDS: ATORVASTATIN 40 MG TAB PO SCH (11:01)
[2023-11-15] MEDS: CEFEPIME 2,000 MG in SYRINGE 0 ML IV SCH (11:01)
--- NOTE | 2023-11-15 13:53 | Infectious Disease Progress Nt ---
Date of Service November 15, 2023 Assessment & Plan (1) Sepsis: (2) Bilateral pneumonia: (3) Acute respiratory failure with hypoxia: (4) Acute Lyme disease: (5) Babesiosis: Plan This is a 78-year-old female with a past medical history of atrial fibrillation status post ablation, partial nephrectomy, bilateral knee replacement, who presents with myalgias and confusion. She is a poor historian. Her is a retired surgeon and provides history. She underwent a left knee replacement in 12/2022 followed by a left knee replacement in 07/2023. 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 This was followed by bilateral lower extremity pain and ongoing neuropathy of unknown etiology. Approximately 2 weeks ago, she developed increased fatigue, arthralgias, myalgias with loss of appetite. She was seen by her PCP and Rheumatology and was diagnosed with possible PMR given elevated inflammatory markers. She was started on prednisone 20 mg per day. In the last few days, she developed fevers, confusion and vomited prompting her admission. Tmax at home 104. She traveled to [place] in August and then [place]. Both she and her [place] in [place] area and have deer in the backyard. They also have been to many outdoor [employer] games for their grandson this summer.. She denies mosquito or tick bites, change in urination, rash, headaches, vision changes, cough, shortness of breath. She took a few doses of amoxicillin and Tylenol with little relief. In the ED she was afebrile, heart rate 125, RR 30, blood pressure 129/62, O2 sats 87% on room air---> 98% oxy mask. Labs WBC 9.37 hemoglobin 7, hematocrit 20, platelets 70, BUN 31, creatinine 0.83, total bili 2, direct bili 0.4, AST 101, ALT 39, alk phos 64, procalcitonin 26.5. Anaplasma smear negative. Anaplasma PCR negative ( 10/25). Babesia smear with red blood cell inclusions noted. PCR and Pathology obtained and were pending at time of initial visit. .Lyme screen and confirmatory testing positive. Respiratory viral panel negative. Chest x-ray with bibasilar opacities suggestive of pneumonia and Left suprahilar nodular opacities. CTAP shows significant interval worsening of bibasilar pneumonia versus pulmonary edema; enlarged heart. Head CT with no evidence of acute intracranial pathology. She initially received a dose of Zosyn She was receiving ceftriaxone, azithromycin, and atovaquone. ID consulted for possible babesiosis and Lyme disease. Antibiotics ceftriaxone 11/06, 11/07- 11/10 Cefepime 11/10-ongoing Zosyn 11/06 Atovaquone 11/07- ongoing Azithromycin 11/07-ongoing Micro: Blood cultures 11/07 NGTD Lyme screen, confirmatory testing 11/07 positive Anaplasma PCR 10/25 negative, pending this admisson Anaplasma smear 11/07 No evidence of intracytoplasmic neutrophilic inclusions to suggest Anaplasmosis. Babesia PCR 11/07 DETECTED Babesia smear 11/07 microcytic anemia and frequent intracellular ring form parasites Periph smear 5-9.9% parasites ( 11/09)-->2.0-4.9 ( 11/10) Bronch cx /studies 11/11 pending # Continued Fevers #Severe acute Babesiosis #Lyme disease ( lyme testing neg 10/25 but positive 11/07) coinfection with babesiosis #Acute hypoxic respiratory failure #Possible CAP vs pulm edema/ARDS #Ongoing Neuropathy several months #B/L TKA #Anemia, thrombocytopenia #Transaminitis # Procal elevated at 26.5---> 44-->23 She has evidence of babesiosis with microcytic anemia and intracellular ring forms in red blood cells. Lyme testing consistent with Lyme disease. Anaplasma smear this admission and prior Anaplasma PCR on 10/25 negative Her clinical syndrome of fatigue, arthralgias, myalgias and lab findings of anemia, tr ansaminitis and thrombocytopenia are consistent with a tickborne illness (specifically babesiosis and Lyme disease). Atovaquone and azithromycin will cover babesiosis. She is not immunocompromised and has her spleen. It does not appear that she has triple coinfection with anaplasmosis, but will repeat Anaplasma PCR. Procalcitonin noted to be elevated with infiltrates on chest x- ray. She was initially receiving Ceftriaxone for ?pna and Lyme coverage . We initially held doxycycline as no s/o coinfection with anaplasmosis. There is no signs on exam of knee involvement at her prosthetic joint sites. 11/08 and 11/09 febrile but curve trending down. Alert and conversant 11/10. Febrile in last 24 hours -T m 39.4 More sob. Late on 11/09 parasite count quantified as 5%-9.9%. Since her parasite count is > 4%, she has pulm edema on CXR, and HGB < 10 , this would be considered acute severe Babesiosis. We do not have a parasite count on admission, so unclear if parasitemia was hi gher at that time. Increases azithromycin dose from 500 mg --->1000 mg IV daily and continued atovaquone. Will treat with IV azith and then oral stepdown to 500mg once she clinically improves. Will check LDH, Haptoglobin and retic count for hemolysis. Concern for ? bleed as well as ? hemolytic anemia as stool blood + Also add doxycycline. Although ceftriaxone will cover known Lyme disease, it will not cover other tick borne illnesses. I have a lower suspicion for other tickborne diseases as her Anaplasma PCR was negative on 10/25 however it was not retested during this admission. Started definitive Anaplasma therapy with doxy and Changed Pna treatment from ceftriaxone --> Cefepime. Concern for worsening pulm function 11/11 Now intubated, febrile tachycardic.S/P bronchoscopy: Cx Pending . CXR worsening. ? ARDS. Parasite count down ( from 5% -9.9% to 2.0-4.9 %) but clinically not improving . Procal down from44--> 23. May need consideration for Exchange transfusion in setting of ?ARDS. LDH 1167-->894, Ast 84, tbili 1.5, Ck 19. Hapto globin pending. Heme onc on board. Complications of severe Babesiosis include ARDS, severe anemia, DIC , CHF, renal failure. If parasitemia > 10% or severe hemolytic anemia or pulmonary, renal or llver compromise, will need to consider exchange transfusion. 11/14 extubated, afebrile. Did nor require exchange transfusion over weekend . WBC 10.29, H/H 8.5/26.6, plts 171 Recommendations;. Continue cefepime 2 g iv 12 for coverage of possible Pneumonia. Continue doxycycline 100 mg IV every 12h for coverage of known Lyme and empiric coverage of other tickborne illnesses as discussed above. Plan for 21 days of Lyme coverage ( include days received ceftriaxone) Continue atovaquone 750 mg p.o. every 12 hours and azithromycin 1000 mg IV daily in the setting of severe disease . Will decrease to 500 mg once more clinically stable Monitor H/H/platelets/LFTs Follow up Anaplasma PCR Follow up Bronch cx ( bacteria/ fungal), coccio, pjp, histo /blasto studies. MONITOR QTC on flecainide and Azithromycin DAILY ( last qtc on 11/07 442) Repeated smear with parasite quantification ordered for today (Ordered as Blood smear parasites- in order to get Parasite %count) ID will continue to follow Petty Love MD, MPH Infectious Disease [facility], [facility] Call [phone] with questions. Admission and Anticipated Discharge Date Admission Date: November 08, 2023 Subjective Subsequent visit was provided via telemedicine using two-way real-time interactive telecommunication between the patient and the telemedicine provider. For the duration of the visit, the provider was performing the assessment from a different facility than the patient. This includesuse of bluetooth stethoscope forauscultationperformed by the telepresenter that the telemedicine provider can hear if described in the physical exam. Freight Coordinator contact information: Please call [facility] Center [phone]. (Phone Number For Physician Use Only) After establishing a telemedicine visit, patient was: Patient was verified with two unique identifiers Time Spent with Patient: Subsequent => 25 min Afebrile Extubated Awake alert oreinted, says she feels Horrible Physical Exam Physical Exam: Gen- awake , alert on RA Neck- Supple HEENT- anicteric sclera Lungs- No increased work of breathing Cards- irregular Abd- soft, NT, ND Skin- pallor, no rash Neuro- sedated ext- No edema. Well healed BL TKA incisions Results & Data Vital Signs (Past 12 Hours) Vital Signs Temp Pulse Resp BP Pulse Ox O2 Del Method O2 Del Method 11/15/23 13:00 108/87 11/15/23 12:54 119 H 13 97 11/15/23 12:00 36.5 C 11/15/23 12:00 98/80 L 11/15/23 12:00 98/80 L 11/15/23 12:00 113 H 21 97 11/15/23 11:00 120/77 11/15/23 11:00 120/77 11/15/23 10:54 89 19 100 11/15/23 10:00 116/78 11/15/23 10:00 116/78 11/15/23 10:00 85 20 97 11/15/23 09:00 125/73 11/15/23 08:51 101 H 19 100 11/15/23 08:00 91 H 12 100 11/15/23 08:00 119/72 11/15/23 08:00 Nasal Cannula 11/15/23 08:00 Nasal Cannula 11/15/23 07:06 89 12 100 11/15/23 07:00 126/69 11/15/23 06:00 115/73 11/15/23 06:00 115/73 11/15/23 05:48 86 29 H 100 11/15/23 05:06 81 18 100 11/15/23 05:00 123/84 11/15/23 05:00 123/84 11/15/23 04:25 84 120/74 11/15/23 04:10 82 120/74 11/15/23 04:03 83 16 100 11/15/23 04:00 120/74 11/15/23 03:45 99 H 13 100 11/15/23 03:00 127/81 11/15/23 03:00 89 17 100 11/15/23 02:00 89 16 100 11/15/23 02:00 122/80 11/15/23 02:00 122/80 11/15/23 02:00 122/80 O2 Flow Rate O2 Flow Rate 11/15/23 13:00 11/15/23 12:54 11/15/23 12:00 11/15/23 12:00 11/15/23 12:00 11/15/23 12:00 11/15/23 11:00 11/15/23 11:00 11/15/23 10:54 11/15/23 10:00 11/15/23 10:00 11/15/23 10:00 11/15/23 09:00 11/15/23 08:51 11/15/23 08:00 11/15/23 08:00 11/15/23 08:00 2 11/15/23 08:00 2 11/15/23 07:06 11/15/23 07:00 11/15/23 06:00 11/15/23 06:00 11/15/23 05:48 11/15/23 05:06 11/15/23 05:00 11/15/23 05:00 11/15/23 04:25 11/15/23 04:10 11/15/23 04:03 11/15/23 04:00 11/15/23 03:45 11/15/23 03:00 11/15/23 03:00 11/15/23 02:00 11/15/23 02:00 11/15/23 02:00 11/15/23 02:00 Laboratory Results Laboratory Results - last 48 hr 11/13/23 11/14/23 11/14/23 16:39 04:48 04:50 WBC 11.17 H RBC 2.83 L Hgb 7.7 L POC Hgb 7.8 L Hct 23.4 L POC Hct 23 L MCV 82.7 MCH 27.2 MCHC 32.9 RDW Std Deviation 49.9 H RDW Coeff of Sanjuana 17.2 H Plt Count 106 L MPV 11.4 Immature Gran % (Auto) 1.3 Neut % (Auto) 79.7 Lymph % (Auto) 13.2 Chambers % (Auto) 5.7 Eos % (Auto) 0.0 Baso % (Auto) 0.1 Neut # (Auto) 8.89 H Lymph # (Auto) 1.48 Chambers # (Auto) 0.64 H Eos # (Auto) 0.00 Baso # (Auto) 0.01 Immature Gran # (Auto) 0.15 Absolute Nucleated RBC 0.35 H Nucleated RBC % (auto) 3.1 Sample Site L Radial POC pH 7.42 POC pCO2 38 POC pO2 98 H POC HCO3 25 H POC Total CO2 26 POC Base Excess 0.0 ABG pH (Temp Correct) 7.427 ABG pCO2 (Temp Corrct 37 POC ABG pO2 at Pt Temp 95 POC ABG O2 Sat 98.0 H Dashawn Test Pass O2 Delivery Device Ventilator POC O2 Rate 18 POC FiO2 30 Tidal Volume 375 PEEP 8 POC Sodium 135 Sodium 134 L 134 L POC Potassium 3.8 Potassium 3.9 3.8 Chloride 101 100 Carbon Dioxide 25 25 Anion Gap 8 9 BUN 38 H 44 H Creatinine 0.89 0.98 Est Cr Clr Drug Dosing 50.2 45.6 Est GFR ( Amer) 71.9 64.0 Est GFR (Non-Af Amer) 62.1 55.3 BUN/Creatinine Ratio 42.7 H 44.9 H Glucose 200 H 223 H Lactate Calcium 8.4 L 8.3 L Phosphorus 4.8 Magnesium 2.1 Total Bilirubin 1.1 H AST 37 ALT 36 Alkaline Phosphatase 64 Total Protein 6.3 Albumin 3.0 L Globulin 3.3 Albumin/Globulin Ratio 0.9 Lipase Blood Parasites ID Present 11/14/23 11/14/23 11/15/23 09:57 12:06 06:57 WBC 10.29 RBC 3.17 L Hgb 8.5 L POC Hgb Hct 26.6 L POC Hct MCV 83.9 MCH 26.8 MCHC 32.0 RDW Std Deviation 51.8 H RDW Coeff of Sanjuana 18.0 H Plt Count 171 D MPV 11.8 Immature Gran % (Auto) 1.7 Neut % (Auto) 72.4 Lymph % (Auto) 17.5 Chambers % (Auto) 8.3 Eos % (Auto) 0.0 Baso % (Auto) 0.1 Neut # (Auto) 7.46 H Lymph # (Auto) 1.80 Chambers # (Auto) 0.85 H Eos # (Auto) 0.00 Baso # (Auto) 0.01 Immature Gran # (Auto) 0.17 Absolute Nucleated RBC 0.14 H Nucleated RBC % (auto) 1.4 Sample Site POC pH POC pCO2 POC pO2 POC HCO3 POC Total CO2 POC Base Excess ABG pH (Temp Correct) ABG pCO2 (Temp Corrct POC ABG pO2 at Pt Temp POC ABG O2 Sat Dashawn Test O2 Delivery Device POC O2 Rate POC FiO2 Tidal Volume PEEP POC Sodium Sodium 137 POC Potassium Potassium 3.8 Chloride 105 Carbon Dioxide 28 Anion Gap 4 BUN 43 H Creatinine 0.74 Est Cr Clr Drug Dosing 60.2 Est GFR ( Amer) 89.9 Est GFR (Non-Af Amer) 77.6 BUN/Creatinine Ratio 58.1 H Glucose 101 H Lactate 2.8 H* 2.3 H* Calcium 8.3 L Phosphorus 3.0 D Magnesium 2.2 Total Bilirubin AST ALT Alkaline Phosphatase Total Protein Albumin Globulin Albumin/Globulin Ratio Lipase 19 Blood Parasites ID Diagnostic Findings Microbiology 11/12/23 10:30 Ba Lavage,Right Middle Lobe Fungal Smear - Final 11/12/23 10:30 Ba Lavage,Right Middle Lobe Fungal Culture - Preliminary No yeast or fungus isolated - Report 1, Additional Report to Follow. 11/12/23 19:58 Sputum, Expectorated Gram Stain - Final 11/12/23 19:58 Sputum, Expectorated Sputum Culture - Final Scant normal amanda. 11/12/23 10:30 Ba Lavage,Right Middle Lobe Gram Stain - Final 11/12/23 10:30 Ba Lavage,Right Middle Lobe Bronchial Culture - Final No growth 11/12/23 11:30 Ba Lavage,Right Middle Lobe Acid Fast Bacilli Smear - Final 11/08/23 02:37 Blood Aerobic Blood Culture - Final No growth in Aerobic bottle after 5 days. 11/08/23 02:37 Blood Anaerobic Blood Culture - Final No growth in Anaerobic bottle after 5 days. 11/08/23 02:20 Blood Aerobic Blood Culture - Final No growth in Aerobic bottle after 5 days. 11/08/23 02:20 Blood Anaerobic Blood Culture - Final No growth in Anaerobic bottle after 5 days. 11/12/23 11:41 Blood Blood Parasites Smear - Final 11/11/23 16:28 Blood Blood Parasites Smear - Final 11/09/23 Unknown Urine,Indwelling Cath Urine Culture - Final No growth - less than 1,000 colonies/mL. 11/10/23 14:36 Blood Blood Parasites Smear - Preliminary Chest X-Ray 11/13/23 07:00 XR chest 1V portable HISTORY: 78 years-old Female Resp failure acute respiratory failure COMPARISON: 11/12/2023 TECHNIQUE: AP view of the chest FINDINGS: Endotracheal tube overlies the midline, 2.6 cm superior to the niurka. Heart is enlarged. Pulmonary vascular congestion with mixed interstitial and alveolar opacities and layering pleural effusions again noted. An electronic device projects over the left heart border. The bones appear intact. IMPRESSION: 1. Endotracheal tube positioning as above. 2. Cardiomegaly with unchanged mixed interstitial and alveolar opacities. 2. Small pleural effusions. ACT 112: Negative or not required by law. The above report was generated using voice recognition software. It may contain grammatical, syntax or spelling errors. Electronically signed by: Anuj Lake M.D. 11/13/2023 7:55 AM Chest X-Ray 11/13/23 09:01 XR chest 1V portable HISTORY: 78 years-old Female oral gastric tube placement. Status post placement of an enteric tube COMPARISON: Chest radiograph of same day at 6:46 AM TECHNIQUE: AP view the chest FINDINGS: Endotracheal tube overlies the midline, 2.6 cm superior to the niurka. Status post placement of an enteric tube which courses into the stomach with distal tip outside the [id number]. Heart is enlarged. Pulmonary vascular congestion with mixed interstitial and alveolar opacities and layering pleural effusions again noted. An electronic device projects over the left heart border. The bones appear intact. IMPRESSION: 1. Endotracheal and enteric tube positioning as above. 2. Cardiomegaly with unchanged mixed interstitial and alveolar opacities. 3. Small pleural effusions. ACT 112: Negative or not required by law. The above report was generated using voice recognition software. It may contain grammatical, syntax or spelling errors. Electronically signed by: Anuj Lake M.D. 11/13/2023 9:20 AM Chest X-Ray 11/14/23 07:00 XR chest 1V portable HISTORY: 78 years-old Female f/u acute respiratory failure COMPARISON: 11/13/2023 TECHNIQUE: AP view the chest FINDINGS: Endotracheal tube overlies the midline, 4.7 cm superior to the niurka. Enteric tube courses into the stomach with distal tip outside the [id number]. Heart is enlarged. Pulmonary vascular congestion with mixed interstitial and alveolar opacities and layering pleural effusions again noted. An electronic device projects over the left heart border. The bones appear intact. IMPRESSION: 1. Endotracheal and enteric tube positioning as above. 2. Cardiomegaly with mildly decreased pulmonary edema. 3. Small pleural effusions with bibasilar predominant airspace opacities redemonstrated. ACT 112: Negative or not required by law. The above report was generated using voice recognition software. It may contain grammatical, syntax or spelling errors. Electronically signed by: Anuj Lake M.D. 11/14/2023 8:48 AM KUB X-Ray 11/14/23 09:52 KUB HISTORY: Acute generalized abdominal pain abdominal pain COMPARISON: CT abdomen and pelvis 11/08/2023 FINDINGS: Cardiomegaly. Bibasilar interstitial and alveolar opacities again noted. An electronic device projects over the left heart border. Distal tip of enteric tube projects over the lower lumbar spine, likely within the distal dis tended stomach. No renal calculi. No ureteral calculi. No pneumoperitoneum or pneumatosis. No fracture. IMPRESSION: 1. Distal tip of enteric tube projects over the lower lumbar spine, likely wi thin the distal stomach. 2. No bowel obstruction identified by radiography. 3. Cardiomegaly with chronic interstitial lung disease. ACT 112: Negative or not required by law. The above report was generated using voice recognition software. It may contain grammatical, syntax or spelling errors. Electronically signed by: Anuj Lake M.D. 11/14/2023 10:25 AM Medications Administered Home Medications Medication Instructions Recorded Confirmed Last Taken apixaban 5 mg tablet (Eliquis) 5 mg PO BID 09/27/19 11/08/23 11/07/23 fish oil-dha-epa 1,200 mg-144 1 cap PO QAM 09/27/19 11/08/23 11/07/23 mg-216 mg capsule multivitamin with minerals 2 tab PO DAILY 07/31/21 11/08/23 11/07/23 (Hair,Skin and Nails tablet) atorvastatin 80 mg tablet (Lipitor) 80 mg PO DAILY 02/06/22 11/08/23 11/07/23 calcium carbonate 500 mg PO DAILY 02/06/22 11/08/23 11/07/23 raloxifene 60 mg tablet 60 mg PO QAM #90 tabs 02/06/22 11/08/23 11/07/23 cholecalciferol (vitamin D3) 25 50 mcg PO DAILY 08/03/22 11/08/23 11/07/23 mcg (1,000 unit) capsule flecainide 100 mg tablet 50 mg PO BID 08/03/22 11/08/23 11/07/23 omeprazole 20 mg capsule,delayed 20 mg PO DAILY 08/03/22 11/08/23 11/07/23 release Flutter Valve #1 ea 02/05/23 11/02/23 Unknown diltiazem HCl 120 mg See Rx Instructions .Route .COMPLEX 07/07/23 11/08/23 11/07/23 capsule,extended release 12 hr ferrous sulfate 325 mg (65 mg 325 mg PO DAILY 07/07/23 11/08/23 11/07/23 iron) tablet acetaminophen 325 mg capsule 325 mg PO QID PRN PAIN/FEVER 10/26/23 11/08/23 Unknown (Tylenol) mecobalamin (vitamin B12) 1,000 1,000 mcg PO DAILY #30 tabs 10/26/23 11/08/23 11/07/23 mcg chewable tablet prednisone 20 mg tablet 20 mg PO DAILY #30 tabs 10/26/23 11/08/23 11/07/23 pregabalin 50 mg capsule (Lyrica) 50 mg PO BID #60 caps 10/26/23 11/08/23 11/02/23 13:26 gabapentin 600 mg tablet 300 mg PO DAILY 11/02/23 11/08/23 11/07/23 prednisone 5 mg tablet 15 mg (3 x 5 mg) PO DAILY #90 tabs 11/02/23 11/08/23 Unknown alendronate 70 mg tablet 70 mg PO WK 11/08/23 11/08/23 Unknown amoxicillin 875 mg tablet 875 mg PO BID 11/08/23 11/08/23 11/07/23 Active Medications Generic Name Dose Route Start Last Admin Trade Name Vincent PRZackary Reason Stop Dose Admin Atorvastatin Calcium 80 mg 11/15/23 09:33 11/15/23 11:01 Atorvastatin 40 Mg Tab PO 12/15/23 09:32 80 mg QAM LEN Administration Atovaquone 750 mg 11/08/23 09:00 11/15/23 08:04 Atovaquone 750 Mg/5 Ml Udc PO 12/08/23 08:59 750 mg Q12H LEN Administration Flecainide Acetate 50 mg 11/08/23 09:00 11/15/23 08:05 Flecainide Acetate 100 Mg Tablet PO 12/08/23 08:59 50 mg BID LEN Administration Azithromycin 1,000 mg/ 260 mls @ 127.5 mls/hr 11/12/23 09:00 11/15/23 10:37 Dextrose IV 11/19/23 08:59 Infused Q24H LEN Infusion Doxycycline Hyclate 100 mg/ 100 mls @ 50 mls/hr 11/11/23 11:00 11/15/23 13:32 Dextrose IV 11/21/23 10:59 Infused Q12H LEN Infusion Pantoprazole Sodium 40 mg/ 10 mls @ 5 mls/min 11/13/23 09:00 11/15/23 08:04 Syringe IV 12/13/23 08:59 5 mls/min BID LEN Administration Methylprednisolone 40 mg/ 0.64 mls @ 1.5 mls/min 11/15/23 09:00 11/15/23 08:04 Syringe IV 12/15/23 08:59 1.5 mls/min DAILY LEN Administration Cefepime HCl 2,000 mg/ Syringe 20 mls @ 5 mls/min 11/15/23 10:00 11/15/23 11:01 IV 11/18/23 11:44 5 mls/min Q8H LEN Administration Protocol Metoprolol Tartrate 12.5 mg 11/15/23 09:00 11/15/23 08:51 Metoprolol Tartrate 25 Mg Tab PO 12/15/23 08:59 25 mg BID LEN Administration
[2023-11-15] MEDS: METOPROLOL TARTRATE 1 MG/ML VIAL IV STA (16:10)
--- NOTE | 2023-11-15 17:01 | Hospitalist Progress Note ---
Date of Service November 15, 2023 Assessment & Plan (1) Babesiosis: Plan: Presented with weakness, fevers, acute hypoxic respiratory failure, acute metabolic encephalopathy, found to have significant anemia, thrombocytopenia, elevated LFTs, bibasilar pneumonia, elevated procalcitonin, and positive babesiosis smear and Lyme titer. 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 Because her parasitemia level was improving, she is not a candidate for plasmapheresis so the transfer was canceled. Continue azithromycin 1000 mg daily, atovaquone 750 mg p.o. every 12 hours, with plan to decrease azithromycin to 500 mg daily once more clinically stable Continue doxycycline 100 mg every 12 hours for coverage for Lyme disease as well as empirically for anaplasmosis-repeat anaplasmosis PCR pending Continue cefepime for pneumonia coverage Monitor QTc on flecainide and azithromycin-ECG on 11/13 and 11/14 with normal QTc Follow smear with parasitemia percentage-today is down to 0.1% Overall improving, extubated, and downgrade out of the ICU on 11/14 (2) Sepsis: Plan: Present on admission. Secondary to babesiosis and acute Lyme disease as well as possible secondary bacterial pneumonia. Blood cultures remain negative to date. Chest x-ray now appears to be improving. I suspect she had a combination of fluid overload and possibly ARDS. She transiently required Levophed consistent with septic shock. Bronchoscopy washings are negative Continue antibiotics as noted above (3) Acute Lyme disease: Plan: Continue doxycycline (4) Paroxysmal atrial fibrillation: Plan: Has been in atrial fibrillation throughout her stay with rates worsening today after discontinuing scheduled IV Lopressor in favor of restarting p.o. metoprolol Increase p.o. metoprolol to 25 mg p.o. twice daily Give Lopressor 5 mg IV x 1 now Resume Eliquis likely tomorrow as long as hemoglobin continues to trend back upward now that platelets are normal Continue flecainide (5) Acute respiratory failure with hypoxia: Plan: Oxygen requirements escalated and she was transferred to the intensive care unit on November 11 and required intubation. Fluid overload was contributing and has been treated with intravenous Lasix and albumin. Extubated on 11/14 and now weaned off supplemental O2 to room air Downgrade out of the ICU Continue Lasix periodically-Lasix 20 mg IV x 1 given on 11/14 (6) Metabolic encephalopathy: Plan: Present on admission, secondary to sepsis and babesiosis as above Ongoing but improving, now some likely secondary to previous sedatives while on ventilator CT head negative Continue treatment of infection Supportive care, mobilization Resume diet (7) Anemia: Plan: Likely secondary to hemolytic anemia from babesiosis. Fecal occult blood is positive but no overt melena or hematochezia. She received 3 units of PRBCs. Hemoglobin drifted down to 7.7 But is now up to 8.5 B12, folate normal, ferritin significantly elevated related to acute illness Hematology consultation noted. Eliquis has been held but can likely be resumed soon Continue Protonix therapy. GI consultation appreciated. No endoscopy planned at this time. Earlier this year she had a normal colonoscopy Follow CBC (8) Bilateral pneumonia: Plan: Requiring mechanical ventilation after respiratory failure. No overt hemoptysis. Diffuse bilateral infiltrate seen on chest x-ray are resolving. Infectious disease consultation appreciated. Rocephin has been switched to cefepime. Azithromycin dosages has been increased. She is also on atovaquone and doxycycline. Serial chest x-ray Bronchial culture negative (9) Current use of steroid medication: Plan: She was recently seen by rheumatology and started on oral prednisone for suspected PMR Initially treated with IV hydrocortisone in the ICU then switched to m ethylprednisolone on November 11. Continue to wean down steroids (10) Benign essential hypertension: Plan: She transiently required pressor support postintubation. BPs are improved now Started on metoprolol 25 Mg p.o. 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 PT/OT consults placed. She will need rehab but is not medically stable for discharge Admission and Anticipated Discharge Date Admission Date: November 08, 2023 Subjective Patient is more awake and alert today, is eating solid foods for the first time. She is in rapid A-fib with rates in the 120s to 140s at times. She reports feeling short of breath at times. She is very weak. Denies chest pain She asks where she is and how she got here. Physical Exam Constitutional: WD/WN, vitals as above Respiratory: normal respiratory effort and + cough Auscultation: + crackles (Bibasilar); no rhonchi and no wheezes Cardiovascular: Rate/Rhythm: + tachycardic and + irregularly irregular Heart Sounds: no murmur Extremities: no edema Gastrointestinal (Abdomen): normal bowel sounds, soft, nontender, no hepatosplenomegaly Psychiatric: Orientation: alert, oriented to person and cooperative Genitourinary: Marrufo catheter with yellow urine Results & Data Results & Data Vital Signs (Past 12 Hours) Vital Signs Temp Pulse Resp BP Pulse Ox O2 Del Method O2 Del Method 11/15/23 16:25 120 H 121/90 11/15/23 16:10 147 H 138/82 11/15/23 16:00 36.9 C 11/15/23 13:00 108/87 11/15/23 12:54 119 H 13 97 11/15/23 12:00 36.5 C 11/15/23 12:00 98/80 L 11/15/23 12:00 98/80 L 11/15/23 12:00 113 H 21 97 11/15/23 11:00 120/77 11/15/23 11:00 120/77 11/15/23 10:54 89 19 100 11/15/23 10:00 116/78 11/15/23 10:00 116/78 11/15/23 10:00 85 20 97 11/15/23 09:00 125/73 11/15/23 08:51 101 H 19 100 11/15/23 08:00 91 H 12 100 11/15/23 08:00 119/72 11/15/23 08:00 Nasal Cannula 11/15/23 08:00 Nasal Cannula 11/15/23 07:06 89 12 100 11/15/23 07:00 126/69 11/15/23 06:00 115/73 11/15/23 06:00 115/73 11/15/23 05:48 86 29 H 100 11/15/23 05:06 81 18 100 11/15/23 05:00 123/84 11/15/23 05:00 123/84 O2 Flow Rate O2 Flow Rate 11/15/23 16:25 11/15/23 16:10 11/15/23 16:00 11/15/23 13:00 11/15/23 12:54 11/15/23 12:00 11/15/23 12:00 11/15/23 12:00 11/15/23 12:00 11/15/23 11:00 11/15/23 11:00 11/15/23 10:54 11/15/23 10:00 11/15/23 10:00 11/15/23 10:00 11/15/23 09:00 11/15/23 08:51 11/15/23 08:00 11/15/23 08:00 11/15/23 08:00 2 11/15/23 08:00 2 11/15/23 07:06 11/15/23 07:00 11/15/23 06:00 11/15/23 06:00 11/15/23 05:48 11/15/23 05:06 11/15/23 05:00 11/15/23 05:00 Laboratory Results CBC, BMP, magnesium, phosphorus, sputum culture, blood cultures, urine culture reviewed PG Care Time/CCT Total # of Minutes Spent Total Time Spent with Patient: Total time spent is greater than 50% in coordination of care (as documented) at patient's floor/unit and/or counseling patient: Coding Level of Care Code 09594 SUB INP/OBS CARE 3/50MIN Diagnoses Babesiosis B60.00 Sepsis A41.9 Acute Lyme disease A69.20 Paroxysmal atrial fibrillation I48.0 Acute respiratory failure with hypoxia J96.01 Metabolic encephalopathy G93.41 Anemia D64.9 Bilateral pneumonia J18.9 Current use of steroid medication Z79.52 Benign essential hypertension I10 IgG lambda monoclonal gammopathy D47.2 GERD (gastroesophageal reflux disease) K21.9
--- NOTE | 2023-11-15 22:04 | Electrocardiogram Report ---
Test Reason : Blood Pressure : / mmHG Vent. Rate : 126 BPM Atrial Rate : 375 BPM P-R Int : 000 ms QRS Dur : 080 ms QT Int : 308 ms P-R-T Axes : 114 006 -21 degrees QTc Int : 446 ms Atrial fibrillation with rapid ventricular response Abnormal ECG When compared with ECG of 14-NOV-2023 10:05, No significant change Confirmed by Mitul Blanc ([id number]) on 11/15/2023 10:03:50 PM Referred By: REFERRED SELF Confirmed By:Mitul Blanc
[2023-11-16 05:18] LABS: Albumin Level 2.8 gm/dl (3.4-5.0); BUN Creatinine Ratio 60.9 (10-20); Bilirubin,Total 1.3 mg/dl (0.2-1.0); C Reactive Protein 2.25 mg/dl (0-0.5); Creatinine Clr Calc Pharmacy 69.6 ml/min; Est GFR (African American) 99.1 ml/min; Est GFR (Non-African American) 85.5 ml/min; Globulin 2.9 gm/dl (2.5-4.0); Magnesium 2.1 mg/dl (1.7-2.4); Potassium 3.8 mmol/L (3.5-5.1); Total Protein 5.7 gm/dl (6.0-8.3)
[2023-11-16 05:31] LABS: Basophils # (auto) 0.02 K/uL (0.00-0.20); Basophils % (auto) 0.2 %; Eosinophils # (auto) 0.01 K/uL (0.00-0.50); Eosinophils % (auto) 0.1 %; Hematocrit (blood only) 27.2 % (37.0-47.0); Hemoglobin 8.7 g/dl (12.0-16.0); Immature Granulocytes % (auto) 3.3 %; Lymphocytes # (auto) 2.42 K/uL (1.20-3.40); Lymphocytes % (auto) 26.2 %; Mean Corpuscular Hemoglobin 26.9 pg (25.0-34.0); Mean Platelet Volume 12.1 fL (9.4-12.4); Monocytes # (auto) 1.02 K/uL (0.11-0.59); Monocytes % (auto) 11.1 %; Neutrophils # (auto) 5.46 K/uL (1.40-6.50); Neutrophils % (auto) 59.1 %; Nucleated RBC # (auto) 0.05 K/uL (0.00-0.12); Nucleated RBC % (auto) 0.5 %; Platelet Count 198 K/uL (130-400); RDW Coefficient of Variation 18.3 % (11.5-14.5); RDW Standard Deviation 52.1 fL (36.4-46.3); Red Blood Count 3.24 M/uL (4.20-5.40); White Blood Count 9.23 K/ul (4.8-10.8)
[2023-11-16] MEDS: METOPROLOL TARTRATE 1 MG/ML VIAL IV STA (06:33)
[2023-11-16] MEDS: METOPROLOL TARTRATE 50 MG TAB PO SCH (08:22)
--- NOTE | 2023-11-16 09:12 | Pulmonology Progress Note ---
Date of Service November 16, 2023 Assessment & Plan (1) Acute respiratory failure with hypoxia: (2) Atrial fibrillation with rapid ventricular response: (3) Acute blood loss anemia: (4) ILD (interstitial lung disease): (5) Metabolic encephalopathy: (6) Babesiosis: (7) Severe sepsis: (8) Acute Lyme disease: (9) Bilateral pneumonia: Plan Impression: 78-year-old female who presented to the hospital with worsening shortness of breath and anemia. She was intubated 11/12/2023 for worsening hypoxemic respiratory failure with diffuse pulmonary infiltrates and encephalopathy. Infectious disease has been involved in her case. Patient is currently on high-dose azithromycin, atovaquone and cefepime. Microscopy has identified Lyme disease and a positive Babesia screen. She is now extubated and off Precedex. RECOMMENDATIONS: 1. Acute respiratory failure with hypoxia - Resolved. Patient here at this time and saturating well. Chest x-ray continues to show improvement. She does remain with bibasilar Rales at this time. Agree with ongoing diuresis and completion of antibiotic therapies. Bronchoscopy samples have been negative to this point. Cytology negative as well. Spoke with nursing staff about providing incentive spirometer. Encouraged out of bed to chair and working with physical therapy if able. 2. Babesiosis - Continue with antibiotic therapy as outlined by infectious disease. 3. Interstitial lung changes - Continue with outpatient workup as previously documented. She is scheduled for pulmonary function testing later this fall which would be appropriate to obtain in the next 8 to 12 weeks if her symptoms continue to improve. Thank you for allowing us to participate in the care of this pleasant patient. Admission and Anticipated Discharge Date Admission Date: November 08, 2023 Supervising Physician Co-Signing Physician Notes Seen and examined. Agree with AP as noted by KALE. Defer abx to ID. Pulm status stable. Pulmonary will sign off. Can follow up with us in outpatient setting as previously scheduled. Please call if additional questions. Subjective Patient seen and evaluated at bedside this morning. She reports feeling generally unwell. She feels tired, weak, and has shallow breathing. She reports no appetite. She offers no pain complaints. No overnight events reported. Review of Systems Review of Systems: As per HPI if not otherwise stated. Physical Exam Physical Exam: VITAL SIGNS - Vital signs and nursing notes were reviewed. GENERAL - 78-year-old female appearing her stated age who is in no acute distress. Communicates well with provider and answers questions appropriately. SKIN - Without rashes or lesions. NOSE - Midline and without cyanosis. MOUTH/OROPHARYNX - Without perioral cyanosis. LUNGS - Chest wall evaluation demonstrates normal chest wall A:P diameter. Auscultation reveals bibasilar rales. CARDIAC - RRR with S1/S2. No murmur, rubs, or gallops appreciated. ABDOMEN - Abdominal inspection demonstrates a flat abdomen. BS normoactive all four quadrants. No tenderness, palpable masses, or ascites noted. EXTREMITIES - Nail clubbing not present. No peripheral cyanosis. No pretibial edema present. +3/5 radial palpated throughout. Results & Data Results & Data Vital Signs (Past 12 Hours) Vital Signs Temp Pulse Pulse Resp BP BP Pulse Ox 11/16/23 09:09 36.6 C 111 H 18 130/83 92 11/16/23 06:34 115 H 132/73 11/16/23 06:03 110 H 19 11/16/23 06:00 128 H 18 11/16/23 05:42 110 H 19 11/16/23 05:36 115 H 15 11/16/23 05:24 119 H 19 11/16/23 05:24 36.8 C 11/16/23 05:06 107 H 19 11/16/23 04:57 103 H 21 11/16/23 04:39 109 H 10 L 11/16/23 04:30 116 H 13 11/16/23 04:21 118 H 18 11/16/23 04:15 91 11/16/23 04:15 119 H 19 11/16/23 04:06 111 H 20 11/16/23 04:00 114 H 19 11/16/23 03:54 122 H 19 11/16/23 03:51 132 H 19 11/16/23 03:48 106 H 19 11/16/23 03:33 118 H 17 11/16/23 03:27 115 H 19 11/16/23 03:24 113 H 18 11/16/23 03:03 130 H 19 11/16/23 03:00 115 H 11/16/23 02:51 119 H 20 11/16/23 02:48 110 H 19 11/16/23 02:45 109 H 19 11/16/23 02:36 106 H 18 11/16/23 02:33 118 H 20 11/16/23 02:21 110 H 19 11/16/23 02:18 111 H 20 11/16/23 02:15 117 H 18 11/16/23 02:12 111 H 19 11/16/23 02:09 121 H 20 11/16/23 01:57 125 H 13 91 11/16/23 01:36 116 H 19 93 11/16/23 01:33 113 H 18 91 11/16/23 01:27 112 H 19 89 L 11/16/23 01:24 114 H 19 89 L 11/16/23 01:18 112 H 20 89 L 11/16/23 01:15 109 H 18 89 L 11/16/23 01:12 127 H 18 90 11/16/23 01:09 114 H 15 89 L 11/16/23 01:06 110 H 13 90 11/16/23 01:05 92 11/16/23 00:42 105 H 20 92 11/16/23 00:24 117 H 20 91 11/16/23 00:21 114 H 21 92 11/16/23 00:09 112 H 20 90 11/16/23 00:03 115 H 21 91 11/15/23 23:45 103 H 18 93 11/15/23 23:42 114 H 19 94 11/15/23 23:39 113 H 19 94 11/15/23 23:15 110 H 14 94 O2 Del Method 11/16/23 09:09 Room Air 11/16/23 06:34 11/16/23 06:03 11/16/23 06:00 11/16/23 05:42 11/16/23 05:36 11/16/23 05:24 11/16/23 05:24 11/16/23 05:06 11/16/23 04:57 11/16/23 04:39 11/16/23 04:30 11/16/23 04:21 11/16/23 04:15 Room Air 11/16/23 04:15 11/16/23 04:06 11/16/23 04:00 11/16/23 03:54 11/16/23 03:51 11/16/23 03:48 11/16/23 03:33 11/16/23 03:27 11/16/23 03:24 11/16/23 03:03 11/16/23 03:00 11/16/23 02:51 11/16/23 02:48 11/16/23 02:45 11/16/23 02:36 11/16/23 02:33 11/16/23 02:21 11/16/23 02:18 11/16/23 02:15 11/16/23 02:12 11/16/23 02:09 11/16/23 01:57 11/16/23 01:36 11/16/23 01:33 11/16/23 01:27 11/16/23 01:24 11/16/23 01:18 11/16/23 01:15 11/16/23 01:12 11/16/23 01:09 11/16/23 01:06 11/16/23 01:05 Room Air 11/16/23 00:42 11/16/23 00:24 11/16/23 00:21 11/16/23 00:09 11/16/23 00:03 11/15/23 23:45 11/15/23 23:42 11/15/23 23:39 11/15/23 23:15 PG Care Time/CCT Total # of Minutes Spent Total Time Spent with Patient: Total time spent is greater than 50% in coordination of care (as documented) at patient's floor/unit and/or counseling patient: Coding Level of Care Code 73001 SUB INP/OBS CARE 2/35MIN Diagnoses Acute respiratory failure with hypoxia J96.01 Atrial fibrillation with rapid ventricular response I48.91 Acute blood loss anemia D62 ILD (interstitial lung disease) J84.9 Metabolic encephalopathy G93.41 Babesiosis B60.00 Severe sepsis A41.9; R65.20 Acute Lyme disease A69.20 Bilateral pneumonia J18.9
--- NOTE | 2023-11-16 10:20 | Cardiology Consultation ---
Date of Consultation November 16, 2023 Assessment & Plan (1) Paroxysmal atrial fibrillation: (2) Mitral regurgitation: (3) Tricuspid regurgitation: (4) Elevated troponin: (5) Pulmonary hypertension: Plan ASSESSMENT/PLAN: 1. Atrial fibrillation: Persistent and previously noted as paroxysmal. Has undergone ablation x 2. Current episode at least 1 to 2 weeks. Discontinue flecainide for now. Given that she has not been on anticoagulation therapy, would not want to precipitate conversion to sinus rhythm. She is well rate controlled with metoprolol 50 mg twice daily. Continue current regimen. Can also use oral diltiazem which was used in the outpatient setting, if necessary. When safe from an anemia/bleeding concerns standpoint, resume anticoagulation therapy. Once anticoagulated for 4 weeks, without interruption, could attempt cardioversion but if tolerating rate controlled atrial fibrillation well, could consider rate control strategy going forward. This decision can be made by her primary rail tractor operator in the outpatient setting. If she does not tolerate atrial fibrillation once active, could consider transesophageal echo and cardioversion if no contraindications. For now, rate control strategy. Treatment strategies discussed with patient/, and there was agreement for current plan. 2. Pulmonary hypertension: Has interstitial lung disease. She appears euvolemic. As per pulmonology. 3. Mitral and tricuspid regurgitation: Nonsevere. Can be monitored in the outpatient setting with surveillance echoes. 4. Elevated troponin: Likely due to demand ischemia given sepsis/babesiosis, respiratory failure, and significant anemia. She did not present with acute coronary syndrome. Ischemic evaluation not necessary at this time. 5. Anemia: As per primary hospitalist service/hematology/GI. 6. Disposition: Please call with any other questions or concerns. Patient care communicated with Dr. Hopkins of the primary hospitalist service. Upon discharge, recommend that she follow-up with her primary mortgage accounting clerk, Dr. Klein. This was also discussed with her . Thank you for allowing me to participate in the care of your patient. Please call for any other questions or concerns. Sincerely, Agus Blanc M.D. History of Present Illness Reason for Consultation: Atrial fibrillation Requesting Physician: Sherry Hopkins MD Attending Physician: Sherry Hopkins MD History of Present Illness Mrs. Key is a pleasant 78-year-old female with a history significant for paroxysmal atrial fibrillation s/p ablation x 2 (Dr. Klein - EP), interstitial lung disease, PMR, MGUS, and dyslipidemia. Her primary rail tractor operator/mortgage accounting clerk is with [facility], Dr. Klein. Atrial fibrillation was initially diagnosed in 2011 according to outpatient cardiology records. She has had the following studies/procedures: 1. A-fib ablation 05/03/2020 2. A-fib ablation 06/06/2021 She was admitted on 11/08/2023 and has been diagnosed with babesiosis, sepsis, acute respiratory failure with hypoxia, metabolic encephalopathy, anemia, bilateral pneumonia and atrial fibrillation. History was provided by her , who is a retired physician and present at the bedside, the patient herself, and also upon review of records. Her states that approximately 1 week before presentation, she had informed him that she was in atrial fibrillation. He states that she was ill for 2 weeks prior to her hospitalization. She had low-grade fevers and then a fever as high as 104 F prior to hospitalization. She was confused. She vomited on 1 or 2 occasions. Initially as an outpatient, she was seen by other providers who thought perhaps she was having PMR flare and she was given increased steroids. She has chronic shortness of breath and follows with pulmonology for interstitial lung disease. She feels very weak and from this hospital stay. She denies palpitations or chest pain. She does not typically have edema but after fluid resuscitation for sepsis, her states that she was edematous but has since been diuresed. He states that when she typically has atrial fibrillation in the past, she has been able to sense it, but had no other significant symptoms such as associated shortness of breath, chest pain, or palpitations. She has been anemic here with a hemoglobin as low as 6.3 on 11/08/2023. She has received blood products. Patient has been denies melena or hematochezia but apparently stool was heme positive according to records. She has been seen by GI who does not plan to proceed with endoscopy while here. She had a colonoscopy in May 2023 notable for diverticulosis. She has been seen by hematology while here. Anticoagulation therapy has been held. She continues to receive flecainide which she uses in the outpatient setting. Review of systems: As above. Family history: Younger brother had CABG in his 50s. Father had atrial fibrillation. Older brother had atrial fibrillation. Social history: Denies tobacco, alcohol, or drug abuse. Lives at home with her in [place]. Her is a retired general surgeon. 4 children. 10 grandchildren. Her was present at the bedside. Allergies Allergy/AdvReac Type Severity Reaction Status Date / Time Methacrylate Analogues Allergy Severe found Verified 11/09/23 00:38 during allergy testing. naproxen [From Naprosyn] AdvReac Intermediate diarrhea Verified 11/08/23 03:02 Home Medications Medication Instructions Recorded Confirmed Type apixaban 5 mg tablet (Eliquis) 5 mg PO BID 09/27/19 11/08/23 History fish oil-dha-epa 1,200 mg-144 1 cap PO QAM 09/27/19 11/08/23 History mg-216 mg capsule multivitamin with minerals 2 tab PO DAILY 07/31/21 11/08/23 History (Hair,Skin and Nails tablet) atorvastatin 80 mg tablet (Lipitor) 80 mg PO DAILY 02/06/22 11/08/23 History calcium carbonate 500 mg PO DAILY 02/06/22 11/08/23 History raloxifene 60 mg tablet 60 mg PO QAM #90 tabs 02/06/22 11/08/23 Rx cholecalciferol (vitamin D3) 25 50 mcg PO DAILY 08/03/22 11/08/23 History mcg (1,000 unit) capsule flecainide 100 mg tablet 50 mg PO BID 08/03/22 11/08/23 History omeprazole 20 mg capsule,delayed 20 mg PO DAILY 08/03/22 11/08/23 History release Flutter Valve #1 ea 02/05/23 11/02/23 Rx diltiazem HCl 120 mg See Rx Instructions .Route .COMPLEX 07/07/23 11/08/23 History capsule,extended release 12 hr ferrous sulfate 325 mg (65 mg 325 mg PO DAILY 07/07/23 11/08/23 History iron) tablet acetaminophen 325 mg capsule 325 mg PO QID PRN PAIN/FEVER 10/26/23 11/08/23 History (Tylenol) mecobalamin (vitamin B12) 1,000 1,000 mcg PO DAILY #30 tabs 10/26/23 11/08/23 Rx mcg chewable tablet prednisone 20 mg tablet 20 mg PO DAILY #30 tabs 10/26/23 11/08/23 Rx pregabalin 50 mg capsule (Lyrica) 50 mg PO BID #60 caps 10/26/23 11/08/23 Rx gabapentin 600 mg tablet 300 mg PO DAILY 11/02/23 11/08/23 History prednisone 5 mg tablet 15 mg (3 x 5 mg) PO DAILY #90 tabs 11/02/23 11/08/23 Rx alendronate 70 mg tablet 70 mg PO WK 11/08/23 11/08/23 History amoxicillin 875 mg tablet 875 mg PO BID 11/08/23 11/08/23 History Problem List (Updated 11/16/23 @ 13:03 by Mitul Blanc MD) Pulmonary hypertension Elevated troponin Tricuspid regurgitation Mitral regurgitation Severe sepsis ILD (interstitial lung disease) Metabolic encephalopathy Acute pulmonary edema Babesiosis Pulmonary edema Sepsis Current use of steroid medication Bilateral pneumonia Acute respiratory failure with hypoxia Acute blood loss anemia GI bleed Hyponatremia (Acute) Acute Lyme disease (Acute) Atrial fibrillation with rapid ventricular response (Acute) Sepsis (Acute) Confusion (Acute) Anemia (Acute) Multifocal pneumonia (Acute) PMR (polymyalgia rheumatica) Osteoporosis Status post right knee replacement (07/19/23) Dyspnea on exertion Abnormal CT scan, lung Monoclonal gammopathy of unknown significance (MGUS) Prediabetes Paroxysmal atrial fibrillation (2011) Dx'ed in 2011- on Eliquis - had AF with RVR July 2019- underwent BILL guided DCCV. Recently had ILR implanted 11/2019. Hyperlipidemia Generalized osteoarthritis of multiple sites Diverticulosis Benign essential hypertension Arthritis Renal oncocytoma Vitamin D deficiency GERD (gastroesophageal reflux disease) Acrocyanosis IgG lambda monoclonal gammopathy Patient History Surgical History History of arthroplasty of right knee (07/19/23) Status post left knee replacement (12/23/22) S/P ablation of atrial fibrillation (04/2020) Hx of partial nephrectomy (03/07/20) 03/07/20 Dr. Jhon Gant- Left robotic partial nephrectomy History of cardioversion July 2019 History of bronchoscopy 1979' Status post placement of implantable loop recorder (11/2019) [employer]. Implanted Nov 2019 > follows dr. poncho ng cardiology History of tonsillectomy and adenoidectomy S/P arthroscopic knee surgery right S/P hysterectomy secondary to fibroids S/P section x4 Family History Father Coronary heart disease Prostate cancer Myocardial infarction, Onset Age: 75 Hypertension Brother Alcohol abuse Heart disease Sister Breast cancer, Onset Age: 29 Mother Diabetes Hypertension Heart disease Grandmother (Maternal) Ovarian cancer Social History Smoking Status: Never smoker Second Hand Exposure: No; Do You Dip or Chew Tobacco: No; Hx Alcohol Use: No Hx Substance Use: No Preferred Language: Wolof Communication Ability: Effective Visual Impairment: No Limitations Hearing Ability: Use of Hearing Aid Butcher Helper Required: No Beliefs That Will Affect Care: None marital status: Current Living Situation: Spouse current occupational status: retired Feels Safe at Home: Yes Childhood Exposure to Second-Hand Smoke: Yes Diet: regular Diet Comment: regular caffeine: No (1/2 caffeine) during the past year weight has: remained stable Dental Care, Regularly: Yes Physical Activity Frequency: Daily Physical Activity Frequency Comment: stairs Seatbelt Use: always Sunscreen Use: Yes Assistive Devices: Glasses and Hearing Aid - Bilateral Physical Exam Physical Exam: Gen.: No acute distress. Alert. HEENT: Anicteric sclera. Neck: No JVD. No bruits. Normal carotid upstrokes bilaterally. Cardiac: Irregularly irregular. Normal heart rate. Normal S1-S2. No murmurs, rubs, or gallops. Pulmonary: Bibasilar rales. Abdomen: Soft, nontender, nondistended, with hypoactive bowel sounds. No bruits noted. Extremities: 2+ radial pulses bilaterally. 2+ posterior tibialis pulses bilaterally. No edema or cyanosis. Results & Data Vital Signs (Past 12 Hours) Vital Signs Temp Pulse Pulse Resp BP BP Pulse Ox 11/16/23 09:09 36.6 C 111 H 18 130/83 92 11/16/23 06:34 115 H 132/73 11/16/23 06:03 110 H 19 11/16/23 06:00 128 H 18 11/16/23 05:42 110 H 19 11/16/23 05:36 115 H 15 11/16/23 05:24 119 H 19 11/16/23 05:24 36.8 C 11/16/23 05:06 107 H 19 11/16/23 04:57 103 H 21 11/16/23 04:39 109 H 10 L 11/16/23 04:30 116 H 13 11/16/23 04:21 118 H 18 11/16/23 04:15 91 11/16/23 04:15 119 H 19 11/16/23 04:06 111 H 20 11/16/23 04:00 114 H 19 11/16/23 03:54 122 H 19 11/16/23 03:51 132 H 19 11/16/23 03:48 106 H 19 11/16/23 03:33 118 H 17 11/16/23 03:27 115 H 19 11/16/23 03:24 113 H 18 11/16/23 03:03 130 H 19 11/16/23 03:00 115 H 19 11/16/23 02:51 119 H 20 11/16/23 02:48 110 H 19 11/16/23 02:45 109 H 19 11/16/23 02:36 106 H 18 11/16/23 02:33 118 H 20 11/16/23 02:21 110 H 19 11/16/23 02:18 111 H 20 11/16/23 02:15 117 H 18 11/16/23 02:12 111 H 19 11/16/23 02:09 121 H 20 11/16/23 01:57 125 H 13 91 11/16/23 01:36 116 H 19 93 11/16/23 01:33 113 H 18 91 11/16/23 01:27 112 H 19 89 L 11/16/23 01:24 114 H 19 89 L 11/16/23 01:18 112 H 20 89 L 11/16/23 01:15 109 H 18 89 L 11/16/23 01:12 127 H 18 90 11/16/23 01:09 114 H 15 89 L 11/16/23 01:06 110 H 13 90 11/16/23 01:05 92 11/16/23 00:42 105 H 20 92 11/16/23 00:24 117 H 20 91 11/16/23 00:21 114 H 21 92 11/16/23 00:09 112 H 20 90 11/16/23 00:03 115 H 21 91 11/15/23 23:45 103 H 18 93 11/15/23 23:42 114 H 19 94 11/15/23 23:39 113 H 19 94 11/15/23 23:15 110 H 14 94 O2 Del Method 11/16/23 09:09 Room Air 11/16/23 06:34 11/16/23 06:03 11/16/23 06:00 11/16/23 05:42 11/16/23 05:36 11/16/23 05:24 11/16/23 05:24 11/16/23 05:06 11/16/23 04:57 11/16/23 04:39 11/16/23 04:30 11/16/23 04:21 11/16/23 04:15 Room Air 11/16/23 04:15 11/16/23 04:06 11/16/23 04:00 11/16/23 03:54 11/16/23 03:51 11/16/23 03:48 11/16/23 03:33 11/16/23 03:27 11/16/23 03:24 11/16/23 03:03 11/16/23 03:00 11/16/23 02:51 11/16/23 02:48 11/16/23 02:45 11/16/23 02:36 11/16/23 02:33 11/16/23 02:21 11/16/23 02:18 11/16/23 02:15 11/16/23 02:12 11/16/23 02:09 11/16/23 01:57 11/16/23 01:36 11/16/23 01:33 11/16/23 01:27 11/16/23 01:24 11/16/23 01:18 11/16/23 01:15 11/16/23 01:12 11/16/23 01:09 11/16/23 01:06 11/16/23 01:05 Room Air 11/16/23 00:42 11/16/23 00:24 11/16/23 00:21 11/16/23 00:09 11/16/23 00:03 11/15/23 23:45 11/15/23 23:42 11/15/23 23:39 11/15/23 23:15 Laboratory Results Laboratory Results - last 24 hr 11/16/23 04:29 WBC 9.23 RBC 3.24 L Hgb 8.7 L Hct 27.2 L MCV 84.0 MCH 26.9 MCHC 32.0 RDW Std Deviation 52.1 H RDW Coeff of Sanjuana 18.3 H Plt Count 198 MPV 12.1 Immature Gran % (Auto) 3.3 Neut % (Auto) 59.1 Lymph % (Auto) 26.2 Gillespie % (Auto) 11.1 Eos % (Auto) 0.1 Baso % (Auto) 0.2 Neut # (Auto) 5.46 Lymph # (Auto) 2.42 Gillespie # (Auto) 1.02 H Eos # (Auto) 0.01 Baso # (Auto) 0.02 Immature Gran # (Auto) 0.30 H Absolute Nucleated RBC 0.05 Nucleated RBC % (auto) 0.5 Sodium 136 Potassium 3.8 Chloride 104 Carbon Dioxide 27 Anion Gap 5 BUN 39 H Creatinine 0.64 Est Cr Clr Drug Dosing 69.6 Est GFR ( Amer) 99.1 Est GFR (Non-Af Amer) 85.5 BUN/Creatinine Ratio 60.9 H Glucose 93 Calcium 8.0 L Magnesium 2.1 Total Bilirubin 1.3 H AST 31 ALT 31 Alkaline Phosphatase 57 C-Reactive Protein 2.25 H Total Protein 5.7 L Albumin 2.8 L Globulin 2.9 Albumin/Globulin Ratio 1.0 Diagnostic Findings Telemetry personally reviewed: Atrial fibrillation throughout. Heart rates well-controlled today but previously tachycardic at times. ECGs personally reviewed: ECG 11/08/2023 at 2:29 AM: A-fib RVR [address]/T wave abnormality. ECG 11/14/2023 10:05 AM: A-fib RVR 111 bpm. ECG 11/15/2023 1533: A-fib RVR 126 bpm. Echo 11/10/2023: Normal LV size, wall motion, systolic function. EF 60 to 65%. At least mild MR. Moderate TR. Mild pulmonary hypertension. Labs notable for elevated BNP, mildly elevated high-sensitivity troponin peaking at 36, normal renal function, elevated BUN, normal potassium, normal transaminase levels, normal TSH, anemia with hemoglobin as low as 6.3 on 11/08/2023. Blood peripheral smear 11/10/2023: Plasmodium/Babesia. History and physical report reviewed. Chest x-ray 11/14/2023: Mildly decreased pulmonary edema per radiology. Small pleural effusions. CT chest 11/11/2023: Interstitial pulmonary edema with small pleural effusions. Alveolar pulmonary edema with bibasilar opacities. Mild mediastinal and hilar lymphadenopathy. Medications Administered Current Inpatient Medications Acetaminophen (Acetaminophen 325 Mg Tab) 650 mg PO Q4H PRN PRN Reason: Pain or fever Stop: 12/15/23 15:24 Atorvastatin Calcium (Atorvastatin 40 Mg Tab) 80 mg PO QAM LEN Stop: 12/15/23 09:32 Last Admin: 11/16/23 08:20 Dose: 80 mg Atovaquone (Atovaquone 750 Mg/5 Ml Udc) 750 mg PO Q12H LEN Stop: 12/08/23 08:59 Last Admin: 11/16/23 08:20 Dose: 750 mg Bisacodyl (Bisacodyl 10 Mg Supp) 10 mg MA DAILY PRN PRN Reason: Constipation Stop: 12/08/23 10:16 Last Admin: 11/16/23 10:33 Dose: 10 mg Flecainide Acetate (Flecainide Acetate 100 Mg Tablet) 50 mg PO BID LEN Stop: 12/08/23 08:59 Last Admin: 11/16/23 08:21 Dose: 50 mg Azithromycin 1,000 mg/ (Dextrose) 260 mls @ 127.5 mls/hr IV Q24H LEN Stop: 11/19/23 08:59 Last Infusion: 11/16/23 10:29 Dose: Infused Doxycycline Hyclate 100 mg/ (Dextrose) 100 mls @ 50 mls/hr IV Q12H LEN Stop: 11/21/23 10:59 Last Admin: 11/16/23 10:30 Dose: 50 mls/hr Pantoprazole Sodium 40 mg/ (Syringe) 10 mls @ 5 mls/min IV BID LEN Stop: 12/13/23 08:59 Last Admin: 11/16/23 08:23 Dose: 5 mls/min Methylprednisolone 40 mg/ (Syringe) 0.64 mls @ 1.5 mls/min IV DAILY LEN Stop: 12/15/23 08:59 Last Admin: 11/16/23 08:22 Dose: 1.5 mls/min Cefepime HCl 2,000 mg/ Syringe 20 mls @ 5 mls/min IV Q8H LEN; Protocol Stop: 11/18/23 11:44 Last Admin: 11/16/23 10:29 Dose: 5 mls/min Metoprolol Tartrate (Metoprolol Tartrate 50 Mg Tab) 50 mg PO BID LEN Stop: 12/16/23 08:59 Last Admin: 11/16/23 08:22 Dose: 50 mg PG Care Time/CCT Total # of Minutes Spent Total Time Spent with Patient: Total time spent is greater than 50% in coordination of care (as documented) at patient's floor/unit and/or counseling patient: Coding Level of Care Code 04740 INT INP/OBS CARE 3/75MIN Diagnoses Paroxysmal atrial fibrillation I48.0 Mitral regurgitation I34.0 Tricuspid regurgitation I07.1 Elevated troponin R79.89 Pulmonary hypertension I27.20
[2023-11-16] MEDS: bisacodyL 10 MG SUPP PR PRN (10:33)
--- NOTE | 2023-11-16 11:35 | Hospitalist Progress Note ---
Date of Service November 16, 2023 Assessment & Plan (1) Babesiosis: Plan: Presented with weakness, fevers, acute hypoxic respiratory failure, acute metabolic encephalopathy, found to have significant anemia, thrombocytopenia, elevated LFTs, bibasilar pneumonia, elevated procalcitonin, and positive babesiosis smear and Lyme titer. 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 Because her parasitemia level was improving, she is not a candidate for plasmapheresis so the transfer was canceled. Continue azithromycin 1000 mg daily, atovaquone 750 mg p.o. every 12 hours, with plan to decrease azithromycin to 500 mg daily once more clinically stable-defer to ID when to change dose Continue doxycycline 100 mg every 12 hours for coverage for Lyme disease as well as empirically for anaplasmosis-repeat anaplasmosis PCR pending. Needs 3 weeks of treatment for Lyme through 11/28/23 Continue cefepime for pneumonia coverage-last day of tx 11/17/23 Monitor QTc on flecainide and azithromycin-ECG on 11/13 and 11/14 with normal QTc- discontinuing flecainide now Follow smear with parasitemia percentage-on 11/14 down to 0.1% Overall improving, extubated, and downgrade out of the ICU on 11/14 Follow CBC, CMP (2) Sepsis: Plan: Present on admission. Secondary to babesiosis and acute Lyme disease as well as possible secondary bacterial pneumonia. Blood cultures negative. Chest x-ray appears to be improving. I suspect she had a combination of fluid overload and possibly ARDS. She transiently required Levophed consistent with septic shock. Bronchoscopy washings are negative Continue antibiotics as noted above Follow up Bronch cx ( bacteria/ fungal)-no growth prelim, f/u coccio, pjp, histo /blasto studies. (3) Acute Lyme disease: Plan: Continue doxycycline through 11/28/23 (4) Paroxysmal atrial fibrillation: Plan: Has been in atrial fibrillation throughout her stay with rates as high as 140s. Has a h/o aflutter ablations. Follows with Dr. Klein in [place] Increased p.o. metoprolol to 50 mg p.o. twice daily IV lopressor as needed Consulted Cardiology--> dc flecainide to avoid chemical conversion given she has been off Eliquis x 8 days. Consider DC cardioversion after back on Eliquis for 4 weeks if not tolerating clinically Ok to resume Eliquis now as anemia from hemolysis and having brown stool despite Heme positive. Hgb stable at 8.7 and platelets are normal (5) Acute respiratory failure with hypoxia: Plan: Oxygen requirements escalated and she was transferred to the intensive care unit on November 11 and required intubation. Fluid overload was contributing in setting of chronic ILD and has been treated with intravenous Lasix and albumin, steroids Extubated on 11/14 and now weaned off supplemental O2 to room air CXR 11/13 with mild pulm edema, small effusions Continue Lasix as needed-none needed today Can now stop steroids Encourage ICS f/u with PULM as outpt for ILD. Autoimmune panel pending (6) Metabolic encephalopathy: Plan: Present on admission, secondary to sepsis and babesiosis as above-now much improved CT head negative Continue treatment of infection Supportive care, mobilization Remove Marrufo, work on bowel regimen-added Miralax, docusate Holding home Lyrica (7) Anemia: Plan: Likely secondary to hemolytic anemia from babesiosis. Fecal occult blood is p ositive but no overt melena or hematochezia. She received 3 units of PRBCs. Hemoglobin drifted down to 7.7 But is now up to 8.7 B12, folate normal, ferritin significantly elevated related to acute illness Hematology consultation noted Eliquis to be resumed Continue Protonix therapy but convert to po. GI consultation appreciated. No endoscopy planned at this time. Earlier this year she had a normal colonoscopy Follow CBC (8) Bilateral pneumonia: Plan: Requiring mechanical ventilation after respiratory failure. No overt hemoptysis. Diffuse bilateral infiltrate seen on chest x-ray are resolving. Infectious disease consultation appreciated. Rocephin has been switched to cefepime. Azithromycin dosages has been increased. She is also on atovaquone and doxycycline. Follow chest x-ray periodically Bronchial culture negative Follow up coccio, pjp, histo /blasto studies (9) Current use of steroid medication: Plan: She was recently seen by rheumatology and started on oral prednisone for suspected PMR Initially treated with IV hydrocortisone in the ICU then switched to methylprednisolone on November 11. Can now dc steroids (10) Benign essential hypertension: Plan: She transiently required pressor support postintubation. 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 PT/OT consults placed. She will need rehab but is not medically stable for discharge-possibly discharge in 1-2 days Admission and Anticipated Discharge Date Admission Date: November 08, 2023 Subjective Pt feeling sad today as she is missing her granddaughter's birthday and a family trip to the beach. SHe feels SOB she says all the time even before hospitalization.She worked with PT/OT this AM. Tele with Afib rates 120s overnight and improved to 90-100s this AM with IV lopressor and increased dose of metoprolol. I discussed her care with Cardiology and with her at the bedside Physical Exam Constitutional: WD/WN, vitals as above Respiratory: normal respiratory effort and + cough Auscultation: + crackles (Bibasilar); no rhonchi and no wheezes Cardiovascular: Rate/Rhythm: + tachycardic and + irregularly irregular Heart Sounds: no murmur Extremities: no edema Gastrointestinal (Abdomen): normal bowel sounds, soft, nontender, no hepatosplenomegaly Psychiatric: Orientation: alert, oriented to person and cooperative Results & Data Results & Data Vital Signs (Past 12 Hours) Vital Signs Temp Pulse Pulse Resp BP BP Pulse Ox 11/16/23 09:09 36.6 C 111 H 18 130/83 92 11/16/23 06:34 115 H 132/73 11/16/23 06:03 110 H 19 11/16/23 06:00 128 H 18 11/16/23 05:42 110 H 19 11/16/23 05:36 115 H 15 11/16/23 05:24 119 H 19 11/16/23 05:24 36.8 C 11/16/23 05:06 107 H 19 11/16/23 04:57 103 H 21 11/16/23 04:39 109 H 10 L 11/16/23 04:30 116 H 13 11/16/23 04:21 118 H 18 11/16/23 04:15 91 11/16/23 04:15 119 H 19 11/16/23 04:06 111 H 20 11/16/23 04:00 114 H 19 11/16/23 03:54 122 H 19 11/16/23 03:51 132 H 19 11/16/23 03:48 106 H 19 11/16/23 03:33 118 H 17 11/16/23 03:27 115 H 19 11/16/23 03:24 113 H 18 11/16/23 03:03 130 H 19 11/16/23 03:00 115 H 19 11/16/23 02:51 119 H 20 11/16/23 02:48 110 H 19 11/16/23 02:45 109 H 19 11/16/23 02:36 106 H 18 11/16/23 02:33 118 H 20 11/16/23 02:21 110 H 19 11/16/23 02:18 111 H 20 11/16/23 02:15 117 H 18 11/16/23 02:12 111 H 19 11/16/23 02:09 121 H 20 11/16/23 01:57 125 H 13 91 11/16/23 01:36 116 H 19 93 11/16/23 01:33 113 H 18 91 11/16/23 01:27 112 H 19 89 L 11/16/23 01:24 114 H 19 89 L 11/16/23 01:18 112 H 20 89 L 11/16/23 01:15 109 H 18 89 L 11/16/23 01:12 127 H 18 90 11/16/23 01:09 114 H 15 89 L 11/16/23 01:06 110 H 13 90 11/16/23 01:05 92 11/16/23 00:42 105 H 20 92 11/16/23 00:24 117 H 20 91 11/16/23 00:21 114 H 21 92 11/16/23 00:09 112 H 20 90 11/16/23 00:03 115 H 21 91 11/15/23 23:45 103 H 18 93 11/15/23 23:42 114 H 19 94 11/15/23 23:39 113 H 19 94 O2 Del Method 11/16/23 09:09 Room Air 11/16/23 06:34 11/16/23 06:03 11/16/23 06:00 11/16/23 05:42 11/16/23 05:36 11/16/23 05:24 11/16/23 05:24 11/16/23 05:06 11/16/23 04:57 11/16/23 04:39 11/16/23 04:30 11/16/23 04:21 11/16/23 04:15 Room Air 11/16/23 04:15 11/16/23 04:06 11/16/23 04:00 11/16/23 03:54 11/16/23 03:51 11/16/23 03:48 11/16/23 03:33 11/16/23 03:27 11/16/23 03:24 11/16/23 03:03 11/16/23 03:00 11/16/23 02:51 11/16/23 02:48 11/16/23 02:45 11/16/23 02:36 11/16/23 02:33 11/16/23 02:21 11/16/23 02:18 11/16/23 02:15 11/16/23 02:12 11/16/23 02:09 11/16/23 01:57 11/16/23 01:36 11/16/23 01:33 11/16/23 01:27 11/16/23 01:24 11/16/23 01:18 11/16/23 01:15 11/16/23 01:12 11/16/23 01:09 11/16/23 01:06 11/16/23 01:05 Room Air 11/16/23 00:42 11/16/23 00:24 11/16/23 00:21 11/16/23 00:09 11/16/23 00:03 11/15/23 23:45 11/15/23 23:42 11/15/23 23:39 Laboratory Results CBC, BMP, LFTs, CRP reviewed PG Care Time/CCT Total # of Minutes Spent Total Time Spent with Patient: Total time spent is greater than 50% in coordination of care (as documented) at patient's floor/unit and/or counseling patient: Coding Level of Care Code 79670 SUB INP/OBS CARE 50MIN Diagnoses Babesiosis B60.00 Sepsis A41.9 Acute Lyme disease A69.20 Paroxysmal atrial fibrillation I48.0 Acute respiratory failure with hypoxia J96.01 Metabolic encephalopathy G93.41 Anemia D64.9 Bilateral pneumonia J18.9 Current use of steroid medication Z79.52 Benign essential hypertension I10 IgG lambda monoclonal gammopathy D47.2 GERD (gastroesophageal reflux disease) K21.9
[2023-11-16] MEDS: POLYETHYLENE (MIRALAX) 17 GM PACK PO SCH (12:09)
[2023-11-16] MEDS: APIXABAN 5 MG TABLET PO SCH (13:09)
--- NOTE | 2023-11-16 14:29 | Infectious Disease Progress Nt ---
Date of Service November 16, 2023 Assessment & Plan (1) Sepsis: (2) Bilateral pneumonia: (3) Acute respiratory failure with hypoxia: (4) Acute Lyme disease: (5) Babesiosis: Plan This is a 78-year-old female with a past medical history of atrial fibrillation status post ablation, partial nephrectomy, bilateral knee replacement, who presents with myalgias and confusion. She is a poor historian. Her is a retired surgeon and provides history. She underwent a left knee replacement in 12/2022 followed by a left knee replacement in 07/2023. 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 This was followed by bilateral lower extremity pain and ongoing neuropathy of unknown etiology. Approximately 2 weeks ago, she developed increased fatigue, arthralgias, myalgias with loss of appetite. She was seen by her PCP and Rheumatology and was diagnosed with possible PMR given elevated inflammatory markers. She was started on prednisone 20 mg per day. In the last few days, she developed fevers, confusion and vomited prompting her admission. Tmax at home 104. She traveled to [place] in August and then [place]. Both she and her live in a [place] area and have deer in the backyard. They also have been to many outdoor [place] games for their grandson this summer.. She denies mosquito or tick bites, change in urination, rash, headaches, vision changes, cough, shortness of breath. She took a few doses of amoxicillin and Tylenol with little relief. In the ED she was afebrile, heart rate 125, RR 30, blood pressure 129/62, O2 sats 87% on room air---> 98% oxy mask. Labs WBC 9.37 hemoglobin 7, hematocrit 20, platelets 70, BUN 31, creatinine 0.83, total bili 2, direct bili 0.4, AST 101, ALT 39, alk phos 64, procalcitonin 26.5. Anaplasma smear negative. Anaplasma PCR negative ( 10/25). Babesia smear with red blood cell inclusions noted. PCR and Pathology obtained and were pending at time of initial visit. .Lyme screen and confirmatory testing positive. Respiratory viral panel negative. Chest x-ray with bibasilar opacities suggestive of pneumonia and Left suprahilar nodular opacities. CTAP shows significant interval worsening of bibasilar pneumonia versus pulmonary edema; enlarged heart. Head CT with no evidence of acute intracranial pathology. She initially received a dose of Zosyn She was receiving ceftriaxone, azithromycin, and atovaquone. ID consulted for possible babesiosis and Lyme disease. Antibiotics ceftriaxone 11/06, 11/07- 11/10 Cefepime 11/10-ongoing Zosyn 11/06 Atovaquone 11/07- ongoing Azithromycin 11/07-ongoing Doxycycline 11/10- ongoing Micro: Blood cultures 11/07 NGTD Lyme screen, confirmatory testing 11/07 positive Anaplasma PCR 10/25 negative, pending this admission Anaplasma smear 11/07 No evidence of intracytoplasmic neutrophilic inclusions to suggest Anaplasmosis. Babesia PCR 11/07 DETECTED Babesia smear 11/07 microcytic anemia and frequent intracellular ring form parasites Peripheral smear 5%-9.9% parasites ( 11/09)-->2.0%-4.9% ( 11/10)--> 0.1%-0.9 % (11/14) Bronch cx /studies 11/11 NGTD # Fevers, resolved #Severe acute Babesiosis #Lyme disease ( lyme testing neg 10/25 but positive 11/07) ; coinfection with babesiosis #Acute hypoxic respiratory failure, resolved #Possible CAP vs pulm edema/ARDS #Ongoing Neuropathy several months #B/L TKA #Anemia, thrombocytopenia, resolving #Transaminitis, resolved # Procal elevated (26.5---> 44-->23) She has evidence of babesiosis with microcytic anemia and intracellular ring forms in red blood cells. Lyme testing consistent with Lyme disease. Anaplasma smear this admission and prior Anaplasma PCR on 10/25 negative Her clinical syndrome of fatigue, arthralgias, myalgias and lab findings of anemia, transaminitis and thrombocytopenia are consistent with a tickborne illness (specifically babesiosis and Lyme disease). Atovaquone and azithromycin will cover babesiosis. She is not immunocompromised and has her spleen. It does not appear that she has triple coinfection with anaplasmosis, but will repeat Anapl asma PCR. Procalcitonin noted to be elevated with infiltrates on chest x-ray. She was initially receiving Ceftriaxone for ?pna and Lyme coverage . We initially held doxycycline as no s/o coinfection with anaplasmosis. There is no signs on exam of knee involvement at her prosthetic joint sites. 11/08 and 11/09 febrile but curve trending down. Alert and conversant 11/10. Febrile in last 24 hours -T m 39.4 More sob. Late on 11/09 parasite count quantified as 5%-9.9%. Since her parasite count is > 4%, she has pulm edema on CXR, and HGB < 10 , this would be considered acute severe Babesiosis. We do not have a parasite count on admission, so unclear if parasitemia was higher at that time. Increases azithromycin dose from 500 mg --->1000 mg IV daily and continued atovaquone. Will treat with IV azith and then oral stepdown to 500mg once she clinically improves. Will check LDH, Haptoglobin and retic count for hemolysis. Concern for ? bleed as well as ? hemolytic anemia as stool blood + Also add doxycycline. Although ceftriaxone will cover known Lyme disease, it will not cover other tick borne illnesses. I have a lower suspicion for other tickborne diseases as her Anaplasma PCR was negative on 10/25 however it was not retested during this admission. Started definitive Anaplasma therapy with doxy and Changed Pna treatment from ceftriaxone --> Cefepime. Concern for worsening pulm function 11/11 Now intubated, febrile tachycardic.S/P bronchoscopy: Cx Pending . CXR worsening. ? ARDS. Parasite count down ( from 5% -9.9% to 2.0-4.9 %) but clinically not improving . Procal down from44--> 23. May need consideration for Exchange transfusion in setting of ?ARDS. LDH 1167-->894, Ast 84, tbili 1.5, Ck 19. Hapto globin pending. Heme onc on board. Complications of severe Babesiosis include ARDS, severe anemia, DIC , CHF, renal failure. If parasitemia > 10% or severe hemolytic anemia or pulmonary, renal or llver compromise, will need to consider exchange transfusion. 11/14 extubated, afebrile. Did not require exchange transfusion over weekend . WBC 10.29, H/H 8.5/26.6, plts 171 11/15- afebrile WBC 9.23, h/h8.7/27.2, plts 198, LFTS WNL. %parasites down to 0.1-0.9 %, anaplasma pcr negative. Off flecainide Recommendations;. -Complete cefepime 2 g iv 12 for coverage of possible Pneumonia 11/17/23 ( 10 days of therapy ceftriaxone--> Cefepime) -Continue doxycycline 100 mg IV every 12h for coverage of known Lyme Plan for 21 days of Lyme coverage ( include days received ceftriaxone) EOT 11/28/23 -Continue atovaquone 750 mg p.o. every 12 hours and azithromycin . Since she is clinically improving, can decrease from 1000 mg to 500 mg daily. The usual duration of therapy for immunocompetent patients with severe ba besiosis is 7 to 10 days. Will extend duration of therapy in her case to 14 days as she was slow to improve. At this time she has a parasitemia of 0.1%-0.9 %. TENTATIVE EOT 11/21. Will monitor parasite % and continued clinical response and will extend if stalled improvement. -Repeat Parasite count ordered for am Follow up Bronch cx ( bacteria/ fungal), coccio, pjp, histo /blasto studies. D/W team ID will continue to follow Petty Love MD, MPH Infectious Disease [facility], [facility] Call [phone] with questions. Admission and Anticipated Discharge Date Admission Date: November 08, 2023 Subjective Subsequent visit was provided via telemedicine using two-way real-time interactive telecommunication between the patient and the telemedicine provider. For the duration of the visit, the provider was performing the assessment from a different facility than the patient. This includesuse of bluetooth stethoscope forauscultationperformed by the telepresenter that the telemedicine provider can hear if described in the physical exam. Smoke Tester contact information: Please call [facility] . (Phone Number For Physician Use Only) After establishing a telemedicine visit, patient was: Patient was verified with two unique identifiers Time Spent with Patient: Subsequent => 25 min Afebrile She is awake and alert, feels tired Physical Exam Physical Exam: Gen- awake , alert on RA Neck- Supple HEENT- anicteric sclera Lungs- No increased work of breathing Cards- irregular Abd- soft, NT, ND Skin- pallor, no rash Neuro- sedated ext- No edema. Well healed BL TKA incisions Results & Data Vital Signs (Past 12 Hours) Vital Signs Temp Pulse Pulse Resp BP BP Pulse Ox 11/16/23 13:50 99 11/16/23 11:42 95 H 18 106/67 11/16/23 09:09 36.6 C 111 H 18 130/83 92 11/16/23 06:34 115 H 132/73 11/16/23 06:03 110 H 19 11/16/23 06:00 128 H 18 11/16/23 05:42 110 H 19 11/16/23 05:36 115 H 15 11/16/23 05:24 119 H 19 11/16/23 05:24 36.8 C 11/16/23 05:06 107 H 19 11/16/23 04:57 103 H 21 11/16/23 04:39 109 H 10 L 11/16/23 04:30 116 H 13 11/16/23 04:21 118 H 18 11/16/23 04:15 91 11/16/23 04:15 119 H 19 11/16/23 04:06 111 H 20 11/16/23 04:00 114 H 19 11/16/23 03:54 122 H 19 11/16/23 03:51 132 H 19 11/16/23 03:48 106 H 19 11/16/23 03:33 118 H 17 11/16/23 03:27 115 H 19 11/16/23 03:24 113 H 18 11/16/23 03:03 130 H 19 11/16/23 03:00 115 H 19 11/16/23 02:51 119 H 20 11/16/23 02:48 110 H 19 11/16/23 02:45 109 H 19 11/16/23 02:36 106 H 18 11/16/23 02:33 118 H 20 O2 Del Method 11/16/23 13:50 Room Air 11/16/23 11:42 Room Air 11/16/23 09:09 Room Air 11/16/23 06:34 11/16/23 06:03 11/16/23 06:00 11/16/23 05:42 11/16/23 05:36 11/16/23 05:24 11/16/23 05:24 11/16/23 05:06 11/16/23 04:57 11/16/23 04:39 11/16/23 04:30 11/16/23 04:21 11/16/23 04:15 Room Air 11/16/23 04:15 11/16/23 04:06 11/16/23 04:00 11/16/23 03:54 11/16/23 03:51 11/16/23 03:48 11/16/23 03:33 11/16/23 03:27 11/16/23 03:24 11/16/23 03:03 11/16/23 03:00 11/16/23 02:51 11/16/23 02:48 11/16/23 02:45 11/16/23 02:36 11/16/23 02:33 Laboratory Results Short CBC 11/16/23 Range/Units 04:29 WBC 9.23 (4.8-10.8) K/ul Hgb 8.7 L (12.0-16.0) g/dl Hct 27.2 L (37.0-47.0) % Plt Count 198 (130-400) K/uL BMP 11/16/23 04:29 Sodium 136 Potassium 3.8 Chloride 104 Carbon Dioxide 27 BUN 39 H Creatinine 0.64 Glucose 93 Calcium 8.0 L Liver Function 11/16/23 Range/Units 04:29 Total Bilirubin 1.3 H (0.2-1.0) mg/dl AST 31 (13-39) U/L ALT 31 (7-52) U/L Alkaline Phosphatase 57 (34-104) U/L Albumin 2.8 L (3.4-5.0) gm/dl Diagnostic Findings Microbiology 11/15/23 14:07 Blood Blood Parasites Smear - Final 11/12/23 10:30 Ba Lavage,Right Middle Lobe Fungal Smear - Final 11/12/23 10:30 Ba Lavage,Right Middle Lobe Fungal Culture - Preliminary No yeast or fungus isolated - Report 1, Additional Report to Follow. 11/12/23 19:58 Sputum, Expectorated Gram Stain - Final 11/12/23 19:58 Sputum, Expectorated Sputum Culture - Final Scant normal amanda. 11/12/23 10:30 Ba Lavage,Right Middle Lobe Gram Stain - Final 11/12/23 10:30 Ba Lavage,Right Middle Lobe Bronchial Culture - Final No growth 11/12/23 11:30 Ba Lavage,Right Middle Lobe Acid Fast Bacilli Smear - Final 11/08/23 02:37 Blood Aerobic Blood Culture - Final No growth in Aerobic bottle after 5 days. 11/08/23 02:37 Blood Anaerobic Blood Culture - Final No growth in Anaerobic bottle after 5 days. 11/08/23 02:20 Blood Aerobic Blood Culture - Final No growth in Aerobic bottle after 5 days. 11/08/23 02:20 Blood Anaerobic Blood Culture - Final No growth in Anaerobic bottle after 5 days. 11/12/23 11:41 Blood Blood Parasites Smear - Final 11/11/23 16:28 Blood Blood Parasites Smear - Final 11/09/23 Unknown Urine,Indwelling Cath Urine Culture - Final No growth - less than 1,000 colonies/mL. 11/10/23 14:36 Blood Blood Parasites Smear - Preliminary Chest X-Ray 11/14/23 07:00 XR chest 1V portable HISTORY: 78 years-old Female f/u acute respiratory failure COMPARISON: 11/13/2023 TECHNIQUE: AP view the chest FINDINGS: Endotracheal tube overlies the midline, 4.7 cm superior to the niurka. Enteric tube courses into the stomach with distal tip outside the [id number]. Heart is enlarged. Pulmonary vascular congestion with mixed interstitial and alveolar opacities and layering pleural effusions again noted. An electronic device projects over the left heart border. The bones appear intact. IMPRESSION: 1. Endotracheal and enteric tube positioning as above. 2. Cardiomegaly with mildly decreased pulmonary edema. 3. Small pleural effusions with bibasilar predominant airspace opacities redemonstrated. ACT 112: Negative or not required by law. The above report was generated using voice recognition software. It may contain grammatical, syntax or spelling errors. Electronically signed by: Anuj Lake M.D. 11/14/2023 8:48 AM KUB X-Ray 11/14/23 09:52 KUB HISTORY: Acute generalized abdominal pain abdominal pain COMPARISON: CT abdomen and pelvis 11/08/2023 FINDINGS: Cardiomegaly. Bibasilar interstitial and alveolar opacities again noted. An electronic device projects over the left heart border. Distal tip of enteric tube projects over the lower lumbar spine, likely within the distal distended stomach. No renal calculi. No ureteral calculi. No pneumoperitoneum or pneumatosis. No fracture. IMPRESSION: 1. Distal tip of enteric tube projects over the lower lumbar spine, likely within the distal stomach. 2. No bowel obstruction identified by radiography. 3. Cardiomegaly with chronic interstitial lung disease. ACT 112: Negative or not required by law. The above report was generated using voice recognition software. It may contain grammatical, syntax or spelling errors. Electronically signed by: Anuj Lake M.D. 11/14/2023 10:25 AM Medications Administered Home Medications Medication Instructions Recorded Confirmed Last Taken apixaban 5 mg tablet (Eliquis) 5 mg PO BID 09/27/19 11/08/23 11/07/23 fish oil-dha-epa 1,200 mg-144 1 cap PO QAM 09/27/19 11/08/23 11/07/23 mg-216 mg capsule multivitamin with minerals 2 tab PO DAILY 07/31/21 11/08/23 11/07/23 (Hair,Skin and Nails tablet) atorvastatin 80 mg tablet (Lipitor) 80 mg PO DAILY 02/06/22 11/08/23 11/07/23 calcium carbonate 500 mg PO DAILY 02/06/22 11/08/23 11/07/23 raloxifene 60 mg tablet 60 mg PO QAM #90 tabs 02/06/22 11/08/23 11/07/23 cholecalciferol (vitamin D3) 25 50 mcg PO DAILY 08/03/22 11/08/23 11/07/23 mcg (1,000 unit) capsule flecainide 100 mg tablet 50 mg PO BID 08/03/22 11/08/23 11/07/23 omeprazole 20 mg capsule,delayed 20 mg PO DAILY 08/03/22 11/08/23 11/07/23 release Flutter Valve #1 ea 02/05/23 11/02/23 Unknown diltiazem HCl 120 mg See Rx Instructions .Route .COMPLEX 07/07/23 11/08/23 11/07/23 capsule,extended release 12 hr ferrous sulfate 325 mg (65 mg 325 mg PO DAILY 07/07/23 11/08/23 11/07/23 iron) tablet acetaminophen 325 mg capsule 325 mg PO QID PRN PAIN/FEVER 10/26/23 11/08/23 Unknown (Tylenol) mecobalamin (vitamin B12) 1,000 1,000 mcg PO DAILY #30 tabs 10/26/23 11/08/23 11/07/23 mcg chewable tablet prednisone 20 mg tablet 20 mg PO DAILY #30 tabs 10/26/23 11/08/23 11/07/23 pregabalin 50 mg capsule (Lyrica) 50 mg PO BID #60 caps 10/26/23 11/08/23 11/02/23 13:26 gabapentin 600 mg tablet 300 mg PO DAILY 11/02/23 11/08/23 11/07/23 prednisone 5 mg tablet 15 mg (3 x 5 mg) PO DAILY #90 tabs 11/02/23 11/08/23 Unknown alendronate 70 mg tablet 70 mg PO WK 11/08/23 11/08/23 Unknown amoxicillin 875 mg tablet 875 mg PO BID 11/08/23 11/08/23 11/07/23 Active Medications Generic Name Dose Route Start Last Admin Trade Name Freq PRN Reason Stop Dose Admin Apixaban 5 mg 11/16/23 12:00 11/16/23 13:09 Apixaban 5 Mg Tablet PO 12/16/23 11:59 5 mg BID LEN Administration Atorvastatin Calcium 80 mg 11/15/23 09:33 11/16/23 08:20 Atorvastatin 40 Mg Tab PO 12/15/23 09:32 80 mg QAM LEN Administration Atovaquone 750 mg 11/08/23 09:00 11/16/23 08:20 Atovaquone 750 Mg/5 Ml Udc PO 12/08/23 08:59 750 mg Q12H LEN Administration Bisacodyl 10 mg 11/08/23 10:17 11/16/23 10:33 Bisacodyl 10 Mg Supp AL 12/08/23 10:16 10 mg DAILY PRN Administration Constipation Doxycycline Hyclate 100 mg/ 100 mls @ 50 mls/hr 11/11/23 11:00 11/16/23 12:35 Dextrose IV 11/29/23 08:59 Infused Q12H LEN Infusion Cefepime HCl 2,000 mg/ Syringe 20 mls @ 5 mls/min 11/15/23 10:00 11/16/23 10:29 IV 11/18/23 11:44 5 mls/min Q8H LEN Administration Protocol Metoprolol Tartrate 50 mg 11/16/23 09:00 11/16/23 08:22 Metoprolol Tartrate 50 Mg Tab PO 12/16/23 08:59 50 mg BID LEN Administration Polyethylene Glycol 17 gm 11/16/23 11:45 11/16/23 12:09 Polyethylene (Miralax) 17 Gm Pack PO 12/16/23 11:44 17 gm DAILY LEN Administration
[2023-11-16 15:42] LABS: Anti-dsDNA Recombinant <1 IU/mL
[2023-11-16] MEDS: DOCUSATE SODIUM 100 MG CAP PO SCH (20:42)
[2023-11-16] MEDS: PANTOprazole 40 MG TAB PO SCH (20:43)
[2023-11-17 06:33] LABS: Basophils # (auto) 0.01 K/uL (0.00-0.20); Basophils % (auto) 0.1 %; Eosinophils # (auto) 0.03 K/uL (0.00-0.50); Eosinophils % (auto) 0.3 %; Hematocrit (blood only) 28.1 % (37.0-47.0); Hemoglobin 8.9 g/dl (12.0-16.0); Immature Granulocytes # (auto) 0.46 K/uL (0.01-0.20); Immature Granulocytes % (auto) 4.8 %; Lymphocytes # (auto) 3.17 K/uL (1.20-3.40); Lymphocytes % (auto) 33.4 %; Mean Corpuscular Hemoglobin 27.1 pg (25.0-34.0); Mean Corpuscular Hgb Conc 31.7 g/dL (32.0-36.0); Mean Corpuscular Volume 85.4 fL (80.0-100.0); Mean Platelet Volume 11.2 fL (9.4-12.4); Monocytes # (auto) 0.97 K/uL (0.11-0.59); Monocytes % (auto) 10.2 %; Neutrophils # (auto) 4.86 K/uL (1.40-6.50); Neutrophils % (auto) 51.2 %; Nucleated RBC # (auto) 0.04 K/uL (0.00-0.12); Nucleated RBC % (auto) 0.4 %; Platelet Count 204 K/uL (130-400); RDW Coefficient of Variation 19.6 % (11.5-14.5); RDW Standard Deviation 54.2 fL (36.4-46.3); Red Blood Count 3.29 M/uL (4.20-5.40)
[2023-11-17 06:59] LABS: Albumin Level 2.7 gm/dl (3.4-5.0); BUN Creatinine Ratio 49.2 (10-20); Bilirubin,Total 1.3 mg/dl (0.2-1.0); Creatinine Clr Calc Pharmacy 73.1 ml/min; Est GFR (African American) 100.6 ml/min; Est GFR (Non-African American) 86.8 ml/min; Globulin 2.8 gm/dl (2.5-4.0); Magnesium 2.1 mg/dl (1.7-2.4); Potassium 3.8 mmol/L (3.5-5.1); Total Protein 5.5 gm/dl (6.0-8.3)
[2023-11-17] MEDS: AZITHROMYCIN 500 MG in DEXTROSE 5% 250 ML IV SCH (08:12)
--- NOTE | 2023-11-17 14:53 | Hospitalist Progress Note ---
Date of Service November 17, 2023 Assessment & Plan (1) Babesiosis: Plan: Presented with weakness, fevers, acute hypoxic respiratory failure, acute metabolic encephalopathy, found to have significant anemia, thrombocytopenia, elevated LFTs, bibasilar pneumonia, elevated procalcitonin, and positive babesiosis smear and Lyme titer. 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 Because her parasitemia level was improving, she is not a candidate for plasmapheresis so the transfer was canceled. Parasitemia level now consistently down to 0.1-0.9% as of 11/16 Continue azithromycin 500 mg daily, atovaquone 750 mg p.o. every 12 hours for total of 10 days through 11/21-monitor parasite percentage and continued clinical response-extend treatment course if stalled improvement as per ID Continue doxycycline 100 mg every 12 hours for coverage for Lyme disease for 3 weeks of treatment for Lyme through 11/28/23 Has now completed a 7-day course of ceftriaxone/cefepime for pneumonia coverage- bronc cultures negative, Coccidioides, histoplasma/Blastomyces, pneumocystis all from BAL are negative Monitor QTc on flecainide and azithromycin-ECG on 11/13 and 11/14 with normal QTc- discontinued flecainide Follow smear with parasitemia percentage-on 11/14 down to 0.1%-0.9% and again 0.1-0.9% on 11/16-can follow at rehab in 2 days Overall improving, extubated, and downgraded out of the ICU on 11/14 Follow CBC, CMP (2) Sepsis: Plan: Present on admission. Secondary to babesiosis and acute Lyme disease as well as possible secondary bacterial pneumonia. Blood cultures negative. Chest x-ray appears to be improving. I suspect she had a combination of fluid overload and possibly ARDS. She transiently required Levophed consistent with septic shock. Bronchoscopy washings are all negative Continue antibiotics as noted above (3) Acute Lyme disease: Plan: Continue doxycycline through 11/28/23 (4) Paroxysmal atrial fibrillation: Plan: Has been in atrial fibrillation throughout her stay with rates as high as 140s. Has a h/o aflutter ablations. Follows with Dr. Klein in [place] Increased p.o. metoprolol to 50 mg p.o. twice daily and rates are with improved control IV lopressor as needed Consulted Cardiology--> dc flecainide to avoid chemical conversion given she has been off Eliquis x 8 days. Consider DC cardioversion after back on Eliquis for 4 weeks if not tolerating clinically Have since resumed Eliquis on 11/15 as anemia most likely all from hemolysis and she is having brown stool despite being heme occult positive. Hgb stable at 8.9 and platelets are normal Continue to monitor on telemetry Follow-up with cardiology after discharge (5) Acute respiratory failure with hypoxia: Plan: Oxygen requirements escalated and she was transferred to the intensive care unit on November 11 and required intubation. Fluid overload was contributing in setting of chronic ILD and has been treated with intravenous Lasix and albumin, steroids Extubated on 11/14 and now weaned off supplemental O2 to room air CXR 11/13 with mild pulm edema, small effusions Can give Lasix as needed-none needed today Have since discontinued the steroids Encourage ICS f/u with PULM as outpt for ILD. Autoimmune laboratory workup remains pending except the double-stranded DNA antibody is negative (6) Metabolic encephalopathy: Plan: Present on admission, secondary to sepsis and babesiosis as above-now resolved CT head negative Continue treatment of infection Supportive care, mobilization Have discontinued Marrufo, she is now moving her bowels regularly Can now resume home Lyrica Add on Benadryl as needed at bedtime for sleep as she is not sleeping well. She has had a bad reaction to melatonin in the past and wants to avoid this (7) Anemia: Plan: Likely secondary to hemolytic anemia from babesiosis. Fecal occult blood is positive but no overt melena or hematochezia. She received 3 units of PRBCs. Hemoglobin drifted down to 7.7 But is now up to 8.9 and stable for days B12, folate normal, ferritin significantly elevated related to acute illness Hematology consultation noted Eliquis has been resumed Continue Protonix therapy po. GI consultation appreciated. No endoscopy planned at this time. Earlier this year she had a normal colonoscopy Follow CBC (8) Bilateral pneumonia: Plan: Requiring mechanical ventilation after respiratory failure. No overt hemoptysis. Diffuse bilateral infiltrates seen on chest x-ray are resolving. Infectious disease consultation appreciated. Has now completed a course of a combination of ceftriaxone and cefepime in addition to azithromycin for her pneumonia Follow chest x-ray to resolution in 4 weeks as an outpatient Bronchial culture negative as our coccio, pjp, histo /blasto studies (9) Current use of steroid medication: Plan: She was recently seen by rheumatology and started on oral prednisone for suspected PMR Initially treated with IV hydrocortisone in the ICU then switched to meth ylprednisolone on November 11. Have since discontinued the steroids and would not resume at this time Follow-up with rheumatology after discharge (10) Benign essential hypertension: Plan: She transiently required pressor support post-intubation. BPs are improved now Started on metoprolol and increased dose for rate control of Afib At home is on diltiazem but favor metoprolol (11) IgG lambda monoclonal gammopathy: Plan: No intervention at this time (12) GERD (gastroesophageal reflux disease): Plan: Continue PPI Plan DVT prophylaxis-Alex Sousa Disposition-continued stay on PCU but is improving and will likely be stable for discharge to acute rehab on 11/17. Admission and Anticipated Discharge Date Admission Date: November 08, 2023 Anticipated date of discharge: 11/18/23 Subjective Patient reports feeling lousy is very tired, and could not sleep all night. She does have pain in her legs from neuropathy and we discussed resuming her Lyrica. Feels she is at her baseline chronic shortness of breath. She is eating today but says that nothing tastes good but she did have a milkshake that was good. Moving her bowels more regularly now. Telemetry with atrial fibrillation with rates better controlled in the 90s to low 100s Physical Exam Constitutional: WD/WN, vitals as above Respiratory: normal respiratory effort Auscultation: + crackles (Bibasilar); no rhonchi and no wheezes Cardiovascular: Rate/Rhythm: regular rate and + irregularly irregular Heart Sounds: no murmur Extremities: no edema Gastrointestinal (Abdomen): normal bowel sounds, soft, nontender, no hepatosplenomegaly Psychiatric: Orientation: alert, oriented to person, oriented to place and cooperative Affect: + flat affect Results & Data Results & Data Vital Signs (Past 12 Hours) Vital Signs Temp Pulse Resp BP Pulse Ox O2 Del Method 11/17/23 12:00 36.5 C 91 H 16 109/71 96 Room Air 11/17/23 08:00 36.3 C L 121 H 22 134/92 94 Room Air 11/17/23 04:16 36.7 C 99 H 16 130/89 96 Room Air Laboratory Results CBC, CMP, magnesium, parasite smear all reviewed PG Care Time/CCT Total # of Minutes Spent Total Time Spent with Patient: Total time spent is greater than 50% in coordination of care (as documented) at patient's floor/unit and/or counseling patient: Coding Level of Care Code 31389 SUB INP/OBS CARE 3/50MIN Diagnoses Babesiosis B60.00 Sepsis A41.9 Acute Lyme disease A69.20 Paroxysmal atrial fibrillation I48.0 Acute respiratory failure with hypoxia J96.01 Metabolic encephalopathy G93.41 Anemia D64.9 Bilateral pneumonia J18.9 Current use of steroid medication Z79.52 Benign essential hypertension I10 IgG lambda monoclonal gammopathy D47.2 GERD (gastroesophageal reflux disease) K21.9
[2023-11-17] MEDS: PREGABALIN 50 MG CAP PO SCH (20:59)
[2023-11-17] MEDS: diphenhydrAMINE Capsule 25 MG CAP PO PRN (20:59)
[2023-11-18] MEDS: ACETAMINOPHEN 325 MG TAB PO PRN (00:24)
[2023-11-18 06:38] LABS: Est GFR (African American) 97.1 ml/min; Est GFR (Non-African American) 83.8 ml/min; Potassium 3.7 mmol/L (3.5-5.1)
[2023-11-18 06:39] LABS: Albumin Level 2.5 gm/dl (3.4-5.0); BUN Creatinine Ratio 32.4 (10-20); Bilirubin Direct 0.2 mg/dl (0-0.2); Bilirubin,Total 1.1 mg/dl (0.2-1.0); Calcium 7.9 mg/dl (8.6-10.3); Creatinine Clr Calc Pharmacy 65.6 ml/min; Magnesium 1.9 mg/dl (1.7-2.4)
[2023-11-18 06:41] LABS: Hematocrit (blood only) 28.6 % (37.0-47.0); Hemoglobin 8.7 g/dl (12.0-16.0); Mean Corpuscular Hemoglobin 26.9 pg (25.0-34.0); Mean Corpuscular Hgb Conc 30.4 g/dL (32.0-36.0); Mean Corpuscular Volume 88.5 fL (80.0-100.0); Mean Platelet Volume 10.9 fL (9.4-12.4); Platelet Count 215 K/uL (130-400); RDW Coefficient of Variation 20.4 % (11.5-14.5); RDW Standard Deviation 58.2 fL (36.4-46.3); Red Blood Count 3.23 M/uL (4.20-5.40); White Blood Count 7.83 K/ul (4.8-10.8)
[2023-11-18 06:55] LABS: Anisocytosis Present; Basophils # (auto) 0.02 K/uL (0.00-0.20); Basophils % (auto) 0.3 %; Eosinophils # (auto) 0.04 K/uL (0.00-0.50); Eosinophils % (auto) 0.5 %; Immature Granulocytes # (auto) 0.35 K/uL (0.01-0.20); Immature Granulocytes % (auto) 4.5 %; Lymphocytes # (auto) 2.66 K/uL (1.20-3.40); Monocytes # (auto) 0.85 K/uL (0.11-0.59); Monocytes % (auto) 10.9 %; Neutrophils # (auto) 3.91 K/uL (1.40-6.50); Neutrophils % (auto) 49.8 %; Polychromasia 1+
[2023-11-18] MEDS: METOPROLOL TARTRATE 25 MG TAB PO SCH (10:05)
--- NOTE | 2023-11-18 10:45 | Discharge Summary ---
Discharge Summary Date of Service November 18, 2023 Principal Dx & Hospital Course #1 = Principal Diagnosis (1) Babesiosis: Presented with weakness, fevers, acute hypoxic respiratory failure, acute metabolic encephalopathy, found to have significant anemia, thrombocytopenia, elevated LFTs, bibasilar pneumonia, elevated procalcitonin, and positive babesiosis smear and Lyme titer. 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 Because her parasitemia level was improving, she was not a candidate for plasmapheresis so the transfer was canceled. Parasitemia level now down to 0% as of 11/17 (day of discharge) Continue azithromycin 500 mg daily, atovaquone 750 mg p.o. every 12 hours for total of 10 days through 11/21 Monitor continued clinical response-extend treatment course if stalled improvement as per ID Continue doxycycline 100 mg every 12 hours for coverage for Lyme disease for 3 weeks of treatment for Lyme through 11/28/23 She completed a 7-day course of ceftriaxone/cefepime for pneumonia coverage- bronc cultures negative, Coccidioides, histoplasma/Blastomyces, Pneumocystis all from BAL are negative Monitored QTc on flecainide and azithromycin-ECG on 11/13 and 11/14 with normal QTc-discontinued flecainide Overall improving, extubated, and downgraded out of the ICU on 11/14 Follow CBC, CMP, parasite smear in 2 days (2) Sepsis: Present on admission. Secondary to babesiosis and acute Lyme disease as well as possible secondary bacterial pneumonia. Blood cultures negative. Chest x-ray appears to be improving. I suspect she had a combination of fluid overload and possibly ARDS. She transiently required Levophed consistent with septic shock. Bronchoscopy washings are all negative Continue antibiotics as noted above (3) Acute Lyme disease: Continue doxycycline through 11/28/23 (4) Paroxysmal atrial fibrillation: Has been in atrial fibrillation throughout her stay with rates as high as 140s. Has a h/o aflutter ablations. Follows with Dr. Klein in [place] Increased p.o. metoprolol to 75 mg p.o. twice daily and rates are with improved control Consulted Cardiology--> dcd flecainide to avoid chemical conversion given she was off Eliquis x 8 days. Consider DC cardioversion after back on Eliquis for 4 weeks if not tolerating clinically Resumed Eliquis on 11/15 as anemia most likely all from hemolysis and she is having brown stool despite being heme occult positive. Hgb stable at 8.9 and platelets are normal Follow-up with cardiology after discharge (5) Acute respiratory failure with hypoxia: Oxygen requirements escalated and she was transferred to the intensive care unit on November 11 and required intubation. Fluid overload was contributing in setting of chronic ILD and has been treated with intravenous Lasix and albumin, steroids Extubated on 11/14 and now weaned off supplemental O2 to room air CXR 11/13 with mild pulm edema, small effusions Can give Lasix as needed-none needed today Have since discontinued the steroids Encourage ICS f/u with PULM as outpt for ILD. Autoimmune laboratory workup remains pending except the double-stranded DNA antibody is negative (6) Metabolic encephalopathy: Present on admission, secondary to sepsis and babesiosis as above-now resolved with treatment of sepsis and infection, hypoxia CT head negative Continue Supportive care, mobilization Have discontinued Marrufo, she is now moving her bowels regularly Resumed home Lyrica which was held for confusion (7) Anemia: Likely secondary to hemolytic anemia from babesiosis. Fecal occult blood is positive but no overt melena or hematochezia. She received 3 units of PRBCs. Hemoglobin drifted down to 7.7 But is now up to 8.7 and stable for days B12, folate normal, ferritin significantly elevated related to acute illness Hematology consultation noted Eliquis has been resumed Continue Protonix therapy po. GI consultation appreciated. No endoscopy plann ed at this time. Earlier this year she had a normal colonoscopy Follow CBC as outpt in 2 days (8) Bilateral pneumonia: Requiring mechanical ventilation after respiratory failure. No overt hemoptysis. Diffuse bilateral infiltrates seen on chest x-ray are resolving. Infectious disease consultation appreciated. Has now completed a course of a combination of ceftriaxone and cefepime in addition to azithromycin for her pneumonia Follow chest x-ray to resolution in 4 weeks as an outpatient Bronchial culture negative as our coccio, pjp, histo /blasto studies (9) Current use of steroid medication: She was recently seen by rheumatology and started on oral prednisone for suspected PMR Initially treated with IV hydrocortisone in the ICU then switched to methylprednisolone on November 11. Have since discontinued the steroids and would not resume at this time Follow-up with rheumatology after discharge (10) Benign essential hypertension: She transiently required pressor support post-intubation. BPs are improved now Started on metoprolol and increased dose for rate control of Afib At home is on diltiazem but favor metoprolol (11) IgG lambda monoclonal gammopathy: No intervention at this time (12) GERD (gastroesophageal reflux disease): Continue PPI Plan DVT prophylaxis-Alex Sousa Disposition- discharge to acute rehab on 11/17 Notes For Next Care Provider Check CBC, CMP, parasite smear in 2 days Follow up CXR in 4 weeks F/u with Cardiology in 3-4 weeks to discuss possible cardioversion if remains in Afib F/u Pulmonology in 2-3 weeks Medication Changes From Visit Added azithromycin 500mg daily and atovaquone 750mg po bid x 4 more days Added doxycycline 100mg po bid x 10 more days Added docusate 100mg po bid and Miralax 17 grams po daily Added metoprolol 75mg po bid and stopped home diltiazem Added Protonix 40mg po bid Admission HPI Per Admitting Provider Danielle Key is a 78 year-old female with past medical history of renal oncocytoma, acrocyanosis, IgG lambda monoclonal gammopathy, GERD, HTN, HLD, par oxysmal a. fib, polymyalgia rheumatic who presented to the ED due to altered mental status. She arrived to the ED via EMS and was found to be hypoxic in the 80s, received IVF bolus in ambulance. Her , who is a retired surgeon, is at bedside and provides majority of history. He notes that she was recently seen by her PCP and then rheumatology for suspected PMR, had ongoing lower extremity neuropathic type aching pain. Was in the process of tapering off gabapentin and starting Lyrica, had also recently started on prednisone. In the past few days she became much more tired and developed low grade fever, poor appetite but was drinking "gallons" of water per her . He notes that he started her on an antibiotic (she received four total doses) due to concern her symptoms could be due to flare of diverticulitis. However this wednesday evening she became confused and he insisted they call an ambulance. This morning on exam she appears tired but is alert and oriented, answers questions appropriately. Her denies any known tick or bug bites, but states they have recently traveled to [place] and [place], as well have been outside many days for [employer]. Denies any uriany symptoms nor blood in stool. Currently she states she is very uncomfortable in the bed and feels "very sweaty". Discharge Exam Constitutional WD/WN, vitals as above Respiratory normal respiratory effort Auscultation: + crackles (Bibasilar); no rhonchi and no wheezes Cardiovascular Rate/Rhythm: regular rate and + irregularly irregular Heart Sounds: no murmur Extremities: no edema Gastrointestinal (Abdomen) normal bowel sounds, soft, nontender, no hepatosplenomegaly Psychiatric Orientation: alert, oriented to person, oriented to place and cooperative Affect: + flat affect Updated Medication List Medication Instructions Recorded Confirmed Type apixaban 5 mg tablet (Eliquis) 5 mg PO BID 09/27/19 11/08/23 History fish oil-dha-epa 1,200 mg-144 1 cap PO QAM 09/27/19 11/08/23 History mg-216 mg capsule multivitamin with minerals 2 tab PO DAILY 07/31/21 11/08/23 History (Hair,Skin and Nails tablet) atorvastatin 80 mg tablet (Lipitor) 80 mg PO DAILY 02/06/22 11/08/23 History calcium carbonate 500 mg PO DAILY 02/06/22 11/08/23 History raloxifene 60 mg tablet 60 mg PO QAM #90 tabs 02/06/22 11/08/23 Rx cholecalciferol (vitamin D3) 25 50 mcg PO DAILY 08/03/22 11/08/23 History mcg (1,000 unit) capsule flecainide 100 mg tablet 50 mg PO BID 08/03/22 11/08/23 History Flutter Valve #1 ea 02/05/23 11/02/23 Rx ferrous sulfate 325 mg (65 mg 325 mg PO DAILY 07/07/23 11/08/23 History iron) tablet acetaminophen 325 mg capsule 325 mg PO QID PRN PAIN/FEVER 10/26/23 11/08/23 History (Tylenol) mecobalamin (vitamin B12) 1,000 1,000 mcg PO DAILY #30 tabs 10/26/23 11/08/23 Rx mcg chewable tablet pregabalin 50 mg capsule (Lyrica) 50 mg PO BID #60 caps 10/26/23 11/08/23 Rx alendronate 70 mg tablet 70 mg PO WK 11/08/23 11/08/23 History atovaquone 750 mg/5 mL oral 750 mg (5 mL) PO Q12H 4 days #40 mL 11/18/23 Rx suspension (Mepron) azithromycin 500 mg tablet 500 mg PO DAILY #4 tabs 11/18/23 Rx docusate sodium 100 mg capsule 100 mg PO BID #60 caps 11/18/23 Rx doxycycline hyclate 100 mg capsule 100 mg PO BID 10 days #20 caps 11/18/23 Rx metoprolol tartrate 25 mg tablet 75 mg (3 x 25 mg) PO BID #180 tabs 11/18/23 Rx pantoprazole 40 mg tablet,delayed 40 mg PO BID #60 tabs 11/18/23 Rx release polyethylene glycol 3350 17 gram 17 g PO DAILY #30 ea 11/18/23 Rx oral powder packet (Miralax) Hospital Stay Data Consultations 11/08/23 04:08 ED Decision to Admit Stat 11/08/23 09:23 Consult Infectious Diseases Routine 11/08/23 11:26 Consult Gastroenterology Routine 11/11/23 09:38 Consult Pulmonology Routine 11/11/23 11:35 Consult Hematology Routine 11/16/23 07:32 Consult Cardiology Routine Diagnostic Imagining Performed 11/08/23 02:34 CT abd pelvis IV con only Stat CT head/brain wo con Stat 11/11/23 11:05 CT chest diagnostic wo con Urgent Discharge Instructions Given to Patient (Per Discharging Provider) You were admitted with sepsis and respiratory failure requiring mechanical ve ntilation secondary to severe babesiosis and Lyme disease from a tick bite. You had severe anemia and low platelets from this illness which is now improving. Please continue the antibiotics to include azithromycin and atovaquone through 11/21. Please continue doxycycline through 11/27 for the Lyme disease. Please check a CBC at the rehab in 2 to 3 days. You also had rapid atrial fibrillation and this is improving with increasing doses of metoprolol. Please follow-up with your winch derrick operator to discuss possible cardioversion or further treatment of this in the future. For now, your flecainide is on hold. Continue your Eliquis for prevention of stroke. With your chronic lung issues, please follow-up with the hydrochloric manufacturing supervisor. You have blood work to look for causes of interstitial lung disease that is still pending at the time of discharge. You are not requiring oxygen supplementally at this time. Please have a follow-up chest x-ray in 4 weeks to ensure that your lungs are clear. Total Time Total Time Spent Total Time Spent (In Minutes): 45 min Total Time Includes: Examination of the Patient, Discharge Planning, Medication Reconciliation, Communication With Other Providers (Cardiology) and Other (Discussed care with ) Coding Level of Care Code 79731 INP/OBS DISCH >30 MIN Diagnoses Babesiosis B60.00 Sepsis A41.9 Acute Lyme disease A69.20 Paroxysmal atrial fibrillation I48.0 Acute respiratory failure with hypoxia J96.01 Metabolic encephalopathy G93.41 Anemia D64.9 Bilateral pneumonia J18.9 Current use of steroid medication Z79.52 Benign essential hypertension I10 IgG lambda monoclonal gammopathy D47.2 GERD (gastroesophageal reflux disease) K21.9
--- NOTE | 2023-11-18 12:10 | Infectious Disease Progress Nt ---
Date of Service November 18, 2023 Assessment & Plan (1) Sepsis: (2) Bilateral pneumonia: (3) Acute respiratory failure with hypoxia: (4) Acute Lyme disease: (5) Babesiosis: Plan This is a 78-year-old female with a past medical history of atrial fibrillation status post ablation, partial nephrectomy, bilateral knee replacement, who presents with myalgias and confusion. She is a poor historian. Her is a retired surgeon and provides history. She underwent a left knee replacement in 12/2022 followed by a left knee replacement in 07/2023. 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 This was followed by bilateral lower extremity pain and ongoing neuropathy of unknown etiology. Approximately 2 weeks ago, she developed increased fatigue, arthralgias, myalgias with loss of appetite. She was seen by her PCP and Rheumatology and wa s diagnosed with possible PMR given elevated inflammatory markers. She was started on prednisone 20 mg per day. In the last few days, she developed fevers, confusion and vomited prompting her admission. Tmax at home 104. She traveled to [place] in August and then [place]. Both she and her [place] in [place] area and have deer in the backyard. They also have been to many outdoor [employer] games for their grandson this summer.. She denies mosquito or tick bites, change in urination, rash, headaches, vision changes, cough, shortness of breath. She took a few doses of amoxicillin and Tylenol with little relief. In the ED she was afebrile, heart rate 125, RR 30, blood pressure 129/62, O2 sats 87% on room air---> 98% oxy mask. Labs WBC 9.37 hemoglobin 7, hematocrit 20, platelets 70, BUN 31, creatinine 0.83, total bili 2, direct bili 0.4, AST 101, ALT 39, alk phos 64, procalcitonin 26.5. Anaplasma smear negative. Anaplasma PCR negative ( 10/25). Babesia smear with red blood cell inclusions noted. PCR and Pathology obtained and were pending at time of initial visit. .Lyme screen and confirmatory testing positive. Respiratory viral panel negative. Chest x-ray with bibasilar opacities suggestive of pneumonia and Left suprahilar nodular opacities. CTAP shows significant interval worsening of bibasilar pneumonia versus pulmonary edema; enlarged heart. Head CT with no evidence of acute intracranial pathology. She initially received a dose of Zosyn She was receiving ceftriaxone, azithromycin, and atovaquone. ID consulted for possible babesiosis and Lyme disease. Antibiotics ceftriaxone 11/06, 11/07- 11/10 Cefepime 11/10-11/16 Zosyn 11/06 Atovaquone 11/07- ongoing Azithromycin 11/07-ongoing Doxycycline 11/10- ongoing Micro: Blood cultures 11/07 NGTD Lyme screen, confirmatory testing 11/07 positive Anaplasma PCR 10/25 negative, pending this admission Anaplasma smear 11/07 No evidence of intracytoplasmic neutrophilic inclusions to suggest Anaplasmosis. Babesia PCR 11/07 DETECTED Babesia smear 11/07 microcytic anemia and frequent intracellular ring form parasites Peripheral smear 5%-9.9% parasites ( 11/09)-->2.0%-4.9% ( 11/10)--> 0.1%-0.9 % (11/14)--> no parasites seen ( 11/17) Bronch cx 11/11 NG ( bacterial) NGTD ( afb, fungal) . Histo, coccidioides , blasto and PJP PCR negative # Fevers, resolved #Severe acute Babesiosis #Lyme disease ( lyme testing neg 10/25 but positive 11/07) ; coinfection with babesiosis #Acute hypoxic respiratory failure, resolved #Possible CAP vs pulm edema/ARDS #Ongoing Neuropathy several months #B/L TKA #Anemia, thrombocytopenia, resolved #Transaminitis, resolved # Procal elevated (26.5---> 44-->23) She has evidence of babesiosis with microcytic anemia and intracellular ring forms in red blood cells. Lyme testing consistent with Lyme disease. Anaplasma smear this admission and prior Anaplasma PCR on 10/25 negative Her clinical syndrome of fatigue, arthralgias, myalgias and lab findings of anemia, transaminitis and thrombocytopenia are consistent with a tickborne illness (specifically babesiosis and Lyme disease). Atovaquone and azithromycin will cover babesiosis. She is not immunocompromised and has her spleen. It does not appear that she has triple coinfection with anaplasmosis, but will repeat Anaplasma PCR. Procalcitonin noted to be elevated with infiltrates on chest x- ray. She was initially receiving Ceftriaxone for ?pna and Lyme coverage . We initially held doxycycline as no s/o coinfection with anaplasmosis. There is no signs on exam of knee involvement at her prosthetic joint sites. 11/08 and 11/09 febrile but curve trending down. Alert and conversant 11/10. Febrile in last 24 hours -T m 39.4 More sob. Late on 11/09 parasite count quantified as 5%-9.9%. Since her parasite count is > 4%, she has pulm edema on CXR, and HGB < 10 , this would be considered acute severe Babesiosis. We do not have a parasite count on admission, so unclear if parasitemia was higher at that time. Increases azithromycin dose from 500 mg --->1000 mg IV daily and continued atovaquone. Will treat with IV azith and then oral stepdown to 500mg once she clinically improves. Will check LDH, Haptoglobin and retic count for hemolysis. Concern for ? bleed as well as ? hemolytic anemia as stool blood + Also add doxycycline. Although ceftriaxone will cover known Lyme disease, it will not cover other tick borne illnesses. I have a lower suspicion for other tickborne diseases as her Anaplasma PCR was negative on 10/25 however it was not retested during this admission. Started definitive Anaplasma therapy with doxy and Changed Pna treatment from ceftriaxone --> Cefepime. Concern for worsening pulm function 11/11 Intubated, febrile tachycardic.S/P bronchoscopy: Cxs obtained. CXR wor sening. ? ARDS. Parasite count down ( from 5% -9.9% to 2.0-4.9 %) but clinically not improving . Procal down from 44--> 23. May need consideration for Exchange transfusion in setting of ?ARDS. LDH 1167-->894, Ast 84, tbili 1.5, Ck 19. Hapto globin pending as of 11/17. Heme onc on board. Complications of severe Babesiosis include ARDS, severe anemia, DIC , CHF, sherman al failure. If parasitemia > 10% or severe hemolytic anemia or pulmonary, renal or llver compromise, will need to consider exchange transfusion. 11/14 extubated, afebrile. Did not require exchange transfusion over weekend . WBC 10.29, H/H 8.5/26.6, plts 171 11/15- afebrile WBC 9.23, h/h8.7/27.2, plts 198, LFTS WNL. %parasites down to 0.1-0.9 %, anaplasma pcr negative. Off flecainide 11/17 afebrile WBC 7.83, H/H 8.7/28.6, plt 215 LFTS WNL. No parasites on Blood smear times QNE smear. Completed 7 d of Cefepime for ? pna. Feels better. Recommendations: -Continue doxycycline 100 mg IV--> PO every 12h for coverage of known Lyme Plan for 21 days of Lyme coverage ( include days received ceftriaxone) EOT 11/28/23 -Continue atovaquone 750 mg p.o. every 12 hours and azithromycin 500 ORAL mg daily. The usual duration of therapy for immunocompetent patients with severe babesiosis is 7 to 10 days. Extended duration of therapy in her case to 14 days as she was slow to improve. At this time she has no parasites seen on most recent smear ( TIMES ONE on 11/17). TENTATIVE EOT 11/21. Would monitor for continued clinical response Follow up Bronch cx (AFB/ fungal). D/w pt and at bedside. Petty Love MD, MPH Infectious Disease [facility], ID Division Call [phone] with questions. Admission and Anticipated Discharge Date Admission Date: November 08, 2023 Subjective Subsequent visit was provided via telemedicine using two-way real-time interactive telecommunication between the patient and the telemedicine provider. For the duration of the visit, the provider was performing the assessment from a different facility than the patient. This includesuse of bluetooth stethoscope forauscultationperformed by the telepresenter that the telemedicine provider can hear if described in the physical exam. Route Deliverer contact information: Please call [facility] . (Phone Number For Physician Use Only) After establishing a telemedicine visit, patient was: Patient was verified with two unique identifiers Time Spent with Patient: Subsequent => 35 min She is feeling well. Repeat Blood smear with no parasites today . Afebrile at bedside Physical Exam Physical Exam: Gen- awake , alert on RA Neck- Supple HEENT- anicteric sclera Lungs- No increased work of breathing Cards- irregular Abd- soft, NT, ND Skin- pallor, no rash Neuro- sedated ext- No edema. Well healed BL TKA incisions Results & Data Vital Signs (Past 12 Hours) Vital Signs Temp Pulse Pulse Pulse Resp BP BP 11/18/23 11:39 36.8 C 87 68 18 134/80 109/75 11/18/23 08:00 11/18/23 07:40 117 H 11/18/23 07:31 36.8 C 68 18 134/80 11/18/23 02:58 36.7 C 105 H 16 120/82 11/18/23 00:20 11/18/23 00:20 36.5 C 87 22 131/79 Pulse Ox O2 Del Method 11/18/23 11:39 95 11/18/23 08:00 Room Air 11/18/23 07:40 11/18/23 07:31 95 Room Air 11/18/23 02:58 97 Room Air 11/18/23 00:20 Room Air 11/18/23 00:20 94 Room Air Laboratory Results Short CBC 11/18/23 Range/Units 05:35 WBC 7.83 (4.8-10.8) K/ul Hgb 8.7 L (12.0-16.0) g/dl Hct 28.6 L (37.0-47.0) % Plt Count 215 (130-400) K/uL BMP 11/18/23 05:35 Sodium 139 Potassium 3.7 Chloride 108 H Carbon Dioxide 27 BUN 22 Creatinine 0.68 Glucose 68 L Calcium 7.9 L Liver Function 11/18/23 Range/Units 05:35 Total Bilirubin 1.1 H (0.2-1.0) mg/dl Direct Bilirubin 0.2 (0-0.2) mg/dl AST 36 (13-39) U/L ALT 38 (7-52) U/L Alkaline Phosphatase 59 (34-104) U/L Albumin 2.5 L (3.4-5.0) gm/dl Diagnostic Findings Microbiology 11/18/23 05:35 Blood Blood Parasites Smear - Final 11/17/23 05:21 Blood Blood Parasites Smear - Final 11/15/23 14:07 Blood Blood Parasites Smear - Final 11/12/23 10:30 Ba Lavage,Right Middle Lobe Fungal Smear - Final 11/12/23 10:30 Ba Lavage,Right Middle Lobe Fungal Culture - Preliminary No yeast or fungus isolated - Report 1, Additional Report to Follow. 11/12/23 19:58 Sputum, Expectorated Gram Stain - Final 11/12/23 19:58 Sputum, Expectorated Sputum Culture - Final Scant normal amanda. 11/12/23 10:30 Ba Lavage,Right Middle Lobe Gram Stain - Final 11/12/23 10:30 Ba Lavage,Right Middle Lobe Bronchial Culture - Final No growth 11/12/23 11:30 Ba Lavage,Right Middle Lobe Acid Fast Bacilli Smear - Final 11/08/23 02:37 Blood Aerobic Blood Culture - Final No growth in Aerobic bottle after 5 days. 11/08/23 02:37 Blood Anaerobic Blood Culture - Final No growth in Anaerobic bottle after 5 days. 11/08/23 02:20 Blood Aerobic Blood Culture - Final No growth in Aerobic bottle after 5 days. 11/08/23 02:20 Blood Anaerobic Blood Culture - Final No growth in Anaerobic bottle after 5 days. 11/12/23 11:41 Blood Blood Parasites Smear - Final 11/11/23 16:28 Blood Blood Parasites Smear - Final 11/09/23 Unknown Urine,Indwelling Cath Urine Culture - Final No growth - less than 1,000 colonies/mL. 11/10/23 14:36 Blood Blood Parasites Smear - Preliminary Medications Administered Home Medications Medication Instructions Recorded Confirmed Last Taken apixaban 5 mg tablet (Eliquis) 5 mg PO BID 09/27/19 11/08/23 11/07/23 fish oil-dha-epa 1,200 mg-144 1 cap PO QAM 09/27/19 11/08/23 11/07/23 mg-216 mg capsule multivitamin with minerals 2 tab PO DAILY 07/31/21 11/08/23 11/07/23 (Hair,Skin and Nails tablet) atorvastatin 80 mg tablet (Lipitor) 80 mg PO DAILY 02/06/22 11/08/23 11/07/23 calcium carbonate 500 mg PO DAILY 02/06/22 11/08/23 11/07/23 raloxifene 60 mg tablet 60 mg PO QAM #90 tabs 02/06/22 11/08/23 11/07/23 cholecalciferol (vitamin D3) 25 50 mcg PO DAILY 04/17/23 07/22/24 07/21/24 mcg (1,000 unit) capsule flecainide 100 mg tablet 50 mg PO BID 08/03/22 11/08/23 11/07/23 omeprazole 20 mg capsule,delayed 20 mg PO DAILY 08/03/22 11/08/23 11/07/23 release Flutter Valve #1 ea 02/05/23 11/02/23 Unknown diltiazem HCl 120 mg See Rx Instructions .Route .COMPLEX 07/07/23 11/08/23 11/07/23 capsule,extended release 12 hr ferrous sulfate 325 mg (65 mg 325 mg PO DAILY 07/07/23 11/08/23 11/07/23 iron) tablet acetaminophen 325 mg capsule 325 mg PO QID PRN PAIN/FEVER 10/26/23 11/08/23 Unknown (Tylenol) mecobalamin (vitamin B12) 1,000 1,000 mcg PO DAILY #30 tabs 10/26/23 11/08/23 11/07/23 mcg chewable tablet prednisone 20 mg tablet 20 mg PO DAILY #30 tabs 10/26/23 11/08/23 11/07/23 pregabalin 50 mg capsule (Lyrica) 50 mg PO BID #60 caps 10/26/23 11/08/23 11/02/23 13:26 gabapentin 600 mg tablet 300 mg PO DAILY 11/02/23 11/08/23 11/07/23 prednisone 5 mg tablet 15 mg (3 x 5 mg) PO DAILY #90 tabs 11/02/23 11/08/23 Unknown alendronate 70 mg tablet 70 mg PO WK 11/08/23 11/08/23 Unknown amoxicillin 875 mg tablet 875 mg PO BID 11/08/23 11/08/23 11/07/23 Active Medications Generic Name Dose Route Start Last Admin Trade Name Freq PRN Reason Stop Dose Admin Acetaminophen 650 mg 11/15/23 15:25 11/18/23 00:24 Acetaminophen 325 Mg Tab PO 12/15/23 15:24 650 mg Q4H PRN Administration Pain or fever Apixaban 5 mg 11/16/23 12:00 11/18/23 09:21 Apixaban 5 Mg Tablet PO 12/16/23 11:59 5 mg BID LEN Administration Atorvastatin Calcium 80 mg 11/15/23 09:33 11/18/23 09:21 Atorvastatin 40 Mg Tab PO 12/15/23 09:32 80 mg QAM LEN Administration Atovaquone 750 mg 11/08/23 09:00 11/18/23 09:21 Atovaquone 750 Mg/5 Ml Udc PO 12/08/23 08:59 750 mg Q12H LEN Administration Bisacodyl 10 mg 11/08/23 10:17 11/16/23 10:33 Bisacodyl 10 Mg Supp AK 12/08/23 10:16 10 mg DAILY PRN Administration Constipation Diphenhydramine HCl 25 mg 11/17/23 14:54 11/17/23 20:59 Diphenhydramine Capsule 25 Mg Cap PO 12/17/23 14:53 25 mg HS PRN Administration Insomnia Docusate Sodium 100 mg 11/16/23 21:00 11/18/23 09:33 Docusate Sodium 100 Mg Cap PO 12/16/23 20:59 Not Given BID LEN Azithromycin 500 mg/ Dextrose 255 mls @ 127.5 mls/hr 11/17/23 09:00 11/18/23 11:28 IV 11/22/23 08:59 Infused Q24H LEN Infusion Metoprolol Tartrate 75 mg 11/18/23 09:00 11/18/23 10:05 Metoprolol Tartrate 25 Mg Tab PO 12/18/23 08:59 75 mg BID LEN Administration Pantoprazole Sodium 40 mg 11/16/23 21:00 11/18/23 09:22 Pantoprazole 40 Mg Tab PO 12/16/23 20:59 40 mg BID LEN Administration Polyethylene Glycol 17 gm 11/16/23 11:45 11/18/23 09:33 Polyethylene (Miralax) 17 Gm Pack PO 12/16/23 11:44 Not Given DAILY LEN Pregabalin 50 mg 11/17/23 21:00 11/18/23 09:24 Pregabalin 50 Mg Cap PO 12/17/23 20:59 50 mg BID LEN Administration
[2023-11-18] MEDS: DOXYCYCLINE HYCLATE 100 MG CAP PO SCH (12:36)
== END 2023-11-18 13:00 | DRG 871 ==
LOC: SUATTDRO → ED 02:12 → SUATTDRO 05:49 → 2S 05:49 → 1E 11-12 09:51 → 4W 11-18 00:30